=== PATIENT | male | born 1960 | race Caucasian/White ===

== ENCOUNTER 2019-03-14 17:20 | Emergency (ER) | payer OTHER ==
[2019-03-14] MEDS ORDERED: MORPHINE SULFATE 4 MG/ML SYRINGE IVP STA (17:59)
[2019-03-14] MEDS ORDERED: MORPHINE SULFATE 4 MG/ML SYRINGE IM STA (18:22)
--- NOTE | 2019-03-14 18:27 | XR ---
EXAMINATION TYPE: XR wrist complete LT DATE OF EXAM: 03/14/2019 COMPARISON: NONE HISTORY: Wrist pain TECHNIQUE: 4 views FINDINGS: There is narrowing and spurring at the scaphoid trapezium joint. This calcification in the triangular cartilage. There is some mild spurring at the first carpometacarpal joint. I see no fractu re nor dislocation. There is narrowing and sclerosis and spur formation at the third MP joint. IMPRESSION: Osteoarthritis. No fracture seen.
--- NOTE | 2019-03-14 19:06 | ED ---
General Adult HPI - General Chief complaint: Extremity Injury, Upper Stated complaint: lt wrist pain Time Seen by Provider: 03/14/19 17:44 Source: patient Mode of arrival: ambulatory - History of Present Illness Initial comments: Patient is 58-year-old male presenting to emergency Department for left wrist pain. Patient reports going to the chiropractor earlier today for shoulder treatment in the chiropractor also "cracked" his hand. Patient reports 2-3 hours later he suddenly developed excruciating pain in the left wrist. Patient reports the pain is stabbing and rates it a "15". Patient states the pain is alleviated with rest and exacerbated with any movement. Patient denies any numbness or tingling to the fingers. Patient reports that he is able to fully move his fingers. Patient denies taking any medication to alleviate the symptoms. Patient reports he has been to the chiropractor multiple times for the same treatment and has never experienced anything like this. - Related Data Home Medications Medication Instructions Recorded Confirmed Lisinopril [Zestril] 2.5 mg PO HS 05/18/16 03/14/19 Metoprolol Tartrate [Lopressor] 50 mg PO BID 05/18/16 03/14/19 Pravastatin Sodium [Pravachol] 40 mg PO DAILY 05/18/16 03/14/19 Warfarin [Coumadin] 5 mg PO DAILY 05/18/16 03/14/19 Aspirin 81 mg PO DAILY 07/31/16 03/14/19 Previous Rx's Medication Instructions Recorded Clopidogrel [Plavix] 75 mg PO DAILY #90 tab 08/01/16 Allergies Allergy/AdvReac Type Severity Reaction Status Date / Time hydrocodone bitartrate Allergy Itching Verified 03/14/19 17:25 [From [facility]] Review of Systems ROS Statement: Those systems with pertinent positive or pertinent negative responses have been documented in the HPI. ROS Other: All systems not noted in ROS Statement are negative. 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 Past Anesthesia/Blood Transfusion Reactions: No Reported Reaction Past Psychological History: No Psychological Hx Reported Smoking Status: Current every day smoker Past Alcohol Use History: Occasional Past Drug Use History: Marijuana - Past Family History Sister(s) Family Medical History: Cancer Father Family Medical History: Asthma, Hypertension, Myocardial Infarction ([place]) Additional Family Medical History / Comment(s): EMPHYSEMA, FROM [place] AT AGE 50 Mother Family Medical History: Congestive Heart Failure (CHF) Additional Family Medical History / Comment(s): AT AGE 83 FROM CHF General Exam Limitations: no limitations General appearance: alert, in no apparent distress Head exam: Present: atraumatic, normocephalic, normal inspection Eye exam: Present: normal appearance Neck exam: Present: normal inspection Respiratory exam: Present: normal lung sounds bilaterally Cardiovascular Exam: Present: regular rate, normal rhythm, normal heart sounds Left Shoulder Exam: Present: normal inspection, full ROM Upper Arm exam: Present: normal inspection, full ROM Elbow exam: Present: normal inspection, full ROM Forearm Wrist exam: Absent: tenderness over anatomical snuff box Hand Wrist exam: Present: tenderness (Severe on posterior aspect of the pain.), swelling (Mild on posterior aspect of hand.). Absent: full ROM (Limited due to pain), abrasion, laceration, erythema, subungual hematoma Vascular: Present: normal capillary refill, radial pulse, ulnar pulse Neurological exam: Present: alert, oriented X3 Psychiatric exam: Present: normal affect, normal mood Skin exam: Present: warm, intact, normal color Course Vital Signs 03/14/19 17:23 Temperature 97.6 F Pulse Rate 22 L Respiratory 89 H Rate Blood Pressure 152/93 O2 Sat by Pulse 99 Oximetry Medical Decision Making - Medical Decision Making Patient is 58-year-old male presents emergency department with left wrist pain. Patient was given 4 mg of morphine to alleviate the pain. X-ray is negative for any acute fractures or dislocations. Patient advised to follow-up with orthopedics. Patient advised to alternate between Tylenol and ibuprofen for pain control. Patient advised to return to emergency department if symptoms worsen. Case discussed with physician. Disposition Clinical Impression: Wrist pain, acute Disposition: HOME SELF-CARE Condition: Stable Instructions (If sedation given, give patient instructions): Wrist Sprain (ED) Additional Instructions: Please alternate between Tylenol and ibuprofen for pain control. Please follow- up with orthopedics. Please return to emergency department if symptoms worsen. Is patient prescribed a controlled substance at d/c from ED?: No Referrals: Viktoriya Curiel MD [Primary Care Provider] - 1-2 days Lai Shetty MD [STAFF PHYSICIAN] - 1-2 days Time of Disposition: 19:07
[2019-03-14 19:10] VITALS: BP 123/78; PULSE 94; RESP 18; TEMP 97.7
== END 2019-03-14 19:15 | disposition home or self-care (01) ==
LOC: EC 17:20
DX: M25.532 Pain in left wrist (principal); E78.5 Hyperlipidemia, unspecified; I10 Essential (primary) hypertension; F17.200 Nicotine dependence, unspecified, uncomplicated; Z86.73 Personal history of transient ischemic attack (TIA), and cerebral infarction without residual deficits; Z79.82 Long term (current) use of aspirin; Z79.01 Long term (current) use of anticoagulants; Z79.899 Other long term (current) drug therapy; Z88.5 Allergy status to narcotic agent; Z53.8 Procedure and treatment not carried out for other reasons
CPT/HCPCS: 73110; 99283; 96372; J2270

== ENCOUNTER → 2021-06-04 | Outpatient (CLI) | payer OTHER ==
--- NOTE | 2021-06-04 10:57 | MR ---
EXAMINATION TYPE: MR lumbar spine wo con DATE OF EXAM: 06/04/2021 COMPARISON: 08/04/2020 HISTORY: Low back pain into left side TECHNIQUE: T1 and T2 axial and sagittal images of the lumbar spine are submitted. FINDINGS: There is no abnormal signal seen within the visualized spinal cord or paraspinal soft tissu es. Simple appearing right renal cysts are incidentally noted. At L1-2 there is hypertrophic change of the facets. No canal stenosis or foraminal encroachment. No d isc herniation. At L2-3 there is mild degenerative disc disease with hypertrophic change of the facets. No canal sten osis or foraminal encroachment. At L3-4 there is mild degenerative disc disease with right paracentral broad-based disc bulging. Ther e is mild right neural foraminal encroachment. At L4-5 there is severe degenerative disc disease with broad-based disc protrusion resulting in moder ate anterior compression of the thecal sac. There is a greater left paracentral component suggestive of a extruded disc herniation extending into the left lateral recess. There is facet arthropathy. Mod erate left and mild right neural foraminal encroachment. At L5-S1 there is degenerative disc disease with broad-based central and right paracentral disc bulgi ng. Mild bilateral foraminal encroachment. Hypertrophic change of the facets. IMPRESSION: 1. At L4-L5 there is broad-based disc protrusion or herniation resulting in canal stenosis with a gre ater left paracentral component suggestive of a extruded disc herniation extending near the region of the left lateral recess. 2. Multilevel degenerative disc disease with right paracentral disc bulging L3-L4 with mild right for aminal encroachment. 3. Central and right paracentral disc bulging L5-S1 with mild bilateral foraminal encroachment.
--- NOTE | 2021-06-04 11:24 | CTL ---
EXAMINATION TYPE: CT Low Dose Lung DATE OF EXAM ORDERED: 06/04/2021 HISTORY: Z87.891 Personal history of nicotine dependence . Lung cancer screening CT DLP: 152.[address] CTDI: 4.1 mGy Automated exposure control for dose reduction was used. SCREENING VISIT: 1 COMPARISON: CT 07/31/2016 TECHNIQUE: Low dose computed tomography scan was performed through the chest at 1 mm thick sections a nd reconstructed images in the coronal plane at [address] DIAGNOSTIC QUALITY: Satisfactory FINDINGS: LUNG NODULES: Present, detailed below: Calcified subpleural pulmonary nodule axial image 76 is stable and benign as is calcified subpleural nodule on axial image 85 the right upper lobe and calcified nodule axial image 94 right upper lobe. M ultiple additional calcified right and left lung nodules are present and stable. No suspicious nodule s. LUNGS: COPD: Severity: Mild Fibrosis: Severity: Severe, there is honeycombing present in the subpleural locations, extensive inte rstitial changes with interlobular septal pleural lines somewhat greater in the upper lobes than lowe r lobes. Lymph nodes: None Other findings: Calcified hilar nodes are present, subcarinal node also calcified RIGHT PLEURAL SPACE: Effusion: None Calcification: None Thickening: None Pneumothorax: None LEFT PLEURAL SPACE: Effusion: None Calcification: None Thickening: None Pneumothorax: None HEART: Heart Size: Normal Coronary calcification: Mild to moderate Pericardial effusion: None OTHER FINDINGS: Upper abdomen: Calcified splenic nodule, liver nodules present Bony thorax: Supraclavicular region: Other: There is a hiatal hernia present. IMPRESSION: Benign, lung rad 2 CT LUNG RAD AND CT CHEST RECOMMENDATION: CHEST CT in one year S Modifier (other clinically significant findings): S, significant interstitial lung disease has prog ressed in the interval, consider pulmonary consult
== END | disposition home or self-care (01) ==
LOC: RADCTMAIN 09:49
PROVIDERS: ATTEND Internal Medicine
DX: Z12.2 Encounter for screening for malignant neoplasm of respiratory organs (principal); J84.89 Other specified interstitial pulmonary diseases; R91.8 Other nonspecific abnormal finding of lung field; M48.061 Spinal stenosis, lumbar region without neurogenic claudication; M51.17 Intervertebral disc disorders with radiculopathy, lumbosacral region; Z87.891 Personal history of nicotine dependence
CPT/HCPCS: 71271; 72148

== ENCOUNTER → 2021-06-04 | Outpatient (CLI) | payer OTHER | END | disposition home or self-care (01) | LOC: RADMRIMAIN 09:43 | PROVIDERS: ATTEND Physician Assistant | DX: Z53.9 Procedure and treatment not carried out, unspecified reason (principal) ==

== ENCOUNTER → 2021-07-14 | Outpatient (CLI) | payer OTHER ==
[2021-07-15 14:31] LABS: Alt. alternata IgE Class CLASS 0; Alternaria alternata IgE <0.10 kU/L (<0.10); Asperg. fumagatus IgE <0.10 kU/L (<0.10); Asperg. fumagatus IgE Class CLASS 0; Candida albicans IgE Class CLASS 0; Clad herbarum IgE <0.10 kU/L (<0.10); Clad herbarum IgE Class CLASS 0; Latex IgE Class CLASS 0; Mucor racemosus IgE <0.10 kU/L (<0.10); Mucor racemosus IgE Class CLASS 0; Penicillium chrysogenum IgE <0.10 kU/L (<0.10); Penicillium chrysogenum IgE Cl CLASS 0
[2021-07-16 13:19] LABS: Alpha 1 Anti-Trypsin 139 mg/dL (90 - 200)
== END | disposition home or self-care (01) ==
LOC: LABWHC1 12:10
PROVIDERS: ATTEND Internal Medicine Sleep Medicine
DX: E88.01 Alpha-1-antitrypsin deficiency (principal); B44.81 Allergic bronchopulmonary aspergillosis
CPT/HCPCS: 36415; 82103; 82104; 86001; 86003; 86606; 86609

== ENCOUNTER → 2021-09-24 | Outpatient (CLI) | payer OTHER | END | disposition home or self-care (01) | LOC: LABWHC1 12:42 | PROVIDERS: ATTEND Internal Medicine | DX: Z20.822 Contact with and (suspected) exposure to COVID-19 (principal) | CPT/HCPCS: U0003; C9803 ==

== ENCOUNTER 2021-09-30 13:04 | Inpatient (IN) | payer OTHER ==
--- NOTE | 2021-09-30 14:28 | XR ---
EXAMINATION TYPE: XR chest 2V DATE OF EXAM: 09/30/2021 COMPARISON: Chest x-ray September 18, 2014 HISTORY: Cough and fever TECHNIQUE: Frontal and lateral views of the chest are obtained. FINDINGS: There are new multifocal reticular increased opacities greatest in the periphery and great est in the left lung. The cardiac silhouette size remains within normal limits. The osseous struct ures are intact. IMPRESSION: New Bilateral left greater than right reticular increased opacities greatest in the perip john consistent with covid-19 infection.
[2021-09-30] MEDS ORDERED: IPRATROPIUM-ALBUTEROL 3 ML NEB INHALATION STA (15:37)
[2021-09-30] MEDS ORDERED: methylPREDNISolone SOD SUCCI 125 MG/2 ML VIAL IV STA (15:37)
[2021-09-30] MEDS ORDERED: SODIUM CHLORIDE 0.9% 1,000 ML IV STA ×2 (15:37→16:41)
[2021-09-30 16:04] LABS: Basophils # (A) 0.1 k/uL (0-0.2); Basophils % (A) 1 %; Eosinophils # (A) 0.1 k/uL (0-0.7); Eosinophils % (A) 2 %; HCT 46.6 % (39.0-53.0); HGB 15.8 gm/dL (13.0-17.5); Lymphocytes # (A) 1.3 k/uL (1.0-4.8); Lymphocytes % (A) 18 %; MCH 30.7 pg (25.0-35.0); MCHC 33.9 g/dL (31.0-37.0); MCV 90.6 fL (80.0-100.0); Mean Platelet Volume 6.9; Monocytes # (A) 0.7 k/uL (0-1.0); Monocytes % (A) 9 %; Neutrophils # (A) 4.7 k/uL (1.3-7.7); Neutrophils % (A) 67 %; Platelet Count 355 k/uL (150-450); RBC 5.15 m/uL (4.30-5.90); RDW 14.6 % (11.5-15.5); WBC 7.1 k/uL (3.8-10.6)
[2021-09-30 16:16] LABS: Calcium 8.7 mg/dL (8.4-10.2); Magnesium 1.8 mg/dL (1.6-2.3)
[2021-09-30] MEDS ORDERED: AZITHROMYCIN 500 MG in SODIUM CHLORIDE 0.9% 250 ML IVPB STA (16:39)
[2021-09-30] MEDS ORDERED: cefTRIAXone IN SWFI 1,000 MG/10 ML SYRINGE IVP STA (16:39)
[2021-09-30] MEDS ORDERED: NALOXONE 0.4 MG/ML 1 ML VIAL IV PRN (16:41)
[2021-09-30] MEDS ORDERED: IBUPROFEN 400 MG TAB PO PRN (16:41)
--- NOTE | 2021-09-30 16:54 | ED ---
General Adult HPI - General Chief complaint: Upper Respiratory Infection Stated complaint: no taste/not eating/dizziness Time Seen by Provider: 09/30/21 15:08 Source: family, RN notes reviewed, old records reviewed Mode of arrival: ambulatory Limitations: no limitations - History of Present Illness Initial comments: Patient is a 61-year-old male with past medical history remarkable for emphysema, CVA, afib on coumadin, hypertension who was a prior smoker presents emergency Department with worsening fatigue, mild nonproductive cough, loss of appetite, decreased by mouth intake over the course of the past 3 weeks. He denies any chest pain, shortness of breath. Denies any lower extremity edema, orthopnea, paroxysmal nocturnal dyspnea. Denies any abdominal pain, nausea, diarrhea. States he feels "dry". He is concerned regarding infectious etiology as he also has rhinorrhea. Patient presents for further evaluation. Patient was vaccinated for COVID-19.Patient states a few times over the last few weeks, when he stands up he does feel lightheaded but this passes. Denies any dizziness, vertiginous symptoms. Cell states that he has not been eating or drinking much attributes it to this. Has any syncopal episodes, blurry vision, sensory deficits or weakness otherwise. - Related Data Home Medications Medication Instructions Recorded Confirmed Warfarin [Coumadin] 5 mg PO HS 05/18/16 09/30/21 Albuterol Nebulized [Ventolin 2.5 mg INHALATION RT-Q8H PRN 09/30/21 09/30/21 Nebulized] Aspirin 81 mg PO HS 09/30/21 09/30/21 Atorvastatin [Lipitor] 40 mg PO HS 09/30/21 09/30/21 Budesonide [Pulmicort] 0.5 mg INHALATION RT-BID 09/30/21 09/30/21 DULoxetine HCL [Cymbalta] 60 mg PO HS 09/30/21 09/30/21 Ipratropium-Albuterol Nebulize 3 ml INHALATION RT-QID 09/30/21 09/30/21 [Duoneb 0.5 mg-3 mg/3 ml Soln] Lisinopril-Hctz 10-12.5 mg 1 tab PO HS 09/30/21 09/30/21 [Zestoretic 10-12.5] Metoprolol Succinate (ER) [Toprol 50 mg PO HS 09/30/21 09/30/21 Xl] Montelukast Sodium [Singulair] 10 mg PO HS 09/30/21 09/30/21 Omeprazole 20 mg PO HS 09/30/21 09/30/21 Allergies Allergy/AdvReac Type Severity Reaction Status Date / Time hydrocodone bitartrate Allergy Itching Verified 09/30/21 17:03 [From [facility]] Review of Systems ROS Statement: Those systems with pertinent positive or pertinent negative responses have been documented in the HPI. Review of Systems: CONST: Endorses fatigue EYES: Denies blurry vision ENT: Endorses rhinorrhea C/V: Denies Chest pain RESP: Denies shortness of breath GI: Denies abdominal pain : Denies dysuria SKIN: Denies rash. MSK: Denies joint pain. NEURO: Denies headache ROS Other: All systems not noted in ROS Statement are negative. 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 Past Anesthesia/Blood Transfusion Reactions: No Reported Reaction Past Psychological History: No Psychological Hx Reported Past Alcohol Use History: Occasional Past Drug Use History: Marijuana - Past Family History Sister(s) Family Medical History: Cancer Father Family Medical History: Asthma, Hypertension, Myocardial Infarction ([place]) Additional Family Medical History / Comment(s): EMPHYSEMA, FROM [place] AT AGE 50 Mother Family Medical History: Congestive Heart Failure (CHF) Additional Family Medical History / Comment(s): AT AGE 83 FROM CHF General Exam - General Exam Comments Initial Comments: General: Appears in no acute distress. HEAD: Normal with no signs of head trauma. EYES: PERRLA, EOMI, conjunctiva normal, no discharge. ENT: Hearing grossly intact, normal oropharynx. Dry mucous membranes. RESPIRATORY: Bilateral end expiratory wheezing. No obvious rhonchi. Not hypoxic. No increased work of breathing. C/V: Regular rate and rhythm. S1 and S2 auscultated, no edema, peripheral pulses 2+ and intact throughout ABD: Abd is soft, nontender, nondistended EXT: Normal range of motion, no obvious deformity SKIN: No rashes or lesions observed on exposed skin. NEURO: Alert and oriented x 4. Cranial nerves II-XII intact. No focal sensory or strength deficits. Cerebellar function is intact as evident but normal f joe-nose testing. NIH is 0. GCS is 15. Limitations: no limitations Course Vital Signs 09/30/21 09/30/21 09/30/21 13:46 16:01 16:08 Temperature 97.6 F Pulse Rate 101 H 60 70 Respiratory 19 16 18 Rate Blood Pressure 96/65 O2 Sat by Pulse 96 Oximetry 09/30/21 19:35 Temperature 97.0 F L Pulse Rate 86 Respiratory 22 Rate Blood Pressure 121/87 O2 Sat by Pulse 95 Oximetry Medical Decision Making - Medical Decision Making Based on the patient's presentation and physical exam, I'm concerned for acute dehydration this patient and Possibly pneumonia. Patient already received COVID-19 swab as well as chest x-ray in triage. COVID-19 swab was negative. Chest x-ray did show bilateral pulmonary infiltrates suspicious for COVID-19. [address], patient is not hypoxic, and is on week 3 of symptoms or does not meet criteria for monoclonal antibody therapy if it were Covid 19. However due to his persistent symptoms, as well as reduced by mouth intake and concern for dehydration, we will obtain basic laboratory studies to assess kidney function and hydration status. Patient was in agreement this plan. Screening EKG will be obtained. He'll be given a 1 L fluid bolus,, IV steroids, as well as breathing treatments. Laboratory studies were remarkable for a hyponatremia of 124 with hypochloremia of 88. Patient is an [place] I with be 124 and creatinine of 1.5. Remainder the labs are unremarkable. EKG revealed known atrial fibrillation. Reevaluation come patient is feeling mildly improved. Wheezing is improved. I did recommend that we admit him to the hospital for further monitoring, breathing treatments, as well as IV hydration. Patient was in agreement with this plan. I spoke with the admitting team, BREN Rodríguez [facility] accepted the patient. Patient was therefore admitted to observation in stable condition. I consulted pulmonology for evaluation. He was started on a one-time dose of Rocephin and azithromycin to cover for the possibility of bacterial pneumonia, however chest x-ray does follow more viral picture. He'll be further reevaluated tomorrow. - Lab Data Result diagrams: 09/30/21 15:43 09/30/21 15:43 Lab Results 09/30/21 09/30/21 09/30/21 Range/Units 13:51 15:43 15:43 WBC 7.1 (3.8-10.6) k/uL RBC 5.15 (4.30-5.90) m/uL Hgb 15.8 (13.0-17.5) gm/dL Hct 46.6 (39.0-53.0) % MCV 90.6 (80.0-100.0) fL MCH 30.7 (25.0-35.0) pg MCHC 33.9 (31.0-37.0) g/dL RDW 14.6 (11.5-15.5) % Plt Count 355 (150-450) k/uL MPV 6.9 Neutrophils % 67 % Lymphocytes % 18 % Monocytes % 9 % Eosinophils % 2 % Basophils % 1 % Neutrophils # 4.7 (1.3-7.7) k/uL Lymphocytes # 1.3 (1.0-4.8) k/uL Monocytes # 0.7 (0-1.0) k/uL Eosinophils # 0.1 (0-0.7) k/uL Basophils # 0.1 (0-0.2) k/uL Sodium 124 L (137-145) mmol/L Potassium 4.0 (3.5-5.1) mmol/L Chloride 88 L (98-107) mmol/L Carbon Dioxide 28 (22-30) mmol/L Anion Gap 8 mmol/L BUN 24 H (9-20) mg/dL Creatinine 1.50 H (0.66-1.25) mg/dL Est GFR (CKD-EPI)AfAm 57 (>60 ml/min/1.73 sqM) Est GFR (CKD-EPI)NonAf 49 (>60 ml/min/1.73 sqM) Glucose 99 (74-99) mg/dL Calcium 8.7 (8.4-10.2) mg/dL Magnesium 1.8 (1.6-2.3) mg/dL Coronavirus (PCR) Not Detected (Not Detectd) - EKG Data -: EKG Interpreted by Me EKG Comments: 12-lead Electrocardiogram Interpretation Note EKG was reviewed and interpreted by myself. 12-lead ECG performed at 1718 is interpreted by me as revealing atrial fibrillation rate controlled at a rate of 88 beats per minute. [place] is normal. [place] interval is unobtainable, QRS duration is 84 ms, QTc is 474 ms.. There were no ST or T wave abnormalities to suggest myocardial ischemia or injury. R wave progression across the precordium was satisfactory. By my interpretation this EKG is non-diagnostic for acute ischemia. Disposition Clinical Impression: Dehydration, Pneumonia, MALCOLM (acute kidney injury) Disposition: ADMITTED IP TO THIS HOSP Condition: Stable
[2021-09-30 17:44] LABS: Prothrombin Time 53.6 sec (9.0-12.0)
[2021-09-30 17:50] LABS: INR 5.5 (<1.2)
[2021-09-30] MEDS ORDERED: IPRATROPIUM-ALBUTEROL 3 ML NEB INHALATION SCH (20:00)
[2021-09-30] MEDS ORDERED: IPRATROPIUM-ALBUTEROL 3 ML NEB INHALATION PRN (20:38)
[2021-09-30] MEDS: methylPREDNISolone SOD SUCCI 40 MG/ML 1 ML VIAL IV SCH (21:19)
[2021-09-30] MEDS: METOPROLOL TARTRATE 50 MG TAB PO SCH (21:19)
[2021-10-01] MEDS: methylPREDNISolone SOD SUCCI 40 MG/ML 1 ML VIAL IV SCH ×4 (03:57→21:18)
[2021-10-01] MEDS: IPRATROPIUM-ALBUTEROL 3 ML NEB INHALATION SCH ×4 (07:23→19:47)
[2021-10-01 07:37] LABS: Prothrombin Time 57.3 sec (9.0-12.0)
[2021-10-01 08:06] LABS: INR 5.9 (<1.2)
[2021-10-01] MEDS: SODIUM CHLORIDE 0.9% 1,000 ML IV SCH ×2 (08:56→17:48)
[2021-10-01] MEDS: METOPROLOL TARTRATE 50 MG TAB PO SCH ×2 (08:56→20:40)
[2021-10-01] MEDS: CLOPIDOGREL 75 MG TAB PO SCH (08:57)
[2021-10-01] MEDS: ASPIRIN 81 MG PO SCH (08:57)
[2021-10-01] MEDS ORDERED: WARFARIN 5 MG TAB PO SCH (09:00)
[2021-10-01 09:46] LABS: Basophils # (A) 0 X 10*3/uL (0.00-0.10); Basophils % (A) 0 %; Eosinophils # (A) 0 X 10*3/uL (0.04-0.35); Eosinophils % (A) 0 %; HCT 43.3 % (39.6-50.0); HGB 15.1 g/dL (13.0-17.0); Lymphocytes # (A) 0.57 X 10*3/uL (0.90-5.00); Lymphocytes % (A) 10.8 %; MCH 30.3 pg (27.0-32.0); MCHC 34.9 g/dL (32.0-37.0); MCV 86.8 fL (80.0-97.0); Mean Platelet Volume 9.3 fL (9.5-12.2); Monocytes # (A) 0.19 X 10*3/uL (0.20-1.00); Monocytes % (A) 3.6 %; Neutrophils % (A) 85.2 %; Platelet Count 322 X 10*3/uL (140-440); RBC 4.99 X 10*6/uL (4.40-5.60); RDW 14.1 % (11.5-14.5); WBC 5.28 X 10*3/uL (4.50-10.00)
[2021-10-01 10:30] LABS: African American GFR (CKD) 82.4 (60.0-200.0); Anion Gap 12.7 mmol/L (10.00-18.00); BUN/Creat Ratio 16.55 Ratio (12.00-20.00); Blood Urea Nitrogen 18.2 mg/dL (9.0-27.0); Calcium 8.5 mg/dL (8.7-10.3); Carbon Dioxide 22.3 mmol/L (20.0-27.5); Magnesium 1.9 mg/dL (1.5-2.4); Non-African American GFR(CKD) 71.1 (60.0-200.0); Potassium 4.1 mmol/L (3.5-5.5)
[2021-10-01] MEDS ORDERED: RX INFO: IV CONTRAST WAS GIVEN 1 EACH MISC MISCELLANE PRN (12:02)
--- NOTE | 2021-10-01 12:02 | P.CNPUL ---
History of Present Illness Consult date: 10/01/21 Requesting physician: Hussain Casey Reason for consult: abnormal CXR/CT Chief complaint: Fatigue, weakness, loss of appetite History of present illness: This is a very pleasant 61-year-old gentleman who follows with Dr. Curiel as his primary care provider. He has a history of occasional alcohol use, tremors the right upper extremity, former smoker of 2 packs per day for 25 years, hypertension, hyperlipidemia all peripheral vascular disease with previous bilateral iliac stents vision, marijuana use, atrial fibrillation anticoagulated with warfarin. He presented here to the emergency room yesterday with complaints of a 3 week history of poor appetite, poor oral intake and feeling dehydrated. He denies any shortness of breath, cough or congestion. He is maintaining O2 saturations in the 90s on room air. Chest x-ray revealed some scarring. Initially suspected of CoVID. He is vaccinated. No booster. He is seen today in consultation on the regular medical floor. He sitting up in bed. Awake and alert in no acute distress. Continued on room air. I count 5.28. Hemoglobin 15.1. INR 5.9. Sodium initially 124, currently 129. Potassium 4.1. Creatinine initially 1.5, currently 1.1. Pro-calcitonin 0.07. Chronic virus by PCR not detected. The patient did have a low-dose computed tomography scan in May 2021 did reveal evidence of interstitial lung disease and honeycombing in the subpleural locations, extensive interstitial changes with interlobular septal pleural lines somewhat greater in the upper lobes. Mild COPD. No evidence of lung nodules. Review of Systems REVIEW OF SYSTEMS: CONSTITUTIONAL: Positive for poor appetite, poor oral intake, weight loss. EYES: Denies change in vision. EARS, NOSE, MOUTH, THROAT: Denies headaches, denies sore throat. CARDIOVASCULAR: Denies chest pain, palpitations or syncopal episodes. RESPIRATORY: Denies shortness of breath, cough, congestion or hemoptysis. GASTROINTESTINAL: Positive for decreased appetite, denies abdominal pain GENITOURINARY: Denies hematuria, denies infections. MUSKULOSKELETAL: Denies pain, denies swelling. INTEGUMENTARY: Denies rash, denies eczema. NEUROLOGICAL: Denies recent memory loss, no recent seizure activity. PSYCHIATRIC: Denies anxiety, denies depression. HEMATOLOGIC/LYMPHATIC: Denies anemia, denies enlarged lymph nodes. 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 ANGIOGRAM WITH LEELEE RUNOFF 05/25/16, ATTEMPTED PASTRY COOK APPRENTICE-, 07-31-16 LEELEE ILIAC STENTS. Past Anesthesia/Blood Transfusion Reactions: No Reported Reaction Past Psychological History: No Psychological Hx Reported Smoking Status: Current every day smoker Past Alcohol Use History: Occasional Additional Past Alcohol Use History / Comment(s): STATES DOWN FROM 2PPD TO 1/2 PPD. STARTED AGE 13 (1972) Past Drug Use History: Marijuana Additional Drug Use History / Comment(s): INSTRUCTED TO WITHOLD 24HRS PRIOR TO PROCEDURE - Past Family History Sister(s) Family Medical History: Cancer Father Family Medical History: Asthma, Hypertension, Myocardial Infarction ([place]) Additional Family Medical History / Comment(s): EMPHYSEMA, FROM [place] AT AGE 50 Mother Family Medical History: Congestive Heart Failure (CHF) Additional Family Medical History / Comment(s): AT AGE 83 FROM CHF Medications and Allergies Home Medications Medication Instructions Recorded Confirmed Type Warfarin [Coumadin] 5 mg PO HS 05/18/16 09/30/21 History Albuterol Nebulized [Ventolin 2.5 mg INHALATION RT-Q8H PRN 09/30/21 09/30/21 History Nebulized] Aspirin 81 mg PO HS 09/30/21 09/30/21 History Atorvastatin [Lipitor] 40 mg PO HS 09/30/21 09/30/21 History Budesonide [Pulmicort] 0.5 mg INHALATION RT-BID 09/30/21 09/30/21 History DULoxetine HCL [Cymbalta] 60 mg PO HS 09/30/21 09/30/21 History Ipratropium-Albuterol Nebulize 3 ml INHALATION RT-QID 09/30/21 09/30/21 History [Duoneb 0.5 mg-3 mg/3 ml Soln] Lisinopril-Hctz 10-12.5 mg 1 tab PO HS 09/30/21 09/30/21 History [Zestoretic 10-12.5] Metoprolol Succinate (ER) [Toprol 50 mg PO HS 09/30/21 09/30/21 History Xl] Montelukast Sodium [Singulair] 10 mg PO HS 09/30/21 09/30/21 History Omeprazole 20 mg PO HS 09/30/21 09/30/21 History Allergies Allergy/AdvReac Type Severity Reaction Status Date / Time hydrocodone bitartrate Allergy Itching Verified 09/30/21 17:03 [From [place]] Physical Exam Vitals: Vital Signs Temp Pulse Pulse Resp BP BP Pulse Ox 10/01/21 11:34 92 10/01/21 11:24 88 10/01/21 08:00 18 10/01/21 07:39 92 10/01/21 07:23 92 10/01/21 07:00 98.7 F 69 17 133/73 94 L 10/01/21 02:00 20 10/01/21 01:49 97.6 F 87 20 112/78 94 L 09/30/21 21:54 18 09/30/21 20:37 97.8 F 84 20 117/80 94 L 09/30/21 19:35 97.0 F L 86 22 121/87 95 09/30/21 16:08 70 18 09/30/21 16:01 60 16 09/30/21 13:46 97.6 F 101 H 19 96/65 96 Intake and Output 09/30/21 10/01/21 10/01/21 22:59 06:59 14:59 Intake Total 275 Balance 275 Intake: Oral 275 Other: Voiding Method Toilet Toilet # Voids 1 2 Weight 99.79 kg GENERAL EXAM: Alert, active, very pleasant 61-year-old gentleman, on room air, comfortable in no apparent distress. HEAD: Normocephalic. EYES: Normal reaction of pupils, equal size. NOSE: Clear with pink turbinates. THROAT: No erythema or exudates. NECK: No masses, no JVD. CHEST: No chest wall deformity. LUNGS: Equal air entry with coarse crackles in the posterior bases. CVS: S1 and S2 normal with no audible murmur, regular rhythm. ABDOMEN: No hepatosplenomegaly, normal bowel sounds, no guarding or rigidity. SPINE: No scoliosis or deformity SKIN: No rashes CENTRAL NERVOUS SYSTEM: No focal deficits, tone is normal in all 4 extremities. EXTREMITIES: There is no peripheral edema. Positive clubbing, no cyanosis. Peripheral pulses are intact. Results - Laboratory Findings CBC and BMP: 10/01/21 06:16 10/01/21 06:16 PT/INR, D-dimer PT 57.3 sec (9.0-12.0) H 10/01/21 06:16 INR 5.9 (<1.2) H* 10/01/21 06:16 Abnormal lab findings: Abnormal Labs 09/30/21 09/30/21 10/01/21 15:43 17:10 06:16 MPV 9.3 L Lymphocytes # 0.57 L Monocytes # 0.19 L Eosinophils # 0 L PT 53.6 H INR 5.5 H* Sodium 124 L Chloride 88 L BUN 24 H Creatinine 1.50 H Glucose Calcium 10/01/21 10/01/21 06:16 06:16 MPV Lymphocytes # Monocytes # Eosinophils # PT 57.3 H INR 5.9 H* Sodium 129 L Chloride 94 L BUN Creatinine Glucose 131 H Calcium 8.5 L - Diagnostic Findings Chest x-ray: image reviewed Assessment and Plan Assessment: 1 Acute renal failure secondary to poor oral intake and dehydration improved on normal saline at 75 ML's per hour 2 Hyponatremia secondary to above 3 Coagulopathy, INR supra therapeutic at 5.9 4 History of atrial fibrillation adequately regulated with warfarin 5 History of chronic obstructive pulmonary disease 6 Previous history of 25 years of smoking 2 packs per day 7 Interstitial lung disease noted on low-dose computed tomography scan of the chest May 2021 8 Hypertension 9 Hyperlipidemia 10 History of depression 11 History of peripheral vascular disease with previous bilateral iliac stent placement Plan: The patient was seen and evaluated today Chest x-ray and labs reviewed Creatinine improved with fluid resuscitation Suspect underlying ILD Computed tomography scan of the chest with contrast Remain stable and on room air He would benefit from outpatient pulmonary function testing to evaluate the severity of his COPD We will continue to follow and make further recommendations based on his clinical status I, the cosigning physician, performed a history & physical examination of the patient. Lungs sounds are coarse crackles in the posterior bases. Maintaining good O2 saturations in the 90s on room air. I discussed the assessment and plan of care with my nurse practitioner, Shyann Cole. I attest to the above consultation as dictated by her. Time with Patient: Greater than 30
--- NOTE | 2021-10-01 13:29 | CT ---
EXAMINATION TYPE: CT chest w con DATE OF EXAM: 10/01/2021 COMPARISON: CT chest 09/13/2021, chest x-ray 09/30/2021 HISTORY: IDL, mediastinal adenopathy CT DLP: 704.20 mGycm Automated exposure control for dose reduction was used. CONTRAST: CT scan of the chest is performed with IV Contrast, patient injected with 100ml mL of Isovue 300. FINDINGS: LUNGS: The lungs are stable, there is no concerning parenchymal mass or nodule identified, scattered calcified granuloma are present. Changes of pulmonary fibrosis are present bilaterally as noted on prior CT with subpleural honeycombing, reticular opacities consistent with idiopathic pulmonary fibr osis, irregular interlobular septal thickening and subpleural lines. There are some areas of groundgl ass opacity peripherally at the lung bases suggesting active disease. There is no pleural effusion or pneumothorax seen. The tracheobronchial tree is patent. MEDIASTINUM: Mediastinal adenopathy is again seen, the level of the left pulmonary artery the enlarge d node shows a short axis measurement of approximately 16 mm. Calcified right hilar nodes are present .. No pericardial effusion is seen. There are coronary artery calcifications. AORTA: No additional significant abnormality is seen. OTHER: Coarse calcifications are present within the liver left lobe which are indeterminate, probabl e granuloma within the spleen.. IMPRESSION: Findings consistent with idiopathic pulmonary fibrosis
[2021-10-01] MEDS: PRAVASTATIN SODIUM 40 MG TAB PO SCH (17:47)
[2021-10-01] MEDS ORDERED: WARFARIN 0.5 MG TAB PO ONE (18:30)
--- NOTE | 2021-10-01 22:22 | P.HPIM ---
History of Present Illness H&P Date: 10/01/21 Chief Complaint: Generalized weakness Patient is a 61-year-old male with a known history of hypertension, atrial fibrillation on Coumadin, hyperlipidemia, history of CVA/TIA with no residual weakness, peripheral vascular disease with previous bilateral iliac stents currently everyday smoker and marijuana use, history of alcohol abuse endophyte upper extremity tremors presents to ER with complaints of generalized weakness fatigue and loss of appetite and taste sensation. Patient has been having symptoms for the past 3 weeks. Patient lavon poor historian. Denied any com plaints of chest pain or shortness breath. No leg swelling. No orthopnea no PND. Denied any nausea vomiting or abdominal pain or diarrhea. Currently denies any dizziness or lightheadedness. Patient states that nothing tastes good and has not been eating very well over the last 3 weeks. Denied any blurred vision. No focal weakness. Chest x-ray showed new bilateral left greater than right reticular increased opacities greatest in the periphery consistent with COVID-19 infection. Laboratory showed sodium 124 potassium 4.0 chloride 88 BUN 24 and creatinine 1.5 and coronavirus PCR not detected.Patient is vaccinated. Procalcitonin level is 0.07 WBC 7.1 hemoglobin 10.8 and platelets 355 EKG showed atrial fibrillation. Heart rate 88. INR 5.5 Review of Systems Constitutional: Patient denies any fever or chills . Generalized weakness fatigu e and loss of appetite. Abdomen: Patient denied nausea vomiting and diarrhea and abdominal pain. Cardiovascular: Patient denies any chest pain or short of breath no palpitations. Respiratory: patient denied any cough or sputum production. No shortness of breath Neurologic: Patient denied any numbness or tingling headache. Musculoskeletal: Patient denies any complaints of joint swelling or deformity. Skin: Negative Psychiatric: Negative Endocrine: No heat or cold intolerance. No recent weight gain. Genitourinary: No dysuria or hematuria. All other 14 point ROS negative except the above Past Medical History Past Medical History: CVA/TIA, Hyperlipidemia, Hypertension, Vascular Disorder Additional Past Medical History / Comment(s): HAS DEVELPOED SOME NUMBNESS TO BACK OF LT HAND AND LT SHOULDER IS SORE SINCE MEDICAL STAFF COORDINATOR ATTEMPT 07/08/16, OCCASIONAL INVOLUNTARY RT ARM MOVEMENT, STATES HAS PROBLEMS WITH FOCUSING EYES History of Any Multi-Drug Resistant Organisms: None Reported Past Surgical History: Appendectomy, Orthopedic Surgery Additional Past Surgical History / Comment(s): RT FOOT SX X2, LEFT SHOULDER SX X2, RT SHOULDER SX X1, ABD. ANGIOGRAM WITH LEELEE RUNOFF 05/25/16, ATTEMPTED MEDICAL STAFF COORDINATOR- 07/08/16, 07-31-16 LEELEE ILIAC STENTS. Past Anesthesia/Blood Transfusion Reactions: No Reported Reaction Past Psychological History: No Psychological Hx Reported Smoking Status: Current every day smoker Past Alcohol Use History: Occasional Additional Past Alcohol Use History / Comment(s): STATES DOWN FROM 2PPD TO 1/2 PPD. STARTED AGE 13 (1972) Past Drug Use History: Marijuana Additional Drug Use History / Comment(s): INSTRUCTED TO WITHOLD 24HRS PRIOR TO PROCEDURE - Past Family History Sister(s) Family Medical History: Cancer Father Family Medical History: Asthma, Hypertension, Myocardial Infarction ([place]) Additional Family Medical History / Comment(s): EMPHYSEMA, FROM [place] AT AGE 50 Mother Family Medical History: Congestive Heart Failure (CHF) Additional Family Medical History / Comment(s): AT AGE 83 FROM CHF Medications and Allergies Home Medications Medication Instructions Recorded Confirmed Type Warfarin [Coumadin] 5 mg PO HS 05/18/16 09/30/21 History Albuterol Nebulized [Ventolin 2.5 mg INHALATION RT-Q8H PRN 09/30/21 09/30/21 History Nebulized] Aspirin 81 mg PO HS 09/30/21 09/30/21 History Atorvastatin [Lipitor] 40 mg PO HS 09/30/21 09/30/21 History Budesonide [Pulmicort] 0.5 mg INHALATION RT-BID 09/30/21 09/30/21 History DULoxetine HCL [Cymbalta] 60 mg PO HS 09/30/21 09/30/21 History Ipratropium-Albuterol Nebulize 3 ml INHALATION RT-QID 09/30/21 09/30/21 History [Duoneb 0.5 mg-3 mg/3 ml Soln] Lisinopril-Hctz 10-12.5 mg 1 tab PO HS 09/30/21 09/30/21 History [Zestoretic 10-12.5] Metoprolol Succinate (ER) [Toprol 50 mg PO HS 09/30/21 09/30/21 History Xl] Montelukast Sodium [Singulair] 10 mg PO HS 09/30/21 09/30/21 History Omeprazole 20 mg PO HS 09/30/21 09/30/21 History Allergies Allergy/AdvReac Type Severity Reaction Status Date / Time hydrocodone bitartrate Allergy Itching Verified 09/30/21 17:03 [From [place]] Physical Exam Vitals: Vital Signs Temp Pulse Pulse Resp BP BP Pulse Ox 10/01/21 08:00 18 10/01/21 07:39 92 10/01/21 07:23 92 10/01/21 07:00 98.7 F 69 17 133/73 94 L 10/01/21 02:00 20 10/01/21 01:49 97.6 F 87 20 112/78 94 L 09/30/21 21:54 18 09/30/21 20:37 97.8 F 84 20 117/80 94 L 09/30/21 19:35 97.0 F L 86 22 121/87 95 09/30/21 16:08 70 18 09/30/21 16:01 60 16 09/30/21 13:46 97.6 F 101 H 19 96/65 96 Intake and Output 09/30/21 10/01/21 10/01/21 22:59 06:59 14:59 Intake Total 275 Balance 275 Intake: Oral 275 Other: Voiding Method Toilet Toilet # Voids 1 2 Weight 99.79 kg PHYSICAL EXAMINATION: Patient is lying in the bed comfortably, no acute distress, awake alert and oriented.. HEENT: Normocephalic. Neck is supple. Pupils reactive. Nostrils clear. Oral cavity is moist. Neck reveals no JVD, carotid bruits, or thyromegaly. CHEST EXAMINATION: Trachea is central. Symmetrical expansion.Right basilar fine crackles. No wheezing. Lung kyle clear to auscultation and percussion. CARDIAC: Normal S1, S2 with no gallops. No murmurs ABDOMEN: Soft. Bowel sounds normal. No organomegaly. No abdominal bruits. Extremities: reveal no edema. No clubbing or cyanosis Neurologically awake, alert, oriented x3 with well-coordinated movements. No focal deficits noted Skin: No rash or skin lesions. Psychiatric: Cooperative. Nonsuicidal Musculoskeletal: No joint swelling or deformity. Normal range of motion. Results CBC & Chem 7: 10/01/21 06:16 10/01/21 06:16 Labs: Abnormal Lab Results - Last 24 Hours (Table) 09/30/21 09/30/21 10/01/21 Range/Units 15:43 17:10 06:16 MPV 9.3 L (9.5-12.2) fL Lymphocytes # 0.57 L (0.90-5.00) X 10*3/uL Monocytes # 0.19 L (0.20-1.00) X 10*3/uL Eosinophils # 0 L (0.04-0.35) X 10*3/uL PT 53.6 H (9.0-12.0) sec INR 5.5 H* (<1.2) Sodium 124 L (137-145) mmol/L Chloride 88 L (98-107) mmol/L BUN 24 H (9-20) mg/dL Creatinine 1.50 H (0.66-1.25) mg/dL Glucose (70-110) mg/dL Calcium (8.7-10.3) mg/dL 10/01/21 10/01/21 Range/Units 06:16 06:16 MPV (9.5-12.2) fL Lymphocytes # (0.90-5.00) X 10*3/uL Monocytes # (0.20-1.00) X 10*3/uL Eosinophils # (0.04-0.35) X 10*3/uL PT 57.3 H (9.0-12.0) sec INR 5.9 H* (<1.2) Sodium 129 L (137-145) mmol/L Chloride 94 L (98-107) mmol/L BUN (9-20) mg/dL Creatinine (0.66-1.25) mg/dL Glucose 131 H (70-110) mg/dL Calcium 8.5 L (8.7-10.3) mg/dL Thrombosis Risk Factor Assmnt - DVT/VTE Prophylaxis DVT/VTE Prophylaxis: Pharmacologic Prophylaxis ordered Assessment and Plan Assessment: Generalized weakness and fatigue and loss of appetite and taste sensation. Acute kidney injury likely prerenal with poor oral intake. Hypovolemic hyponatremia Coumadin coagulopathy Chronic atrial fibrillation on anticoagulation with Coumadin. Coumadin coagulopathy with INR 5.5 on admission Peripheral vascular disease history of bilateral iliac stents. Previous history of smoking COPD Interstitial lung disease noted low-dose CT chest in May 2021 Hypertension Hyperlipidemia Depression DVT prophylaxis patient is already on Coumadin Plan: Patient will be continued on telemetry monitoring. Continue with IV hydration and monitor renal function. Improving currently. Coumadin is on hold and follow-up INR level. CT chest with contrast was ordered with suspected ILD Continue with duo nebs and home blood pressure medications and follow-up closely. Pulmonary is on board. Time with Patient: Greater than 30
[2021-10-02] MEDS: SODIUM CHLORIDE 0.9% 1,000 ML IV SCH ×2 (00:24→08:46)
[2021-10-02 02:09] VITALS: BP 122/78; TEMP 97.4
[2021-10-02] MEDS: methylPREDNISolone SOD SUCCI 40 MG/ML 1 ML VIAL IV SCH ×2 (03:48→08:46)
[2021-10-02 07:33] LABS: INR 4.7 (<1.2); Prothrombin Time 45.3 sec (9.0-12.0)
[2021-10-02] MEDS: IPRATROPIUM-ALBUTEROL 3 ML NEB INHALATION SCH ×2 (07:56→12:06)
[2021-10-02 07:57] VITALS: PULSE 92
[2021-10-02] MEDS: PRAVASTATIN SODIUM 40 MG TAB PO SCH (08:05)
[2021-10-02] MEDS: ASPIRIN 81 MG PO SCH (08:05)
[2021-10-02] MEDS: METOPROLOL TARTRATE 50 MG TAB PO SCH (08:05)
[2021-10-02] MEDS: CLOPIDOGREL 75 MG TAB PO SCH (08:05)
[2021-10-02 11:13] LABS: Basophils # (A) 0.02 X 10*3/uL (0.00-0.10); Basophils % (A) 0.1 %; Eosinophils # (A) 0 X 10*3/uL (0.04-0.35); Eosinophils % (A) 0 %; HGB 14.5 g/dL (13.0-17.0); Lymphocytes # (A) 0.46 X 10*3/uL (0.90-5.00); Lymphocytes % (A) 2.9 %; MCH 29.7 pg (27.0-32.0); MCV 90.2 fL (80.0-97.0); Monocytes # (A) 0.82 X 10*3/uL (0.20-1.00); Monocytes % (A) 5.2 %; Platelet Count 377 X 10*3/uL (140-440); RBC 4.88 X 10*6/uL (4.40-5.60); RDW 14.5 % (11.5-14.5); WBC 15.63 X 10*3/uL (4.50-10.00)
[2021-10-02 11:43] VITALS: RESP 20
[2021-10-02 12:35] LABS: African American GFR (CKD) 93.8 (60.0-200.0); BUN/Creat Ratio 15.49 Ratio (12.00-20.00); Blood Urea Nitrogen 15.3 mg/dL (9.0-27.0); Calcium 8.4 mg/dL (8.7-10.3); Carbon Dioxide 21.8 mmol/L (20.0-27.5); Chloride 97 mmol/L (96-109); Glucose 126 mg/dL (70-110); Non-African American GFR(CKD) 80.9 (60.0-200.0); Potassium 4.2 mmol/L (3.5-5.5); Sodium 133 mmol/L (135-145)
--- NOTE | 2021-10-02 12:42 | P.PN ---
Subjective Progress Note Date: 10/02/21 Principal diagnosis: COPD, interstitial lung disease This is a very pleasant 61-year-old gentleman who follows with Dr. Curiel as his primary care provider. He has a history of occasional alcohol use, tremors the right upper extremity, former smoker of 2 packs per day for 25 years, hypertension, hyperlipidemia all peripheral vascular disease with previous bilateral iliac stents vision, marijuana use, atrial fibrillation anticoagulated with warfarin. He presented here to the emergency room yesterday with complaints of a 3 week history of poor appetite, poor oral intake and feeling dehydrated. He denies any shortness of breath, cough or congestion. He is maintaining O2 saturations in the 90s on room air. Chest x-ray revealed some scarring. Initially suspected of CoVID. He is vaccinated. No booster. He is seen today in consultation on the regular medical floor. He sitting up in bed. Awake and alert in no acute distress. Continued on room air. I count 5.28. Hemoglobin 15.1. INR 5.9. Sodium initially 124, currently 129. Potassium 4.1. Creatinine initially 1.5, currently 1.1. Pro-calcitonin 0.07. Chronic virus by PCR not detected. The patient did have a low-dose computed tomography scan in May 2021 did reveal evidence of interstitial lung disease and honeycombing in the subpleural locations, extensive interstitial changes with interlobular septal pleural lines somewhat greater in the upper lobes. Mild COPD. No evidence of lung nodules. The patient is seen today 10/02/2021 in follow-up on the regular medical floor. He is currently sitting up in bed. Awake and alert in no acute distress. He is maintaining O2 saturations in the low 90s on 4 L/m per nasal cannula. He does desaturate to 88% on room air with ambulation. Computed tomography scan of the chest revealed findings consistent with idiopathic pulmonary fibrosis. White count 15.6. Hemoglobin 14.5. INR 4.7. Sodium 133. Potassium 5.2. Calcitonin 0.07. TSH 0.5. He is continued on DuoNeb inhalations, IV Solu-Medrol, warfarin. Objective - Vital Signs Vital signs: Vital Signs Temp 97.4 F L 10/02/21 07:52 Pulse 92 10/02/21 08:08 Resp 20 10/02/21 11:43 BP 122/78 10/02/21 07:52 Pulse Ox 88 L 10/02/21 11:43 Intake & Output 10/01/21 10/02/21 10/02/21 18:59 06:59 18:59 Intake Total 595 222 Balance 595 222 Intake: Oral 595 222 Other: Voiding Method Toilet # Voids 2 2 # Bowel Movements 1 - Exam GENERAL EXAM: Alert, very pleasant 61-year-old gentleman, on 4 L nasal cannula, comfortable in no apparent distress. HEAD: Normocephalic. EYES: Normal reaction of pupils, equal size. NOSE: Clear with pink turbinates. THROAT: No erythema or exudates. NECK: No masses, no JVD. CHEST: No chest wall deformity. LUNGS: Equal air entry with coarse crackles in the posterior bases. CVS: S1 and S2 normal with no audible murmur, regular rhythm. ABDOMEN: No hepatosplenomegaly, normal bowel sounds, no guarding or rigidity. SPINE: No scoliosis or deformity SKIN: No rashes CENTRAL NERVOUS SYSTEM: No focal deficits, tone is normal in all 4 extremities. EXTREMITIES: There is no peripheral edema. Positive clubbing, no cyanosis. Peripheral pulses are intact. - Labs CBC & Chem 7: 10/02/21 06:33 10/02/21 06:33 Labs: Abnormal Lab Results - Last 24 Hours (Table) 10/02/21 10/02/21 10/02/21 Range/Units 06:33 06:33 06:33 WBC 15.63 H (4.50-10.00) X 10*3/uL MPV 9.0 L (9.5-12.2) fL Immature Gran # 0.13 H (0.00-0.04) X 10*3/uL Neutrophils # 14.20 H (1.80-7.70) X 10*3/uL Lymphocytes # 0.46 L (0.90-5.00) X 10*3/uL Eosinophils # 0 L (0.04-0.35) X 10*3/uL PT 45.3 H (9.0-12.0) sec INR 4.7 H (<1.2) Sodium 133 L (135-145) mmol/L Glucose 126 H (70-110) mg/dL Calcium 8.4 L (8.7-10.3) mg/dL Assessment and Plan Assessment: 1 Acute renal failure secondary to poor oral intake and dehydration improved on normal saline at 75 ML's per hour. Creatinine 1.0. 2 Hyponatremia secondary to above improved with sodium of 133 3 Coagulopathy, INR supra therapeutic at 4.7 4 History of atrial fibrillation adequately regulated with warfarin 5 History of chronic obstructive pulmonary disease 6 Previous history of 25 years of smoking 2 packs per day 7 Interstitial lung disease noted on low-dose computed tomography scan of the chest May 2021 8 Hypertension 9 Hyperlipidemia 10 History of depression 11 History of peripheral vascular disease with previous bilateral iliac stent placement Plan: The patient was seen and evaluated today Computed tomography scan of the chest and labs reviewed Positive for idiopathic pulmonary fibrosis Will be considered for outpatient workup including lung biopsy and possible Esbr iet or Ofev medication May require home oxygen Outpatient pulmonary function testing to evaluate the severity of his COPD Follow up with Dr. Bush in the office in 1-2 weeks' I, the cosigning physician, performed a history & physical examination of the patient. Lungs sounds are coarse crackles in the posterior bases. Maintaining good O2 saturations in the 90s on 4 L/m. I discussed the assessment and plan of care with my nurse practitioner, Shyann Cole. I attest to the above note as dictated by her.
[2021-10-02] MEDS ORDERED: WARFARIN 0.5 MG TAB PO ONE (18:00)
--- NOTE | 2021-10-03 09:05 | P.DS ---
Providers Date of admission: 10/01/21 10:22 Expected date of discharge: 10/02/21 Attending physician: Hussain Casey Consults: 09/30/21 16:42 Consult Physician Routine Consulting Provider: Yesi Bush Consult Reason/Comments: copd exacerbation, viral pneumonia, covid negative Do you want consulting provider notified?: Yes Primary care physician: Viktoriya Curiel Hospital Course: Final diagnosis Generalized weakness and fatigue and loss of appetite and taste sensation. Acute kidney injury likely prerenal with poor oral intake. Hypovolemic hyponatremia Coumadin coagulopathy Chronic atrial fibrillation on anticoagulation with Coumadin. Coumadin coagulopathy with INR 5.5 on admission Peripheral vascular disease history of bilateral iliac stents. Previous history of smoking COPD Interstitial lung disease noted low-dose CT chest in May 2021 Hypertension Hyperlipidemia Depression DVT prophylaxis Full code Discharge disposition Patient is being discharged in a stable condition with guarded prognosis to home. Patient will follow-up with Dr. Curiel in the outpatient setting upon discharge. Patient is to follow-up with pulmonary Dr. Bush are in 2-3 weeks for further testing. Patient will require oxygen via nasal cannula at 4 L secondary to COPD and pulmonary fibrosis. Total time taken is greater than 35 minutes. Hospital course Patient is a 61-year-old male with a known history of hypertension, atrial fibrillation on Coumadin, hyperlipidemia, history of CVA/TIA with no residual weakness, peripheral vascular disease with previous bilateral iliac stents curre ntly everyday smoker and marijuana use, history of alcohol abuse endophyte upper extremity tremors presents to ER with complaints of generalized weakness fatigue and loss of appetite and taste sensation. Patient has been having symptoms for the past 3 weeks. Patient lavon poor historian. Denied any complaints of chest pain or shortness breath. No leg swelling. No orthopnea no PND. Denied any n ausea vomiting or abdominal pain or diarrhea. Currently denies any dizziness or lightheadedness. Patient states that nothing tastes good and has not been eating very well over the last 3 weeks. Denied any blurred vision. No focal weakness. Chest x-ray showed new bilateral left greater than right reticular increased opacities greatest in the periphery consistent with COVID-19 infection. Laboratory showed sodium 124 potassium 4.0 chloride 88 BUN 24 and creatinine 1.5 and coronavirus PCR not detected.Patient is vaccinated. Procalcitonin level is 0.07 WBC 7.1 hemoglobin 10.8 and platelets 355 EKG showed atrial fibrillation. Heart rate 88. INR 5.5 10/02/2021 Patient is seen and evaluated and follow-up feeling much better and maintaining oxygen saturations above 93% on 4 L via nasal cannula. Patient will require oxygen on discharge secondary to pulmonary fibrosis and COPD. Patient does continue with breathing inhalational treatments along with inhalers and will be following up with Dr. Bush the clinic in 2-3 weeks for further testing. Patient will continue prednisone taper on discharge. Patient does follow with another joint setter in the [place] area and cannot recall his name but would like to switch and resources and an appointment was made with Dr. Bush for early October. INR found to be elevated as patient takes Coumadin and instructed the patient to hold Coumadin and prescriptions provided for repeat labs in 2 days to monitor INR. Patient instructed to follow-up with primary care provider on discharge. Currently no reports of chest pain, worsening shortness of breath, or palpitations. Patient is afebrile. No reports of nausea or vomiting and patient is tolerating diet. Patient will be discharged home today. Guarded prognosis. PHYSICAL EXAMINATION: GENERAL: The patient is alert and oriented x3. Well developed, well nourished. Continues on 4L NC HEENT: Pupils are round and equally reacting to light. EOMI. No scleral icterus. No conjunctival pallor. Normocephalic, atraumatic. No pharyngeal erythema. No thyromegaly. CARDIOVASCULAR: S1 and S2 present. No murmurs, rubs, or gallops. PULMONARY: diminished breath sounds bilaterally with some mild rhonchi and expiratory wheezing noted ABDOMEN: Soft, obese, nontender, nondistended, normoactive bowel sounds. No palpable organomegaly. MUSCULOSKELETAL: No joint swelling or deformity. EXTREMITIES: No cyanosis, clubbing, or pedal edema. NEUROLOGICAL: Gross neurological examination did not reveal any focal deficits. SKIN: No rashes. Please refer to medication reconciliation sheet for a list of medications. Patient Condition at Discharge: Stable Plan - Discharge Summary Discharge Rx Participant: Yes New Discharge Prescriptions: New Ipratropium-Albuterol Nebulize [Duoneb 0.5 mg-3 mg/3 ml Soln] 3 ml INHALATION RT-Q2H PRN ml PRN Reason: Shortness Of Breath Or Wheezing predniSONE 10 mg PO DIRECTED #30 tab lisinopriL [Zestril] 2.5 mg PO HS 30 Days #30 tab Metoprolol Tartrate [Lopressor] 50 mg PO BID 30 Days #60 tab Clopidogrel [Plavix] 75 mg PO DAILY 30 Days #30 tab Continue Warfarin [Coumadin] 5 mg PO HS Ipratropium-Albuterol Nebulize [Duoneb 0.5 mg-3 mg/3 ml Soln] 3 ml INHALATION RT-QID DULoxetine HCL [Cymbalta] 60 mg PO HS Montelukast Sodium [Singulair] 10 mg PO HS Albuterol Nebulized [Ventolin Nebulized] 2.5 mg INHALATION RT-Q8H PRN PRN Reason: Shortness Of Breath Atorvastatin [Lipitor] 40 mg PO HS Omeprazole 20 mg PO HS Budesonide [Pulmicort] 0.5 mg INHALATION RT-BID Aspirin 81 mg PO HS Discontinued Metoprolol Succinate (ER) [Toprol Xl] 50 mg PO HS Lisinopril-Hctz 10-12.5 mg [Zestoretic 10-12.5] 1 tab PO HS Discharge Medication List Warfarin [Coumadin] 5 mg PO HS 05/18/16 [History] Albuterol Nebulized [Ventolin Nebulized] 2.5 mg INHALATION RT-Q8H PRN 09/30/21 [History] Aspirin 81 mg PO HS 09/30/21 [History] Atorvastatin [Lipitor] 40 mg PO HS 09/30/21 [History] Budesonide [Pulmicort] 0.5 mg INHALATION RT-BID 09/30/21 [History] DULoxetine HCL [Cymbalta] 60 mg PO HS 09/30/21 [History] Ipratropium-Albuterol Nebulize [Duoneb 0.5 mg-3 mg/3 ml Soln] 3 ml INHALATION RT-QID 09/30/21 [History] Montelukast Sodium [Singulair] 10 mg PO HS 09/30/21 [History] Omeprazole 20 mg PO HS 09/30/21 [History] Clopidogrel [Plavix] 75 mg PO DAILY 30 Days #30 tab 10/02/21 [Rx] Ipratropium-Albuterol Nebulize [Duoneb 0.5 mg-3 mg/3 ml Soln] 3 ml INHALATION RT-Q2H PRN ml 10/02/21 [Rx] Metoprolol Tartrate [Lopressor] 50 mg PO BID 30 Days #60 tab 10/02/21 [Rx] lisinopriL [Zestril] 2.5 mg PO HS 30 Days #30 tab 10/02/21 [Rx] predniSONE 10 mg PO DIRECTED #30 tab 10/02/21 [Rx] Follow up Appointment(s)/Referral(s): Yesi Bush MD [STAFF PHYSICIAN] - 10/27/21 1:15 pm Viktoriya Curiel MD [Primary Care Provider] - 1-2 days Vikki Simon [NON-STAFF] - 1 Week Ambulatory/Diagnostic Orders: Basic Metabolic Panel [LAB.AMB] Time Frame: 2 Days, Location: None Selected Prothrombin Time INR [LAB.AMB] Location: None Selected Patient Instructions/Handouts: Viral Pneumonia (DC), Dehydration (GEN), Acute Kidney Injury (GEN), Peripheral Vascular Disease (GEN) Activity/Diet/Wound Care/Special Instructions: Activity Limited until follow-up Follow-up with primary care provider on discharge Follow-up with pulmonary in 1-2 weeks for further testing Continue taking medications as prescribed Continue to hold Coumadin with repeat labs in 1-2 days to monitor INR as current INR is 4.7 Continue heart healthy diet Patient will require oxygen 4 L via nasal cannula secondary to pulmonary fibrosis and COPD Discharge Disposition: HOME SELF-CARE
== END 2021-10-02 15:45 | disposition home or self-care (01) | DRG 640 ==
LOC: EC 13:04 → 6NMEDSUR 16:41 → OBSVTOIN 10-01 10:22
PROVIDERS: ADMIT Hospitalist; ATTEND Hospitalist
DX: E86.0 Dehydration (principal); J12.9 Viral pneumonia, unspecified; N17.9 Acute kidney failure, unspecified; D68.9 Coagulation defect, unspecified; I48.20 Chronic atrial fibrillation, unspecified; E87.1 Hypo-osmolality and hyponatremia; Z20.822 Contact with and (suspected) exposure to COVID-19; E78.5 Hyperlipidemia, unspecified; E66.9 Obesity, unspecified; T45.515A Adverse effect of anticoagulants, initial encounter; R53.1 Weakness; F10.10 Alcohol abuse, uncomplicated; I73.9 Peripheral vascular disease, unspecified; R25.1 Tremor, unspecified; Z68.30 Body mass index [BMI] 30.0-30.9, adult; J43.9 Emphysema, unspecified; E86.1 Hypovolemia; E87.8 Other disorders of electrolyte and fluid balance, not elsewhere classified; F17.210 Nicotine dependence, cigarettes, uncomplicated; F32.A Depression, unspecified; X58.XXXA Exposure to other specified factors, initial encounter; I10 Essential (primary) hypertension; J84.112 Idiopathic pulmonary fibrosis; Z79.01 Long term (current) use of anticoagulants; Z79.82 Long term (current) use of aspirin; Z79.899 Other long term (current) drug therapy; Z86.73 Personal history of transient ischemic attack (TIA), and cerebral infarction without residual deficits; Z88.8 Allergy status to other drugs, medicaments and biological substances
CPT/HCPCS: 36415; 71046; 71260; 80048; 83735; 84145; 84443; 85025; 85610; 87635; 93005; 94640; 96361; 96374; 99285

== ENCOUNTER 2021-10-24 13:30 | Inpatient (IN) | payer OTHER ==
[2021-10-24 14:12] LABS: VBG PH 7.42 (7.31-7.41)
[2021-10-24 14:13] LABS: Albumin 3.1 g/dL (3.5-5.0); Calcium 8.4 mg/dL (8.4-10.2); Magnesium 1.8 mg/dL (1.6-2.3); Potassium 3.9 mmol/L (3.5-5.1); Total Bilirubin 1.2 mg/dL (0.2-1.3); Total Protein 6.2 g/dL (6.3-8.2)
[2021-10-24 14:24] LABS: Basophils # (A) 0.1 k/uL (0-0.2); Basophils % (A) 1 %; Eosinophils # (A) 0.1 k/uL (0-0.7); Eosinophils % (A) 2 %; HCT 44.8 % (39.0-53.0); HGB 15.1 gm/dL (13.0-17.5); INR 1.2 (<1.2); Lymphocytes # (A) 1.1 k/uL (1.0-4.8); Lymphocytes % (A) 13 %; MCH 31.4 pg (25.0-35.0); MCHC 33.6 g/dL (31.0-37.0); MCV 93.3 fL (80.0-100.0); Mean Platelet Volume 7.2; Monocytes # (A) 0.6 k/uL (0-1.0); Monocytes % (A) 8 %; Neutrophils % (A) 74 %; Partial Thromboplastin Time 25.2 sec (22.0-30.0); Platelet Count 408 k/uL (150-450); Prothrombin Time 12.7 sec (9.0-12.0); RBC 4.81 m/uL (4.30-5.90); WBC 8.1 k/uL (3.8-10.6)
[2021-10-24] MEDS ORDERED: HEPARIN SOD,PORK IN 0.45% NACL 25,000 UNIT in 0.45% NACL 1 250ML.BAG IV SCH (14:30)
[2021-10-24] MEDS ORDERED: HEPARIN SODIUM 1,000 UN/ML (10ML VL) IV ONE (14:30)
[2021-10-24] MEDS ORDERED: HEPARIN SODIUM 1,000 UN/ML (10ML VL) IV PRN (14:30)
--- NOTE | 2021-10-24 14:50 | XR ---
EXAMINATION TYPE: XR chest 2V DATE OF EXAM: 10/24/2021 COMPARISON: 09/30/2021 HISTORY: Shortness of breath TECHNIQUE: Frontal and lateral views of the chest are obtained. FINDINGS: Scattered senescent parenchymal changes noted. Hyperinflation compatible with COPD. Reticulonodular infiltrates both lung kyle persist. Heart size is stable. Mediastinal structures are stable and grossly unremarkable. No evidence for hilar prominence. Degenerative changes dorsal spine. IMPRESSION: 1. Reticulonodular infiltrates both lung kyle persist.
[2021-10-24] MEDS ORDERED: ALBUTEROL NEBULIZED 2.5 MG/3 ML INHALATION STA ×2 (15:33→17:13)
[2021-10-24] MEDS ORDERED: methylPREDNISolone SOD SUCCI 125 MG/2 ML VIAL IV STA (15:33)
[2021-10-24] MEDS ORDERED: IPRATROPIUM-ALBUTEROL 3 ML NEB INHALATION STA (15:33)
--- NOTE | 2021-10-24 16:27 | CT ---
EXAMINATION TYPE: CT angio chest DATE OF EXAM: 10/24/2021 COMPARISON: 07/31/2016 HISTORY: Dyspnea and shortness of breath. CT DLP: 511.4 mGycm Automated exposure control for dose reduction was used. CONTRAST: Performed with IV Contrast, patient injected with 100ml mL of Isovue 370. Images obtained from the thoracic inlet to the diaphragm without IV contrast. There is extensive interstitial infiltrate throughout both lungs with honeycomb pattern and also grou ndglass density. Heart is top normal in size. There is no pericardial effusion. There is no pleural e ffusion. There are multiple enlarged mediastinal and bronchial lymph nodes up to 2 cm. There is normal contrast opacification of the pulmonary arteries. There are no filling defects. The b suhas thorax is intact. Sternum is intact. There are calcified granulomata at the right pulmonary hilum . IMPRESSION: No evidence of pulmonary embolism. Extensive bilateral pneumonia which is predominantly interstitial. Lung disease is mostly new compared to old exam. There are mediastinal bronchial lymph node slightly increased compared to old exam.
[2021-10-24] MEDS ORDERED: LEVOFLOXACIN 500MG-D5W PMX 500 MG in DEXTROSE/WATER 1 100ML.BAG IVPB STA (16:44)
[2021-10-24] MEDS ORDERED: CEFEPIME 2 GM in SODIUM CHLORIDE 0.9% 100 ML IVPB STA (16:44)
[2021-10-24] MEDS ORDERED: NALOXONE 0.4 MG/ML 1 ML VIAL IV PRN (16:45)
[2021-10-24] MEDS ORDERED: ACETAMINOPHEN TAB 325 MG TAB PO PRN (16:45)
--- NOTE | 2021-10-24 16:49 | ED ---
General Adult HPI - General Chief complaint: Shortness of Breath Stated complaint: DEBBIE Time Seen by Provider: 10/24/21 13:43 Source: patient, RN notes reviewed, old records reviewed Mode of arrival: EMS Limitations: no limitations - History of Present Illness Initial comments: 61-year-old male presenting with chief complaint of dyspnea. Patient had recent hospital admission, treated for pneumonia. He states over the past several days his symptoms have worsened. He was found to be hypoxic by paramedics. He was given DuoNeb during transport. Denies central chest pain. He's had chills but no measured fever. He denies a known exposure to coronavirus. He is currently on warfarin with history of atrial fibrillation. - Related Data Home Medications Medication Instructions Recorded Confirmed Warfarin [Coumadin] 5 mg PO HS 05/18/16 09/30/21 Albuterol Nebulized [Ventolin 2.5 mg INHALATION RT-Q8H PRN 09/30/21 09/30/21 Nebulized] Aspirin 81 mg PO HS 09/30/21 09/30/21 Atorvastatin [Lipitor] 40 mg PO HS 09/30/21 09/30/21 Budesonide [Pulmicort] 0.5 mg INHALATION RT-BID 09/30/21 09/30/21 DULoxetine HCL [Cymbalta] 60 mg PO HS 09/30/21 09/30/21 Ipratropium-Albuterol Nebulize 3 ml INHALATION RT-QID 09/30/21 09/30/21 [Duoneb 0.5 mg-3 mg/3 ml Soln] Montelukast Sodium [Singulair] 10 mg PO HS 09/30/21 09/30/21 Omeprazole 20 mg PO HS 09/30/21 09/30/21 Previous Rx's Medication Instructions Recorded Clopidogrel [Plavix] 75 mg PO DAILY 30 Days #30 tab 10/02/21 Ipratropium-Albuterol Nebulize 3 ml INHALATION RT-Q2H PRN ml 10/02/21 [Duoneb 0.5 mg-3 mg/3 ml Soln] Metoprolol Tartrate [Lopressor] 50 mg PO BID 30 Days #60 tab 10/02/21 lisinopriL [Zestril] 2.5 mg PO HS 30 Days #30 tab 10/02/21 predniSONE 10 mg PO DIRECTED #30 tab 10/02/21 Allergies Allergy/AdvReac Type Severity Reaction Status Date / Time hydrocodone bitartrate Allergy Itching Verified 10/24/21 13:42 [From [place]] Review of Systems ROS Statement: Those systems with pertinent positive or pertinent negative responses have been documented in the HPI. ROS Other: All systems not noted in ROS Statement are negative. 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 ANGIOGRAM WITH LEELEE RUNOFF 05/25/16, ATTEMPTED SOLAR SALES REPRESENTATIVE AND ASSESSOR- 07/08/16, 07-31-16 LEELEE ILIAC STENTS. Past Anesthesia/Blood Transfusion Reactions: No Reported Reaction Past Psychological History: No Psychological Hx Reported Smoking Status: Current every day smoker Past Alcohol Use History: Occasional Past Drug Use History: Marijuana - Past Family History Sister(s) Family Medical History: Cancer Father Family Medical History: Asthma, Hypertension, Myocardial Infarction (NM) Additional Family Medical History / Comment(s): EMPHYSEMA, FROM NM AT AGE 50 Mother Family Medical History: Congestive Heart Failure (CHF) Additional Family Medical History / Comment(s): AT AGE 83 FROM CHF General Exam Limitations: no limitations General appearance: alert, in no apparent distress Head exam: Present: atraumatic, normocephalic Eye exam: Present: normal appearance, EOMI ENT exam: Present: normal exam Neck exam: Present: normal inspection. Absent: tenderness, meningismus Respiratory exam: Present: respiratory distress, rales, rhonchi Cardiovascular Exam: Present: regular rate, irregular rhythm GI/Abdominal exam: Present: soft. Absent: distended, tenderness, guarding Extremities exam: Present: normal inspection, normal capillary refill. Absent: pedal edema Neurological exam: Present: alert, oriented X3, CN II-XII intact. Absent: motor sensory deficit Psychiatric exam: Present: normal affect, normal mood Skin exam: Present: warm, dry, intact. Absent: cyanosis, diaphoretic Course Vital Signs 10/24/21 10/24/21 10/24/21 13:42 13:59 14:16 Temperature 98.5 F Pulse Rate 91 95 96 Respiratory 24 21 24 Rate Blood Pressure 103/59 90/46 O2 Sat by Pulse 92 L 87 L Oximetry 10/24/21 10/24/21 10/24/21 14:30 15:00 15:29 Temperature Pulse Rate 104 H 90 702 H Respiratory 28 H 29 H 4 L Rate Blood Pressure 90/46 90/46 109/89 O2 Sat by Pulse 91 L 95 91 L Oximetry 10/24/21 10/24/21 10/24/21 15:30 16:00 16:30 Temperature Pulse Rate 95 92 Respiratory 20 30 H Rate Blood Pressure 109/89 109/89 121/56 O2 Sat by Pulse 92 L 93 L Oximetry Medical Decision Making - Medical Decision Making 61-year-old man with worsening dyspnea. CT shows evidence of interstitial pneumonia. No pulmonary embolism. Additionally the patient does have a mini laura elevated troponin. He is placed on heparin waiting serial cardiac enzymes. He will be admitted to Dr. Casey who is aware. - Lab Data Result diagrams: 10/24/21 13:59 10/24/21 13:59 Lab Results 10/24/21 10/24/21 10/24/21 Range/Units 13:59 13:59 13:59 WBC 8.1 (3.8-10.6) k/uL RBC 4.81 (4.30-5.90) m/uL Hgb 15.1 (13.0-17.5) gm/dL Hct 44.8 (39.0-53.0) % MCV 93.3 (80.0-100.0) fL MCH 31.4 (25.0-35.0) pg MCHC 33.6 (31.0-37.0) g/dL RDW 16.0 H (11.5-15.5) % Plt Count 408 (150-450) k/uL MPV 7.2 Neutrophils % 74 % Lymphocytes % 13 % Monocytes % 8 % Eosinophils % 2 % Basophils % 1 % Neutrophils # 6.0 (1.3-7.7) k/uL Lymphocytes # 1.1 (1.0-4.8) k/uL Monocytes # 0.6 (0-1.0) k/uL Eosinophils # 0.1 (0-0.7) k/uL Basophils # 0.1 (0-0.2) k/uL PT 12.7 H (9.0-12.0) sec INR 1.2 H (<1.2) APTT 25.2 (22.0-30.0) sec VBG pH (7.31-7.41) VBG pCO2 (37-51) mmHg VBG HCO3 (24-28) mmol/L Sodium 127 L (137-145) mmol/L Potassium 3.9 (3.5-5.1) mmol/L Chloride 92 L (98-107) mmol/L Carbon Dioxide 25 (22-30) mmol/L Anion Gap 10 mmol/L BUN 20 (9-20) mg/dL Creatinine 1.11 (0.66-1.25) mg/dL Est GFR (CKD-EPI)AfAm 82 (>60 ml/min/1.73 sqM) Est GFR (CKD-EPI)NonAf 71 (>60 ml/min/1.73 sqM) Glucose 107 H (74-99) mg/dL Lactic Ac Sepsis Rflx Plasma Lactic Acid Waylon (0.7-2.0) mmol/L Calcium 8.4 (8.4-10.2) mg/dL Magnesium 1.8 (1.6-2.3) mg/dL Total Bilirubin 1.2 (0.2-1.3) mg/dL AST 29 (17-59) U/L ALT 21 (4-49) U/L Alkaline Phosphatase 87 (38-126) U/L Troponin I (0.000-0.034) ng/mL NT-Pro-B Natriuret Pep pg/mL Total Protein 6.2 L (6.3-8.2) g/dL Albumin 3.1 L (3.5-5.0) g/dL Coronavirus (PCR) (Not Detectd) 10/24/21 10/24/21 10/24/21 Range/Units 13:59 13:59 13:59 WBC (3.8-10.6) k/uL RBC (4.30-5.90) m/uL Hgb (13.0-17.5) gm/dL Hct (39.0-53.0) % MCV (80.0-100.0) fL MCH (25.0-35.0) pg MCHC (31.0-37.0) g/dL RDW (11.5-15.5) % Plt Count (150-450) k/uL MPV Neutrophils % % Lymphocytes % % Monocytes % % Eosinophils % % Basophils % % Neutrophils # (1.3-7.7) k/uL Lymphocytes # (1.0-4.8) k/uL Monocytes # (0-1.0) k/uL Eosinophils # (0-0.7) k/uL Basophils # (0-0.2) k/uL PT (9.0-12.0) sec INR (<1.2) APTT (22.0-30.0) sec VBG pH (7.31-7.41) VBG pCO2 (37-51) mmHg VBG HCO3 (24-28) mmol/L Sodium (137-145) mmol/L Potassium (3.5-5.1) mmol/L Chloride (98-107) mmol/L Carbon Dioxide (22-30) mmol/L Anion Gap mmol/L BUN (9-20) mg/dL Creatinine (0.66-1.25) mg/dL Est GFR (CKD-EPI)AfAm (>60 ml/min/1.73 sqM) Est GFR (CKD-EPI)NonAf (>60 ml/min/1.73 sqM) Glucose (74-99) mg/dL Lactic Ac Sepsis Rflx Plasma Lactic Acid Waylon 2.2 H* (0.7-2.0) mmol/L Calcium (8.4-10.2) mg/dL Magnesium (1.6-2.3) mg/dL Total Bilirubin (0.2-1.3) mg/dL AST (17-59) U/L ALT (4-49) U/L Alkaline Phosphatase (38-126) U/L Troponin I 0.054 H* (0.000-0.034) ng/mL NT-Pro-B Natriuret Pep 5380 pg/mL Total Protein (6.3-8.2) g/dL Albumin (3.5-5.0) g/dL Coronavirus (PCR) (Not Detectd) 10/24/21 10/24/21 10/24/21 Range/Units 13:59 14:15 14:16 WBC (3.8-10.6) k/uL RBC (4.30-5.90) m/uL Hgb (13.0-17.5) gm/dL Hct (39.0-53.0) % MCV (80.0-100.0) fL MCH (25.0-35.0) pg MCHC (31.0-37.0) g/dL RDW (11.5-15.5) % Plt Count (150-450) k/uL MPV Neutrophils % % Lymphocytes % % Monocytes % % Eosinophils % % Basophils % % Neutrophils # (1.3-7.7) k/uL Lymphocytes # (1.0-4.8) k/uL Monocytes # (0-1.0) k/uL Eosinophils # (0-0.7) k/uL Basophils # (0-0.2) k/uL PT (9.0-12.0) sec INR (<1.2) APTT (22.0-30.0) sec VBG pH 7.42 H (7.31-7.41) VBG pCO2 39 (37-51) mmHg VBG HCO3 25 (24-28) mmol/L Sodium (137-145) mmol/L Potassium (3.5-5.1) mmol/L Chloride (98-107) mmol/L Carbon Dioxide (22-30) mmol/L Anion Gap mmol/L BUN (9-20) mg/dL Creatinine (0.66-1.25) mg/dL Est GFR (CKD-EPI)AfAm (>60 ml/min/1.73 sqM) Est GFR (CKD-EPI)NonAf (>60 ml/min/1.73 sqM) Glucose (74-99) mg/dL Lactic Ac Sepsis Rflx Y Plasma Lactic Acid Waylon (0.7-2.0) mmol/L Calcium (8.4-10.2) mg/dL Magnesium (1.6-2.3) mg/dL Total Bilirubin (0.2-1.3) mg/dL AST (17-59) U/L ALT (4-49) U/L Alkaline Phosphatase (38-126) U/L Troponin I (0.000-0.034) ng/mL NT-Pro-B Natriuret Pep pg/mL Total Protein (6.3-8.2) g/dL Albumin (3.5-5.0) g/dL Coronavirus (PCR) Not Detected (Not Detectd) Disposition Clinical Impression: Pneumonia, Elevated troponin Disposition: ADMITTED IP TO THIS HOSP Condition: Stable Is patient prescribed a controlled substance at d/c from ED?: No Referrals: Viktoriya Curiel MD [Primary Care Provider] - 1-2 days Decision to Admit Reason: Admit from EC Decision Date: 10/24/21 Decision Time: 16:49
[2021-10-24] MEDS: methylPREDNISolone SOD SUCCI 125 MG/2 ML VIAL IV SCH (17:08)
[2021-10-24] MEDS ORDERED: SODIUM CHLORIDE 0.9% 500 ML 500 ML IV ONE (17:23)
[2021-10-24] MEDS: FUROSEMIDE 10 MG/ML 4 ML VIAL IV SCH ×2 (17:47→18:06)
--- NOTE | 2021-10-24 18:42 | P.CNPUL ---
History of Present Illness Consult date: 10/24/21 Reason for consult: dyspnea, hypoxemia History of present illness: A 61-year-old male patient presented to the emergency department approximately 3 weeks after being discharged from the hospital. The patient came in to the hospital because of worsening shortness of breath and the patient emitted he was placed on a BiPAP at a pressure of 12/6 cm of water with an FiO2 of 100% initially and FiO2 is being titrated. He was quite short of breath and her breathing was extremely labored at the time of admission. Note that the patient is known to have COPD and pulmonary fibrosis. His initial evaluation with us was approximately 3 weeks ago when he came into the hospital because of shortness of breath and the patient was diagnosed having COPD and pulmonary fibrosis and based on the CAT scan of the chest was done back then his presentation was typical of IPF. 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 He has also smoked for many years up to 2 packs of cigarettes a day and he quit and slowed on his smoking approximately 6 months ago. There was a low-dose CAT scan of the chest that was done for lung cancer screening approximately 6 months ago and back then the patient pulmonary fibrosis with subpleural distribution typical of IPF more so on the left and the patient had extensive honeycombing even back then. During this current admission, there is no new onset fever or chills. A repeat CAT scan of the chest was done in addition to the background COPD and pulmonary fibrosis, there are some new areas of ground glass pulmonary infiltrates bilaterally. Noted the patient has been vaccinated for COVID 19. He has not received his booster. COVID 19 PCR was negative. He has no fever. Has no chills. No 70 cardiomyopathy. No swelling lower extremity skin no angina. He has chronic atrial fibrillation and the patient has been maintained and anticoagulation with warfarin on outpatient basis. He was discharged home during his last visit on oxygen at 4 L per minute nasal cannula. We do not have a baseline PFT on this patient. He has been using Ventolin neb last treatment on an as-needed basis in addition to Pulmicort breast feels. No hemoptysis. No pleurisy. No sick contacts. He is breathing is quite labored while being evaluated in the emergency department. Furthermore, the patient had a white cell count of 8.4 with hemoglobin of 15, normal correlation profile, sodium level was 127, BUN was 20 with a creatinine of 1.1, lactic acid level was at 2. is up to 1.0, troponin was 0.05 and the proBNP level was 5380. Review of Systems CONSTITUTIONAL: Positive for poor appetite, poor oral intake, weight loss. EYES: Denies change in vision. EARS, NOSE, MOUTH, THROAT: Denies headaches, denies sore throat. CARDIOVASCULAR: Denies chest pain, palpitations or syncopal episodes. RESPIRATORY: Significant shortness of breath, cough, no congestion or hemoptysis. GASTROINTESTINAL: Positive for decreased appetite, denies abdominal pain GENITOURINARY: Denies hematuria, denies infections. MUSKULOSKELETAL: Denies pain, denies swelling. INTEGUMENTARY: Denies rash, denies eczema. NEUROLOGICAL: Denies recent memory loss, no recent seizure activity. PSYCHIATRIC: Denies anxiety, denies depression. HEMATOLOGIC/LYMPHATIC: Denies anemia, denies enlarged lymph nodes. Past Medical History Past Medical History: Atrial Fibrillation, COPD, CVA/TIA, Hyperlipidemia, Hypertension, Vascular Disorder Additional Past Medical History / Comment(s): HAS DEVELPOED SOME NUMBNESS TO BACK OF LT HAND AND LT SHOULDER IS SORE SINCE SUPERVISOR MOLD SHOP ATTEMPT 07/08/16, OCCASIONAL INVOLUNTARY RT ARM MOVEMENT, STATES HAS PROBLEMS WITH FOCUSING EYES History of Any Multi-Drug Resistant Organisms: None Reported Past Surgical History: Appendectomy, Orthopedic Surgery Additional Past Surgical History / Comment(s): RT FOOT SX X2, LEFT SHOULDER SX X2, RT SHOULDER SX X1, ABD. ANGIOGRAM WITH LEELEE RUNOFF 05/25/16, ATTEMPTED SUPERVISOR MOLD SHOP- 07/08/16, 07-31-16 LEELEE ILIAC STENTS. Past Anesthesia/Blood Transfusion Reactions: No Reported Reaction Past Psychological History: No Psychological Hx Reported Smoking Status: Current every day smoker Past Alcohol Use History: Occasional Past Drug Use History: Marijuana - Past Family History Sister(s) Family Medical History: Cancer Father Family Medical History: Asthma, Hypertension, Myocardial Infarction (HI) Additional Family Medical History / Comment(s): EMPHYSEMA, FROM HI AT AGE 50 Mother Family Medical History: Congestive Heart Failure (CHF) Additional Family Medical History / Comment(s): AT AGE 83 FROM CHF Medications and Allergies Home Medications Medication Instructions Recorded Confirmed Type Warfarin [Coumadin] 5 mg PO HS 05/18/16 09/30/21 History Albuterol Nebulized [Ventolin 2.5 mg INHALATION RT-Q8H PRN 09/30/21 09/30/21 History Nebulized] Aspirin 81 mg PO HS 09/30/21 09/30/21 History Atorvastatin [Lipitor] 40 mg PO HS 09/30/21 09/30/21 History Budesonide [Pulmicort] 0.5 mg INHALATION RT-BID 09/30/21 09/30/21 History DULoxetine HCL [Cymbalta] 60 mg PO HS 09/30/21 09/30/21 History Ipratropium-Albuterol Nebulize 3 ml INHALATION RT-QID 09/30/21 09/30/21 History [Duoneb 0.5 mg-3 mg/3 ml Soln] Montelukast Sodium [Singulair] 10 mg PO HS 09/30/21 09/30/21 History Omeprazole 20 mg PO HS 09/30/21 09/30/21 History Clopidogrel [Plavix] 75 mg PO DAILY 30 Days #30 tab 10/02/21 Rx Ipratropium-Albuterol Nebulize 3 ml INHALATION RT-Q2H PRN ml 10/02/21 Rx [Duoneb 0.5 mg-3 mg/3 ml Soln] Metoprolol Tartrate [Lopressor] 50 mg PO BID 30 Days #60 tab 10/02/21 Rx lisinopriL [Zestril] 2.5 mg PO HS 30 Days #30 tab 10/02/21 Rx predniSONE 10 mg PO DIRECTED #30 tab 10/02/21 Rx Allergies Allergy/AdvReac Type Severity Reaction Status Date / Time hydrocodone bitartrate Allergy Itching Verified 10/24/21 13:42 [From [place]] Physical Exam Vitals: Vital Signs Temp Pulse Resp BP Pulse Ox 10/24/21 18:19 98 10/24/21 18:09 79 24 91/74 95 10/24/21 17:59 90 10/24/21 17:29 82 24 94/60 96 10/24/21 17:15 103 H 24 95/65 90 L 10/24/21 17:14 98.6 F 10/24/21 16:30 92 30 H 121/56 93 L 10/24/21 16:00 109/89 10/24/21 15:30 95 20 109/89 92 L 10/24/21 15:29 702 H 4 L 109/89 91 L 10/24/21 15:00 90 29 H 90/46 95 10/24/21 14:30 104 H 28 H 90/46 91 L 10/24/21 14:16 96 24 90/46 87 L 10/24/21 13:59 95 21 10/24/21 13:42 98.5 F 91 24 103/59 92 L Intake and Output 10/24/21 10/24/21 10/24/21 06:59 14:59 22:59 Other: Weight 106.549 kg GENERAL EXAM: Alert, active, very pleasant 61-year-old gentleman, patient is in significant respiratory distress and shortness of breath and the patient is currently on a BiPAP and is able to tolerate a full face BiPAP mask and is quite synchronous at a pressure of 12/6 cm of water. Head exam was generally normal. There was no scleral icterus or corneal arcus. Mucous membranes were moist.HEAD: Normocephalic. EYES: Normal reaction of pupils, equal size. NOSE: Clear with pink turbinates. THROAT: No erythema or exudates. NECK: No masses, no JVD. CHEST: No chest wall deformity. LUNGS: Equal air entry with coarse crackles in the posterior bases. the patient has Velcro crackles in lung bases more so on the left lung base. CVS: S1 and S2 normal with no audible murmur, regular rhythm. ABDOMEN: No hepatosplenomegaly, normal bowel sounds, no guarding or rigidity. SPINE: No scoliosis or deformity SKIN: No rashes CENTRAL NERVOUS SYSTEM: No focal deficits, tone is normal in all 4 extremities. EXTREMITIES: There is no peripheral edema. Positive clubbing, no cyanosis. Peripheral pulses are intact. Results - Laboratory Findings CBC and BMP: 10/24/21 13:59 10/24/21 13:59 PT/INR, D-dimer PT 12.7 sec (9.0-12.0) H 10/24/21 13:59 INR 1.2 (<1.2) H 10/24/21 13:59 Abnormal lab findings: Abnormal Labs 10/24/21 10/24/21 10/24/21 13:59 13:59 13:59 RDW 16.0 H PT 12.7 H INR 1.2 H VBG pH Sodium 127 L Chloride 92 L Glucose 107 H Plasma Lactic Acid Waylon Troponin I Total Protein 6.2 L Albumin 3.1 L 10/24/21 10/24/21 10/24/21 13:59 13:59 13:59 RDW PT INR VBG pH 7.42 H Sodium Chloride Glucose Plasma Lactic Acid Waylon 2.2 H* Troponin I 0.054 H* Total Protein Albumin - Diagnostic Findings Chest x-ray: image reviewed CT scan - chest: image reviewed Assessment and Plan Plan: 1 acute on chronic hypoxic respiratory failure. There is significant progression of the patient's history status and the patient has significant respiratory decompensation over the past 3 weeks. Note that the patient likely has chronic pulmonary fibrosis as evident on the low-dose CAT scan of the chest that was done May 2021. Nevertheless, the patient was hospitalized approximately 3 weeks ago with worsening shortness of breath and he was discharged home and 40s about 2 by nasal cannula. At that time the repeat CAT scan of the chest showed full worsening in the pulmonary fibrosis with b ackground COPD. The most recent CAT scan of the chest shows further interval worsening with development of bilateral pulmonary infiltrates with ground glass changes consistent with either infection or an acute exacerbation of chronic IPF or an acute lung injury on top of chronic IPF. Currently on BiPAP for respiratory support. The patient has been negative according 19 infection. 2 chronic pulmonary fibrosis based on the CAT scan description the patient likely has an IPF 3 COPD 4 chronic A. fib fibrillation with warfarin outpatient basis 5 previous history of smoking more than [id number] 6 hypertension 7 hyperlipidemia 8 history of peripheral vascular disease with previous bilateral iliac stent placement 9 history of depression 10 hyponatremia 11 troponin leak probably related to oxygen mismatch, no evidence of acute EKG changes. Nevertheless, the EKG shows Q waves over the inferior leads indicative of an old HI. We'll obtain a 2-D echocardiogram. Plan Condition is obviously critical at this point in time. The patient has had significant decompensation respiratory status. Recommendations are the following Continue BiPAP for respiratory support throughout the night tonight and gradually wean down the FiO2 currently at a pressure of 12/6 cm of water Obtain 2-D echocardiogram Started patient on Lasix 40 mg IV push every 12 hours should there be any signs or a component of CHF knowing that the proBNP level is elevated Put the patient IV Solu Medrol 60 mg every 6 hours Cover the patient with accommodation cefepime and Levaquin Check a baseline pro-calcitonin level Resume home medications including the warfarin and monitor the PT/INR We'll reconsult his home medications We'll continue to follow.
--- NOTE | 2021-10-24 19:18 | HP ---
HISTORY AND PHYSICAL DATE OF SERVICE: 10/24/2021 CHIEF COMPLAINTS: Shortness of breath. HISTORY OF PRESENT ILLNESS: This 61-year-old gentleman with a past medical history of hypertension, hyperlipidemia, history of vascular disorder, history of CVA, TIA, being followed by Dr. Curiel in the outpatient setting, not feeling well over the past several weeks. The patient apparently had progressive shortness of breath. The patient was evaluated by pulmonology. The patient thought to have interstitial lung disease, but currently the patient is having shortness of breath with cough and sputum. The patient came to [facility] for further evaluation and treatment. The patient has taken two doses of Covid vaccine. Apparently his son who is unvaccinated had a Covid infection about a few weeks ago and the patient was hypoxic and the patient was given DuoNeb and admitted for further evaluation and treatment. The chest x-ray showed some interstitial infiltrate and chest CT scan also showed bilateral extensive interstitial infiltrate highly suggestive of possible Covid pneumonia, super added infectious lung disease type of picture. There is no history of fever, rigors or chills. No history of headache, loss of consciousness or seizures at this time. The patient had digit clubbing. PAST MEDICAL HISTORY: History of shortness of breath and possible interstitial lung disease, history of hypertension, history of hyperlipidemia, history of vascular disorder, history of appendectomy, history of DJD, history of smoking. MEDICATIONS: Prior to admission include:lisinopril, omeprazole, metoprolol, Cymbalta, Plavix. Lipitor, aspirin, prednisone, Coumadin, Singulair, and DuoNeb. ALLERGIES: HYDROCODONE. FAMILY HISTORY: History of emphysema in the family. SOCIAL HISTORY: History of continued smoking. REVIEW OF SYSTEMS: ENT: No diminished vision. No diminished hearing. CARDIOVASCULAR: As mentioned earlier. RESPIRATORY: As mentioned earlier. GI: No nausea or vomiting. : No dysuria. NERVOUS SYSTEM: No numbness or weakness. ALLERGY/IMMUNOLOGY: No asthma or hayfever. MUSCULOSKELETAL as mentioned earlier. HEMATOLOGY/ONCOLOGY: No history of anemia. ENDOCRINE: No history of diabetes or hypothyroidism. CONSTITUTIONAL: As mentioned earlier. DERMATOLOGY: Negative. RHEUMATOLOGY: Negative. PSYCHIATRIC: As mentioned earlier. PHYSICAL EXAMINATION: Alert and oriented times three. Pulse 79, blood pressure 91/79, respiration 24, temperature normal, pulse ox 94% on BiPAP. BIPAP settings noted. HEENT: Conjunctivae normal. NECK: No JVD. CARDIOVASCULAR: S1, S2 muffled. RESPIRATORY: Breath sounds diminished in the bases. A few scattered rhonchi and crackles. ABDOMEN: Soft, nontender. LEGS are no edema. No swelling. NERVOUS SYSTEM: Higher functions as mentioned. Moves all four limbs. No focal deficits. LYMPHATICS: No lymph nodes palpable in the neck, axillae or groin. SKIN: No ulcers. No rashes. No bleeding. JOINTS: No active deforming arthropathy. Examination of the digits, clubbing present. LABS: CBC within normal limits and INR 1.2. ABG, pH of 7.42, sodium is 127. ASSESSMENT: 1. Acute hypoxic respiratory failure possibly secondary to interstitial lung disease combined with possible Covid 19 interstitial pneumonia with acute hypoxic respiratory failure. 2. Hyponatremia. 3. Elevated plasma lactic acid, rule out supra added pneumonia. 4. Troponin 0.054, indeterminate. Rule out acute [id number]-elevation myocardial infarction. 5. History of continued ongoing nicotine dependence. 6. History hyperlipidemia. 7. Hypertension. 8. History of cerebrovascular accident, transient ischemic attack. 9. History of appendectomy. 10.History of degenerative joint disease. 11.History of nicotine dependence. 12.Peripheral vascular disease with bilateral iliac stents. 13.FULL CODE. RECOMMENDATIONS AND DISCUSSION: This 61-year-old gentleman who presented with multiple complex medical issues, we will monitor the patient closely, continue the current medications, and symptomatic treatment. We will initiate broad-spectrum IV antibiotics, bronchodilator. Covid 19 test is negative. Recommend PCR testing. Other than that, apixaban has been initiated. Consult Dr. Goss and closely monitor. Bronchodilators. Guarded prognosis because of multiple complex medical issues. Further recommendations to follow. A copy of this dictation is being forwarded to Dr. Curiel who is the primary physician. We will obtain cultures including blood cultures, sputum culture also. IV steroids also have been initiated. We will monitor the blood sugars closely. Home medication will be reconciled once they are confirmed by the ER team. MMODL / IJN: [id number] / MTDD
[2021-10-24] MEDS: IPRATROPIUM-ALBUTEROL 3 ML NEB INHALATION SCH (20:28)
[2021-10-24] MEDS: PANTOPRAZOLE 40 MG TABLET PO SCH (21:14)
[2021-10-24] MEDS: APIXABAN 5 MG TAB PO SCH (21:14)
[2021-10-24] MEDS: ASPIRIN 81 MG PO SCH (21:14)
[2021-10-24] MEDS: ATORVASTATIN 40 MG TAB PO SCH (21:14)
[2021-10-24] MEDS: DULoxetine HCL 60 MG CAPSULE.DR PO SCH (21:14)
[2021-10-25] MEDS: IPRATROPIUM-ALBUTEROL 3 ML NEB INHALATION SCH ×6 (00:36→20:46)
[2021-10-25] MEDS: methylPREDNISolone SOD SUCCI 125 MG/2 ML VIAL IV SCH ×4 (02:32→17:12)
[2021-10-25] MEDS: METOPROLOL TARTRATE 50 MG TAB PO SCH ×2 (03:17→08:15)
[2021-10-25] MEDS: CEFEPIME 2 GM in SODIUM CHLORIDE 0.9% 100 ML IVPB SCH ×4 (03:17→15:11)
[2021-10-25 08:09] LABS: Basophils % (A) 0 %; Eosinophils % (A) 0 %; HGB 14.6 gm/dL (13.0-17.5); Lymphocytes # (A) 0.5 k/uL (1.0-4.8); Lymphocytes % (A) 13 %; MCH 31.5 pg (25.0-35.0); MCHC 33.8 g/dL (31.0-37.0); MCV 93.1 fL (80.0-100.0); Mean Platelet Volume 7.2; Monocytes # (A) 0.1 k/uL (0-1.0); Monocytes % (A) 2 %; Neutrophils # (A) 3.6 k/uL (1.3-7.7); Neutrophils % (A) 84 %; Platelet Count 397 k/uL (150-450); RBC 4.62 m/uL (4.30-5.90); RDW 15.9 % (11.5-15.5); WBC 4.3 k/uL (3.8-10.6)
[2021-10-25] MEDS: CLOPIDOGREL 75 MG TAB PO SCH (08:16)
[2021-10-25] MEDS: FUROSEMIDE 10 MG/ML 4 ML VIAL IV SCH ×2 (08:16→23:00)
[2021-10-25] MEDS: APIXABAN 5 MG TAB PO SCH ×2 (08:16→22:15)
[2021-10-25 08:22] LABS: Albumin 3.1 g/dL (3.5-5.0); Calcium 8.5 mg/dL (8.4-10.2); Potassium 3.8 mmol/L (3.5-5.1); Total Protein 6.4 g/dL (6.3-8.2)
[2021-10-25 11:44] LABS: Glucose,Whole Blood 198 mg/dL (75-99)
--- NOTE | 2021-10-25 12:06 | P.PN ---
Subjective Progress Note Date: 10/25/21 A 61-year-old male patient presented to the emergency department approximately 3 weeks after being discharged from the hospital. The patient came in to the hospital because of worsening shortness of breath and the patient emitted he was placed on a BiPAP at a pressure of 12/6 cm of water with an FiO2 of 100% initially and FiO2 is being titrated. He was quite short of breath and her breathing was extremely labored at the time of admission. Note that the patient is known to have COPD and pulmonary fibrosis. His initial evaluation with us was approximately 3 weeks ago when he came into the hospital because of shortness of breath and the patient was diagnosed having COPD and pulmonary fibrosis and based on the CAT scan of the chest was done back then his presentation was typical of IPF. 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 He has also smoked for many years up to 2 packs of cigarettes a day and he quit and slowed on his smoking approximately 6 months ago. There was a low-dose CAT scan of the chest that was done for lung cancer screening approximately 6 months ago and back then the patient pulmonary fibrosis with subpleural distribution typical of IPF more so on the left and the patient had extensive honeycombing even back then. During this current adm ission, there is no new onset fever or chills. A repeat CAT scan of the chest was done in addition to the background COPD and pulmonary fibrosis, there are some new areas of ground glass pulmonary infiltrates bilaterally. Noted the patient has been vaccinated for COVID 19. He has not received his booster. COVID 19 PCR was negative. He has no fever. Has no chills. No 70 cardiomyopathy. No swelling lower extremity skin no angina. He has chronic atrial fibrillation and the patient has been maintained and anticoagulation with warfarin on outpatient basis. He was discharged home during his last visit on oxygen at 4 L per minute nasal cannula. We do not have a baseline PFT on this patient. He has been using Ventolin neb last treatment on an as-needed basis in addition to Pulmicort breast feels. No hemoptysis. No pleurisy. No sick contacts. He is breathing is quite labored while being evaluated in the emergency department. Furthermore, the patient had a white cell count of 8.4 with hemoglobin of 15, normal correlation profile, sodium level was 127, BUN was 20 with a creatinine of 1.1, lactic acid level was at 2. is up to 1.0, troponin was 0.05 and the proBNP level was 5380. 10/25/2021, I'm seeing the patient for a follow-up. The patient was seen yesterday in consultation for worsening shortness of breath. As mentioned earlier, the patient has COPD and pulmonary fibrosis which is likely the form of IPF. The patient came into the emergency with significant acidosis and the patient was placed on a BiPAP. This morning, the patient is been taken off the BiPAP. He continues to be diuresed with IV Lasix. He remains on broad-spectrum antibiotics and he is also on steroids. He is feeling less short of breath and he continues to be in atrial fibrillation. He was taken off the warfarin and he was placed on Eliquis 5 mg by mouth twice a day. He remains on IV Solu Medrol. Antibiotic coverage with IV cefepime . Echocardiogram was also ordered and is also suspected pending for now. Patient is doing overall better than yesterday. Objective - Vital Signs Vital signs: Vital Signs Temp 96.5 F L 10/25/21 08:15 Pulse 100 10/25/21 11:44 Resp 18 10/25/21 08:15 BP 92/57 10/25/21 08:15 Pulse Ox 90 L 10/25/21 08:15 Intake & Output 10/24/21 10/25/21 10/25/21 18:59 06:59 18:59 Intake Total 180 Balance 180 Weight 106.549 kg 106.549 kg Intake: Oral 180 Other: # Bowel Movements 0 - Exam GENERAL EXAM: Alert, active, very pleasant 61-year-old gentleman, patient is in significant respiratory distress and shortness of breath and the patient is currently off the BiPAP and currently on 8 L of oxygen by nasal cannula Head exam was generally normal. There was no scleral icterus or corneal arcus. Mucous membranes were moist.HEAD: Normocephalic. EYES: Normal reaction of pupils, equal size. NOSE: Clear with pink turbinates. THROAT: No erythema or exudates. NECK: No masses, no JVD. CHEST: No chest wall deformity. LUNGS: Equal air entry with coarse crackles in the posterior bases. the patient has Velcro crackles in lung bases more so on the left lung base. CVS: S1 and S2 normal with no audible murmur, regular rhythm. ABDOMEN: No hepatosplenomegaly, normal bowel sounds, no guarding or rigidity. SPINE: No scoliosis or deformity SKIN: No rashes CENTRAL NERVOUS SYSTEM: No focal deficits, tone is normal in all 4 extremities. EXTREMITIES: There is no peripheral edema. Positive clubbing, no cyanosis. Peripheral pulses are intact. The patient is digital clubbing - Labs CBC & Chem 7: 10/25/21 07:33 10/25/21 07:33 Labs: Abnormal Lab Results - Last 24 Hours (Table) 10/24/21 10/24/21 10/24/21 Range/Units 10:49 13:59 13:59 RDW 16.0 H (11.5-15.5) % Lymphocytes # (1.0-4.8) k/uL PT 12.7 H (9.0-12.0) sec INR 1.2 H (<1.2) APTT (22.0-30.0) sec VBG pH (7.31-7.41) Sodium (137-145) mmol/L Chloride (98-107) mmol/L BUN (9-20) mg/dL Glucose (74-99) mg/dL POC Glucose (mg/dL) (75-99) mg/dL Plasma Lactic Acid Waylon (0.7-2.0) mmol/L Troponin I (0.000-0.034) ng/mL Total Protein (6.3-8.2) g/dL Albumin (3.5-5.0) g/dL Procalcitonin 0.12 H (0.02-0.09) ng/mL 10/24/21 10/24/21 10/24/21 Range/Units 13:59 13:59 13:59 RDW (11.5-15.5) % Lymphocytes # (1.0-4.8) k/uL PT (9.0-12.0) sec INR (<1.2) APTT (22.0-30.0) sec VBG pH (7.31-7.41) Sodium 127 L (137-145) mmol/L Chloride 92 L (98-107) mmol/L BUN (9-20) mg/dL Glucose 107 H (74-99) mg/dL POC Glucose (mg/dL) (75-99) mg/dL Plasma Lactic Acid Waylon 2.2 H* (0.7-2.0) mmol/L Troponin I 0.054 H* (0.000-0.034) ng/mL Total Protein 6.2 L (6.3-8.2) g/dL Albumin 3.1 L (3.5-5.0) g/dL Procalcitonin (0.02-0.09) ng/mL 10/24/21 10/24/21 10/24/21 Range/Units 13:59 18:23 20:49 RDW (11.5-15.5) % Lymphocytes # (1.0-4.8) k/uL PT (9.0-12.0) sec INR (<1.2) APTT 43.1 H (22.0-30.0) sec VBG pH 7.42 H (7.31-7.41) Sodium (137-145) mmol/L Chloride (98-107) mmol/L BUN (9-20) mg/dL Glucose (74-99) mg/dL POC Glucose (mg/dL) (75-99) mg/dL Plasma Lactic Acid Waylon (0.7-2.0) mmol/L Troponin I 0.051 H* (0.000-0.034) ng/mL Total Protein (6.3-8.2) g/dL Albumin (3.5-5.0) g/dL Procalcitonin (0.02-0.09) ng/mL 10/24/21 10/25/21 10/25/21 Range/Units 20:49 07:33 07:33 RDW 15.9 H (11.5-15.5) % Lymphocytes # 0.5 L (1.0-4.8) k/uL PT (9.0-12.0) sec INR (<1.2) APTT (22.0-30.0) sec VBG pH (7.31-7.41) Sodium 127 L (137-145) mmol/L Chloride 93 L (98-107) mmol/L BUN 21 H (9-20) mg/dL Glucose 144 H (74-99) mg/dL POC Glucose (mg/dL) (75-99) mg/dL Plasma Lactic Acid Waylon (0.7-2.0) mmol/L Troponin I 0.045 H* (0.000-0.034) ng/mL Total Protein (6.3-8.2) g/dL Albumin 3.1 L (3.5-5.0) g/dL Procalcitonin (0.02-0.09) ng/mL 10/25/21 Range/Units 11:42 RDW (11.5-15.5) % Lymphocytes # (1.0-4.8) k/uL PT (9.0-12.0) sec INR (<1.2) APTT (22.0-30.0) sec VBG pH (7.31-7.41) Sodium (137-145) mmol/L Chloride (98-107) mmol/L BUN (9-20) mg/dL Glucose (74-99) mg/dL POC Glucose (mg/dL) 198 H (75-99) mg/dL Plasma Lactic Acid Waylon (0.7-2.0) mmol/L Troponin I (0.000-0.034) ng/mL Total Protein (6.3-8.2) g/dL Albumin (3.5-5.0) g/dL Procalcitonin (0.02-0.09) ng/mL Assessment and Plan Plan: 1 acute on chronic hypoxic respiratory failure. There is significant progression of the patient's history status and the patient has significant respiratory decompensation over the past 3 weeks. Note that the patient likely has chronic pulmonary fibrosis as evident on the low-dose CAT scan of the chest that was done May 2021. Nevertheless, the patient was hospitalized approximately 3 weeks ago with worsening shortness of breath and he was discharged home on 4 liters of oxygen by nasal cannula. At that time the repeat CAT scan of the chest showed full worsening in the pulmonary fibrosis with background COPD. The most recent CAT scan of the chest shows further interval worsening with development of bilateral pulmonary infiltrates with ground glass changes consistent with either infection or an acute exacerbation of chronic IPF or an acute lung injury on top of chronic IPF. Currently on BiPAP for respiratory support. The patient has been negative for COVID 19 infection. On today's evaluation, the patient responded to the treatment offered which included a combination of diuretics, steroids and antibiotics and the patient is currently off the BiPAP of 8 L of oxygen by nasal cannula. Awaiting follow-up e chocardiogram. We'll continue diuresis. We'll continue same treatment for now. Can utilize BiPAP is back up 2 chronic pulmonary fibrosis based on the CAT scan description the patient likely has an IPF. The patient is digital clubbing consistent with IPF. 3 COPD 4 chronic A. fib fibrillation with warfarin outpatient basis, currently off warfarin the patient istoEliquis 5 previous history of smoking more than [id number] 6 hypertension 7 hyperlipidemia 8 history of peripheral vascular disease with previous bilateral iliac stent placement 9 history of depression 10 hyponatremia 11 troponin leak probably related to oxygen mismatch, no evidence of acute EKG changes. Nevertheless, the EKG shows Q waves over the inferior leads indicative of an old NV. We'll obtain a 2-D echocardiogram. Plan Keep oxygen at 8 L and discontinue BiPAP for now can be used intermittently during the day if needed Obtain 2-D echocardiogram, results are still pending for now Continue Lasix 40 mg IV push every 12 hours should there be any signs or a component of CHF knowing that the proBNP level is elevated Put the patient IV Solu Medrol 60 mg every 6 hours Cover the patient with accommodation cefepime and Levaquin Check a baseline pro-calcitonin level was at 0.12 We'll continue to follow.
[2021-10-25] MEDS: LEVOFLOXACIN 500 MG TAB PO SCH (12:44)
--- NOTE | 2021-10-25 13:01 | P.CRDCN ---
History of Present Illness History of present illness: HISTORY OF PRESENTING ILLNESS Patient is a pleasant 61-year-old male with history of hypertension hyperlipidemia PAD status post number of interventions, CVA, persistent atrial fibrillation on anticoagulation, previous tobacco abuse since quit, COPD. Patient follows with Dr. Cook. He admits his last stress test was a few years ago. He states he has been having worsening dyspnea on exertion over the past 2-3 weeks. He states occasionally will feel short of breath while sitting there however also if she gets up to walk more than 10 steps he will become short of breath. He denies any specific chest pain or pressure. CT PE protocol showed no PE however extensive bilateral pneumonia which is predominantly interstitial and "lung disease which is mostly new compared to old exam ". Personally reviewed and there is also extensive coronary artery calcification. EKG shows atrial fibrillation with poor R-wave progression, Q waves V1 and V2, controlled rate in 94. On telemetry heart rates of bolus it then 90s up to 120s occasionally. Blood work shows white blood cell count 8.1, hemoglobin 15.1, INR 1.2, sodium 127, creatinine 1.1, lactic acid 2.2, troponin 0.05, 0.05, proBNP 5300, pro-calcitonin 0.012, frederick virus not detected. He was started on IV Lasix and also stated on IV antibiotics. Pulmonology note noted with CAT scans showing progressive interstitial lung disease, interstitial fibrosis. REVIEW OF SYSTEMS At the time of my exam: CONSTITUTIONAL: Denies fever or chills. CARDIOVASCULAR: Denies chest pain, +shortness of breath, no orthopnea, PND or palpitations. RESPIRATORY: Denies cough. GASTROINTESTINAL: Denies abdominal pain, diarrhea, constipation, nausea or vomiting. MUSCULOSKELETAL: Denies myalgias. NEUROLOGIC: Denies numbness, tingling or weakness. ENDOCRINE: Denies fatigue, weight change, polydipsia or polyurina. GENITOURINARY: Denies burning, hematuria or urgency with micturation. HEMATOLOGIC: Denies history of anemia or bleeding. PHYSICAL EXAMINATION Vital signs reviewed. CONSTITUTIONAL: No apparent distress. HEENT: Head is normocephalic. Pupils are equal, round. Sclerae anicteric. Mucous membranes of the mouth are moist. No JVD. No carotid bruit. CHEST EXAMINATION: Decreased breath sounds bilaterally with mild wheeze HEART EXAMINATION: Regular rate and rhythm. S1, S2 heard. No murmurs, gallops or rub. ABDOMEN: Soft, nontender. Positive bowel sounds. EXTREMITIES: 2+ peripheral pulses, no lower extremity edema and no calf tende rness. NEUROLOGIC EXAMINATION: Patient is awake, alert and oriented x3. ASSESSMENT 1. Elevated troponins, no obvious angina-type symptoms other than dyspnea. May be related to hypoxic respiratory failure. 2. PAD status post peripheral intervention 3. Acute on chronic diastolic heart failure, elevated proBNP 5300 4. Acute on chronic hypoxic respiratory failure. CT findings showing mostly co mponent of interstitial lung disease however may be some component of heart failure additionally 5. Hypertension 6. Coronary artery calcification noted on CT 7. Previous tobacco abuse 8. Persistent atrial fibrillation with mild RVR PLAN Patient without any obvious angina-type symptoms and CAT scan showing worsening of interstitial lung disease. May be some component of pneumonia in addition to interstitial lung disease however also proBNP is elevated and therefore will continue to monitor response of diuretics. Continue with antibiotics and supportive care from pulmonology standpoint. He does have significant coronary artery calcifications with multiple risk factors for underlying CAD however troponins only minimally elevated and appears to be more related to pulmonary source. We will attempt to optimize his atrial fibrillation and increase metoprolol to 75 mg twice a day. We will continue with the medical approach at this point and may consider outpatient stress testing. 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 ANGIOGRAM WITH LEELEE RUNOFF 05/25/16, ATTEMPTED JAVASCRIPT ENGINEER- 07/08/16, 07-31-16 LEELEE ILIAC STENTS. Past Anesthesia/Blood Transfusion Reactions: No Reported Reaction Past Psychological History: No Psychological Hx Reported Smoking Status: Current every day smoker Past Alcohol Use History: Occasional Additional Past Alcohol Use History / Comment(s): STATES DOWN FROM 2PPD TO 2 PPD. STARTED AGE 13 (1974) Past Drug Use History: Marijuana Additional Drug Use History / Comment(s): INSTRUCTED TO WITHOLD 24HRS PRIOR TO PROCEDURE - Past Family History Sister(s) Family Medical History: Cancer Father Family Medical History: Asthma, Hypertension, Myocardial Infarction ([place]) Additional Family Medical History / Comment(s): EMPHYSEMA, FROM [place] AT AGE 50 Mother Family Medical History: Congestive Heart Failure (CHF) Additional Family Medical History / Comment(s): AT AGE 83 FROM CHF Medications and Allergies Home Medications Medication Instructions Recorded Confirmed Type Warfarin [Coumadin] 5 mg PO HS 05/18/16 10/25/21 History Albuterol Nebulized [Ventolin 2.5 mg INHALATION RT-Q8H PRN 09/30/21 10/25/21 History Nebulized] Aspirin 81 mg PO HS 09/30/21 10/25/21 History Atorvastatin [Lipitor] 40 mg PO HS 09/30/21 10/25/21 History Budesonide [Pulmicort] 0.5 mg INHALATION RT-BID 09/30/21 10/25/21 History DULoxetine HCL [Cymbalta] 60 mg PO HS 09/30/21 10/25/21 History Ipratropium-Albuterol Nebulize 3 ml INHALATION RT-QID 09/30/21 10/25/21 History [Duoneb 0.5 mg-3 mg/3 ml Soln] Montelukast Sodium [Singulair] 10 mg PO HS 09/30/21 10/25/21 History Omeprazole 20 mg PO HS 09/30/21 10/25/21 History Clopidogrel [Plavix] 75 mg PO DAILY 30 Days #30 tab 10/02/21 10/25/21 Rx Ipratropium-Albuterol Nebulize 3 ml INHALATION RT-Q2H PRN ml 10/02/21 10/25/21 Rx [Duoneb 0.5 mg-3 mg/3 ml Soln] Metoprolol Tartrate [Lopressor] 50 mg PO BID 30 Days #60 tab 10/02/21 10/25/21 R x lisinopriL [Zestril] 2.5 mg PO HS 30 Days #30 tab 10/02/21 10/25/21 Rx Allergies Allergy/AdvReac Type Severity Reaction Status Date / Time hydrocodone bitartrate Allergy Itching Verified 10/25/21 09:07 [From [place]] Physical Exam Vitals: Vital Signs Temp Pulse Pulse Resp BP BP Pulse Ox 10/25/21 12:00 98.1 F 116 H 18 104/63 92 L 10/25/21 11:44 100 10/25/21 11:34 100 10/25/21 08:15 96.5 F L 124 H 18 92/57 90 L 10/25/21 08:03 96 10/25/21 07:50 100 10/25/21 03:43 98 10/25/21 03:08 98 F 71 18 108/58 91 L 10/25/21 02:45 93 18 111/78 97 10/25/21 00:45 106 H 10/25/21 00:38 98 10/24/21 20:49 104 H 10/24/21 20:37 106 H 10/24/21 19:03 100 25 H 106/77 96 10/24/21 18:19 98 10/24/21 18:09 79 24 91/74 95 10/24/21 17:59 90 10/24/21 17:29 82 24 94/60 96 10/24/21 17:15 103 H 24 95/65 90 L 10/24/21 17:14 98.6 F 10/24/21 16:30 92 30 H 121/56 93 L 10/24/21 16:00 109/89 10/24/21 15:30 95 20 109/89 92 L 10/24/21 15:29 702 H 4 L 109/89 91 L 10/24/21 15:00 90 29 H 90/46 95 10/24/21 14:30 104 H 28 H 90/46 91 L 10/24/21 14:16 96 24 90/46 87 L 10/24/21 13:59 95 21 10/24/21 13:42 98.5 F 91 24 103/59 92 L Intake and Output 10/24/21 10/25/21 10/25/21 22:59 06:59 14:59 Intake Total 180 Balance 180 Intake: Oral 180 Other: # Bowel Movements 0 Weight 106.549 kg Results 10/25/21 07:33 10/25/21 07:33 Cardiac Enzymes 10/24/21 10/24/21 10/24/21 Range/Units 13:59 13:59 18:23 AST 29 (17-59) U/L Troponin I 0.054 H* 0.051 H* (0.000-0.034) ng/mL 10/24/21 10/25/21 Range/Units 20:49 07:33 AST 27 (17-59) U/L Troponin I 0.045 H* (0.000-0.034) ng/mL Coagulation 10/24/21 10/24/21 Range/Units 13:59 20:49 PT 12.7 H (9.0-12.0) sec APTT 25.2 43.1 H (22.0-30.0) sec CBC 10/24/21 10/25/21 Range/Units 13:59 07:33 WBC 8.1 4.3 (3.8-10.6) k/uL RBC 4.81 4.62 (4.30-5.90) m/uL Hgb 15.1 14.6 (13.0-17.5) gm/dL Hct 44.8 43.0 (39.0-53.0) % Plt Count 408 397 (150-450) k/uL Comprehensive Metabolic Panel 10/24/21 10/25/21 Range/Units 13:59 07:33 Sodium 127 L 127 L (137-145) mmol/L Potassium 3.9 3.8 (3.5-5.1) mmol/L Chloride 92 L 93 L (98-107) mmol/L Carbon Dioxide 25 25 (22-30) mmol/L BUN 20 21 H (9-20) mg/dL Creatinine 1.11 1.09 (0.66-1.25) mg/dL Glucose 107 H 144 H (74-99) mg/dL Calcium 8.4 8.5 (8.4-10.2) mg/dL AST 29 27 (17-59) U/L ALT 21 22 (4-49) U/L Alkaline Phosphatase 87 88 (38-126) U/L Total Protein 6.2 L 6.4 (6.3-8.2) g/dL Albumin 3.1 L 3.1 L (3.5-5.0) g/dL Current Medications Generic Name Dose Route Start Last Admin Trade Name Freq PRN Reason Stop Dose Admin Acetaminophen 650 mg 10/24/21 16:45 Acetaminophen Tab 325 Mg Tab PO Q6HR PRN Mild Pain or Fever > 100.5 Albuterol/Ipratropium 3 ml 10/24/21 20:00 10/25/21 11:34 Ipratropium-Albuterol 3 Ml Neb INHALATION 3 ml RT-Q4H MELANIE Administration Apixaban 5 mg 10/24/21 21:00 10/25/21 08:16 Apixaban 5 Mg Tab PO 5 mg BID MELANIE Administration Protocol Aspirin 81 mg 10/24/21 21:00 10/24/21 21:14 Aspirin 81 Mg PO 81 mg HS MELANIE Administration Atorvastatin Calcium 40 mg 10/24/21 21:00 10/24/21 21:14 Atorvastatin 40 Mg Tab PO 40 mg HS MELANIE Administration Clopidogrel Bisulfate 75 mg 10/25/21 09:00 10/25/21 08:16 Clopidogrel 75 Mg Tab PO 75 mg DAILY MELANIE Administration Duloxetine HCl 60 mg 10/24/21 21:00 10/24/21 21:14 Duloxetine Hcl 60 Mg Capsule.Dr PO 60 mg HS MELANIE Administration Furosemide 40 mg 10/24/21 18:00 10/25/21 08:16 Furosemide 10 Mg/Ml 4 Ml Vial IV 40 mg BID MELANIE Administration Cefepime HCl 2 gm/ Sodium 100 mls @ 25 mls/hr 10/25/21 00:00 10/25/21 08:32 Chloride IVPB 25 mls/hr Q8HR MELANIE Administration Levofloxacin 500 mg 10/25/21 13:00 10/25/21 12:44 Levofloxacin 500 Mg Tab PO 500 mg Q24H MELANIE Administration Lisinopril 2.5 mg 10/24/21 21:00 10/25/21 03:17 Lisinopril 2.5 Mg Tab PO Not Given HS MELANIE Methylprednisolone Sodium Succinate 60 mg 10/24/21 18:00 10/25/21 12:00 Methylprednisolone Sod Succi 125 Mg/2 Ml Vial IV 60 mg Q6HR MELANIE Administration Metoprolol Tartrate 50 mg 10/24/21 21:00 10/25/21 08:15 Metoprolol Tartrate 50 Mg Tab PO 50 mg BID MELANIE Administration Naloxone HCl 0.2 mg 10/24/21 16:45 Naloxone 0.4 Mg/Ml 1 Ml Vial IV Q2M PRN Opioid Reversal Pantoprazole Sodium 40 mg 10/24/21 21:00 10/24/21 21:14 Pantoprazole 40 Mg Tablet PO 40 mg HS MELANIE Administration Intake and Output 10/24/21 10/25/21 10/25/21 22:59 06:59 14:59 Intake Total 180 Balance 180 Intake: Oral 180 Other: # Bowel Movements 0 Weight 106.549 kg 10/25/21 07:33 10/25/21 07:33
[2021-10-25 17:03] LABS: Glucose,Whole Blood 123 mg/dL (75-99)
--- NOTE | 2021-10-25 18:52 | PN ---
PROGRESS NOTE DATE OF SERVICE: 10/25/2021 This 61-year-old gentleman who was admitted with acute hypoxic respiratory failure with possible COVID-19 interstitial pneumonia or superadded interstitial lung disease is being closely monitored at this time. The COVID-19 rapid testing was negative at this time. Patient has hyponatremia. The patient had a chest CT also. Past medical history reviewed. REVIEW OF SYSTEMS: CARDIOVASCULAR SYSTEM: No angina, palpitations. RESPIRATION: As mentioned earlier. GI: As mentioned earlier. : No dysuria. NERVOUS SYSTEM: No numbness, weakness. CURRENT MEDICATIONS: Reviewed. They include Tylenol, DuoNeb, Eliquis, aspirin, Lipitor, cefepime. Doses and other medications are reviewed. PHYSICAL EXAMINATION: Patient alert and oriented x3. Pulse 86, blood pressure 106/60, respiration 18, temperature 97.9, pulse ox 98% on 8 L. HEENT: Conjunctivae normal. NECK: No jugular venous distention. CARDIOVASCULAR: S1, S2 muffled. RESPIRATION: Breath sounds diminished at the bases. A few scattered rhonchi and crackles. ABDOMEN: Soft, non-tender. NERVOUS SYSTEM: No focal deficit. LABS: CBC within normal limits. Sodium 127. ASSESSMENT: 1. Acute hypoxic respiratory failure, possibly secondary to interstitial lung disease combined with possible COVID-19 interstitial pneumonia with acute hypoxic respiratory failure with superadded pneumonia also. 2. Hyponatremia. 3. Elevated plasma lactic acid, possibly suppurative bacterial pneumonia. 4. Troponin 0.05, indeterminate. Rule out type 2 myocardial infarction or coronary artery disease. 5. History of continued ongoing nicotine dependence. 6. History of hyperlipidemia. 7. Hypertension. 8. History of cerebrovascular accident, transient ischemic attack. 9. History of appendectomy. 10.History of degenerative joint disease. 11.History of nicotine dependence. 12.History of peripheral vascular disease with bilateral iliac stents. 13.FULL CODE. RECOMMENDATIONS AND DISCUSSION: I recommend to continue current medications, continue with the monitoring, symptomatic treatment. Continue with antibiotics. Continue with bronchodilators. Continue with the rest of the medications. As mentioned earlier, COVID-19 is negative. Cultures are negative so far. Guarded prognosis because of multiple complex medical issues. Further recommendations to follow. I would recommended a COVID-19 sent out as well. MMODL / IJN: [id number] /
[2021-10-25 20:33] LABS: Glucose,Whole Blood 178 mg/dL (75-99)
[2021-10-25] MEDS: METOPROLOL TARTRATE 25 MG TAB PO SCH (22:15)
[2021-10-25] MEDS: PANTOPRAZOLE 40 MG TABLET PO SCH (22:15)
[2021-10-25] MEDS: ASPIRIN 81 MG PO SCH (22:15)
[2021-10-25] MEDS: MONTELUKAST 10 MG TAB PO SCH (22:15)
[2021-10-25] MEDS: DULoxetine HCL 60 MG CAPSULE.DR PO SCH (22:15)
[2021-10-25] MEDS: ATORVASTATIN 40 MG TAB PO SCH (22:15)
[2021-10-25] MEDS: INSULIN ASPART (NovoLOG) 100 UNIT/ML VIAL SQ SCH (22:19)
[2021-10-26] MEDS ORDERED: IPRATROPIUM-ALBUTEROL 3 ML NEB INHALATION PRN (00:11)
[2021-10-26] MEDS: IPRATROPIUM-ALBUTEROL 3 ML NEB INHALATION SCH ×5 (00:11→20:03)
[2021-10-26] MEDS: methylPREDNISolone SOD SUCCI 125 MG/2 ML VIAL IV SCH ×4 (00:25→18:14)
[2021-10-26] MEDS: CEFEPIME 2 GM in SODIUM CHLORIDE 0.9% 100 ML IVPB SCH ×3 (00:25→15:29)
[2021-10-26 02:48] LABS: Appearance,Urine Clear (Clear); Bilirubin,Urine Negative (Negative); Blood,Urine Negative (Negative); Color,Urine Yellow; Glucose,Urine (UA) 2+ (Negative); Ketones,Urine Negative (Negative); Leukocyte Esterase,Urine Negative (Negative); Nitrite,Urine Negative (Negative); PH, Urine 5.5 (5.0-8.0); Protein,Urine Negative (Negative); Specific Gravity,Urine 1.014 (1.001-1.035); Urobilinogen,Urine <2.0 mg/dL (<2.0)
[2021-10-26] MEDS: INSULIN ASPART (NovoLOG) 100 UNIT/ML VIAL SQ SCH ×4 (06:02→20:38)
[2021-10-26 06:03] LABS: Glucose,Whole Blood 139 mg/dL (75-99)
[2021-10-26] MEDS: METOPROLOL TARTRATE 25 MG TAB PO SCH ×2 (08:50→20:34)
[2021-10-26] MEDS: APIXABAN 5 MG TAB PO SCH ×2 (08:50→20:33)
[2021-10-26] MEDS: CLOPIDOGREL 75 MG TAB PO SCH (08:50)
[2021-10-26] MEDS: FUROSEMIDE 10 MG/ML 4 ML VIAL IV SCH (08:54)
--- NOTE | 2021-10-26 09:03 | XR ---
EXAMINATION TYPE: XR chest 1V portable DATE OF EXAM: 10/26/2021 COMPARISON: 10/24/2021 INDICATION: Idiopathic lung disease TECHNIQUE: Single frontal view of the chest is obtained. FINDINGS: The heart size is enlarged. The pulmonary vasculature is indistinct. Diffuse increased lung markings are present bilaterally. Lateral right lung infiltrate may be present . Some diffuse increased lung markings through the left lung. IMPRESSION: 1. Bilateral lung infiltrates have worsened from recent comparison. Correlate for an infectious etiol ogy. Continued follow-up is recommended. 2. Cardiomegaly.
[2021-10-26 09:15] LABS: Anisocytosis Slight; Basophils % (A) 0 %; Eosinophils % (A) 0 %; HCT 44.6 % (39.0-53.0); HGB 14.8 gm/dL (13.0-17.5); Lymphocytes # (A) 0.4 k/uL (1.0-4.8); Lymphocytes % (A) 4 %; MCH 30.9 pg (25.0-35.0); MCHC 33.1 g/dL (31.0-37.0); MCV 93.2 fL (80.0-100.0); Monocytes # (A) 0.3 k/uL (0-1.0); Monocytes % (A) 3 %; Neutrophils # (A) 9.6 k/uL (1.3-7.7); Neutrophils % (A) 92 %; Platelet Count 443 k/uL (150-450); RBC 4.78 m/uL (4.30-5.90); WBC 10.4 k/uL (3.8-10.6)
[2021-10-26 09:28] LABS: African American GFR (CKD) >90 (>60 ml/min/1.73 sqM); Anion Gap 12 mmol/L; Blood Urea Nitrogen 22 mg/dL (9-20); Calcium 8.6 mg/dL (8.4-10.2); Carbon Dioxide 27 mmol/L (22-30); Chloride 90 mmol/L (98-107); Glucose 153 mg/dL (74-99); Non-African American GFR(CKD) 79 (>60 ml/min/1.73 sqM); Potassium 3.7 mmol/L (3.5-5.1); Sodium 129 mmol/L (137-145)
--- NOTE | 2021-10-26 11:00 | ECHOF ---
Referral Reason:torsten MEASUREMENTS -------- HEIGHT: 180.3 cm WEIGHT: 106.1 kg BP: 92/57 RVIDd: 3.7 cm (< 3.3) IVSd: 1.2 cm (0.6 - 1.1) LVIDd: 3.7 cm (3.9 - 5.3) LVPWd: 1.2 cm (0.6 - 1.1) IVSs: 1.7 cm LVIDs: 2.0 cm LVPWs: 1.1 cm LAESV Index (A-L): 27.01 ml/m Ao Diam: 3.2 cm (2.0 - 3.7) AV Cusp: 1.7 cm (1.5 - 2.6) LA Diam: 3.5 cm (2.7 - 3.8) RAP: 5.00 mmHg RVSP: 41.56 mmHg FINDINGS -------- This was a technically difficult study with suboptimal apical views. The left ventricular size is normal. There is mild concentric left ventricular hypertrophy. Overa ll left ventricular systolic function is normal with, an EF between 55 - 60 %. The right ventricle is mildly enlarged. Normal LA size by volume 22+/-6 ml/m2. The right atrium was not well visualized. Lumason used Interatrial and interventricular septum intact. There is no evidence of aortic regurgitation. There is no evidence of aortic stenosis. No mitral regurgitation. Moderate tricuspid regurgitation present. There is moderate pulmonary hypertension. The right carla tricular systolic pressure, as measured by Doppler, is 41.56mmHg. There is no pulmonic regurgitation present. The aortic root size is normal. IVC Not well visulized. There is no pericardial effusion. CONCLUSIONS -------- 1. The left ventricular size is normal. 2. There is mild concentric left ventricular hypertrophy. 3. Overall left ventricular systolic function is normal with, an EF between 55 - 60 %. 4. The right ventricle is mildly enlarged. 5. Moderate tricuspid regurgitation present. 6. There is moderate pulmonary hypertension. 7. The right ventricular systolic pressure, as measured by Doppler, is 41.56mmHg. COMBINE INSPECTOR: Chelsea Resendez AAMIR
--- NOTE | 2021-10-26 11:31 | P.PN ---
Subjective HISTORY OF PRESENTING ILLNESS Patient is a pleasant 61-year-old male with history of hypertension hyperlipidemia PAD status post number of interventions, CVA, persistent atrial fibrillation on anticoagulation, previous tobacco abuse since quit, COPD. Patient follows with Dr. Cook. He admits his last stress test was a few years ago. He states he has been having worsening dyspnea on exertion over the past 2-3 weeks. He states occasionally will feel short of breath while sitting there however also if she gets up to walk more than 10 steps he will become short of breath. He denies any specific chest pain or pressure. CT PE protocol showed no PE however extensive bilateral pneumonia which is predominantly interstitial and "lung disease which is mostly new compared to old exam ". Personally reviewed and there is also extensive coronary artery calcification. EKG shows atrial fibrillation with poor R-wave progression, Q waves V1 and V2, controlled rate in 94. On telemetry heart rates of bolus it then 90s up to 120s occasionally. Blood work shows white blood cell count 8.1, hemoglobin 15.1, INR 1.2, sodium 127, creatinine 1.1, lactic acid 2.2, troponin 0.05, 0.05, proBNP 5300, pro-calcitonin 0.012, frederick virus not detected. He was started on IV Lasix and also stated on IV antibiotics. Pulmonology note noted with CAT scans showing progressive interstitial lung disease, interstitial fibrosis. 1/2 Patient seen and examined. Patient admits to feeling somewhat better however so severely short of breath with minimal activity such as getting up t and go to the bathroom. He denies any chest pain or pressure. Blood work was not performed this morning. He has been receiving IV diuresis with Lasix 40 mg twice a day as well as steroids and inhalers. PHYSICAL EXAMINATION Vital signs reviewed. CONSTITUTIONAL: No apparent distress. HEENT: Head is normocephalic. Pupils are equal, round. Sclerae anicteric. Mucous membranes of the mouth are moist. No JVD. No carotid bruit. CHEST EXAMINATION: Decreased breath sounds bilaterally with mild wheeze HEART EXAMINATION: Regular rate and rhythm. S1, S2 heard. No murmurs, gallops or rub. ABDOMEN: Soft, nontender. Positive bowel sounds. EXTREMITIES: 2+ peripheral pulses, no lower extremity edema and no calf tenderness. NEUROLOGIC EXAMINATION: Patient is awake, alert and oriented x3. ASSESSMENT 1. Elevated troponins, no obvious angina-type symptoms other than dyspnea. May be related to hypoxic respiratory failure. 2. PAD status post peripheral intervention 3. Acute on chronic diastolic heart failure, elevated proBNP 5300 4. Acute on chronic hypoxic respiratory failure. CT findings showing mostly component of interstitial lung disease however may be some component of heart failure additionally 5. Hypertension 6. Coronary artery calcification noted on CT 7. Previous tobacco abuse 8. Persistent atrial fibrillation with mild RVR PLAN Patient without any obvious angina-type symptoms and CAT scan showing worsening of interstitial lung disease. May be some component of pneumonia in addition to interstitial lung disease however also proBNP is elevated and therefore will continue to monitor response of diuretics. Continue with antibiotics and supportive care from pulmonology standpoint. He does have significant coronary artery calcifications with multiple risk factors for underlying CAD however troponins only minimally elevated and appears to be more related to pulmonary source. Heart rates appears somewhat better controlled with metoprolol 75 mg twice a day. We will continue with the medical approach at this point and may consider out patient stress testing. Echo 10/25 shows EF 55-60%, normal left atrial size, moderate tricuspid regurg itation with RVSP of 41. Likely transition to oral diuretics tomorrow. Objective - Vital Signs Vital signs: Vital Signs Temp 97.3 F L 10/26/21 07:40 Pulse 92 10/26/21 09:34 Resp 18 10/26/21 07:40 BP 108/64 10/26/21 07:40 Pulse Ox 93 L 10/26/21 07:40 Intake & Output 10/25/21 10/26/21 10/26/21 18:59 06:59 18:59 Intake Total 420 580 Output Total 600 500 Balance -180 -500 580 Intake: Intake, IV Titration 100 Amount Cefepime 2 gm In Sodium 100 Chloride 0.9% 100 ml @ 25 mls/hr IVPB Q8HR [facility] Rx# :[id number] Oral 420 480 Output: Urine 600 500 Other: Voiding Method Urinal # Bowel Movements 0 - Labs CBC & Chem 7: 10/26/21 08:25 10/26/21 08:25 Labs: Abnormal Lab Results - Last 24 Hours (Table) 10/25/21 10/25/21 10/25/21 Range/Units 11:42 17:02 20:32 RDW (11.5-15.5) % Neutrophils # (1.3-7.7) k/uL Lymphocytes # (1.0-4.8) k/uL Sodium (137-145) mmol/L Chloride (98-107) mmol/L BUN (9-20) mg/dL Glucose (74-99) mg/dL POC Glucose (mg/dL) 198 H 123 H 178 H (75-99) mg/dL Urine Glucose (UA) (Negative) 10/26/21 10/26/21 10/26/21 Range/Units 01:45 06:02 08:25 RDW 16.0 H (11.5-15.5) % Neutrophils # 9.6 H (1.3-7.7) k/uL Lymphocytes # 0.4 L (1.0-4.8) k/uL Sodium (137-145) mmol/L Chloride (98-107) mmol/L BUN (9-20) mg/dL Glucose (74-99) mg/dL POC Glucose (mg/dL) 139 H (75-99) mg/dL Urine Glucose (UA) 2+ H (Negative) 10/26/21 Range/Units 08:25 RDW (11.5-15.5) % Neutrophils # (1.3-7.7) k/uL Lymphocytes # (1.0-4.8) k/uL Sodium 129 L (137-145) mmol/L Chloride 90 L (98-107) mmol/L BUN 22 H (9-20) mg/dL Glucose 153 H (74-99) mg/dL POC Glucose (mg/dL) (75-99) mg/dL Urine Glucose (UA) (Negative) Microbiology - Last 24 Hours (Table) 10/24/21 17:19 Blood Culture - Preliminary Blood No Growth after 24 hours 10/24/21 17:19 Blood Culture - Preliminary Blood No Growth after 24 hours
[2021-10-26 11:54] LABS: Glucose,Whole Blood 126 mg/dL (75-99)
[2021-10-26] MEDS: LEVOFLOXACIN 500 MG TAB PO SCH (12:22)
--- NOTE | 2021-10-26 12:24 | P.PN ---
Subjective Progress Note Date: 10/26/21 A 61-year-old male patient presented to the emergency department approximately 3 weeks after being discharged from the hospital. The patient came in to the hospital because of worsening shortness of breath and the patient emitted he was placed on a BiPAP at a pressure of 12/6 cm of water with an FiO2 of 100% initially and FiO2 is being titrated. He was quite short of breath and her breathing was extremely labored at the time of admission. Note that the patient is known to have COPD and pulmonary fibrosis. His initial evaluation with us was approximately 3 weeks ago when he came into the hospital because of shortness of breath and the patient was diagnosed having COPD and pulmonary fibrosis and based on the CAT scan of the chest was done back then his presentation was typical of IPF. 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 He has also smoked for many years up to 2 packs of cigarettes a day and he quit and slowed on his smoking approximately 6 months ago. There was a low-dose CAT scan of the chest that was done for lung cancer screening approximately 6 months ago and back then the patient pulmonary fibrosis with subpleural distribution typical of IPF more so on the left and the patient had extensive honeycombing even back then. During this current adm ission, there is no new onset fever or chills. A repeat CAT scan of the chest was done in addition to the background COPD and pulmonary fibrosis, there are some new areas of ground glass pulmonary infiltrates bilaterally. Noted the patient has been vaccinated for COVID 19. He has not received his booster. COVID 19 PCR was negative. He has no fever. Has no chills. No 70 cardiomyopathy. No swelling lower extremity skin no angina. He has chronic atrial fibrillation and the patient has been maintained and anticoagulation with warfarin on outpatient basis. He was discharged home during his last visit on oxygen at 4 L per minute nasal cannula. We do not have a baseline PFT on this patient. He has been using Ventolin neb last treatment on an as-needed basis in addition to Pulmicort breast feels. No hemoptysis. No pleurisy. No sick contacts. He is breathing is quite labored while being evaluated in the emergency department. Furthermore, the patient had a white cell count of 8.4 with hemoglobin of 15, normal correlation profile, sodium level was 127, BUN was 20 with a creatinine of 1.1, lactic acid level was at 2. is up to 1.0, troponin was 0.05 and the proBNP level was 5380. 10/25/2021, I'm seeing the patient for a follow-up. The patient was seen yesterday in consultation for worsening shortness of breath. As mentioned earlier, the patient has COPD and pulmonary fibrosis which is likely the form of IPF. The patient came into the emergency with significant acidosis and the patient was placed on a BiPAP. This morning, the patient is been taken off the BiPAP. He continues to be diuresed with IV Lasix. He remains on broad-spectrum antibiotics and he is also on steroids. He is feeling less short of breath and he continues to be in atrial fibrillation. He was taken off the warfarin and he was placed on Eliquis 5 mg by mouth twice a day. He remains on IV Solu Medrol. Antibiotic coverage with IV cefepime . Echocardiogram was also ordered and is also suspected pending for now. Patient is doing overall better than yesterday. 10/26/2021, I'm seeing the patient for a follow-up. The patient remains off the BiPAP. Nevertheless, the patient is still short of breath and he is still needed is about 2 by nasal cannula. Repeat chest x-ray was done and showed diffuse bilateral pulmonary infiltrates with background bilateral pulmonary fibrosis. There is also cardiomegaly. Note that the patient was subjected to a combination of bronchodilators, steroids and antibiotics and antibiotic coverage was essentially and panic. Echocardiogram was completed and the patient was found to have a normal systolic function with an ejection fraction of 55-60%. There was moderate degree of tricuspid regurgitation, moderate pulmonary hypertension with a PA pressure of 41. The patient had 11 to ejection fraction of 55-60%. The pro calcitonin level was 0.12. Sodium level is 129. COVID 19 testing is been negative. The blood work from today shows a white cell count of 10.4 with a hemoglobin of 14.4 and a platelet count of 443 Objective - Vital Signs Vital signs: Vital Signs Temp 97.3 F L 10/26/21 07:40 Pulse 92 10/26/21 09:34 Resp 18 10/26/21 07:40 BP 108/64 10/26/21 07:40 Pulse Ox 93 L 10/26/21 07:40 Intake & Output 10/25/21 10/26/21 10/26/21 18:59 06:59 18:59 Intake Total 420 580 Output Total 600 500 775 Balance -180 -500 -195 Weight 96.7 kg Intake: Intake, IV Titration 100 Amount Cefepime 2 gm In Sodium 100 Chloride 0.9% 100 ml @ 25 mls/hr IVPB Q8HR [facility] Rx# :[id number] Oral 420 480 Output: Urine 600 500 775 Other: Voiding Method Urinal # Bowel Movements 0 - Exam GENERAL EXAM: Alert, active, very pleasant 61-year-old gentleman, patient is in significant respiratory distress and shortness of breath and the patient is currently off the BiPAP and currently on 8 L of oxygen by nasal cannula Head exam was generally normal. There was no scleral icterus or corneal arcus. Mucous membranes were moist. HEAD: Normocephalic. EYES: Normal reaction of pupils, equal size. NOSE: Clear with pink turbinates. THROAT: No erythema or exudates. NECK: No masses, no JVD. CHEST: No chest wall deformity. LUNGS: Equal air entry with coarse crackles in the posterior bases. the patient has Velcro crackles in lung bases more so on the left lung base. CVS: S1 and S2 normal with no audible murmur, regular rhythm. ABDOMEN: No hepatosplenomegaly, normal bowel sounds, no guarding or rigidity. SPINE: No scoliosis or deformity SKIN: No rashes CENTRAL NERVOUS SYSTEM: No focal deficits, tone is normal in all 4 extremities. EXTREMITIES: There is no peripheral edema. Positive clubbing, no cyanosis. Peripheral pulses are intact. The patient is digital clubbing - Labs CBC & Chem 7: 10/26/21 08:25 10/26/21 08:25 Labs: Abnormal Lab Results - Last 24 Hours (Table) 10/25/21 10/25/21 10/26/21 Range/Units 17:02 20:32 01:45 RDW (11.5-15.5) % Neutrophils # (1.3-7.7) k/uL Lymphocytes # (1.0-4.8) k/uL Sodium (137-145) mmol/L Chloride (98-107) mmol/L BUN (9-20) mg/dL Glucose (74-99) mg/dL POC Glucose (mg/dL) 123 H 178 H (75-99) mg/dL Urine Glucose (UA) 2+ H (Negative) 10/26/21 10/26/21 10/26/21 Range/Units 06:02 08:25 08:25 RDW 16.0 H (11.5-15.5) % Neutrophils # 9.6 H (1.3-7.7) k/uL Lymphocytes # 0.4 L (1.0-4.8) k/uL Sodium 129 L (137-145) mmol/L Chloride 90 L (98-107) mmol/L BUN 22 H (9-20) mg/dL Glucose 153 H (74-99) mg/dL POC Glucose (mg/dL) 139 H (75-99) mg/dL Urine Glucose (UA) (Negative) 10/26/21 Range/Units 11:53 RDW (11.5-15.5) % Neutrophils # (1.3-7.7) k/uL Lymphocytes # (1.0-4.8) k/uL Sodium (137-145) mmol/L Chloride (98-107) mmol/L BUN (9-20) mg/dL Glucose (74-99) mg/dL POC Glucose (mg/dL) 126 H (75-99) mg/dL Urine Glucose (UA) (Negative) Microbiology - Last 24 Hours (Table) 10/24/21 17:19 Blood Culture - Preliminary Blood No Growth after 24 hours 10/24/21 17:19 Blood Culture - Preliminary Blood No Growth after 24 hours Assessment and Plan Plan: 1 acute on chronic hypoxic respiratory failure. There is significant progression of the patient's history status and the patient has significant respiratory decompensation over the past 3 weeks. Note that the patient likely has chronic pulmonary fibrosis as evident on the low-dose CAT scan of the chest that was done May 2021. Nevertheless, the patient was hospitalized approximately 3 weeks ago with worsening shortness of breath and he was discharged home on 4 liters of oxygen by nasal cannula. At that time the repeat CAT scan of the chest showed full worsening in the pulmonary fibrosis with background COPD. The most recent CAT scan of the chest shows further interval worsening with development of bilateral pulmonary infiltrates with ground glass changes consistent with either infection or an acute exacerbation of chronic IPF or an acute lung injury on top of chronic IPF. Based on the workup that was done a month infections are felt to be less likely based on the fact that patient's pro-calcitonin level is low. The patient was given antibiotics on an empiric basis without much improvement. Also, the echo cardiac exam was within normal limits. There was no know major improvement in the chest x-ray findings or the symptoms with the use of diuretics. I favor acute exacerbation of IPF as the primary diagnosis here. 2 chronic pulmonary fibrosis based on the CAT scan description the patient likely has an IPF. The patient is digital clubbing consistent with IPF. 3 COPD 4 chronic A. fib fibrillation with warfarin outpatient basis, currently off warfarin the patient is to [facility] 5 previous history of smoking more than [id number] 6 hypertension 7 hyperlipidemia 8 history of peripheral vascular disease with previous bilateral iliac stent placement 9 history of depression 10 hyponatremia , improving 11 troponin leak probably related to oxygen mismatch, no evidence of acute EKG changes. Nevertheless, the EKG shows Q waves over the inferior leads indicative of an old AL. We'll obtain a 2-D echocardiogram. Plan Keep oxygen at 8 L Results of the echo was noted Stopped IV Lasix and put the patient oral Lasix 40 mg by mouth daily Continue IV Solu Medrol 60 mg every 6 hours Cover the patient with accommodation cefepime and Levaquin Check a baseline pro-calcitonin level was at 0.12 We'll continue to follow. Based on the fact that there is a possibility of an acute exacerbation of pulmonary fibrosis, the patient carries a bad outcome in a high mortality. It is very highly likely that the patient may not recover from this and remained up on a high flow of oxygen. There is also a likely that the patient's condition may potentially decompensated requiring high-level oxygen and he was made aware of all these possibilities.
[2021-10-26 16:29] LABS: Glucose,Whole Blood 152 mg/dL (75-99)
--- NOTE | 2021-10-26 19:20 | PN ---
PROGRESS NOTE DATE OF SERVICE: 10/26/2021 This 61-year-old gentleman who was admitted with acute hypoxic respiratory failure, possibly multifactorial secondary to interstitial lung disease, possibly community- acquired COVID-19 interstitial pneumonia and possible superadded bacterial pneumonia, is being closely monitored at this time. Multiple consultants are following the patient closely. The most recent chest x-ray, which was reviewed personally by me, showed extensive bilateral lung infiltrates, mostly due to COVID-19 pneumonia. Past medical history reviewed. REVIEW OF SYSTEMS: CARDIOVASCULAR SYSTEM: No angina. RESPIRATION: As mentioned earlier. GI: As mentioned earlier. : No dysuria. NERVOUS SYSTEM: No numbness, weakness. CURRENT MEDICATIONS: Reviewed. They include Tylenol, DuoNeb, Eliquis, aspirin, Lipitor. Doses and other medications are reviewed. PHYSICAL EXAMINATION: Patient alert and oriented x3. Pulse 110, blood pressure 93/64, respiration 18, temperature 96.8, pulse ox 92% on 8 L nasal cannula. HEENT: Conjunctivae normal. NECK: No jugular venous distention. CARDIOVASCULAR: S1, S2 muffled. RESPIRATION: Breath sounds diminished at the bases. Bilateral scattered rhonchi and crackles. ABDOMEN: Soft, nontender. LEGS: No edema. No swelling. NERVOUS SYSTEM: No focal deficit. LABS: CBC within normal limits. Sodium 129, glucose 152. ASSESSMENT: 1. Acute hypoxic respiratory failure, possibly secondary to interstitial lung disease combined with possible COVID-19 interstitial pneumonia with acute hypoxic respiratory failure with superadded bacterial pneumonia also. 2. Hyponatremia. 3. Elevated plasma lactic acid, possibly secondary to sepsis and bacterial pneumonia. 4. Troponin 0.05, indeterminate. Rule out type 2 myocardial infarction or coronary artery disease. 5. History of continued ongoing nicotine dependence. 6. History of hyperlipidemia. 7. Hypertension. 8. History of cerebrovascular accident, transient ischemic attack. 9. History of appendectomy. 10.Degenerative joint disease. 11.History of nicotine dependence. 12.History of peripheral vascular disease with bilateral iliac stents. 13.FULL CODE. RECOMMENDATIONS AND DISCUSSION: I recommend to continue current medications, continue with the monitoring, symptomatic treatment. Continue with the usual medications for COVID-19. The patient is on apixaban and cefepime. Patient is feeling slightly better. The patient is on IV steroids, also. We will monitor the patient closely. Repeat labs will be ordered. Closely follow with multiple consultants. Further recommendations to follow. MMODL / IJN: [id number] /
[2021-10-26] MEDS: ASPIRIN 81 MG PO SCH (20:33)
[2021-10-26] MEDS: ATORVASTATIN 40 MG TAB PO SCH (20:33)
[2021-10-26] MEDS: DULoxetine HCL 60 MG CAPSULE.DR PO SCH (20:34)
[2021-10-26] MEDS: MONTELUKAST 10 MG TAB PO SCH (20:34)
[2021-10-26] MEDS: PANTOPRAZOLE 40 MG TABLET PO SCH (20:34)
[2021-10-26 20:36] LABS: Glucose,Whole Blood 143 mg/dL (75-99)
[2021-10-27] MEDS: methylPREDNISolone SOD SUCCI 125 MG/2 ML VIAL IV SCH ×5 (01:04→23:43)
[2021-10-27] MEDS: CEFEPIME 2 GM in SODIUM CHLORIDE 0.9% 100 ML IVPB SCH ×4 (01:05→23:44)
[2021-10-27 06:08] LABS: Glucose,Whole Blood 114 mg/dL (75-99)
[2021-10-27] MEDS: INSULIN ASPART (NovoLOG) 100 UNIT/ML VIAL SQ SCH ×4 (07:59→23:40)
[2021-10-27] MEDS: APIXABAN 5 MG TAB PO SCH ×2 (09:25→20:21)
[2021-10-27] MEDS: FUROSEMIDE 40 MG TAB PO SCH (09:25)
[2021-10-27] MEDS: CLOPIDOGREL 75 MG TAB PO SCH (09:25)
[2021-10-27] MEDS: IPRATROPIUM-ALBUTEROL 3 ML NEB INHALATION SCH ×4 (09:40→20:25)
[2021-10-27] MEDS: METOPROLOL TARTRATE 25 MG TAB PO SCH ×2 (09:52→20:21)
[2021-10-27 10:24] LABS: Basophils % (A) 0 %; Eosinophils % (A) 0 %; HCT 44.4 % (39.0-53.0); HGB 14.7 gm/dL (13.0-17.5); Lymphocytes # (A) 0.6 k/uL (1.0-4.8); Lymphocytes % (A) 6 %; MCH 31.2 pg (25.0-35.0); MCHC 33.2 g/dL (31.0-37.0); Mean Platelet Volume 6.9; Monocytes # (A) 0.4 k/uL (0-1.0); Monocytes % (A) 5 %; Neutrophils # (A) 8.1 k/uL (1.3-7.7); Neutrophils % (A) 88 %; Platelet Count 401 k/uL (150-450); RBC 4.72 m/uL (4.30-5.90); RDW 15.9 % (11.5-15.5); WBC 9.2 k/uL (3.8-10.6)
[2021-10-27 10:30] LABS: African American GFR (CKD) >90 (>60 ml/min/1.73 sqM); Anion Gap 7 mmol/L; Blood Urea Nitrogen 25 mg/dL (9-20); Calcium 8.6 mg/dL (8.4-10.2); Carbon Dioxide 32 mmol/L (22-30); Chloride 90 mmol/L (98-107); Glucose 124 mg/dL (74-99); Non-African American GFR(CKD) 86 (>60 ml/min/1.73 sqM); Sodium 129 mmol/L (137-145)
[2021-10-27 11:47] LABS: Glucose,Whole Blood 133 mg/dL (75-99)
[2021-10-27] MEDS: LEVOFLOXACIN 500 MG TAB PO SCH (12:10)
--- NOTE | 2021-10-27 13:04 | P.PN ---
Subjective Progress Note Date: 10/27/21 HISTORY OF PRESENT ILLNESS: Patient is a pleasant 61-year-old male with history of hypertension hyperlipidemia PAD status post number of interventions, CVA, persistent atrial fibrillation on anticoagulation, previous tobacco abuse since quit, COPD. Patient follows with Dr. Cook. He admits his last stress test was a few years ago. He states he has been having worsening dyspnea on exertion over the past 2-3 weeks. He states occasionally will feel short of breath while sitting there however also if she gets up to walk more than 10 steps he will become short of breath. He denies any specific chest pain or pressure. CT PE protocol showed no PE however extensive bilateral pneumonia which is predominantly interstitial and "lung disease which is mostly new compared to old exam ". Personally reviewed and there is also extensive coronary artery calcification. EKG shows atrial fibrillation with poor R-wave progression, Q waves V1 and V2, controlled rate in 94. On telemetry heart rates of bolus it then 90s up to 120s occasionally. Blood work shows white blood cell count 8.1, hemoglobin 15.1, INR 1.2, sodium 127, creatinine 1.1, lactic acid 2.2, troponin 0.05, 0.05, proBNP 5300, pro-calcitonin 0.012, frederick virus not detected. He was started on IV Lasix and also stated on IV antibiotics. Pulmonology note noted with CAT scans showing progressive interstitial lung disease, interstitial fibrosis. 10/26 Patient seen and examined. Patient admits to feeling somewhat better however so severely short of breath with minimal activity such as getting up t and go to t he bathroom. He denies any chest pain or pressure. Blood work was not performed this morning. He has been receiving IV diuresis with Lasix 40 mg twice a day as well as steroids and inhalers. 10/27/2021 Patient examined this morning at the bedside. He denies chest pain or pressure. Reports improvement in his shortness of breath. Telemetry reveals atrial fibrillation with controlled ventricular rates. PHYSICAL EXAM: VITAL SIGNS: Reviewed. GENERAL: Well-developed in no acute distress. NECK: Supple. No JVD or thyromegaly LUNGS: Respirations even and unlabored. Lungs diminished to auscultation bilaterally. HEART: Irregular rate and rhythm. S1 and S2 heard. EXTREMITIES: Normal range of motion. No clubbing or cyanosis. Peripheral pulses intact. No lower extremity edema ASSESSMENT: 1. Elevated troponins, no obvious angina-type symptoms other than dyspnea. May be related to hypoxic respiratory failure. 2. PAD status post peripheral intervention 3. Acute on chronic diastolic heart failure, elevated proBNP 5300 4. Acute on chronic hypoxic respiratory failure. CT findings showing mostly component of interstitial lung disease however may be some component of heart failure additionally 5. Hypertension 6. Coronary artery calcification noted on CT 7. Previous tobacco abuse 8. Persistent atrial fibrillation with mild RVR PLAN: Continue current cardiac medications Patient is stable from a cardiac standpoint for discharge He will follow up with Dr. Cook and likely have outpatient stress test performed We will follow as needed. Please call with questions or concerns. Nurse practitioner note has been reviewed by physician. Signing provider agrees with the documented findings, assessment, and plan of care. Objective - Vital Signs Vital signs: Vital Signs Temp 98.3 F 10/27/21 08:00 Pulse 66 10/27/21 12:00 Resp 20 10/27/21 12:00 BP 94/62 10/27/21 12:00 Pulse Ox 94 L 10/27/21 12:00 Intake & Output 10/26/21 10/27/21 10/27/21 18:59 06:59 18:59 Intake Total 938 220 Output Total 1375 800 Balance -437 -580 Intake: Intake, IV Titration 100 100 Amount Cefepime 2 gm In Sodium 100 100 Chloride 0.9% 100 ml @ 25 mls/hr IVPB Q8HR [facility] Rx# :[id number] Oral 838 120 Output: Urine 1375 800 Other: Voiding Method Urinal - Labs CBC & Chem 7: 10/27/21 09:09 10/27/21 09:09 Labs: Abnormal Lab Results - Last 24 Hours (Table) 10/26/21 10/26/21 10/27/21 Range/Units 16:27 20:34 05:59 RDW (11.5-15.5) % Neutrophils # (1.3-7.7) k/uL Lymphocytes # (1.0-4.8) k/uL Sodium (137-145) mmol/L Chloride (98-107) mmol/L Carbon Dioxide (22-30) mmol/L BUN (9-20) mg/dL Glucose (74-99) mg/dL POC Glucose (mg/dL) 152 H 143 H 114 H (75-99) mg/dL 10/27/21 10/27/21 10/27/21 Range/Units 09:09 09:09 11:46 RDW 15.9 H (11.5-15.5) % Neutrophils # 8.1 H (1.3-7.7) k/uL Lymphocytes # 0.6 L (1.0-4.8) k/uL Sodium 129 L (137-145) mmol/L Chloride 90 L (98-107) mmol/L Carbon Dioxide 32 H (22-30) mmol/L BUN 25 H (9-20) mg/dL Glucose 124 H (74-99) mg/dL POC Glucose (mg/dL) 133 H (75-99) mg/dL Microbiology - Last 24 Hours (Table) 10/26/21 20:08 Gram Stain - Preliminary Sputum Sputum Culture - Preliminary 10/24/21 17:19 Blood Culture - Preliminary Blood No Growth after 48 hours 10/24/21 17:19 Blood Culture - Preliminary Blood No Growth after 48 hours
[2021-10-27 17:07] LABS: Glucose,Whole Blood 108 mg/dL (75-99)
--- NOTE | 2021-10-27 17:27 | PN ---
PROGRESS NOTE DATE OF SERVICE: 10/27/2021 This 58-year-old gentleman who was admitted with acute hypoxic respiratory failure, which is probably multifactorial is being closely monitored. Patient is feeling slightly better. No chest pain. No palpitations. No fever. Most recent chest x-ray which was done yesterday showed evidence of bilateral infiltrate, possible interstitial lung disease or Covid. No chest pain. No palpitations. No fever. PHYSICAL EXAMINATION: Alert and oriented times three. Pulse 91, blood pressure 100/60, respiration 18, temperature 97.8. Pulse ox 97% on 8 L. HEENT: Conjunctivae normal. Neck: No JVD. Cardiovascular: S1, S2 muffled. Respiration: Breath sounds diminished in the bases. A few scattered rhonchi. Abdomen is soft, nontender. Legs are no edema, no swelling. Nervous system: No focal deficits. LABS: Sodium 129. Other labs are noted. Covid 19 is negative. ASSESSMENT: 1. Acute hypoxic respiratory failure possibly secondary to interstitial lung disease, compared with possible Covid 19 interstitial pneumonia with acute hypoxic respiratory failure with supra added bacterial pneumonia as well. 2. Covid 19 negative. 3. Hyponatremia. 4. Elevated plasma lactic acid, possibly secondary to sepsis and bacterial pneumonia. 5. Troponin 0.005, indeterminate. Rule out type 2 myocardial infarction or coronary artery disease. 6. History of continued ongoing nicotine dependence. 7. History of hyperlipidemia. 8. Hypertension. 9. History of cerebrovascular accident, transient ischemic attack. 10.History of appendectomy. 11.History of degenerative joint disease. 12.History of nicotine dependence. 13.History of peripheral vascular disease with bilateral iliac stents. 14.FULL CODE. RECOMMENDATIONS AND DISCUSSION: Recommend to continue current medications, continue to monitor. Symptomatic treatment. Otherwise at this time continue to the antibiotics. Closely monitor with multiple consultants. Prognosis guarded. Further recommendations to follow. MMODL / IJN: [id number] /
--- NOTE | 2021-10-27 18:24 | P.PN ---
Subjective Progress Note Date: 10/27/21 Principal diagnosis: Respiratory failure. 10/26/2021, I'm seeing the patient for a follow-up. The patient remains off the BiPAP. Nevertheless, the patient is still short of breath and he is still needed is about 2 by nasal cannula. Repeat chest x-ray was done and showed diffuse bilateral pulmonary infiltrates with background bilateral pulmonary fibrosis. There is also cardiomegaly. Note that the patient was subjected to a combination of bronchodilators, steroids and antibiotics and antibiotic coverage was essentially and panic. Echocardiogram was completed and the patient was found to have a normal systolic function with an ejection fraction of 55-60%. There was moderate degree of tricuspid regurgitation, moderate pulmonary hypertension with a PA pressure of 41. The patient had 11 to ejection fraction of 55-60%. The pro calcitonin level was 0.12. Sodium level is 129. COVID 19 testing is been negative. The blood work from today shows a white cell count of 10.4 with a hemoglobin of 14.4 and a platelet count of 443 Progress note dated 10/27/2021. This is a 61-year-old male, again seen in room 381. The patient is currently on 8 L high flow O2. Saturations are 97%. The patient feels like his shortness of breath is about the same. The patient is not receiving any IV fluids. He is laying flat in bed, and is not manifesting any overt signs of respiratory distress. White count 9.2, hemoglobin 14.7, hematocrit 44.4, and platelet count normal. Sodium 129, potassium 4, chlorides 90, CO2 32, anion gap 7, BUN 25, and creatinine 0.94. Chest x-ray from October 26 shows bilateral lung infiltrates, which are a bit worse. There is also evidence of cardiomegaly. Objective - Vital Signs Vital signs: Vital Signs Temp 97.9 F 10/27/21 15:16 Pulse 100 10/27/21 16:03 Resp 18 10/27/21 15:16 BP 100/64 10/27/21 15:16 Pulse Ox 97 10/27/21 15:16 Intake & Output 10/26/21 10/27/21 10/27/21 18:59 06:59 18:59 Intake Total 938 220 180 Output Total 1375 800 425 Balance -437 -580 -411 Intake: Intake, IV Titration 100 100 Amount Cefepime 2 gm In Sodium 100 100 Chloride 0.9% 100 ml @ 25 mls/hr IVPB Q8HR [facility] Rx# :[id number] Oral 838 120 180 Output: Urine 1375 800 425 Other: Voiding Method Urinal - Exam No acute distress, oriented 3. Currently on 8 L high flow nasal O2. No obvious respiratory difficulty or distress. HEENT examination is grossly unremarkable. Neck supple. Full range of motion. No adenopathy thyromegaly or neck vein distention. Cardiovascular examination reveals regular rhythm rate. S1-S2 normal. No S3 or S4. No discernible murmur noted. Heart rate 91 bpm. Lungs reveal diminished bilateral breath sounds. There is basilar crackles noted. They are Velcro in nature. Abdomen soft bowel sounds are heard. No masses or tenderness. Extremities are intact. No edema or cyanosis, but clubbing is noted. Skin is without rash or lesion. Neurologic examination is brief but nonfocal. - Labs CBC & Chem 7: 10/27/21 09:09 10/27/21 09:09 Labs: Abnormal Lab Results - Last 24 Hours (Table) 10/26/21 10/27/21 10/27/21 Range/Units 20:34 05:59 09:09 RDW 15.9 H (11.5-15.5) % Neutrophils # 8.1 H (1.3-7.7) k/uL Lymphocytes # 0.6 L (1.0-4.8) k/uL Sodium (137-145) mmol/L Chloride (98-107) mmol/L Carbon Dioxide (22-30) mmol/L BUN (9-20) mg/dL Glucose (74-99) mg/dL POC Glucose (mg/dL) 143 H 114 H (75-99) mg/dL 10/27/21 10/27/21 10/27/21 Range/Units 09:09 11:46 17:06 RDW (11.5-15.5) % Neutrophils # (1.3-7.7) k/uL Lymphocytes # (1.0-4.8) k/uL Sodium 129 L (137-145) mmol/L Chloride 90 L (98-107) mmol/L Carbon Dioxide 32 H (22-30) mmol/L BUN 25 H (9-20) mg/dL Glucose 124 H (74-99) mg/dL POC Glucose (mg/dL) 133 H 108 H (75-99) mg/dL Microbiology - Last 24 Hours (Table) 10/26/21 20:08 Gram Stain - Preliminary Sputum Sputum Culture - Preliminary 10/24/21 17:19 Blood Culture - Preliminary Blood No Growth after 48 hours 10/24/21 17:19 Blood Culture - Preliminary Blood No Growth after 48 hours Assessment and Plan Assessment: Acute on chronic hypoxemic respiratory failure, secondary to the patient's known history of pulmonary fibrosis. Chronic hypoxemic respiratory failure secondary to IPF. History of COPD. History of chronic atrial fibrillation. History of ongoing tobacco use with nicotine addiction. Essential hypertension. Hyperlipidemia. History of peripheral vascular occlusive disease with bilateral iliac stents. History of depression. Hyponatremia, improved. Elevated troponin, likely related to supply/demand mismatch. Plan: Plan dated 10/27/2021. The patient is maintained on oxygen and 8 L high flow. The patient was placed on Solu-Medrol 60 mg every 6 hours. Patient is being covered with both cefepime and Levaquin. We'll continue to follow. Prognosis is guarded. We will continue to follow make recommendations where appropriate. Labs, x-rays, and medications are all reviewed. The patient also remains on budesonide, and formoterol, as well as DuoNeb. Microbiologic studies are thus far negative. Time with Patient: Less than 30
[2021-10-27] MEDS: PANTOPRAZOLE 40 MG TABLET PO SCH (20:21)
[2021-10-27] MEDS: DULoxetine HCL 60 MG CAPSULE.DR PO SCH (20:22)
[2021-10-27] MEDS: MONTELUKAST 10 MG TAB PO SCH (20:22)
[2021-10-27] MEDS: ATORVASTATIN 40 MG TAB PO SCH (20:22)
[2021-10-27] MEDS: BUDESONIDE 1 MG/2 ML NEBU INHALATION SCH (20:25)
[2021-10-27] MEDS: FORMOTEROL FUMARATE 20 MCG/2 ML NEBU INHALATION SCH (20:25)
[2021-10-27 20:57] LABS: Glucose,Whole Blood 118 mg/dL (75-99)
[2021-10-27] MEDS: ASPIRIN 81 MG PO SCH (23:43)
[2021-10-28] MEDS: methylPREDNISolone SOD SUCCI 125 MG/2 ML VIAL IV SCH ×4 (06:47→23:12)
[2021-10-28] MEDS: INSULIN ASPART (NovoLOG) 100 UNIT/ML VIAL SQ SCH ×4 (07:49→20:16)
[2021-10-28 08:21] LABS: Basophils % (A) 0 %; Eosinophils % (A) 0 %; HCT 43.2 % (39.0-53.0); HGB 14.4 gm/dL (13.0-17.5); Lymphocytes # (A) 0.6 k/uL (1.0-4.8); Lymphocytes % (A) 5 %; MCH 30.9 pg (25.0-35.0); MCHC 33.3 g/dL (31.0-37.0); MCV 92.8 fL (80.0-100.0); Mean Platelet Volume 7.1; Monocytes # (A) 0.9 k/uL (0-1.0); Monocytes % (A) 8 %; Neutrophils # (A) 9.6 k/uL (1.3-7.7); Neutrophils % (A) 85 %; Platelet Count 362 k/uL (150-450); RBC 4.66 m/uL (4.30-5.90); RDW 15.2 % (11.5-15.5); WBC 11.2 k/uL (3.8-10.6)
[2021-10-28 08:33] LABS: African American GFR (CKD) >90 (>60 ml/min/1.73 sqM); Anion Gap 8 mmol/L; Blood Urea Nitrogen 29 mg/dL (9-20); Calcium 8.7 mg/dL (8.4-10.2); Carbon Dioxide 29 mmol/L (22-30); Chloride 92 mmol/L (98-107); Glucose 119 mg/dL (74-99); Non-African American GFR(CKD) >90 (>60 ml/min/1.73 sqM); Potassium 4.2 mmol/L (3.5-5.1); Sodium 129 mmol/L (137-145)
[2021-10-28] MEDS: FORMOTEROL FUMARATE 20 MCG/2 ML NEBU INHALATION SCH ×2 (08:52→21:11)
[2021-10-28] MEDS: IPRATROPIUM-ALBUTEROL 3 ML NEB INHALATION SCH ×4 (08:52→20:05)
[2021-10-28] MEDS: BUDESONIDE 1 MG/2 ML NEBU INHALATION SCH ×2 (08:52→21:11)
[2021-10-28] MEDS: APIXABAN 5 MG TAB PO SCH ×2 (09:21→20:20)
[2021-10-28] MEDS: CLOPIDOGREL 75 MG TAB PO SCH (09:21)
[2021-10-28] MEDS: METOPROLOL TARTRATE 25 MG TAB PO SCH ×2 (09:22→20:20)
[2021-10-28] MEDS: FUROSEMIDE 40 MG TAB PO SCH (09:22)
[2021-10-28] MEDS: CEFEPIME 2 GM in SODIUM CHLORIDE 0.9% 100 ML IVPB SCH ×3 (09:23→23:12)
[2021-10-28 12:02] LABS: Glucose,Whole Blood 118 mg/dL (75-99)
[2021-10-28] MEDS: LEVOFLOXACIN 500 MG TAB PO SCH (12:40)
[2021-10-28] MEDS ORDERED: ANIDULAFUNGIN 200 MG in SODIUM CHLORIDE 0.9% 200 ML IVPB ONE (16:30)
--- NOTE | 2021-10-28 16:41 | PN ---
PROGRESS NOTE DATE OF SERVICE: 10/28/2021 This 61-year-old gentleman who was admitted with acute hypoxic respiratory failure possibly secondary to history of lung disease also had Covid-19 pneumonia. The patient is hypoxic. Patient is being closely monitored. Sputum culture showed Lisa albicans. PAST MEDICAL HISTORY: Reviewed. REVIEW OF SYSTEMS: Cardiovascular system: No angina. Respiratory system: As mentioned earlier. GI: As mentioned earlier. : No dysuria. Nervous system: No numbness or weakness. CURRENT MEDICATIONS: Reviewed include DuoNeb, Eliquis, Lipitor, Pulmicort, cefepime. PHYSICAL EXAMINATION: Patient is alert, oriented x3. Pulse is 92, blood pressure 97/51, respiration 20, temperature 97.8, pulse ox 90% on 6 L. HEENT: Conjunctivae normal. Oral mucosa moist. NECK: No jugular venous distention. No lymph node enlargement. CARDIOVASCULAR: S1, S2, muffled. No S3, no S4, RESPIRATORY: Diminished breath sounds at the bases. A few scattered rhonchi. ABDOMEN: Soft, nontender. LEGS: No edema, no swelling. NERVOUS SYSTEM: No focal deficits. LAB STUDIES: WBC 11.2, glucose 118. ASSESSMENT: 1. Acute hypoxic respiratory failure possibly secondary to interstitial lung disease compared to possible Covid-19 interstitial pneumonia with acute hypoxic respiratory failure with superadded bacterial pneumonia as well. 2. Possible fungal pneumonia with Lisa albicans. 3. Covid negative. 4. Hyponatremia. 5. Elevated plasma lactic acid possibly secondary to sepsis and bacterial pneumonia. 6. Troponin 0.05 indeterminate, rule out type 2 myocardial infarction or coronary artery disease. 7. History of continued ongoing nicotine dependence. 8. History of hyperlipidemia. 9. Hypertension. 10.History of CVA/TIA. 11.History of appendectomy. 12.History of DJD. 13.History of nicotine dependence. 14.History of peripheral vascular disease with bilateral iliac stents. 15.FULL CODE. RECOMMENDATION: Continue current medical management, continue symptomatic treatment. Otherwise, at this time, repeat labs and ( ). Otherwise, closely monitor. Closely follow with Infectious Disease. Guarded prognosis. Further recommendations to follow. MMODL / IJN: [id number] /
[2021-10-28 17:00] LABS: Glucose,Whole Blood 142 mg/dL (75-99)
--- NOTE | 2021-10-28 17:09 | P.PN ---
Subjective Progress Note Date: 10/28/21 Principal diagnosis: Respiratory failure. 10/26/2021, I'm seeing the patient for a follow-up. The patient remains off the BiPAP. Nevertheless, the patient is still short of breath and he is still needed is about 2 by nasal cannula. Repeat chest x-ray was done and showed diffuse bilateral pulmonary infiltrates with background bilateral pulmonary fibrosis. There is also cardiomegaly. Note that the patient was subjected to a combination of bronchodilators, steroids and antibiotics and antibiotic coverage was essentially and panic. Echocardiogram was completed and the patient was found to have a normal systolic function with an ejection fraction of 55-60%. There was moderate degree of tricuspid regurgitation, moderate pulmonary hypertension with a PA pressure of 41. The patient had 11 to ejection fraction of 55-60%. The pro calcitonin level was 0.12. Sodium level is 129. COVID 19 testing is been negative. The blood work from today shows a white cell count of 10.4 with a hemoglobin of 14.4 and a platelet count of 443 Progress note dated 10/27/2021. This is a 61-year-old male, again seen in room 381. The patient is currently on 8 L high flow O2. Saturations are 97%. The patient feels like his shortness of breath is about the same. The patient is not receiving any IV fluids. He is laying flat in bed, and is not manifesting any overt signs of respiratory distress. White count 9.2, hemoglobin 14.7, hematocrit 44.4, and platelet count normal. Sodium 129, potassium 4, chlorides 90, CO2 32, anion gap 7, BUN 25, and creatinine 0.94. Chest x-ray from October 26 shows bilateral lung infiltrates, which are a bit worse. There is also evidence of cardiomegaly. Progress note dated 10/28/2021. This is a 61-year-old male, again seen in room 381. The patient is currently on 6 L high flow nasal cannula. He is currently receiving Levaquin and cefepime. The patient is quite short of breath, because he was recently up to the bathroom. The patient also complains of cough, with occasional phlegm production. He denies any chest pain or chest discomfort. White count 11.2, with a normal hemoglobin, hematocrit, and platelet count. Sodium 129, potassium 4.2, chlorides 92, CO2 29, anion gap 8,BUN 29, with a creatinine of 0.88. Objective - Vital Signs Vital signs: Vital Signs Temp 97.4 F L 10/28/21 13:29 Pulse 92 10/28/21 16:18 Resp 20 10/28/21 13:29 BP 97/54 10/28/21 13:29 Pulse Ox 90 L 10/28/21 13:29 Intake & Output 10/27/21 10/28/21 10/28/21 18:59 06:59 18:59 Intake Total 180 360 100 Output Total 988 785 9754 Balance -245 -40 -900 Intake: Intake, IV Titration 100 Amount Cefepime 2 gm In Sodium 100 Chloride 0.9% 100 ml @ 25 mls/hr IVPB Q8HR [facility] Rx# :[id number] Oral 180 360 Output: Urine 900 560 6121 Other: Voiding Method Urinal # Voids 2 - Exam Mild conversational dyspnea, oriented 3. Currently on 6 L high flow nasal O2. HEENT examination is grossly unremarkable. Neck supple. Full range of motion. No adenopathy thyromegaly or neck vein distention. Cardiovascular examination reveals regular rhythm rate. S1-S2 normal. No S3 or S4. No discernible murmur noted. Heart rate 92 bpm. Heart sounds are distant. Lungs reveal diminished bilateral breath sounds. There is basilar crackles noted. They are Velcro in nature. Saturations are 90% on 6 L. Abdomen soft bowel sounds are heard. No masses or tenderness. Extremities are intact. No edema or cyanosis, but clubbing is noted. Skin is without rash or lesion. Neurologic examination is brief but nonfocal. - Labs CBC & Chem 7: 10/28/21 07:47 10/28/21 07:47 Labs: Abnormal Lab Results - Last 24 Hours (Table) 10/27/21 10/27/21 10/28/21 Range/Units 17:06 20:54 07:47 WBC 11.2 H (3.8-10.6) k/uL Neutrophils # 9.6 H (1.3-7.7) k/uL Lymphocytes # 0.6 L (1.0-4.8) k/uL Sodium (137-145) mmol/L Chloride (98-107) mmol/L BUN (9-20) mg/dL Glucose (74-99) mg/dL POC Glucose (mg/dL) 108 H 118 H (75-99) mg/dL 10/28/21 10/28/21 10/28/21 Range/Units 07:47 12:00 16:57 WBC (3.8-10.6) k/uL Neutrophils # (1.3-7.7) k/uL Lymphocytes # (1.0-4.8) k/uL Sodium 129 L (137-145) mmol/L Chloride 92 L (98-107) mmol/L BUN 29 H (9-20) mg/dL Glucose 119 H (74-99) mg/dL POC Glucose (mg/dL) 118 H 142 H (75-99) mg/dL Microbiology - Last 24 Hours (Table) 10/26/21 20:08 Gram Stain - Final Sputum Sputum Culture - Final Lisa albicans 10/24/21 17:19 Blood Culture - Preliminary Blood No Growth after 72 hours 10/24/21 17:19 Blood Culture - Preliminary Blood No Growth after 72 hours Assessment and Plan Assessment: Acute on chronic hypoxemic respiratory failure, secondary to the patient's known history of pulmonary fibrosis. Chronic hypoxemic respiratory failure secondary to IPF. History of COPD. History of chronic atrial fibrillation. History of ongoing tobacco use with nicotine addiction. Essential hypertension. Hyperlipidemia. History of peripheral vascular occlusive disease with bilateral iliac stents. History of depression. Hyponatremia, improved. Elevated troponin, likely related to supply/demand mismatch. Plan: Plan dated 10/27/2021. The patient is maintained on oxygen and 8 L high flow. The patient was placed on Solu-Medrol 60 mg every 6 hours. Patient is being covered with both cefepime and Levaquin. We'll continue to follow. Prognosis is guarded. We will continue to follow make recommendations where appropriate. Labs, x-rays, and medications are all reviewed. The patient also remains on budesonide, and formoterol, as well as DuoNeb. Microbiologic studies are thus far negative. Plan dated 10/28/2021. The patient is currently on 6 L high flow O2. The patient is quite short of breath, because he recently got up to go to the bathroom. The patient remains Eraxis, cefepime, and Levaquin. The patient is also on updrafts, and Solu- Medrol. We will continue to follow make recommendations were appropriate. Labs, x-rays, medications are reviewed. Microbiologic studies are thus far negative.The patient has been weaned down to 6 L. Additional recommendations and suggestions are forthcoming. Time with Patient: Less than 30
[2021-10-28 20:13] LABS: Glucose,Whole Blood 119 mg/dL (75-99)
[2021-10-28] MEDS: ASPIRIN 81 MG PO SCH (20:20)
[2021-10-28] MEDS: ATORVASTATIN 40 MG TAB PO SCH (20:20)
[2021-10-28] MEDS: DULoxetine HCL 60 MG CAPSULE.DR PO SCH (20:20)
[2021-10-28] MEDS: MONTELUKAST 10 MG TAB PO SCH (20:20)
[2021-10-28] MEDS: PANTOPRAZOLE 40 MG TABLET PO SCH (20:20)
[2021-10-29 05:52] LABS: Glucose,Whole Blood 120 mg/dL (75-99)
[2021-10-29] MEDS: INSULIN ASPART (NovoLOG) 100 UNIT/ML VIAL SQ SCH ×4 (05:52→20:20)
[2021-10-29] MEDS: methylPREDNISolone SOD SUCCI 125 MG/2 ML VIAL IV SCH ×3 (05:53→16:58)
[2021-10-29 07:45] LABS: Basophils % (A) 0 %; Eosinophils % (A) 0 %; HCT 43.4 % (39.0-53.0); HGB 14.5 gm/dL (13.0-17.5); Lymphocytes # (A) 0.6 k/uL (1.0-4.8); Lymphocytes % (A) 5 %; MCH 31.4 pg (25.0-35.0); MCHC 33.4 g/dL (31.0-37.0); MCV 94.1 fL (80.0-100.0); Mean Platelet Volume 6.9; Monocytes # (A) 0.7 k/uL (0-1.0); Monocytes % (A) 6 %; Neutrophils # (A) 9.9 k/uL (1.3-7.7); Neutrophils % (A) 88 %; Platelet Count 348 k/uL (150-450); RBC 4.61 m/uL (4.30-5.90); RDW 15.7 % (11.5-15.5); WBC 11.3 k/uL (3.8-10.6)
[2021-10-29 07:48] LABS: African American GFR (CKD) >90 (>60 ml/min/1.73 sqM); Anion Gap 7 mmol/L; Blood Urea Nitrogen 26 mg/dL (9-20); Calcium 8.5 mg/dL (8.4-10.2); Carbon Dioxide 29 mmol/L (22-30); Chloride 90 mmol/L (98-107); Glucose 126 mg/dL (74-99); Non-African American GFR(CKD) 88 (>60 ml/min/1.73 sqM); Potassium 4.1 mmol/L (3.5-5.1); Sodium 126 mmol/L (137-145)
[2021-10-29] MEDS: CLOPIDOGREL 75 MG TAB PO SCH (08:11)
[2021-10-29] MEDS: FUROSEMIDE 40 MG TAB PO SCH (08:11)
[2021-10-29] MEDS: METOPROLOL TARTRATE 25 MG TAB PO SCH ×2 (08:11→20:20)
[2021-10-29] MEDS: APIXABAN 5 MG TAB PO SCH ×2 (08:11→20:20)
[2021-10-29] MEDS: CEFEPIME 2 GM in SODIUM CHLORIDE 0.9% 100 ML IVPB SCH ×2 (08:12→15:48)
[2021-10-29] MEDS: IPRATROPIUM-ALBUTEROL 3 ML NEB INHALATION SCH ×4 (10:55→21:52)
[2021-10-29] MEDS: FORMOTEROL FUMARATE 20 MCG/2 ML NEBU INHALATION SCH (10:55)
[2021-10-29] MEDS: BUDESONIDE 1 MG/2 ML NEBU INHALATION SCH (10:55)
[2021-10-29 11:47] LABS: Glucose,Whole Blood 109 mg/dL (75-99)
[2021-10-29] MEDS: LEVOFLOXACIN 500 MG TAB PO SCH (11:57)
--- NOTE | 2021-10-29 15:31 | XR ---
EXAMINATION TYPE: XR chest 1V portable DATE OF EXAM: 10/29/2021 COMPARISON: Chest x-ray 10/26/2021, CT chest 10/06/2021 HISTORY: Correlate for pneumonia, there is underlying interstitial lung disease TECHNIQUE: Single frontal view of the chest is obtained. FINDINGS: Patchy bilateral airspace disease persists, there is prominence of interstitium. Cardiac m ediastinal silhouette is stable. No evident pneumothorax or pleural effusion. Old granulomatous disea se changes noted on CT. IMPRESSION: Correlate for pneumonia.
[2021-10-29] MEDS ORDERED: ANIDULAFUNGIN 100 MG in SODIUM CHLORIDE 0.9% 100 ML IVPB SCH (16:00)
[2021-10-29 16:42] LABS: Glucose,Whole Blood 176 mg/dL (75-99)
--- NOTE | 2021-10-29 16:46 | P.PN ---
Subjective Progress Note Date: 10/29/21 Principal diagnosis: Respiratory failure. 10/26/2021, I'm seeing the patient for a follow-up. The patient remains off the BiPAP. Nevertheless, the patient is still short of breath and he is still needed is about 2 by nasal cannula. Repeat chest x-ray was done and showed diffuse bilateral pulmonary infiltrates with background bilateral pulmonary fibrosis. There is also cardiomegaly. Note that the patient was subjected to a combination of bronchodilators, steroids and antibiotics and antibiotic coverage was essentially and panic. Echocardiogram was completed and the patient was found to have a normal systolic function with an ejection fraction of 55-60%. There was moderate degree of tricuspid regurgitation, moderate pulmonary hypertension with a PA pressure of 41. The patient had 11 to ejection fraction of 55-60%. The pro calcitonin level was 0.12. Sodium level is 129. COVID 19 testing is been negative. The blood work from today shows a white cell count of 10.4 with a hemoglobin of 14.4 and a platelet count of 443 Progress note dated 10/27/2021. This is a 61-year-old male, again seen in room 381. The patient is currently on 8 L high flow O2. Saturations are 97%. The patient feels like his shortness of breath is about the same. The patient is not receiving any IV fluids. He is laying flat in bed, and is not manifesting any overt signs of respiratory distress. White count 9.2, hemoglobin 14.7, hematocrit 44.4, and platelet count normal. Sodium 129, potassium 4, chlorides 90, CO2 32, anion gap 7, BUN 25, and creatinine 0.94. Chest x-ray from October 26 shows bilateral lung infiltrates, which are a bit worse. There is also evidence of cardiomegaly. Progress note dated 10/28/2021. This is a 61-year-old male, again seen in room 381. The patient is currently on 6 L high flow nasal cannula. He is currently receiving Levaquin and cefepime. The patient is quite short of breath, because he was recently up to the bathroom. The patient also complains of cough, with occasional phlegm production. He denies any chest pain or chest discomfort. White count 11.2, with a normal hemoglobin, hematocrit, and platelet count. Sodium 129, potassium 4.2, chlorides 92, CO2 29, anion gap 8,BUN 29, with a creatinine of 0.88. Progress note dated 10/29/2021. 61-year-old male, again seen in room 381. Unfortunately, the patient's oxygenation is worsened overnight, and now, he's on 15 L high flow nasal O2. Saturations are 97%. Yesterday, when I saw him, he was on 6 L high flow nasal O2. The patient today feels better. He was quite tachypneic yesterday. Labs today show white count 11.3, hemoglobin 14.5, hematocrit 43.4, and a platelet count 348,000. Sodium 126, potassium 4.1, chlorides 90, CO2 29, anion gap 7, BUN 26, and creatinine 0.92. Chest x-ray shows patchy bilateral airspace disease. Objective - Vital Signs Vital signs: Vital Signs Temp 97.9 F 10/29/21 13:08 Pulse 90 10/29/21 13:08 Resp 22 10/29/21 13:08 BP 87/60 10/29/21 13:08 Pulse Ox 94 L 10/29/21 13:08 Intake & Output 10/28/21 10/29/21 10/29/21 18:59 06:59 18:59 Intake Total 580 500 240 Output Total 4362 840 4433 Balance -1020 84 -6449 Intake: Intake, IV Titration 100 Amount Cefepime 2 gm In Sodium 100 Chloride 0.9% 100 ml @ 25 mls/hr IVPB Q8HR [facility] Rx# :[id number] Oral 480 500 240 Output: Urine 7148 687 0529 Other: Voiding Method Urinal - Exam Mild conversational dyspnea, oriented 3. Currently on 15 L high flow nasal O2. Saturations are 94%. HEENT examination is grossly unremarkable. Neck supple. Full range of motion. No adenopathy thyromegaly or neck vein distention. Cardiovascular examination reveals regular rhythm rate. S1-S2 normal. No S3 or S4. No discernible murmur noted. Heart rate 95 bpm. Heart sounds are distant. Lungs reveal diminished bilateral breath sounds. There is basilar crackles noted. They are Velcro in nature. He is restricted in his breathing. Abdomen soft bowel sounds are heard. No masses or tenderness. Extremities are intact. No edema or cyanosis, but clubbing is noted. Skin is without rash or lesion. Neurologic examination is brief but nonfocal. - Labs CBC & Chem 7: 10/29/21 06:47 10/29/21 06:47 Labs: Abnormal Lab Results - Last 24 Hours (Table) 10/28/21 10/28/21 10/29/21 Range/Units 16:57 20:11 05:51 WBC (3.8-10.6) k/uL RDW (11.5-15.5) % Neutrophils # (1.3-7.7) k/uL Lymphocytes # (1.0-4.8) k/uL Sodium (137-145) mmol/L Chloride (98-107) mmol/L BUN (9-20) mg/dL Glucose (74-99) mg/dL POC Glucose (mg/dL) 142 H 119 H 120 H (75-99) mg/dL 10/29/21 10/29/21 10/29/21 Range/Units 06:47 06:47 11:46 WBC 11.3 H (3.8-10.6) k/uL RDW 15.7 H (11.5-15.5) % Neutrophils # 9.9 H (1.3-7.7) k/uL Lymphocytes # 0.6 L (1.0-4.8) k/uL Sodium 126 L (137-145) mmol/L Chloride 90 L (98-107) mmol/L BUN 26 H (9-20) mg/dL Glucose 126 H (74-99) mg/dL POC Glucose (mg/dL) 109 H (75-99) mg/dL Microbiology - Last 24 Hours (Table) 10/24/21 17:19 Blood Culture - Preliminary Blood No Growth after 96 hours 10/24/21 17:19 Blood Culture - Preliminary Blood No Growth after 96 hours Assessment and Plan Assessment: Acute on chronic hypoxemic respiratory failure, secondary to the patient's known history of pulmonary fibrosis. Chronic hypoxemic respiratory failure secondary to IPF. History of COPD. History of chronic atrial fibrillation. History of ongoing tobacco use with nicotine addiction. Essential hypertension. Hyperlipidemia. History of peripheral vascular occlusive disease with bilateral iliac stents. History of depression. Hyponatremia, improved. Elevated troponin, likely related to supply/demand mismatch. Plan: Plan dated 10/27/2021. The patient is maintained on oxygen and 8 L high flow. The patient was placed on Solu-Medrol 60 mg every 6 hours. Patient is being covered with both cefepime and Levaquin. We'll continue to follow. Prognosis is guarded. We will continue to follow make recommendations where appropriate. Labs, x-rays, and medications are all reviewed. The patient also remains on budesonide, and formoterol, as well as DuoNeb. Microbiologic studies are thus far negative. Plan dated 10/28/2021. The patient is currently on 6 L high flow O2. The patient is quite short of breath, because he recently got up to go to the bathroom. The patient remains Eraxis, cefepime, and Levaquin. The patient is also on updrafts, and Solu- Medrol. We will continue to follow make recommendations were appropriate. Labs, x-rays, medications are reviewed. Microbiologic studies are thus far negative.The patient has been weaned down to 6 L. Additional recommendations and suggestions are forthcoming. Plan dated 10/29/2021. Patient remains on cefepime, Levaquin, and Eraxis. The patient's previous pro- calcitonin level was very low. I'll repeat that today. If his again in the low to normal range, I will DC antibiotics and antifungals. The patient remains on site Medrol, which is appropriate. Additional recommendations and suggestions are forthcoming. Oxygen requirements, unfortunately have increased. We will continue to follow make recommendations where appropriate. Prognosis, is very guarded. Time with Patient: Less than 30
--- NOTE | 2021-10-29 17:05 | PN ---
PROGRESS NOTE DATE OF SERVICE: 10/29/2021 This 61-year-old gentleman admitted with acute COVID-19 infection, acute bilateral interstitial pneumonia had significant hypoxia. The patient had worsened slightly today. The patient's oxygen has to be up to 15 L and patient is saturating 94%. Multiple consultants are following the patient closely. The patient has hyponatremia also. PAST MEDICAL HISTORY: Reviewed. REVIEW OF SYSTEMS: Cardiovascular system: No angina. Respiratory system: As mentioned earlier. GI: As mentioned earlier. : No dysuria. Nervous system: No numbness or weakness. CURRENT MEDICATIONS: Reviewed include Tylenol, DuoNeb, ( ), Eliquis, aspirin, Lipitor, Symbicort. Doses are reviewed. PHYSICAL EXAMINATION: Alert and oriented x3. Pulse 90, blood pressure 87/60, respiration 22, temperature 97.2, pulse ox 94% on 15 L. HEENT: Conjunctivae normal. Oral mucosa moist. NECK: No jugular venous distention. No lymph node enlargement. CARDIOVASCULAR: S1, S2, muffled. No S3, no S4, RESPIRATORY: Diminished breath sounds at the bases. A few scattered rhonchi. ABDOMEN: Soft, nontender. LEGS: No edema, no swelling. NERVOUS SYSTEM: No focal deficits. LABS: WBC 7.8, sodium 126. ASSESSMENT: 1. Acute hypoxic respiratory failure possibly secondary to interstitial lung disease and possible COVID-19 interstitial pneumonia with acute hypoxic respiratory failure with superadded bacterial pneumonia. 2. Possible fungal pneumonia and Lisa albicans. 3. COVID-19 testing negative. 4. Hyponatremia. 5. Elevated plasma lactic acid, possibly secondary to sepsis and bacteremia. 6. Troponin 0.05, indeterminate, rule out type 2 myocardial infarction or coronary artery disease. 7. History of continued ongoing nicotine dependence. 8. History of hyperlipidemia. 9. Hypertension. 10.History of CVA/TIA. 11.History of appendectomy. 12.History of DJD. 13.History of nicotine dependence. 14.History of peripheral vascular disease and bilateral iliac stents. 15.FULL CODE. RECOMMENDATIONS: Recommend to continue current management and continue symptomatic treatment. Continue the antibiotics. Continue the bronchodilators. Continue the rest of medications. The sputum showed Lisa albicans. Closely follow with Pulmonary. Guarded prognosis because of multiple complex medical issues. Further recommendations to follow. I would also recommend repeat chest x-ray. Repeat labs also will be ordered. MMODL / IJN: [id number] /
[2021-10-29] MEDS: SYMBICORT 160-4.5 MCG INHALER INHALATION SCH (17:10)
[2021-10-29 19:44] LABS: Glucose,Whole Blood 150 mg/dL (75-99)
[2021-10-29] MEDS: ASPIRIN 81 MG PO SCH (20:20)
[2021-10-29] MEDS: MONTELUKAST 10 MG TAB PO SCH (20:20)
[2021-10-29] MEDS: DULoxetine HCL 60 MG CAPSULE.DR PO SCH (20:20)
[2021-10-29] MEDS: ATORVASTATIN 40 MG TAB PO SCH (20:20)
[2021-10-29] MEDS: PANTOPRAZOLE 40 MG TABLET PO SCH (20:20)
[2021-10-30] MEDS: methylPREDNISolone SOD SUCCI 125 MG/2 ML VIAL IV SCH ×3 (00:20→11:33)
[2021-10-30] MEDS: CEFEPIME 2 GM in SODIUM CHLORIDE 0.9% 100 ML IVPB SCH ×2 (00:20→08:16)
[2021-10-30 05:52] LABS: Glucose,Whole Blood 134 mg/dL (75-99)
[2021-10-30] MEDS: INSULIN ASPART (NovoLOG) 100 UNIT/ML VIAL SQ SCH ×4 (06:21→19:48)
[2021-10-30] MEDS: SYMBICORT 160-4.5 MCG INHALER INHALATION SCH ×2 (07:20→19:52)
[2021-10-30] MEDS: IPRATROPIUM-ALBUTEROL 3 ML NEB INHALATION SCH ×4 (07:20→19:52)
[2021-10-30] MEDS: APIXABAN 5 MG TAB PO SCH ×2 (08:17→20:25)
[2021-10-30] MEDS: FUROSEMIDE 40 MG TAB PO SCH (08:17)
[2021-10-30] MEDS: METOPROLOL TARTRATE 25 MG TAB PO SCH ×2 (08:17→20:25)
[2021-10-30] MEDS: CLOPIDOGREL 75 MG TAB PO SCH (08:17)
[2021-10-30 09:28] LABS: Basophils % (A) 0 %; Eosinophils % (A) 0 %; HCT 45.3 % (39.0-53.0); HGB 14.8 gm/dL (13.0-17.5); Lymphocytes # (A) 0.4 k/uL (1.0-4.8); Lymphocytes % (A) 3 %; MCH 30.9 pg (25.0-35.0); MCHC 32.6 g/dL (31.0-37.0); MCV 94.8 fL (80.0-100.0); Mean Platelet Volume 6.9; Monocytes # (A) 0.3 k/uL (0-1.0); Monocytes % (A) 3 %; Neutrophils # (A) 9.8 k/uL (1.3-7.7); Neutrophils % (A) 93 %; Platelet Count 319 k/uL (150-450); RBC 4.78 m/uL (4.30-5.90); RDW 15.6 % (11.5-15.5); WBC 10.6 k/uL (3.8-10.6)
[2021-10-30 09:35] LABS: ALT 30 U/L (4-49); AST 32 U/L (17-59); African American GFR (CKD) >90 (>60 ml/min/1.73 sqM); Albumin 3.1 g/dL (3.5-5.0); Alkaline Phosphatase 82 U/L (38-126); Anion Gap 6 mmol/L; Blood Urea Nitrogen 30 mg/dL (9-20); Calcium 8.5 mg/dL (8.4-10.2); Carbon Dioxide 31 mmol/L (22-30); Chloride 91 mmol/L (98-107); Glucose 154 mg/dL (74-99); Non-African American GFR(CKD) >90 (>60 ml/min/1.73 sqM); Potassium 4.2 mmol/L (3.5-5.1); Sodium 128 mmol/L (137-145); Total Bilirubin 1.4 mg/dL (0.2-1.3); Total Protein 6.1 g/dL (6.3-8.2)
[2021-10-30] MEDS: LEVOFLOXACIN 500 MG TAB PO SCH (11:33)
[2021-10-30] MEDS: guaiFENesin 600 MG TABLET.ER PO SCH ×2 (11:33→20:25)
[2021-10-30 11:38] LABS: Glucose,Whole Blood 133 mg/dL (75-99)
[2021-10-30 13:26] VITALS: BMI 29.7
--- NOTE | 2021-10-30 15:11 | P.PN ---
Subjective Progress Note Date: 10/30/21 Principal diagnosis: Respiratory failure. 10/26/2021, I'm seeing the patient for a follow-up. The patient remains off the BiPAP. Nevertheless, the patient is still short of breath and he is still needed is about 2 by nasal cannula. Repeat chest x-ray was done and showed diffuse bilateral pulmonary infiltrates with background bilateral pulmonary fibrosis. There is also cardiomegaly. Note that the patient was subjected to a combination of bronchodilators, steroids and antibiotics and antibiotic coverage was essentially and panic. Echocardiogram was completed and the patient was found to have a normal systolic function with an ejection fraction of 55-60%. There was moderate degree of tricuspid regurgitation, moderate pulmonary hypertension with a PA pressure of 41. The patient had 11 to ejection fraction of 55-60%. The pro calcitonin level was 0.12. Sodium level is 129. COVID 19 testing is been negative. The blood work from today shows a white cell count of 10.4 with a hemoglobin of 14.4 and a platelet count of 443 Progress note dated 10/27/2021. This is a 61-year-old male, again seen in room 381. The patient is currently on 8 L high flow O2. Saturations are 97%. The patient feels like his shortness of breath is about the same. The patient is not receiving any IV fluids. He is laying flat in bed, and is not manifesting any overt signs of respiratory distress. White count 9.2, hemoglobin 14.7, hematocrit 44.4, and platelet count normal. Sodium 129, potassium 4, chlorides 90, CO2 32, anion gap 7, BUN 25, and creatinine 0.94. Chest x-ray from October 26 shows bilateral lung infiltrates, which are a bit worse. There is also evidence of cardiomegaly. Progress note dated 10/28/2021. This is a 61-year-old male, again seen in room 381. The patient is currently on 6 L high flow nasal cannula. He is currently receiving Levaquin and cefepime. The patient is quite short of breath, because he was recently up to the bathroom. The patient also complains of cough, with occasional phlegm production. He denies any chest pain or chest discomfort. White count 11.2, with a normal hemoglobin, hematocrit, and platelet count. Sodium 129, potassium 4.2, chlorides 92, CO2 29, anion gap 8,BUN 29, with a creatinine of 0.88. Progress note dated 10/29/2021. 61-year-old male, again seen in room 381. Unfortunately, the patient's oxygenation is worsened overnight, and now, he's on 15 L high flow nasal O2. Saturations are 97%. Yesterday, when I saw him, he was on 6 L high flow nasal O2. The patient today feels better. He was quite tachypneic yesterday. Labs today show white count 11.3, hemoglobin 14.5, hematocrit 43.4, and a platelet count 348,000. Sodium 126, potassium 4.1, chlorides 90, CO2 29, anion gap 7, BUN 26, and creatinine 0.92. Chest x-ray shows patchy bilateral airspace disease. Progress note dated 10/30/2021. 61-year-old male, again seen in room 381 currently, the patient's on 15 L high flow nasal O2. The patient is not receiving any IV fluids. The patient's primary care physician is Dr. Curiel. The patient wanted something for his chest congestion. I asked the nurse to put an order in for Mucinex. In addition, had a conversation with the patient about end-of-life issues. The patient would not want to be on life support or be resuscitated. We also put those orders and as well. From the pulmonary standpoint, the patient's feeling about the same. When he is laying or doing absolutely nothing, he doesn't feel horrible, with any activity, the patient does become very short of breath. White count 10.6, hemoglobin 14.8, hematocrit 45.3, and platelet count 319,000. Sodium 128, potassium 4.2, chlorides 91, CO2 31, anion gap 6, BUN 30, creatinine 0.86. Cortisol level was only 6. Objective - Vital Signs Vital signs: Vital Signs Temp 97.6 F 10/30/21 07:45 Pulse 70 10/30/21 11:05 Resp 20 10/30/21 07:47 BP 142/74 10/30/21 07:45 Pulse Ox 96 10/30/21 07:45 Intake & Output 10/29/21 10/30/21 10/30/21 18:59 06:59 18:59 Intake Total 240 237 Output Total 1975 650 Balance -8435 -194 Weight 96.7 kg Intake: Oral 240 237 Output: Urine 1974 Other: Voiding Method Urinal Urinal Urinal # Voids 1 # Bowel Movements 1 - Exam Mild conversational dyspnea, oriented 3. Currently on 15 L high flow nasal O2. Saturations are 96%. HEENT examination is grossly unremarkable. Neck supple. Full range of motion. No adenopathy thyromegaly or neck vein distention. Cardiovascular examination reveals regular rhythm rate. S1-S2 normal. No S3 or S4. No discernible murmur noted. Heart rate 70 bpm. Heart sounds are distant. Lungs reveal diminished bilateral breath sounds. There is basilar crackles noted. They are Velcro in nature. He is restricted in his breathing. Abdomen soft bowel sounds are heard. No masses or tenderness. Extremities are intact. No edema or cyanosis, but clubbing is noted. Skin is without rash or lesion. Neurologic examination is brief but nonfocal. - Labs CBC & Chem 7: 10/30/21 08:45 10/30/21 08:45 Labs: Abnormal Lab Results - Last 24 Hours (Table) 10/29/21 10/29/21 10/30/21 Range/Units 16:40 19:42 05:51 RDW (11.5-15.5) % Neutrophils # (1.3-7.7) k/uL Lymphocytes # (1.0-4.8) k/uL Sodium (137-145) mmol/L Chloride (98-107) mmol/L Carbon Dioxide (22-30) mmol/L BUN (9-20) mg/dL Glucose (74-99) mg/dL POC Glucose (mg/dL) 176 H 150 H 134 H (75-99) mg/dL Total Bilirubin (0.2-1.3) mg/dL Total Protein (6.3-8.2) g/dL Albumin (3.5-5.0) g/dL 10/30/21 10/30/21 10/30/21 Range/Units 08:45 08:45 11:38 RDW 15.6 H (11.5-15.5) % Neutrophils # 9.8 H (1.3-7.7) k/uL Lymphocytes # 0.4 L (1.0-4.8) k/uL Sodium 128 L (137-145) mmol/L Chloride 91 L (98-107) mmol/L Carbon Dioxide 31 H (22-30) mmol/L BUN 30 H (9-20) mg/dL Glucose 154 H (74-99) mg/dL POC Glucose (mg/dL) 133 H (75-99) mg/dL Total Bilirubin 1.4 H (0.2-1.3) mg/dL Total Protein 6.1 L (6.3-8.2) g/dL Albumin 3.1 L (3.5-5.0) g/dL Microbiology - Last 24 Hours (Table) 10/24/21 17:19 Blood Culture - Preliminary Blood No Growth after 120 hours 10/24/21 17:19 Blood Culture - Preliminary Blood No Growth after 120 hours Assessment and Plan Assessment: Acute on chronic hypoxemic respiratory failure, secondary to the patient's known history of pulmonary fibrosis. Chronic hypoxemic respiratory failure secondary to IPF. Rule out adrenal insufficiency. History of COPD. History of chronic atrial fibrillation. History of ongoing tobacco use with nicotine addiction. Essential hypertension. Hyperlipidemia. History of peripheral vascular occlusive disease with bilateral iliac stents. History of depression. Hyponatremia, improved. Elevated troponin, likely related to supply/demand mismatch. Plan: Plan dated 10/27/2021. The patient is maintained on oxygen and 8 L high flow. The patient was placed on Solu-Medrol 60 mg every 6 hours. Patient is being covered with both cefepime and Levaquin. We'll continue to follow. Prognosis is guarded. We will continue to follow make recommendations where appropriate. Labs, x-rays, and medications are all reviewed. The patient also remains on budesonide, and f ormoterol, as well as DuoNeb. Microbiologic studies are thus far negative. Plan dated 10/28/2021. The patient is currently on 6 L high flow O2. The patient is quite short of breath, because he recently got up to go to the bathroom. The patient remains Eraxis, cefepime, and Levaquin. The patient is also on updrafts, and Solu- Medrol. We will continue to follow make recommendations were appropriate. Labs, x-rays, medications are reviewed. Microbiologic studies are thus far negative.The patient has been weaned down to 6 L. Additional recommendations and suggestions are forthcoming. Plan dated 10/29/2021. Patient remains on cefepime, Levaquin, and Eraxis. The patient's previous pro-c alcitonin level was very low. I'll repeat that today. If his again in the low to normal range, I will DC antibiotics and antifungals. The patient remains on site Medrol, which is appropriate. Additional recommendations and suggestions are forthcoming. Oxygen requirements, unfortunately have increased. We will continue to follow make recommendations where appropriate. Prognosis, is very guarded. Plan dated 10/30/2021. The patient's cortisol level was only 6. We will start the patient on hydrocortisone, 100 mg every 8 hours. The patient remains on Levaquin, cefepime, and Eraxis. Repeat pro-calcitonin level was 0.05. Antibiotics will be discontinued. We will continue to follow the patient very closely. I did have a chance to talk to the patient today about CODE STATUS. He would not want intubation or mechanical ventilation, or CPR. We did add some Mucinex for his chest congestion. Prognosis is guarded. Time with Patient: Less than 30
[2021-10-30 16:45] LABS: Glucose,Whole Blood 159 mg/dL (75-99)
[2021-10-30] MEDS: HYDROCORTISONE SUCCINATE 100 MG/2 ML VIAL IV SCH ×2 (16:50→23:27)
--- NOTE | 2021-10-30 19:09 | PN ---
PROGRESS NOTE DATE OF SERVICE: 10/30/2021 This 61-year-old gentleman who was admitted with acute Covid-19 infection also had acute bilateral Covid-19 interstitial pneumonia. Sputum culture showed Lisa albicans. The most recent chest x-ray which was reviewed personally by me showed acute bilateral interstitial infiltrates. Multiple consultants following the patient closely. PAST MEDICAL HISTORY: Reviewed. REVIEW OF SYSTEMS: Cardiovascular system: No angina. Respiratory system: As mentioned earlier. GI: As mentioned earlier. : No dysuria. Nervous system: No numbness or weakness. CURRENT MEDICATIONS: Reviewed include Tylenol, DuoNeb, Eliquis, aspirin. Lipitor. Doses reviewed. PHYSICAL EXAMINATION: Patient is alert and oriented x3. Pulse 87, blood pressure 103/60, respiration 20, temperature 97.8, pulse ox 98% on 15 L high flow oxygen. HEENT: Conjunctivae normal. Oral mucosa moist. NECK: No jugular venous distention. No lymph node enlargement. CARDIOVASCULAR: S1, S2, muffled. No S3, no S4, RESPIRATORY: Diminished breath sounds at the bases. A few scattered rhonchi. ABDOMEN: Soft, nontender. LEGS: No edema, no swelling. NERVOUS SYSTEM: No focal deficits. LABS: WBC 10.5, sodium 128, other labs are noted. ASSESSMENT: 1. Acute Covid-19 infection with acute Covid-19 interstitial pneumonia with acute hypoxic respiratory failure as well as superadded bacterial pneumonia possibly. 2. Possible bilateral interstitial pneumonia. 3. Possible fungal pneumonia secondary to Lisa albicans. 4. Covid -19 test negative currently. 5. Hyponatremia. 6. Elevated plasma lactic acid, possibly secondary to sepsis and bacteremia. 7. Troponin 0.05, indeterminate. Rule out type 2 myocardial infarction or coronary artery disease. 8. History of continued ongoing nicotine dependence. 9. History of hyperlipidemia. 10.Hypertension. 11.History of CVA, TIA. 12.History of appendectomy. 13.History of DJD. 14.History of peripheral vascular disease and bilateral iliac stents. 15.FULL CODE. RECOMMENDATIONS: Recommend to continue current management and symptomatic treatment. Otherwise, at this time I recommend repeat labs. Continue with antifungals and antibacterials and guarded prognosis because of multiple complex medical issues. Further recommendations to follow. I would also recommend Infectious Disease evaluation. MMODL / IJN: [id number] /
[2021-10-30 19:40] LABS: Glucose,Whole Blood 130 mg/dL (75-99)
[2021-10-30] MEDS: PANTOPRAZOLE 40 MG TABLET PO SCH (20:25)
[2021-10-30] MEDS: ASPIRIN 81 MG PO SCH (20:25)
[2021-10-30] MEDS: DULoxetine HCL 60 MG CAPSULE.DR PO SCH (20:25)
[2021-10-30] MEDS: ATORVASTATIN 40 MG TAB PO SCH (20:25)
[2021-10-30] MEDS: MONTELUKAST 10 MG TAB PO SCH (20:25)
[2021-10-31 06:43] LABS: Glucose,Whole Blood 105 mg/dL (75-99)
[2021-10-31] MEDS: SYMBICORT 160-4.5 MCG INHALER INHALATION SCH ×2 (07:44→19:37)
[2021-10-31] MEDS: IPRATROPIUM-ALBUTEROL 3 ML NEB INHALATION SCH ×4 (07:44→19:37)
[2021-10-31] MEDS: INSULIN ASPART (NovoLOG) 100 UNIT/ML VIAL SQ SCH ×4 (07:48→21:15)
[2021-10-31] MEDS: guaiFENesin 600 MG TABLET.ER PO SCH ×2 (07:59→21:16)
[2021-10-31] MEDS: CLOPIDOGREL 75 MG TAB PO SCH (07:59)
[2021-10-31] MEDS: APIXABAN 5 MG TAB PO SCH ×2 (07:59→21:16)
[2021-10-31] MEDS: METOPROLOL TARTRATE 25 MG TAB PO SCH ×2 (07:59→21:15)
[2021-10-31] MEDS: FUROSEMIDE 40 MG TAB PO SCH (08:00)
[2021-10-31] MEDS: HYDROCORTISONE SUCCINATE 100 MG/2 ML VIAL IV SCH ×2 (08:00→17:15)
[2021-10-31 08:26] LABS: Basophils % (A) 0 %; Eosinophils % (A) 0 %; HCT 43.1 % (39.0-53.0); HGB 14.4 gm/dL (13.0-17.5); Lymphocytes # (A) 0.9 k/uL (1.0-4.8); Lymphocytes % (A) 6 %; MCH 31.5 pg (25.0-35.0); MCHC 33.4 g/dL (31.0-37.0); MCV 94.2 fL (80.0-100.0); Mean Platelet Volume 7.4; Monocytes # (A) 1.1 k/uL (0-1.0); Monocytes % (A) 7 %; Neutrophils # (A) 13.1 k/uL (1.3-7.7); Neutrophils % (A) 85 %; Platelet Count 295 k/uL (150-450); RBC 4.58 m/uL (4.30-5.90); RDW 15.1 % (11.5-15.5); WBC 15.4 k/uL (3.8-10.6)
[2021-10-31 08:35] LABS: African American GFR (CKD) >90 (>60 ml/min/1.73 sqM); Anion Gap 1 mmol/L; Blood Urea Nitrogen 27 mg/dL (9-20); Calcium 8.4 mg/dL (8.4-10.2); Carbon Dioxide 36 mmol/L (22-30); Chloride 91 mmol/L (98-107); Glucose 100 mg/dL (74-99); Non-African American GFR(CKD) >90 (>60 ml/min/1.73 sqM); Sodium 128 mmol/L (137-145)
[2021-10-31 11:07] LABS: Glucose,Whole Blood 109 mg/dL (75-99)
--- NOTE | 2021-10-31 13:37 | P.PN ---
Subjective Progress Note Date: 10/31/21 10/26/2021, I'm seeing the patient for a follow-up. The patient remains off the BiPAP. Nevertheless, the patient is still short of breath and he is still needed is about 2 by nasal cannula. Repeat chest x-ray was done and showed diffuse bilateral pulmonary infiltrates with background bilateral pulmonary fibrosis. There is also cardiomegaly. Note that the patient was subjected to a combination of bronchodilators, steroids and antibiotics and antibiotic coverage was essentially and panic. Echocardiogram was completed and the patient was found to have a normal systolic function with an ejection fraction of 55-60%. There was moderate degree of tricuspid regurgitation, moderate pulmonary hyperte nsion with a PA pressure of 41. The patient had 11 to ejection fraction of 55- 60%. The pro calcitonin level was 0.12. Sodium level is 129. COVID 19 testing is been negative. The blood work from today shows a white cell count of 10.4 with a hemoglobin of 14.4 and a platelet count of 443 Progress note dated 10/27/2021. This is a 61-year-old male, again seen in room 381. The patient is currently on 8 L high flow O2. Saturations are 97%. The patient feels like his shortness of breath is about the same. The patient is not receiving any IV fluids. He is laying flat in bed, and is not manifesting any overt signs of respiratory distress. White count 9.2, hemoglobin 14.7, hematocrit 44.4, and platelet count normal. Sodium 129, potassium 4, chlorides 90, CO2 32, anion gap 7, BUN 25, and creatinine 0.94. Chest x-ray from October 26 shows bilateral lung infiltrates, which are a bit worse. There is also evidence of cardiomegaly. Progress note dated 10/28/2021. This is a 61-year-old male, again seen in room 381. The patient is currently on 6 L high flow nasal cannula. He is currently receiving Levaquin and cefepime. The patient is quite short of breath, because he was recently up to the bathroom. The patient also complains of cough, with occasional phlegm production. He denies any chest pain or chest discomfort. White count 11.2, with a normal hemoglobin, hematocrit, and platelet count. Sodium 129, potassium 4.2, chlorides 92, CO2 29, anion gap 8,BUN 29, with a creatinine of 0.88. Progress note dated 10/29/2021. 61-year-old male, again seen in room 381. Unfortunately, the patient's oxygenation is worsened overnight, and now, he's on 15 L high flow nasal O2. Saturations are 97%. Yesterday, when I saw him, he was on 6 L high flow nasal O2. The patient today feels better. He was quite tachypneic yesterday. Labs today show white count 11.3, hemoglobin 14.5, hematocrit 43.4, and a platelet count 348,000. Sodium 126, potassium 4.1, chlorides 90, CO2 29, anion gap 7, BUN 26, and creatinine 0.92. Chest x-ray shows patchy bilateral airspace disease. Progress note dated 10/30/2021. 61-year-old male, again seen in room 381 currently, the patient's on 15 L high flow nasal O2. The patient is not receiving any IV fluids. The patient's primary care physician is Dr. Curiel. The patient wanted something for his chest congestion. I asked the nurse to put an order in for Mucinex. In addition, had a conversation with the patient about end-of-life issues. The patient would not want to be on life support or be resuscitated. We also put those orders and as well. From the pulmonary standpoint, the patient's feeling about the same. When he is laying or doing absolutely nothing, he doesn't feel horrible, with any activity, the patient does become very short of breath. White count 10.6, hemoglobin 14.8, hematocrit 45.3, and platelet count 319,000. Sodium 128, potassium 4.2, chlorides 91, CO2 31, anion gap 6, BUN 30, creatinine 0.86. Cortisol level was only 6. The patient is seen today 10/31/2021 follow-up on the regular medical floor. He is currently sitting up in bed. Awake and alert in no acute distress. He has been slow to progress. He is on 15 L high flow nasal cannula with O2 saturations in the upper 80s. He is dyspneic with minimal exertion. Dyspneic with conversation. His cough has improved. White count 15.4. Hemoglobin 14.4. Leukocytes 0.9. Sodium 128. Potassium 4.0. Creatinine 0.86. He remains on DuoNeb inhalations, Symbicort, Singulair, Solu-Cortef. Continue oral diuretics. Anticoagulated with Eliquis. Objective - Vital Signs Vital signs: Vital Signs Temp 97.8 F 10/31/21 07:10 Pulse 88 10/31/21 12:18 Resp 17 10/31/21 07:10 BP 116/70 10/31/21 07:10 Pulse Ox 86 L 10/31/21 07:45 Intake & Output 10/30/21 10/31/21 10/31/21 18:59 06:59 18:59 Intake Total 222 Output Total 600 550 Balance -378 -550 Weight 96.7 kg Intake: Oral 222 Output: Urine 600 550 Other: Voiding Method Urinal Urinal - Exam Alert, pleasant 61-year-old gentleman. Mild conversational dyspnea, oriented 3. Currently on 15 L high flow nasal O2. Saturations are 86%. HEENT examination is grossly unremarkable. Neck supple. Full range of motion. No adenopathy thyromegaly or neck vein distention. Cardiovascular examination reveals regular rhythm rate. S1-S2 normal. No S3 or S4. No discernible murmur noted. Heart rate 70 bpm. Heart sounds are distant. Lungs reveal diminished bilateral breath sounds. There is basilar crackles noted. They are Velcro in nature. He is restricted in his breathing. Abdomen soft bowel sounds are heard. No masses or tenderness. Extremities are intact. No edema or cyanosis, but clubbing is noted. Skin is without rash or lesion. Neurologic examination is brief but nonfocal. - Labs CBC & Chem 7: 10/31/21 07:55 10/31/21 07:55 Labs: Abnormal Lab Results - Last 24 Hours (Table) 10/30/21 10/30/21 10/31/21 Range/Units 16:43 19:37 06:42 WBC (3.8-10.6) k/uL Neutrophils # (1.3-7.7) k/uL Lymphocytes # (1.0-4.8) k/uL Monocytes # (0-1.0) k/uL Sodium (137-145) mmol/L Chloride (98-107) mmol/L Carbon Dioxide (22-30) mmol/L BUN (9-20) mg/dL Glucose (74-99) mg/dL POC Glucose (mg/dL) 159 H 130 H 105 H (75-99) mg/dL 10/31/21 10/31/21 10/31/21 Range/Units 07:55 07:55 11:05 WBC 15.4 H (3.8-10.6) k/uL Neutrophils # 13.1 H (1.3-7.7) k/uL Lymphocytes # 0.9 L (1.0-4.8) k/uL Monocytes # 1.1 H (0-1.0) k/uL Sodium 128 L (137-145) mmol/L Chloride 91 L (98-107) mmol/L Carbon Dioxide 36 H (22-30) mmol/L BUN 27 H (9-20) mg/dL Glucose 100 H (74-99) mg/dL POC Glucose (mg/dL) 109 H (75-99) mg/dL Microbiology - Last 24 Hours (Table) 10/24/21 17:19 Blood Culture - Final Blood No Growth after 144 hours 10/24/21 17:19 Blood Culture - Final Blood No Growth after 144 hours Assessment and Plan Assessment: 1 Acute on chronic hypoxemic respiratory failure, secondary to the patient's known history of pulmonary fibrosis. 2 Chronic hypoxemic respiratory failure secondary to IPF. 3 Rule out adrenal insufficiency. 4 History of COPD. 5 History of chronic atrial fibrillation. 6 History of ongoing tobacco use with nicotine addiction. 7 Essential hypertension. 8 Hyperlipidemia. 9 History of peripheral vascular occlusive disease with bilateral iliac stents. 10 History of depression. 11 Hyponatremia, improved. 12 Elevated troponin, likely related to supply/demand mismatch. Plan: The patient was seen and evaluated Continues to require 15 L high flow nasal cannula O2 saturations in the high 80s Procalcitonin 0.05 currently, on no antibiotics Prognosis remains guarded DO NOT RESUSCITATE/DO NOT INTUBATE CODE STATUS We will continue to follow I, the cosigning physician, performed a history & physical examination of the patient. Lungs sounds with bilateral Velcro crackles, diminished. Maintaining O2 saturations in the upper 80s on 2 L high flow nasal cannula. I discussed the assessment and plan of care with my nurse practitioner, Shyann Cole. I attest to the above note as dictated by her.
[2021-10-31 16:11] LABS: Glucose,Whole Blood 89 mg/dL (75-99)
[2021-10-31] MEDS ORDERED: FLUCONAZOLE 100 MG TAB PO ONE (17:00)
--- NOTE | 2021-10-31 17:09 | XR ---
EXAMINATION TYPE: XR chest 1V portable DATE OF EXAM: 10/31/2021 COMPARISON: 10/29/2021 HISTORY: Pneumonia TECHNIQUE: Single view FINDINGS: There is coarse interstitial pulmonary edema. Heart is slightly enlarged. There is no defin ite pleural effusion. Bony thorax is intact. IMPRESSION: There is moderate pulmonary interstitial edema which is the same or slightly worse than r ecent exam.
[2021-10-31] MEDS: NYSTATIN 100,000 UNIT/ML SUSP 500,000 UNIT/5 ML CUP PO SCH ×2 (17:16→21:17)
--- NOTE | 2021-10-31 17:43 | PN ---
PROGRESS NOTE DATE OF SERVICE: 10/31/2021 This 61-year-old gentleman with significant shortness of breath and pulmonary fibrosis ( ) acute exacerbation, also possibly had superadded Covid-19 infection. The most recent chest x-ray was reviewed personally by me. Pulmonary is following the patient closely. Currently the patient is still on 15 L high-flow, saturating only 89%. PAST MEDICAL HISTORY: Reviewed. REVIEW OF SYSTEMS: Cardiovascular system: No angina. Respiratory system: As mentioned earlier. GI: As mentioned earlier. : No dysuria. Nervous system: No numbness or weakness. CURRENT MEDICATIONS: Reviewed include Tylenol p.r.n., DuoNeb, Eliquis, aspirin. Lipitor. Doses reviewed. PHYSICAL EXAMINATION: Patient is alert and oriented x2. The pulse is 63, blood pressure 115/67, respiration 20, temperature 97.3, pulse ox 89% on 15 L. HEENT: Conjunctivae normal. Oral mucosa moist. NECK: No jugular venous distention. No lymph node enlargement. CARDIOVASCULAR: S1, S2, muffled. No S3, no S4, RESPIRATORY: Diminished breath sounds at the bases. A few scattered rhonchi. ABDOMEN: Soft, nontender. LEGS: No edema, no swelling. Clubbing present. NERVOUS SYSTEM: No focal deficits. LAB STUDIES: WBC 15, hemoglobin 14.2, sodium 128. Other labs are noted. ASSESSMENT: 1. Acute Covid-19 infection with acute Covid-19 interstitial pneumonia with acute hypoxic respiratory failure as well as superadded bacterial pneumonia possibly. 2. Possible bilateral interstitial pneumonia. 3. Possible fungal pneumonia secondary to Lisa albicans. 4. Covid-19 test negative recently. 5. Hyponatremia. 6. Elevated plasma lactic acid possibly secondary to sepsis and bacteremia. 7. Troponin 0.05, indeterminate, rule out type 2 myocardial infarction or coronary disease. 8. History of continued ongoing nicotine dependence. 9. History of hyperlipidemia. 10.Hypertension. 11.History of CVA/TIA. 12.History of appendectomy. 13.History of DJD. 14.History of peripheral vascular disease and bilateral iliac stents. 15.FULL CODE. RECOMMENDATIONS: Recommend to continue current management and continue symptomatic treatment. Otherwise, at this time I recommend continue with current medications. Guarded prognosis because of multiple complex medical issues. Further recommendations to follow. Continue the antibiotics. Repeat chest x-ray. MMODL / IJN: [id number] /
[2021-10-31 20:05] LABS: Glucose,Whole Blood 133 mg/dL (75-99)
[2021-10-31] MEDS: ATORVASTATIN 40 MG TAB PO SCH (21:15)
[2021-10-31] MEDS: PANTOPRAZOLE 40 MG TABLET PO SCH (21:16)
[2021-10-31] MEDS: DULoxetine HCL 60 MG CAPSULE.DR PO SCH (21:16)
[2021-10-31] MEDS: MONTELUKAST 10 MG TAB PO SCH (21:16)
[2021-10-31] MEDS: ASPIRIN 81 MG PO SCH (21:16)
[2021-11-01] MEDS: HYDROCORTISONE SUCCINATE 100 MG/2 ML VIAL IV SCH ×4 (01:10→23:13)
[2021-11-01 06:45] LABS: Glucose,Whole Blood 97 mg/dL (75-99)
--- NOTE | 2021-11-01 08:10 | P.CONS ---
History of Present Illness - Reason for Consult Consult date: 10/31/21 fungal pneumonia Requesting physician: Hussain Casey - Chief Complaint shortness of breath x days - History of Present Illness History of present illness : Patient is a 61-year-old male with a past medical history significant for COPD and pulmonary fibrosis with recurrent admission to the hospital for shortness of breath and hypoxemia, patient presented to hospital on 10/24/2021 for evaluation of increasing shortness of breath on minimal exertion and even at rest the patient also have a cough which is moderate intensity and did have occasional bloodstained sputum denies any pleuritic chest pain the patient denies any nausea no vomiting no choking with food no abdominal pain or diarrhea patient on presentation to the hospital was afebrile and no fever has been recorded in the last 7 days patient has been hypoxic with need for high flow oxygen and BiPAP patient did have a normal white count on admission however slightly elevated the last 3 days with subsequent normalized patient did have normal creatinine level exams are normal blood gas was evaluated and patient subsequent normalized patient did have a negative Covid test urine has been negative blood cultures are negative infectious disease was consulted with concern for possible fungal pneumonia patient did have a sore throat and some blisters in the mouth and difficulty swallowing Review of system: CONSTITUTIONAL: Positive for weakness denies fever. EYES: No complaint. ENT: As per history of present illness. RESPIRATORY: As per history of present illness. CARDIOVASCULAR: No complaint. GENITOURINARY: No complaint. GASTROINTESTINAL: No complaint. MUSCULOSKELETAL: No complaint. INTEGUMENTARY: No complaint. PSYCHOLOGIC: No complaint. ENDOCRINE: No complaint. NEUROLOGIC: No complaint. Past medical history : Reviewed, documented below Past surgical history : Reviewed, documented below Social history: Reviewed, documented below Medications: Reviewed, as documented below EXAMINATION: Vital sigans= Reviewed and documented below GENERAL DESCRIPTION: Middle-aged male lying in bed, no distress. No tachypnea or accessory muscle of respiration use. HEENT: Shows Pallor , no scleral icterus. Oral mucous membrane is dry. With evidence of extensive thrush NECK: Trachea central, no thyromegaly. LUNGS: Unlabored breathing. Coarse breath sounds bilaterally. No wheeze or crac kle. HEART: S1, S2, regular rate and rhythm. ABDOMEN: Soft, no tenderness , guarding or rigidity EXTREMITIES: No edema of feet. SKIN: No rash, no masses palpable. NEUROLOGICAL: The patient is awake, alert, oriented x3, mood and affect normal. LABS AND RADIOLOGY: Reviewed results see below Assessment : 1-Patient presented to hospital with increasing shortness of breath and cough in this patient did have some bloodstained sputum patient does have underlying pulmonary fibrosis and COPD more likely representing exacerbation of underlying COPD/pulmonary fibrosis in this patient. Not behaving as a bacterial or fungal pneumonia patient with no fever normal procalcitonin. 2patient did have extensive oropharyngeal candidiasis Plan: 1-we will obtain RSV and influenza nasopharyngeal swab 2-repeat inflammatory markers and procalcitonin 3-obtain a sputum for Gram stain culture 4-we will add nystatin swish and swallow and oral Diflucan We will follow on clinical condition and cultures to further adjust medication if needed Thank you for this consultation we will follow the patient along with you Past Medical History Past Medical History: Atrial Fibrillation, COPD, CVA/TIA, Hyperlipidemia, Hypertension, Vascular Disorder Additional Past Medical History / Comment(s): HAS DEVELPOED SOME NUMBNESS TO BACK OF LT HAND AND LT SHOULDER IS SORE SINCE MEAT HOSTESS ATTEMPT 07/08/16, OCCASIONAL INVOLUNTARY RT ARM MOVEMENT, STATES HAS PROBLEMS WITH FOCUSING EYES History of Any Multi-Drug Resistant Organisms: None Reported Past Surgical History: Appendectomy, Orthopedic Surgery Additional Past Surgical History / Comment(s): RT FOOT SX X2, LEFT SHOULDER SX X2, RT SHOULDER SX X1, ABD. ANGIOGRAM WITH LEELEE RUNOFF 05/25/16, ATTEMPTED MEAT HOSTESS- 07/08/16, 07-31-16 LELEEE ILIAC STENTS. Past Anesthesia/Blood Transfusion Reactions: No Reported Reaction Past Psychological History: No Psychological Hx Reported Smoking Status: Current every day smoker Past Alcohol Use History: Occasional Additional Past Alcohol Use History / Comment(s): STATES DOWN FROM 2PPD TO 1/2 PPD. STARTED AGE 13 (1972) Past Drug Use History: Marijuana Additional Drug Use History / Comment(s): INSTRUCTED TO WITHOLD 24HRS PRIOR TO PROCEDURE - Past Family History Sister(s) Family Medical History: Cancer Father Family Medical History: Asthma, Hypertension, Myocardial Infarction (PR) Additional Family Medical History / Comment(s): EMPHYSEMA, FROM PR AT AGE 50 Mother Family Medical History: Congestive Heart Failure (CHF) Additional Family Medical History / Comment(s): AT AGE 83 FROM CHF Medications and Allergies Home Medications Medication Instructions Recorded Confirmed Type Warfarin [Coumadin] 5 mg PO HS 05/18/16 10/25/21 History Albuterol Nebulized [Ventolin 2.5 mg INHALATION RT-Q8H PRN 09/30/21 10/25/21 History Nebulized] Aspirin 81 mg PO HS 09/30/21 10/25/21 History Atorvastatin [Lipitor] 40 mg PO HS 09/30/21 10/25/21 History Budesonide [Pulmicort] 0.5 mg INHALATION RT-BID 09/30/21 10/25/21 History DULoxetine HCL [Cymbalta] 60 mg PO HS 09/30/21 10/25/21 History Ipratropium-Albuterol Nebulize 3 ml INHALATION RT-QID 09/30/21 10/25/21 History [Duoneb 0.5 mg-3 mg/3 ml Soln] Montelukast Sodium [Singulair] 10 mg PO HS 09/30/21 10/25/21 History Omeprazole 20 mg PO HS 09/30/21 10/25/21 History Clopidogrel [Plavix] 75 mg PO DAILY 30 Days #30 tab 10/02/21 10/25/21 Rx Ipratropium-Albuterol Nebulize 3 ml INHALATION RT-Q2H PRN ml 10/02/21 10/25/21 Rx [Duoneb 0.5 mg-3 mg/3 ml Soln] Metoprolol Tartrate [Lopressor] 50 mg PO BID 30 Days #60 tab 10/02/21 10/25/21 Rx lisinopriL [Zestril] 2.5 mg PO HS 30 Days #30 tab 10/02/21 10/25/21 Rx Allergies Allergy/AdvReac Type Severity Reaction Status Date / Time hydrocodone bitartrate Allergy Itching Verified 10/25/21 09:07 [From [place]] Physical Exam Vitals: Vital Signs Temp Pulse Pulse Resp BP BP Pulse Ox 10/31/21 12:18 88 10/31/21 12:02 89 10/31/21 07:58 87 10/31/21 07:45 84 86 L 10/31/21 07:10 97.8 F 70 17 116/70 90 L 10/31/21 01:22 97.4 F L 76 16 106/70 92 L 10/31/21 00:22 97.6 F 84 20 107/63 94 L 10/30/21 20:11 96 10/30/21 20:00 20 10/30/21 19:53 92 94 L 10/30/21 19:51 97.6 F 89 20 104/68 92 L 10/30/21 15:37 100 10/30/21 15:28 96 Intake and Output 10/30/21 10/31/21 10/31/21 22:59 06:59 14:59 Intake Total 222 Output Total 1150 Balance -928 Intake: Oral 222 Output: Urine 1150 Other: Voiding Method Urinal Results CBC & Chem 7: 10/31/21 07:55 10/31/21 07:55 Labs: Abnormal Lab Results - Last 24 Hours (Table) 10/30/21 10/30/21 10/31/21 Range/Units 16:43 19:37 06:42 WBC (3.8-10.6) k/uL Neutrophils # (1.3-7.7) k/uL Lymphocytes # (1.0-4.8) k/uL Monocytes # (0-1.0) k/uL Sodium (137-145) mmol/L Chloride (98-107) mmol/L Carbon Dioxide (22-30) mmol/L BUN (9-20) mg/dL Glucose (74-99) mg/dL POC Glucose (mg/dL) 159 H 130 H 105 H (75-99) mg/dL 10/31/21 10/31/21 10/31/21 Range/Units 07:55 07:55 11:05 WBC 15.4 H (3.8-10.6) k/uL Neutrophils # 13.1 H (1.3-7.7) k/uL Lymphocytes # 0.9 L (1.0-4.8) k/uL Monocytes # 1.1 H (0-1.0) k/uL Sodium 128 L (137-145) mmol/L Chloride 91 L (98-107) mmol/L Carbon Dioxide 36 H (22-30) mmol/L BUN 27 H (9-20) mg/dL Glucose 100 H (74-99) mg/dL POC Glucose (mg/dL) 109 H (75-99) mg/dL Microbiology - Last 24 Hours (Table) 10/24/21 17:19 Blood Culture - Final Blood No Growth after 144 hours 12/31/21 17:19 Blood Culture - Final Blood No Growth after 144 hours
[2021-11-01] MEDS: NYSTATIN 100,000 UNIT/ML SUSP 500,000 UNIT/5 ML CUP PO SCH ×4 (08:24→20:15)
[2021-11-01] MEDS: FUROSEMIDE 40 MG TAB PO SCH (08:24)
[2021-11-01] MEDS: guaiFENesin 600 MG TABLET.ER PO SCH ×2 (08:25→20:14)
[2021-11-01] MEDS: FLUCONAZOLE 100 MG TAB PO SCH (08:25)
[2021-11-01] MEDS: METOPROLOL TARTRATE 25 MG TAB PO SCH ×2 (08:25→20:15)
[2021-11-01] MEDS: APIXABAN 5 MG TAB PO SCH ×2 (08:25→20:14)
[2021-11-01] MEDS: CLOPIDOGREL 75 MG TAB PO SCH (08:25)
[2021-11-01] MEDS: INSULIN ASPART (NovoLOG) 100 UNIT/ML VIAL SQ SCH ×4 (08:31→20:26)
[2021-11-01] MEDS: IPRATROPIUM-ALBUTEROL 3 ML NEB INHALATION SCH ×4 (09:12→19:18)
[2021-11-01] MEDS: SYMBICORT 160-4.5 MCG INHALER INHALATION SCH ×2 (09:12→19:18)
[2021-11-01 11:36] LABS: Glucose,Whole Blood 168 mg/dL (75-99)
--- NOTE | 2021-11-01 14:42 | P.PN ---
Subjective Progress Note Date: 11/01/21 10/26/2021, I'm seeing the patient for a follow-up. The patient remains off the BiPAP. Nevertheless, the patient is still short of breath and he is still needed is about 2 by nasal cannula. Repeat chest x-ray was done and showed diffuse bilateral pulmonary infiltrates with background bilateral pulmonary fibrosis. There is also cardiomegaly. Note that the patient was subjected to a combination of bronchodilators, steroids and antibiotics and antibiotic coverage was essentially and panic. Echocardiogram was completed and the patient was found to have a normal systolic function with an ejection fraction of 55-60%. There was moderate degree of tricuspid regurgitation, moderate pulmonary hyperte nsion with a PA pressure of 41. The patient had 11 to ejection fraction of 55- 60%. The pro calcitonin level was 0.12. Sodium level is 129. COVID 19 testing is been negative. The blood work from today shows a white cell count of 10.4 with a hemoglobin of 14.4 and a platelet count of 443 Progress note dated 10/27/2021. This is a 61-year-old male, again seen in room 381. The patient is currently on 8 L high flow O2. Saturations are 97%. The patient feels like his shortness of breath is about the same. The patient is not receiving any IV fluids. He is laying flat in bed, and is not manifesting any overt signs of respiratory distress. White count 9.2, hemoglobin 14.7, hematocrit 44.4, and platelet count normal. Sodium 129, potassium 4, chlorides 90, CO2 32, anion gap 7, BUN 25, and creatinine 0.94. Chest x-ray from October 26 shows bilateral lung infiltrates, which are a bit worse. There is also evidence of cardiomegaly. Progress note dated 10/28/2021. This is a 61-year-old male, again seen in room 381. The patient is currently on 6 L high flow nasal cannula. He is currently receiving Levaquin and cefepime. The patient is quite short of breath, because he was recently up to the bathroom. The patient also complains of cough, with occasional phlegm production. He denies any chest pain or chest discomfort. White count 11.2, with a normal hemoglobin, hematocrit, and platelet count. Sodium 129, potassium 4.2, chlorides 92, CO2 29, anion gap 8,BUN 29, with a creatinine of 0.88. Progress note dated 10/29/2021. 61-year-old male, again seen in room 381. Unfortunately, the patient's oxygenation is worsened overnight, and now, he's on 15 L high flow nasal O2. Saturations are 97%. Yesterday, when I saw him, he was on 6 L high flow nasal O2. The patient today feels better. He was quite tachypneic yesterday. Labs today show white count 11.3, hemoglobin 14.5, hematocrit 43.4, and a platelet count 348,000. Sodium 126, potassium 4.1, chlorides 90, CO2 29, anion gap 7, BUN 26, and creatinine 0.92. Chest x-ray shows patchy bilateral airspace disease. Progress note dated 10/30/2021. 61-year-old male, again seen in room 381 currently, the patient's on 15 L high flow nasal O2. The patient is not receiving any IV fluids. The patient's primary care physician is Dr. Curiel. The patient wanted something for his chest congestion. I asked the nurse to put an order in for Mucinex. In addition, had a conversation with the patient about end-of-life issues. The patient would not want to be on life support or be resuscitated. We also put those orders and as well. From the pulmonary standpoint, the patient's feeling about the same. When he is laying or doing absolutely nothing, he doesn't feel horrible, with any activity, the patient does become very short of breath. White count 10.6, hemoglobin 14.8, hematocrit 45.3, and platelet count 319,000. Sodium 128, potassium 4.2, chlorides 91, CO2 31, anion gap 6, BUN 30, creatinine 0.86. Cortisol level was only 6. The patient is seen today 10/31/2021 follow-up on the regular medical floor. He is currently sitting up in bed. Awake and alert in no acute distress. He has been slow to progress. He is on 15 L high flow nasal cannula with O2 saturations in the upper 80s. He is dyspneic with minimal exertion. Dyspneic with conversation. His cough has improved. White count 15.4. Hemoglobin 14.4. Leukocytes 0.9. Sodium 128. Potassium 4.0. Creatinine 0.86. He remains on DuoNeb inhalations, Symbicort, Singulair, Solu-Cortef. Continue oral diuretics. Anticoagulated with Eliquis. The patient is seen today 11/01/2021 in follow-up on the regular medical floor. He is currently sitting up in bed. Awake and alert. Mild respiratory distress with conversation. [place] distress with minimal exertion. He is still requiring 15 L high flow nasal cannula to maintain O2 saturations in the high 80s and low 90s. He is coughing more. He is able to expectorate some phlegm now. He remains on Mucinex, Symbicort, Singulair, DuoNeb inhalations, IV site Cortef. He is anticoagulated with Eliquis. Remains on oral diuretics. LDH 640. C-reactive protein 2.0. ProBNP 2490. Pro calcitonin 0.05. Glucose 168. Objective - Vital Signs Vital signs: Vital Signs Temp 97.5 F L 11/01/21 07:20 Pulse 80 11/01/21 12:56 Resp 19 11/01/21 07:20 BP 104/68 11/01/21 07:20 Pulse Ox 85 L 11/01/21 07:20 Intake & Output 10/31/21 11/01/21 11/01/21 18:59 06:59 18:59 Intake Total 480 Output Total 400 Balance 480 -400 Intake: Oral 480 Output: Urine 400 Other: Voiding Method Urinal # Voids 1 # Bowel Movements 1 - Exam Alert, pleasant 61-year-old gentleman. Mild conversational dyspnea, oriented 3. Currently on 15 L high flow nasal O2. Saturations are 85%. HEENT examination is grossly unremarkable. Neck supple. Full range of motion. No adenopathy thyromegaly or neck vein distention. Cardiovascular examination reveals regular rhythm rate. S1-S2 normal. No S3 or S4. No discernible murmur noted. Heart rate 70 bpm. Heart sounds are distant. Lungs reveal diminished bilateral breath sounds. There is basilar crackles noted. They are Velcro in nature. He is restricted in his breathing. Abdomen soft bowel sounds are heard. No masses or tenderness. Extremities are intact. No edema or cyanosis, but clubbing is noted. Skin is without rash or lesion. Neurologic examination is brief but nonfocal. - Labs CBC & Chem 7: 10/31/21 07:55 10/31/21 07:55 Labs: Abnormal Lab Results - Last 24 Hours (Table) 10/31/21 11/01/21 11/01/21 Range/Units 20:04 07:26 11:32 POC Glucose (mg/dL) 133 H 168 H (75-99) mg/dL Lactate Dehydrogenase 640 H (120-246) U/L C-Reactive Protein 2.00 H (0.00-0.80) mg/dL Assessment and Plan Assessment: 1 Acute on chronic hypoxemic respiratory failure, secondary to the patient's known history of pulmonary fibrosis. 2 Chronic hypoxemic respiratory failure secondary to IPF. 3 Rule out adrenal insufficiency. 4 History of COPD. 5 History of chronic atrial fibrillation. 6 History of ongoing tobacco use with nicotine addiction. 7 Essential hypertension. 8 Hyperlipidemia. 9 History of peripheral vascular occlusive disease with bilateral iliac stents. 10 History of depression. 11 Hyponatremia, improved. 12 Elevated troponin, likely related to supply/demand mismatch. Plan: The patient was seen and evaluated On 15 L high flow nasal cannula O2 saturations in the high 80s Procalcitonin 0.05 currently, on no antibiotics DO NOT RESUSCITATE/DO NOT INTUBATE CODE STATUS We will continue to follow I, the cosigning physician, performed a history & physical examination of the patient. Lungs sounds with bilateral Velcro crackles, diminished. Maintaining O2 saturations in the upper 80s on 15 L high flow nasal cannula. I discussed the assessment and plan of care with my nurse practitioner, Shyann Cole. I attest to the above note as dictated by her.
[2021-11-01 16:17] LABS: Glucose,Whole Blood 99 mg/dL (75-99)
--- NOTE | 2021-11-01 16:48 | P.PN ---
Subjective This is a pleasant 61 years old male with past medical history of CVA and atrial fibrillation on Eliquis, COPD, hypertension, hyperlipidemia. Presents with respiratory symptoms secondary to bilateral interstitial pneumonia with mediastinal lymphadenopathy seen on the chest. Patient is on acute hypoxic respiratory failure requiring 15 L of oxygen per minute. He is still back of neck and dyspneic while he is lying in bed, however he is able to talk freely. No significant coughing. No chest pain. No fever. No diarrhea or vomiting. No urinary symptoms. No headache or weakness or dizziness. I discussed with him his illness and management plan and he agrees. He is currently covered with fluconazole for sputum culture is growing Lisa with infectious disease team recommendation on the case. Also pulmonary team following him closely and currently is on IV Cortef and 100 mg today a times a day and continued on home dose of Eliquis and Protonix. Also he is on aspirin and Plavix. The scope but this was negative and RSV is negative. No pulmonary embolism on CTA. Cortisol level was 6. procalcitonin is normal at 0.05 Chest x-ray showing bilateral infiltrates. Objective - Vital Signs Vital signs: Vital Signs Temp 97.5 F L 11/01/21 07:20 Pulse 76 11/01/21 12:45 Resp 19 11/01/21 07:20 BP 104/68 11/01/21 07:20 Pulse Ox 85 L 11/01/21 07:20 Intake & Output 10/31/21 11/01/21 11/01/21 18:59 06:59 18:59 Intake Total 480 Output Total 400 Balance 480 -400 Intake: Oral 480 Output: Urine 400 Other: Voiding Method Urinal # Voids 1 # Bowel Movements 1 - Exam GENERAL: The patient is alert and oriented x3, not in any acute distress. Well developed, well nourished. HEENT: Pupils are round and equally reacting to light. EOMI. No scleral icterus. No conjunctival pallor. Normocephalic, atraumatic. No pharyngeal erythema. No thyromegaly. CARDIOVASCULAR: S1 and S2 present. No murmurs, rubs, or gallops. -PULMONARY: Chest is clear to auscultation, no wheezing. Bilateral crackles. Tachypnea ABDOMEN: Soft, nontender, nondistended, normoactive bowel sounds. No palpable organomegaly. MUSCULOSKELETAL: No joint swelling or deformity. EXTREMITIES: No cyanosis, clubbing, or pedal edema. NEUROLOGICAL: Gross neurological examination did not reveal any focal deficits. SKIN: No rashes. no petechiae. - Labs CBC & Chem 7: 10/31/21 07:55 10/31/21 07:55 Labs: Abnormal Lab Results - Last 24 Hours (Table) 10/31/21 11/01/21 11/01/21 Range/Units 20:04 07:26 11:32 POC Glucose (mg/dL) 133 H 168 H (75-99) mg/dL Lactate Dehydrogenase 640 H (120-246) U/L C-Reactive Protein 2.00 H (0.00-0.80) mg/dL Assessment and Plan Assessment: Bilateral interstitial fibrosis Acute hypoxic respiratory failure Possible pneumonia with mediastinal lymphadenopathy, secondary to Lisa, less likely causing the main hypoxia episode for the patient but might be some contribution Adrenal insufficiency is suspected by pulmonary service Chronic atrial fibrillation on Eliquis Hypertension Hyperlipidemia Plan: This is a pleasant 61 years old male who presents with pulmonary fibrosis and hypoxia. A stable Lisa infection. Continue with steroids per pulmonary team was suspected adrenal insufficiency as well. Continue with fluconazole for Lisa in his sputum per infectious disease. Continue with home dose of Eliquis. Labs and medication were reviewed.. Continue same treatment. Continue with symptomatic treatment. Resume home medication. Monitor lytes and vitals. DVT and GI prophylaxis. Further recommendationsas per clinical course of the patient DVT prophylaxis: Eliquis GI Prophylaxis: Ppi PT/OT: Pending Prognosis is guarded
--- NOTE | 2021-11-01 18:59 | PN ---
PROGRESS NOTE DATE OF SERVICE: 11/01/2021 REASON FOR FOLLOWUP: 1. Pneumonia. 2. Oral thrush and oropharyngeal candidiasis. INTERVAL HISTORY: Patient is afebrile. The patient is breathing slightly comfortably. The patient denies having any chest pain, shortness of breath. Did have a cough and is bringing up some sputum. No abdominal pain. No diarrhea. PHYSICAL EXAMINATION: Blood pressure is 99/69, pulse of 80. Temperature is 97.8. She is 93% on 15 L high-flow oxygen. General description is a middle-aged male lying in bed in no distress. Respiratory system: Unlabored breathing, decreased intensity of breath sounds. Heart S1, S2. Regular rate and rhythm. Abdomen soft, no tenderness. LABS: Procalcitonin 0.05. DIAGNOSTIC IMPRESSION AND PLAN: 1. Patient with shortness of breath and more likely acute exacerbation with not behaving as pneumonia with normal procalcitonin. No need for systemic antibiotics. 2. Patient with extensive oral thrush and to continue with nystatin swish and swallow and Diflucan. 3. Monitor clinical course closely. MMODL / IJN: [id number] /
[2021-11-01] MEDS: MONTELUKAST 10 MG TAB PO SCH (20:14)
[2021-11-01] MEDS: DULoxetine HCL 60 MG CAPSULE.DR PO SCH (20:14)
[2021-11-01] MEDS: ATORVASTATIN 40 MG TAB PO SCH (20:14)
[2021-11-01] MEDS: PANTOPRAZOLE 40 MG TABLET PO SCH (20:14)
[2021-11-01] MEDS: ASPIRIN 81 MG PO SCH (20:15)
[2021-11-01 20:32] LABS: Glucose,Whole Blood 138 mg/dL (75-99)
[2021-11-02 06:42] LABS: Glucose,Whole Blood 99 mg/dL (75-99)
[2021-11-02] MEDS: INSULIN ASPART (NovoLOG) 100 UNIT/ML VIAL SQ SCH ×4 (07:19→22:05)
[2021-11-02] MEDS: CLOPIDOGREL 75 MG TAB PO SCH (07:56)
[2021-11-02] MEDS: METOPROLOL TARTRATE 25 MG TAB PO SCH ×2 (07:56→22:02)
[2021-11-02] MEDS: FUROSEMIDE 40 MG TAB PO SCH (07:56)
[2021-11-02] MEDS: APIXABAN 5 MG TAB PO SCH ×2 (07:56→22:03)
[2021-11-02] MEDS: guaiFENesin 600 MG TABLET.ER PO SCH ×2 (07:56→22:03)
[2021-11-02] MEDS: HYDROCORTISONE SUCCINATE 100 MG/2 ML VIAL IV SCH (07:56)
[2021-11-02] MEDS: FLUCONAZOLE 100 MG TAB PO SCH (07:56)
[2021-11-02] MEDS: NYSTATIN 100,000 UNIT/ML SUSP 500,000 UNIT/5 ML CUP PO SCH ×4 (07:57→22:04)
[2021-11-02] MEDS: SYMBICORT 160-4.5 MCG INHALER INHALATION SCH ×3 (09:36→20:50)
[2021-11-02] MEDS: IPRATROPIUM-ALBUTEROL 3 ML NEB INHALATION SCH ×4 (09:36→20:50)
[2021-11-02 11:14] LABS: Glucose,Whole Blood 104 mg/dL (75-99)
[2021-11-02 12:11] LABS: Basophils # (A) 0.1 k/uL (0-0.2); Basophils % (A) 0 %; Eosinophils # (A) 0.1 k/uL (0-0.7); Eosinophils % (A) 1 %; HCT 43.7 % (39.0-53.0); HGB 14.7 gm/dL (13.0-17.5); Lymphocytes # (A) 0.7 k/uL (1.0-4.8); Lymphocytes % (A) 4 %; MCHC 33.6 g/dL (31.0-37.0); MCV 92.3 fL (80.0-100.0); Mean Platelet Volume 7.5; Monocytes # (A) 0.9 k/uL (0-1.0); Monocytes % (A) 5 %; Neutrophils # (A) 18.9 k/uL (1.3-7.7); Neutrophils % (A) 90 %; Platelet Count 285 k/uL (150-450); RBC 4.74 m/uL (4.30-5.90); WBC 20.9 k/uL (3.8-10.6)
[2021-11-02 12:21] LABS: ALT 29 U/L (4-49); AST 50 U/L (17-59); African American GFR (CKD) >90 (>60 ml/min/1.73 sqM); Albumin 2.9 g/dL (3.5-5.0); Alkaline Phosphatase 108 U/L (38-126); Anion Gap 3 mmol/L; Blood Urea Nitrogen 29 mg/dL (9-20); Calcium 8.1 mg/dL (8.4-10.2); Carbon Dioxide 35 mmol/L (22-30); Chloride 89 mmol/L (98-107); Globulin 2.8 g/dL; Glucose 104 mg/dL (74-99); Non-African American GFR(CKD) >90 (>60 ml/min/1.73 sqM); Potassium 3.3 mmol/L (3.5-5.1); Sodium 127 mmol/L (137-145); Total Bilirubin 1.8 mg/dL (0.2-1.3); Total Protein 5.7 g/dL (6.3-8.2)
[2021-11-02] MEDS: FUROSEMIDE 10 MG/ML 4 ML VIAL IV SCH ×2 (12:27→22:04)
[2021-11-02] MEDS: methylPREDNISolone SOD SUCCI 125 MG/2 ML VIAL IV SCH ×2 (12:28→17:58)
[2021-11-02] MEDS: POTASSIUM CHLORIDE ER 20 MEQ TAB.ER PO SCH ×2 (12:32→12:33)
[2021-11-02 12:38] LABS: INR 1.1 (<1.2); Prothrombin Time 11.4 sec (9.0-12.0)
--- NOTE | 2021-11-02 13:46 | P.PN ---
Subjective Progress Note Date: 11/02/21 Principal diagnosis: Shortness of breath On 11/02/2021 patient seen in follow-up on medical surgical floor, he continues on 15 L of oxygen, his pulse ox is marginal at 90-91%, still having severe coughing spells, he is having hemoptysis, he is in nature fibrillation with a controlled rate, he is on Eliquis. He is on oral dose Lasix, and he has produced 1.6 L in urine in the last 24 hours, and he is in -100 mL net fluid balance. Patient is currently not on any antibiotics, he did take Levaquin and cefepime, his blood and sputum cultures have shown no growth, his p.m. culture showed only Lisa, which could be possibly related to oral contamination, patient was also on Eraxis briefly, he is currently on Diflucan, he is on nebulized bronchodilators, he is on Symbicort. No new chest x-ray today, his last chest x-ray from 10/31/2021 productive moderate pulmonary interstitial edema which was stable slightly worse compared to his most recent exam, his labs have been reviewed, proBNP was 2490, his pro-calcitonin was negative at 0.05, white count has increased and is up to 20.9, hemoglobin is 14.7, sodium is 127, potassium is 3.3, chloride is 89, CO2 is 35, B1 is 29 creatinine 0.69. His LDH is 640, and CRP is 2.0. Patient is currently on hydrocortisone 100 mg every 8 hours, in addition to fluconazole, Mucinex, oral Lasix, oral Eliquis, 5 mg twice daily and nebulized bronchodilators, patient has had a very limited response to medical therapy so far Objective - Vital Signs Vital signs: Vital Signs Temp 97.9 F 11/02/21 07:47 Pulse 92 11/02/21 09:51 Resp 19 11/02/21 07:47 BP 108/70 11/02/21 07:47 Pulse Ox 90 L 11/02/21 07:47 Intake & Output 11/01/21 11/02/21 11/02/21 18:59 06:59 18:59 Intake Total 1500 Output Total 400 1200 Balance -400 300 Intake: Oral 1500 Output: Urine 400 1200 Other: Voiding Method Urinal # Voids 3 2 3 # Bowel Movements 1 0 - Exam GENERAL EXAM: Alert, is a 61-year-old white male, on 15 L of oxygen a pulse ox of 90-91% comfortable in no apparent distress. HEAD: Normocephalic/atraumatic. EYES: Normal reaction of pupils, equal size. Conjunctiva pink, sclera white. NOSE: Clear with pink turbinates. THROAT: No erythema or exudates. NECK: No masses, no JVD, no thyroid enlargement, no adenopathy. CHEST: No chest wall deformity. Symmetrical expansion. LUNGS: Equal air entry with diffuse rhonchi CVS: Irregular rate and rhythm, normal S1 and S2, no gallops, no murmurs, no rubs ABDOMEN: Soft, nontender. No hepatosplenomegaly, normal bowel sounds, no guarding or rigidity. EXTREMITIES: No clubbing, no edema, no cyanosis, 2+ pulses and upper and lower extremities. MUSCULOSKELETAL: Muscle strength and tone normal. SPINE: No scoliosis or deformity SKIN: No rashes CENTRAL NERVOUS SYSTEM: Alert and oriented -3. No focal deficits, tone is normal in all 4 extremities. PSYCHIATRIC: Alert and oriented -3. Appropriate affect. Intact judgment and insight. - Labs CBC & Chem 7: 11/02/21 11:51 11/02/21 11:51 Labs: Abnormal Lab Results - Last 24 Hours (Table) 11/01/21 11/02/21 11/02/21 Range/Units 20:22 11:10 11:51 WBC 20.9 H (3.8-10.6) k/uL Neutrophils # 18.9 H (1.3-7.7) k/uL Lymphocytes # 0.7 L (1.0-4.8) k/uL Sodium (137-145) mmol/L Potassium (3.5-5.1) mmol/L Chloride (98-107) mmol/L Carbon Dioxide (22-30) mmol/L BUN (9-20) mg/dL Glucose (74-99) mg/dL POC Glucose (mg/dL) 138 H 104 H (75-99) mg/dL Calcium (8.4-10.2) mg/dL Total Bilirubin (0.2-1.3) mg/dL Total Protein (6.3-8.2) g/dL Albumin (3.5-5.0) g/dL 11/02/21 Range/Units 11:51 WBC (3.8-10.6) k/uL Neutrophils # (1.3-7.7) k/uL Lymphocytes # (1.0-4.8) k/uL Sodium 127 L (137-145) mmol/L Potassium 3.3 L (3.5-5.1) mmol/L Chloride 89 L (98-107) mmol/L Carbon Dioxide 35 H (22-30) mmol/L BUN 29 H (9-20) mg/dL Glucose 104 H (74-99) mg/dL POC Glucose (mg/dL) (75-99) mg/dL Calcium 8.1 L (8.4-10.2) mg/dL Total Bilirubin 1.8 H (0.2-1.3) mg/dL Total Protein 5.7 L (6.3-8.2) g/dL Albumin 2.9 L (3.5-5.0) g/dL Assessment and Plan Plan: Assessment: #1. Acute on chronic hypoxic respiratory failure secondary to history of pulmonary fibrosis/IPF, acute exacerbation of CHF, and possibility of infection/tracheobronchitis was considered however pro-calcitonin level was negative, patient was initially treated with Levaquin, cefepime, and subsequently with Eraxis, currently he is just on Diflucan. #2. Chronic hypoxic respiratory failure secondary to IPF #3. Hypertension #4. Hyperlipidemia, #5. PAD with previous interventions #6. Previous history of CVA #7. Persistent A. fib on Eliquis #8. Previous tobacco abuse, currently in remission #9. History of COPD on home oxygen #10. Acute on chronic diastolic heart failure Plan: We'll switch oral Lasix to Lasix 40 mg twice daily We'll send another sputum for culture Patient is having hemoptysis, remains on Eliquis, however hemoglobin is stable Switch hydrocortisone to IV Solumedrol 60 mg q6h Follow up labs, including CBC, CMP Folllow up CXR Will continue to follow I performed a history & physical examination of the patient and discussed their management with my nurse practitioner, Mercedes Coats. I reviewed the nurse practitioner's note and agree with the documented findings and plan of care. Lung sounds are positive for dim breath sounds throughout the lung kyle. The findings and the impression was discussed with the patient. I attest to the documentation by the nurse practitioner. Time with Patient: Less than 30
[2021-11-02 16:45] LABS: Glucose,Whole Blood 117 mg/dL (75-99)
[2021-11-02 20:03] LABS: Glucose,Whole Blood 153 mg/dL (75-99)
--- NOTE | 2021-11-02 20:46 | P.PN ---
Subjective This is a pleasant 61 years old male with past medical history of CVA and atrial fibrillation on Eliquis, COPD, hypertension, hyperlipidemia. Presents with respiratory symptoms secondary to bilateral interstitial pneumonia with mediastinal lymphadenopathy seen on the chest. Patient is on acute hypoxic respiratory failure requiring 15 L of oxygen per minute. He is still back of neck and dyspneic while he is lying in bed, however he is able to talk freely. No significant coughing. No chest pain. No fever. No diarrhea or vomiting. No urinary symptoms. No headache or weakness or dizziness. I discussed with him his illness and management plan and he agrees. He is currently covered with fluconazole for sputum culture is growing Lisa with infectious disease team recommendation on the case. Also pulmonary team following him closely and currently is on IV Cortef and 100 mg today a times a day and continued on home dose of Eliquis and Protonix. Also he is on aspirin and Plavix. The scope but this was negative and RSV is negative. No pulmonary embolism on CTA. Cortisol level was 6. procalcitonin is normal at 0.05 Chest x-ray showing bilateral infiltrates. 11/02/2021 Patient remains significantly tachypneic and dyspneic, today he had significant coughing with some hemoptysis overnight, however his vital signs blood pressure are stable. His oxygen requirements still at 50 L/m, blood pressure is low normal which is stable for him. No labs from today. Plans sputum culture was positive for lisa and he is currently on fluconazole. We'll going to repeat sputum culture. Repeat chest x-ray in the morning, repeat labs include hemoglobin the morning. Medications were adjusted to IV Lasix 40 mg twice a day and has Cortef was switched to Solu-Medrol 60 mg intravenously. Objective - Vital Signs Vital signs: Vital Signs Temp 97.9 F 11/02/21 07:47 Pulse 92 11/02/21 09:51 Resp 19 11/02/21 07:47 BP 108/70 11/02/21 07:47 Pulse Ox 90 L 11/02/21 07:47 Intake & Output 11/01/21 11/02/21 11/02/21 18:59 06:59 18:59 Intake Total 1500 Output Total 400 1200 Balance -400 300 Intake: Oral 1500 Output: Urine 400 1200 Other: Voiding Method Urinal # Voids 3 2 3 # Bowel Movements 1 0 - Exam GENERAL: The patient is alert and oriented x3, not in any acute distress. Well developed, well nourished. HEENT: Pupils are round and equally reacting to light. EOMI. No scleral icterus. No conjunctival pallor. Normocephalic, atraumatic. No pharyngeal erythema. No thyromegaly. CARDIOVASCULAR: S1 and S2 present. No murmurs, rubs, or gallops. -PULMONARY: Chest is clear to auscultation, no wheezing. Bilateral crackles. Tachypnea ABDOMEN: Soft, nontender, nondistended, normoactive bowel sounds. No palpable organomegaly. MUSCULOSKELETAL: No joint swelling or deformity. EXTREMITIES: No cyanosis, clubbing, or pedal edema. NEUROLOGICAL: Gross neurological examination did not reveal any focal deficits. SKIN: No rashes. no petechiae. - Labs CBC & Chem 7: 11/02/21 11:51 11/02/21 11:51 Labs: Abnormal Lab Results - Last 24 Hours (Table) 11/01/21 11/01/21 11/01/21 Range/Units 07:26 11:32 20:22 POC Glucose (mg/dL) 168 H 138 H (75-99) mg/dL Lactate Dehydrogenase 640 H (120-246) U/L C-Reactive Protein 2.00 H (0.00-0.80) mg/dL Assessment and Plan Assessment: Bilateral interstitial fibrosis Acute hypoxic respiratory failure Possible pneumonia with mediastinal lymphadenopathy, secondary to Lisa, less likely causing the main hypoxia episode for the patient but might be some contribution Adrenal insufficiency is suspected by pulmonary service Chronic atrial fibrillation on Eliquis Hypertension Hyperlipidemia Plan: This is a pleasant 61 years old male who presents with pulmonary fibrosis and hypoxia. A stable Lisa infection. Continue with steroids per pulmonary team was suspected adrenal insufficiency as well. Has used steroids switched from IV cortex and IV Solu-Medrol Continue with fluconazole for Lisa in his sputum per infectious disease. Continue with home dose of Eliquis. Labs and medication were reviewed.. Continue same treatment. Continue with symptomatic treatment. Resume home medication. Monitor lytes and vitals. DVT and GI prophylaxis. Further recommendations as per clinical course of the patient DVT prophylaxis: Eliquis GI Prophylaxis: Ppi PT/OT: Pending Prognosis is guarded
[2021-11-02] MEDS: MONTELUKAST 10 MG TAB PO SCH (22:03)
[2021-11-02] MEDS: ASPIRIN 81 MG PO SCH (22:03)
[2021-11-02] MEDS: ATORVASTATIN 40 MG TAB PO SCH (22:03)
[2021-11-02] MEDS: DULoxetine HCL 60 MG CAPSULE.DR PO SCH (22:04)
[2021-11-02] MEDS: PANTOPRAZOLE 40 MG TABLET PO SCH (22:04)
[2021-11-03] MEDS: methylPREDNISolone SOD SUCCI 125 MG/2 ML VIAL IV SCH ×5 (00:43→23:14)
--- NOTE | 2021-11-03 05:33 | PN ---
PROGRESS NOTE DATE OF SERVICE: 11/02/2021 REASON FOR FOLLOWUP: 1. Pneumonia. 2. Oral thrush and oropharyngeal candidiasis. INTERVAL HISTORY: Patient is afebrile. The patient is requiring high-flow nasal cannula oxygen to maintain his . The patient denies any chest pain. Still complaining of shortness of breath and did have a cough, moderate intensity with blood-stained sputum. No abdominal pain. No diarrhea. PHYSICAL EXAMINATION: Blood pressure is 95/56, pulse of 96, temperature 97.9. He is 92% on 15 L high-flow oxygen. General description is a middle-aged male lying in bed in no distress. Respiratory system: Unlabored breathing, coarse breath sounds bilaterally with no wheeze. Heart S1, S2. Regular rate and rhythm. Abdomen soft, no tenderness. LAB: Hemoglobin is 14, white count 20.9, and creatinine 0.6. DIAGNOSTIC IMPRESSION AND PLAN: 1. The patient with shortness of breath more likely acute exacerbation of underlying pulmonary fibrosis. Clinically not behaving as bacterial pneumonia. 2. Oral thrush and oropharyngeal candidiasis, continue with Diflucan and nystatin swish and swallow. 3. Elevated white count more likely steroid effect and we will monitor closely. Continue supportive care. MMODL / IJN: [id number] /
[2021-11-03 07:14] LABS: Glucose,Whole Blood 114 mg/dL (75-99)
[2021-11-03] MEDS: INSULIN ASPART (NovoLOG) 100 UNIT/ML VIAL SQ SCH ×4 (08:17→20:13)
[2021-11-03] MEDS: FUROSEMIDE 10 MG/ML 4 ML VIAL IV SCH ×2 (08:20→20:13)
[2021-11-03] MEDS: FLUCONAZOLE 100 MG TAB PO SCH (08:21)
[2021-11-03] MEDS: NYSTATIN 100,000 UNIT/ML SUSP 500,000 UNIT/5 ML CUP PO SCH ×4 (08:21→20:13)
[2021-11-03] MEDS: guaiFENesin 600 MG TABLET.ER PO SCH ×2 (08:21→20:14)
[2021-11-03] MEDS: METOPROLOL TARTRATE 25 MG TAB PO SCH ×2 (08:21→20:13)
[2021-11-03] MEDS: CLOPIDOGREL 75 MG TAB PO SCH (08:21)
[2021-11-03] MEDS: APIXABAN 5 MG TAB PO SCH ×2 (08:21→20:13)
[2021-11-03] MEDS: SYMBICORT 160-4.5 MCG INHALER INHALATION SCH ×2 (08:54→21:06)
[2021-11-03] MEDS: IPRATROPIUM-ALBUTEROL 3 ML NEB INHALATION SCH ×4 (08:54→21:06)
--- NOTE | 2021-11-03 09:27 | XR ---
EXAMINATION TYPE: XR chest 1V portable DATE OF EXAM: 11/03/2021 COMPARISON: Chest x-ray 10/31/2021 HISTORY: Shortness of breath TECHNIQUE: Single frontal view of the chest is obtained. FINDINGS: Bilateral airspace disease has become somewhat more confluent on the right. This mixed int erstitial and groundglass pattern. Cardiac mediastinal silhouette is stable. No evident pneumothorax or pleural effusion. IMPRESSION: Correlate for pneumonia, edema
[2021-11-03 10:33] LABS: Basophils # (A) 0.03 X 10*3/uL (0.00-0.10); Basophils % (A) 0.2 %; Eosinophils # (A) 0.01 X 10*3/uL (0.04-0.35); Eosinophils % (A) 0.1 %; HCT 44.5 % (39.6-50.0); Lymphocytes # (A) 1.01 X 10*3/uL (0.90-5.00); Lymphocytes % (A) 6.3 %; MCH 30.5 pg (27.0-32.0); MCHC 33.7 g/dL (32.0-37.0); MCV 90.6 fL (80.0-97.0); Mean Platelet Volume 10.1 fL (9.5-12.2); Monocytes # (A) 1.08 X 10*3/uL (0.20-1.00); Monocytes % (A) 6.7 %; Neutrophils # (A) 13.63 X 10*3/uL (1.80-7.70); Neutrophils % (A) 84.5 %; Platelet Count 320 X 10*3/uL (140-440); RBC 4.91 X 10*6/uL (4.40-5.60); RDW 15.9 % (11.5-14.5); WBC 16.12 X 10*3/uL (4.50-10.00)
[2021-11-03 11:43] LABS: Glucose,Whole Blood 135 mg/dL (75-99)
[2021-11-03 11:44] LABS: African American GFR (CKD) 106.7 (60.0-200.0); Albumin 3.4 g/dL (3.8-4.9); Albumin/Globulin Ratio 1.25 (1.60-3.17); Anion Gap 13.1 mmol/L (10.00-18.00); BUN/Creat Ratio 29.71 Ratio (12.00-20.00); Blood Urea Nitrogen 25.7 mg/dL (9.0-27.0); Calcium 8.5 mg/dL (8.7-10.3); Carbon Dioxide 32.9 mmol/L (20.0-27.5); Globulin 2.7 g/dL (1.6-3.3); Non-African American GFR(CKD) 92.1 (60.0-200.0); Potassium 3.7 mmol/L (3.5-5.5); Total Protein 6.1 g/dL (6.2-8.2)
[2021-11-03] MEDS: LEVOFLOXACIN 500MG-D5W PMX 500 MG in DEXTROSE/WATER 1 100ML.BAG IVPB SCH (14:12)
[2021-11-03] MEDS: POTASSIUM CHLORIDE ER 20 MEQ TAB.ER PO SCH ×2 (14:12→20:15)
[2021-11-03] MEDS: CEFEPIME 1 GM in SODIUM CHLORIDE 0.9% 50 ML IVPB SCH (15:47)
--- NOTE | 2021-11-03 16:16 | P.PN ---
Subjective Progress Note Date: 11/03/21 Principal diagnosis: Shortness of breath On 11/02/2021 patient seen in follow-up on medical surgical floor, he continues on 15 L of oxygen, his pulse ox is marginal at 90-91%, still having severe coughing spells, he is having hemoptysis, he is in nature fibrillation with a controlled rate, he is on Eliquis. He is on oral dose Lasix, and he has produced 1.6 L in urine in the last 24 hours, and he is in -100 mL net fluid balance. Patient is currently not on any antibiotics, he did take Levaquin and cefepime, his blood and sputum cultures have shown no growth, his p.m. culture showed only Lisa, which could be possibly related to oral contamination, patient was also on Eraxis briefly, he is currently on Diflucan, he is on nebulized bronchodilators, he is on Symbicort. No new chest x-ray today, his last chest x-ray from 10/31/2021 productive moderate pulmonary interstitial edema which was stable slightly worse compared to his most recent exam, his labs have been reviewed, proBNP was 2490, his pro-calcitonin was negative at 0.05, white count has increased and is up to 20.9, hemoglobin is 14.7, sodium is 127, potassium is 3.3, chloride is 89, CO2 is 35, B1 is 29 creatinine 0.69. His LDH is 640, and CRP is 2.0. Patient is currently on hydrocortisone 100 mg every 8 hours, in addition to fluconazole, Mucinex, oral Lasix, oral Eliquis, 5 mg twice daily and nebulized bronchodilators, patient has had a very limited response to medical therapy so far On 11/03/2021 patient is seen in follow-up on medical surgical floor, he remains on high flow oxygen at 15 L, and his pulse ox is between 86-92%, his been afebrile, hemodynamically his been stable however his been congested, he is still coughing up some blood-tinged phlegm, no complaints of chest discomfort, he continues on Solu-Medrol 60 g every 6 hours, lung sounds reveal diffuse rhonchi and crackles. No acute events overnight, urine culture has been sent, his sputum Gram stain showing few PMNs, few gram-positive cocci, patient previously had negative pro-calcitonin levels, actually total of 4, of 0.12, 0.05, 0.05, and 0.08 today. Patient was placed on diuretics yesterday, he remains on Lasix 40 mg twice daily, is in -600 mL net fluid balance over the last 24 hours, follow-up chest x-ray today reviewed showing bilateral airspace disease more confluent on the right with mixed interstitial and groundglass pattern. No evident pneumothorax or pleural effusion. Today's labs have been reviewed, his white blood count count is slightly improved and is down to 16.12, hemoglobin is 15, sodium is 134, potassium 3.7, chloride is 88, CO2 32, BUN is 25, and creatinine 0.9. Objective - Vital Signs Vital signs: Vital Signs Temp 97.8 F 11/03/21 14:00 Pulse 78 11/03/21 14:00 Resp 19 11/03/21 14:00 BP 148/60 11/03/21 14:00 Pulse Ox 92 L 11/03/21 14:00 Intake & Output 11/02/21 11/03/21 11/03/21 18:59 06:59 18:59 Output Total 600 Balance -600 Output: Urine 600 Other: Voiding Method Urinal # Voids 3 3 - Exam GENERAL EXAM: Alert, is a 61-year-old white male, on 15 L of oxygen a pulse ox of 90-91% while dyspneic with conversation, and patient has increased exertional dyspnea, HEAD: Normocephalic/atraumatic. EYES: Normal reaction of pupils, equal size. Conjunctiva pink, sclera white. NOSE: Clear with pink turbinates. THROAT: No erythema or exudates. NECK: No masses, no JVD, no thyroid enlargement, no adenopathy. CHEST: No chest wall deformity. Symmetrical expansion. LUNGS: Equal air entry with diffuse rhonchi CVS: Irregular rate and rhythm, normal S1 and S2, no gallops, no murmurs, no rubs ABDOMEN: Soft, nontender. No hepatosplenomegaly, normal bowel sounds, no guarding or rigidity. EXTREMITIES: Mild clubbing noted and his fingernails. no edema, no cyanosis, 2+ pulses and upper and lower extremities. MUSCULOSKELETAL: Muscle strength and tone normal. SPINE: No scoliosis or deformity SKIN: No rashes CENTRAL NERVOUS SYSTEM: Alert and oriented -3. No focal deficits, tone is normal in all 4 extremities. PSYCHIATRIC: Alert and oriented -3. Appropriate affect. Intact judgment and insight. - Labs CBC & Chem 7: 11/03/21 07:16 11/03/21 07:16 Labs: Abnormal Lab Results - Last 24 Hours (Table) 11/02/21 11/02/21 11/03/21 Range/Units 16:43 20:01 07:12 WBC (4.50-10.00) X 10*3/uL RDW (11.5-14.5) % Immature Gran # (0.00-0.04) X 10*3/uL Neutrophils # (1.80-7.70) X 10*3/uL Monocytes # (0.20-1.00) X 10*3/uL Eosinophils # (0.04-0.35) X 10*3/uL Sodium (135-145) mmol/L Chloride (96-109) mmol/L Carbon Dioxide (20.0-27.5) mmol/L BUN/Creatinine Ratio (12.00-20.00) Ratio Glucose (70-110) mg/dL POC Glucose (mg/dL) 117 H 153 H 114 H (75-99) mg/dL Calcium (8.7-10.3) mg/dL Total Bilirubin (0.30-1.20) mg/dL AST (14-35) U/L Total Protein (6.2-8.2) g/dL Albumin (3.8-4.9) g/dL Albumin/Globulin Ratio (1.60-3.17) g/dL 11/03/21 11/03/21 11/03/21 Range/Units 07:16 07:16 11:41 WBC 16.12 H (4.50-10.00) X 10*3/uL RDW 15.9 H (11.5-14.5) % Immature Gran # 0.36 H (0.00-0.04) X 10*3/uL Neutrophils # 13.63 H (1.80-7.70) X 10*3/uL Monocytes # 1.08 H (0.20-1.00) X 10*3/uL Eosinophils # 0.01 L (0.04-0.35) X 10*3/uL Sodium 134 L (135-145) mmol/L Chloride 88 L (96-109) mmol/L Carbon Dioxide 32.9 H (20.0-27.5) mmol/L BUN/Creatinine Ratio 29.71 H (12.00-20.00) Ratio Glucose 124 H (70-110) mg/dL POC Glucose (mg/dL) 135 H (75-99) mg/dL Calcium 8.5 L (8.7-10.3) mg/dL Total Bilirubin 2.00 H (0.30-1.20) mg/dL AST 47 H (14-35) U/L Total Protein 6.1 L (6.2-8.2) g/dL Albumin 3.4 L (3.8-4.9) g/dL Albumin/Globulin Ratio 1.25 L (1.60-3.17) g/dL Microbiology - Last 24 Hours (Table) 11/02/21 21:00 Gram Stain - Preliminary Sputum Sputum Culture - Preliminary Assessment and Plan Plan: Assessment: #1. Acute on chronic hypoxic respiratory failure secondary to acute exacerbation of pulmonary fibrosis/IPF, acute exacerbation of CHF, and possibility of infection/tracheobronchitis was considered however pro-calcitonin level was negative, patient was initially treated with Levaquin, cefepime, and subsequently with Eraxis, currently he is just on Diflucan. We added antibiotics back today on 11/03/2021. Patient continues to have pulmonary congestion, productive cough with hemoptysis. Repeat sputum culture has been sent and is pending #2. Chronic hypoxic respiratory failure secondary to IPF #3. Hypertension #4. Hyperlipidemia, #5. PAD with previous interventions #6. Previous history of CVA #7. Persistent A. fib on Eliquis #8. Previous tobacco abuse, currently in remission #9. History of COPD on home oxygen #10. Acute on chronic diastolic heart failure Plan: Continue with IV Lasix for another 24 hours We will add K Dur 2082 by mouth twice daily May replace persistently low potassium per protocol We will add Levaquin and cefepime Sputum has been sent for culture Continue IV Solu-Medrol Follow-up Procalcitonin LEVEL CONTINUES TO BE NEGATIVE HOWEVER PATIENT STILL HAS SIGNIFICANT PULMONARY CONGESTION AND PRODUCTIVE COUGH We'll continue to follow his clinical course Patient has had limited response to medical therapies thus far Overall prognosis is extremely guarded CODE STATUS is DO NOT RESUSCITATE, We'll continue supportive treatment I performed a history & physical examination of the patient and discussed their management with my nurse practitioner, Mercedes Coats. I reviewed the nurse practitioner's note and agree with the documented findings and plan of care. Lung sounds are positive for dim breath sounds throughout the lung kyle. The findings and the impression was discussed with the patient. I attest to the documentation by the nurse practitioner. Time with Patient: Less than 30
[2021-11-03 17:05] LABS: Glucose,Whole Blood 127 mg/dL (75-99)
[2021-11-03 20:08] LABS: Glucose,Whole Blood 156 mg/dL (75-99)
[2021-11-03] MEDS: PANTOPRAZOLE 40 MG TABLET PO SCH (20:13)
[2021-11-03] MEDS: DULoxetine HCL 60 MG CAPSULE.DR PO SCH (20:13)
[2021-11-03] MEDS: MONTELUKAST 10 MG TAB PO SCH (20:13)
[2021-11-03] MEDS: ASPIRIN 81 MG PO SCH (20:14)
[2021-11-03] MEDS: ATORVASTATIN 40 MG TAB PO SCH (20:14)
--- NOTE | 2021-11-03 20:49 | P.PN ---
Subjective This is a pleasant 61 years old male with past medical history of CVA and atrial fibrillation on Eliquis, COPD, hypertension, hyperlipidemia. Presents with respiratory symptoms secondary to bilateral interstitial pneumonia with mediastinal lymphadenopathy seen on the chest. Patient is on acute hypoxic respiratory failure requiring 15 L of oxygen per minute. He is still back of neck and dyspneic while he is lying in bed, however he is able to talk freely. No significant coughing. No chest pain. No fever. No diarrhea or vomiting. No urinary symptoms. No headache or weakness or dizziness. I discussed with him his illness and management plan and he agrees. He is currently covered with fluconazole for sputum culture is growing Lisa with infectious disease team recommendation on the case. Also pulmonary team following him closely and currently is on IV Cortef and 100 mg today a times a day and continued on home dose of Eliquis and Protonix. Also he is on aspirin and Plavix. The scope but this was negative and RSV is negative. No pulmonary embolism on CTA. Cortisol level was 6. procalcitonin is normal at 0.05 Chest x-ray showing bilateral infiltrates. 11/02/2021 Patient remains significantly tachypneic and dyspneic, today he had significant coughing with some hemoptysis overnight, however his vital signs blood pressure are stable. His oxygen requirements still at 50 L/m, blood pressure is low normal which is stable for him. No labs from today. Plans sputum culture was positive for lisa and he is currently on fluconazole. We'll going to repeat sputum culture. Repeat chest x-ray in the morning, repeat labs include hemoglobin the morning. Medications were adjusted to IV Lasix 40 mg twice a day and has Cortef was switched to Solu-Medrol 60 mg intravenously. 11/03/2021 Patient remains significantly tachypneic, however he is able to talk through his face mask which delivers about 50 L of oxygen. Patient could not participate in physical therapy today because of his severe dyspnea. His very lethargic and weak . mentation is very awake and alert. He still has hemoptysis but better than yesterday His blood pressure is low normal. His respiratory rate around 20-22. His WBC is 16 K, sodium improved to 134. His repeat chest x-ray showing worsening infiltrates compared to few days ago. It is suspicious for pneumonia and or edema Pro-calcitonin is negative at 0.08. However bacterial infection is not entirely exclude it and patient today was placed back on cefepime and Levaquin. While continued on fluconazole for lisa and his previous sample of sputum. Also Lasix 40 mg twice a day was added yesterday and steroids change from coronary Cortef into IV Solu-Medrol 60 mg Objective - Vital Signs Vital signs: Vital Signs Temp 97.8 F 11/03/21 08:00 Pulse 89 11/03/21 12:18 Resp 22 11/03/21 08:00 BP 91/52 11/03/21 08:00 Pulse Ox 86 L 11/03/21 08:54 Intake & Output 11/02/21 11/03/21 11/03/21 18:59 06:59 18:59 Output Total 600 Balance -600 Output: Urine 600 Other: Voiding Method Urinal # Voids 3 - Exam GENERAL: The patient is alert and oriented x3, not in any acute distress. Well developed, well nourished. HEENT: Pupils are round and equally reacting to light. EOMI. No scleral icterus. No conjunctival pallor. Normocephalic, atraumatic. No pharyngeal erythema. No thyromegaly. CARDIOVASCULAR: S1 and S2 present. No murmurs, rubs, or gallops. -PULMONARY: Chest is clear to auscultation, no wheezing. Bilateral crackles. Tachypnea ABDOMEN: Soft, nontender, nondistended, normoactive bowel sounds. No palpable organomegaly. MUSCULOSKELETAL: No joint swelling or deformity. EXTREMITIES: No cyanosis, clubbing, or pedal edema. NEUROLOGICAL: Gross neurological examination did not reveal any focal deficits. SKIN: No rashes. no petechiae. - Labs CBC & Chem 7: 11/03/21 07:16 11/03/21 07:16 Labs: Abnormal Lab Results - Last 24 Hours (Table) 11/02/21 11/02/21 11/03/21 Range/Units 16:43 20:01 07:12 WBC (4.50-10.00) X 10*3/uL RDW (11.5-14.5) % Immature Gran # (0.00-0.04) X 10*3/uL Neutrophils # (1.80-7.70) X 10*3/uL Monocytes # (0.20-1.00) X 10*3/uL Eosinophils # (0.04-0.35) X 10*3/uL Sodium (135-145) mmol/L Chloride (96-109) mmol/L Carbon Dioxide (20.0-27.5) mmol/L BUN/Creatinine Ratio (12.00-20.00) Ratio Glucose (70-110) mg/dL POC Glucose (mg/dL) 117 H 153 H 114 H (75-99) mg/dL Calcium (8.7-10.3) mg/dL Total Bilirubin (0.30-1.20) mg/dL AST (14-35) U/L Total Protein (6.2-8.2) g/dL Albumin (3.8-4.9) g/dL Albumin/Globulin Ratio (1.60-3.17) g/dL 11/03/21 11/03/21 11/03/21 Range/Units 07:16 07:16 11:41 WBC 16.12 H (4.50-10.00) X 10*3/uL RDW 15.9 H (11.5-14.5) % Immature Gran # 0.36 H (0.00-0.04) X 10*3/uL Neutrophils # 13.63 H (1.80-7.70) X 10*3/uL Monocytes # 1.08 H (0.20-1.00) X 10*3/uL Eosinophils # 0.01 L (0.04-0.35) X 10*3/uL Sodium 134 L (135-145) mmol/L Chloride 88 L (96-109) mmol/L Carbon Dioxide 32.9 H (20.0-27.5) mmol/L BUN/Creatinine Ratio 29.71 H (12.00-20.00) Ratio Glucose 124 H (70-110) mg/dL POC Glucose (mg/dL) 135 H (75-99) mg/dL Calcium 8.5 L (8.7-10.3) mg/dL Total Bilirubin 2.00 H (0.30-1.20) mg/dL AST 47 H (14-35) U/L Total Protein 6.1 L (6.2-8.2) g/dL Albumin 3.4 L (3.8-4.9) g/dL Albumin/Globulin Ratio 1.25 L (1.60-3.17) g/dL Microbiology - Last 24 Hours (Table) 11/02/21 21:00 Sputum Culture - Preliminary Sputum Assessment and Plan Assessment: Worsening bilateral pulmonary infiltrate, could be secondary to edema versus worsening infection on the top of his fibrosis Bilateral interstitial fibrosis Acute hypoxic respiratory failure Possible pneumonia with mediastinal lymphadenopathy, secondary to Lisa, less likely causing the main hypoxia episode for the patient but might be some contribution Adrenal insufficiency is suspected by pulmonary service Chronic atrial fibrillation on Eliquis Hypertension Hyperlipidemia Plan: This is a pleasant 61 years old male who presents with pulmonary fibrosis and hypoxia. A stable Lisa infection. Continue with steroids per pulmonary team was suspected adrenal insufficiency as well. Has used steroids switched from IV cortex and IV Solu-Medrol Continue with fluconazole for Lisa in his sputum per infectious disease. Continue with home dose of Eliquis. Continue with antibiotics with cefepime and Levaquin Labs and medication were reviewed.. Continue same treatment. Continue with symptomatic treatment. Resume home medication. Monitor lytes and vitals. DVT and GI prophylaxis. Further recommendations as per clinical course of the patient DVT prophylaxis: Eliquis GI Prophylaxis: Ppi PT/OT: Ongoing Prognosis is guarded
--- NOTE | 2021-11-03 22:46 | PN ---
PROGRESS NOTE DATE OF SERVICE: 11/03/2021 REASON FOR FOLLOW UP: 1. Question of pneumonia. 2. Oropharyngeal candidiasis. INTERVAL HISTORY: The patient is afebrile. Still complaining of shortness of breath and cough. The patient denies any chest pain, still bringing up some blood-stained sputum. No abdominal pain. No diarrhea. Overall mouth and throat area has improved. PHYSICAL EXAMINATION: Blood pressure 96/72 with a pulse of 88, temperature is 97.7. He is 90% on 15 L high- flow oxygen. General description is a middle-aged male lying in bed in no distress. Respiratory system: Unlabored breathing, coarse breath sounds bilaterally, no wheeze. Heart S1, S2. Regular rate and rhythm. Abdomen soft, no tenderness. LABS: Hemoglobin 16, white count 16.12, creatinine 0.9. Procalcitonin 0.8. DIAGNOSTIC IMPRESSION AND PLAN: 1. Patient with chronic obstructive pulmonary disease/ exacerbation clinically not behaving as bacterial pneumonia with normal procalcitonin. Antibiotic . 2. Patient with extensive oral thrush and oropharyngeal candidiasis clinically responding to the nystatin swish and swallow and Diflucan to continue and monitor clinical course closely. MMODL / IJN: [id number] /
[2021-11-04] MEDS: CEFEPIME 1 GM in SODIUM CHLORIDE 0.9% 50 ML IVPB SCH ×2 (03:43→16:35)
[2021-11-04] MEDS: methylPREDNISolone SOD SUCCI 125 MG/2 ML VIAL IV SCH ×3 (05:43→17:34)
[2021-11-04 07:02] LABS: Glucose,Whole Blood 149 mg/dL (75-99)
[2021-11-04] MEDS: IPRATROPIUM-ALBUTEROL 3 ML NEB INHALATION SCH ×5 (07:18→20:15)
[2021-11-04] MEDS: SYMBICORT 160-4.5 MCG INHALER INHALATION SCH ×3 (07:22→20:15)
[2021-11-04] MEDS: guaiFENesin 600 MG TABLET.ER PO SCH ×2 (07:44→20:07)
[2021-11-04] MEDS: FLUCONAZOLE 100 MG TAB PO SCH (07:44)
[2021-11-04] MEDS: APIXABAN 5 MG TAB PO SCH ×2 (07:44→20:07)
[2021-11-04] MEDS: NYSTATIN 100,000 UNIT/ML SUSP 500,000 UNIT/5 ML CUP PO SCH ×4 (07:45→20:07)
[2021-11-04] MEDS: METOPROLOL TARTRATE 25 MG TAB PO SCH ×2 (07:45→20:07)
[2021-11-04] MEDS: FUROSEMIDE 10 MG/ML 4 ML VIAL IV SCH ×2 (07:45→20:07)
[2021-11-04] MEDS: CLOPIDOGREL 75 MG TAB PO SCH (07:45)
[2021-11-04] MEDS: POTASSIUM CHLORIDE ER 20 MEQ TAB.ER PO SCH ×2 (07:47→20:07)
[2021-11-04] MEDS: INSULIN ASPART (NovoLOG) 100 UNIT/ML VIAL SQ SCH ×4 (07:47→19:43)
--- NOTE | 2021-11-04 09:38 | XR ---
EXAMINATION TYPE: XR chest 1V portable DATE OF EXAM: 11/04/2021 COMPARISON: 11/03/2021 HISTORY: Shortness of breath TECHNIQUE: Single frontal view of the chest is obtained. FINDINGS: There are bilateral diffuse interstitial and alveolar areas of infiltrate. Calcified granu nicole upper abdomen suspected. Heart size is mildly enlarged. There is no pneumothorax or sizable pleu ral effusion. Heart is enlarged but stable. IMPRESSION: Stable diffuse bilateral infiltrates.
--- NOTE | 2021-11-04 10:37 | P.PN ---
Subjective This is a pleasant 61 years old male with past medical history of CVA and atrial fibrillation on Eliquis, COPD, hypertension, hyperlipidemia. Presents with respiratory symptoms secondary to bilateral interstitial pneumonia with mediastinal lymphadenopathy seen on the chest. Patient is on acute hypoxic respiratory failure requiring 15 L of oxygen per minute. He is still back of neck and dyspneic while he is lying in bed, however he is able to talk freely. No significant coughing. No chest pain. No fever. No diarrhea or vomiting. No urinary symptoms. No headache or weakness or dizziness. I discussed with him his illness and management plan and he agrees. He is currently covered with fluconazole for sputum culture is growing Lisa with infectious disease team recommendation on the case. Also pulmonary team following him closely and currently is on IV Cortef and 100 mg today a times a day and continued on home dose of Eliquis and Protonix. Also he is on aspirin and Plavix. The scope but this was negative and RSV is negative. No pulmonary embolism on CTA. Cortisol level was 6. procalcitonin is normal at 0.05 Chest x-ray showing bilateral infiltrates. 11/02/2021 Patient remains significantly tachypneic and dyspneic, today he had significant coughing with some hemoptysis overnight, however his vital signs blood pressure are stable. His oxygen requirements still at 50 L/m, blood pressure is low normal which is stable for him. No labs from today. Plans sputum culture was positive for lisa and he is currently on fluconazole. We'll going to repeat sputum culture. Repeat chest x-ray in the morning, repeat labs include hemoglobin the morning. Medications were adjusted to IV Lasix 40 mg twice a day and has Cortef was switched to Solu-Medrol 60 mg intravenously. 11/03/2021 Patient remains significantly tachypneic, however he is able to talk through his face mask which delivers about 50 L of oxygen. Patient could not participate in physical therapy today because of his severe dyspnea. His very lethargic and weak . mentation is very awake and alert. He still has hemoptysis but better than yesterday His blood pressure is low normal. His respiratory rate around 20-22. His WBC is 16 K, sodium improved to 134. His repeat chest x-ray showing worsening infiltrates compared to few days ago. It is suspicious for pneumonia and or edema Pro-calcitonin is negative at 0.08. However bacterial infection is not entirely exclude it and patient today was placed back on cefepime and Levaquin. While continued on fluconazole for lisa and his previous sample of sputum. Also Lasix 40 mg twice a day was added yesterday and steroids change from coronary Cortef into IV Solu-Medrol 60 mg 11/04/2021 pt respiratory status is improving, yesterday he was on 15 L/m of oxygen went down to 13 and then 11 L at evening but this morning is at 13 L/m which is a still improving but slowly. A states that he has good appetite, no significant coughing. Yesterday we added Levemir 10 units to his home regimen of metformin 500 mg and his glucose is better this morning. Patient does not have glucometer at home therefore we consulted protective services case worker to provide one upon discharge. Dexamethasone, vitamin C, D and zinc. Objective - Vital Signs Vital signs: Vital Signs Temp 97.9 F 11/04/21 07:47 Pulse 82 11/04/21 07:47 Resp 22 11/04/21 07:47 BP 94/71 11/04/21 07:47 Pulse Ox 93 L 11/04/21 07:47 Intake & Output 11/03/21 11/04/21 11/04/21 18:59 06:59 18:59 Output Total 1200 Balance -1200 Output: Urine 1200 Other: Voiding Method Urinal # Voids 3 - Exam GENERAL: The patient is alert and oriented x3, not in any acute distress. Well developed, well nourished. HEENT: Pupils are round and equally reacting to light. EOMI. No scleral icterus. No conjunctival pallor. Normocephalic, atraumatic. No pharyngeal erythema. No thyromegaly. CARDIOVASCULAR: S1 and S2 present. No murmurs, rubs, or gallops. -PULMONARY: Chest is clear to auscultation, no wheezing. Bilateral crackles. Tachypnea ABDOMEN: Soft, nontender, nondistended, normoactive bowel sounds. No palpable organomegaly. MUSCULOSKELETAL: No joint swelling or deformity. EXTREMITIES: No cyanosis, clubbing, or pedal edema. NEUROLOGICAL: Gross neurological examination did not reveal any focal deficits. SKIN: No rashes. no petechiae. - Labs CBC & Chem 7: 11/03/21 07:16 11/03/21 07:16 Labs: Abnormal Lab Results - Last 24 Hours (Table) 11/03/21 11/03/21 11/03/21 Range/Units 07:16 07:16 11:41 WBC 16.12 H (4.50-10.00) X 10*3/uL RDW 15.9 H (11.5-14.5) % Immature Gran # 0.36 H (0.00-0.04) X 10*3/uL Neutrophils # 13.63 H (1.80-7.70) X 10*3/uL Monocytes # 1.08 H (0.20-1.00) X 10*3/uL Eosinophils # 0.01 L (0.04-0.35) X 10*3/uL Sodium 134 L (135-145) mmol/L Chloride 88 L (96-109) mmol/L Carbon Dioxide 32.9 H (20.0-27.5) mmol/L BUN/Creatinine Ratio 29.71 H (12.00-20.00) Ratio Glucose 124 H (70-110) mg/dL POC Glucose (mg/dL) 135 H (75-99) mg/dL Calcium 8.5 L (8.7-10.3) mg/dL Total Bilirubin 2.00 H (0.30-1.20) mg/dL AST 47 H (14-35) U/L Total Protein 6.1 L (6.2-8.2) g/dL Albumin 3.4 L (3.8-4.9) g/dL Albumin/Globulin Ratio 1.25 L (1.60-3.17) g/dL 11/03/21 11/03/21 11/04/21 Range/Units 17:03 20:07 07:01 WBC (4.50-10.00) X 10*3/uL RDW (11.5-14.5) % Immature Gran # (0.00-0.04) X 10*3/uL Neutrophils # (1.80-7.70) X 10*3/uL Monocytes # (0.20-1.00) X 10*3/uL Eosinophils # (0.04-0.35) X 10*3/uL Sodium (135-145) mmol/L Chloride (96-109) mmol/L Carbon Dioxide (20.0-27.5) mmol/L BUN/Creatinine Ratio (12.00-20.00) Ratio Glucose (70-110) mg/dL POC Glucose (mg/dL) 127 H 156 H 149 H (75-99) mg/dL Calcium (8.7-10.3) mg/dL Total Bilirubin (0.30-1.20) mg/dL AST (14-35) U/L Total Protein (6.2-8.2) g/dL Albumin (3.8-4.9) g/dL Albumin/Globulin Ratio (1.60-3.17) g/dL Microbiology - Last 24 Hours (Table) 11/02/21 21:00 Gram Stain - Preliminary Sputum Sputum Culture - Preliminary Assessment and Plan Assessment: Worsening bilateral pulmonary infiltrate, could be secondary to edema versus worsening infection on the top of his fibrosis Bilateral interstitial fibrosis Acute hypoxic respiratory failure Possible pneumonia with mediastinal lymphadenopathy, secondary to Lisa, less likely causing the main hypoxia episode for the patient but might be some contribution Adrenal insufficiency is suspected by pulmonary service Chronic atrial fibrillation on Eliquis Hypertension Hyperlipidemia Plan: This is a pleasant 61 years old male who presents with pulmonary fibrosis and hypoxia. A stable Lisa infection. Continue with steroids per pulmonary team was suspected adrenal insufficiency as well. Has used steroids switched from IV cortex and IV Solu-Medrol Continue with fluconazole for Lisa in his sputum per infectious disease. Continue with home dose of Eliquis. Continue with antibiotics with cefepime and Levaquin Labs and medication were reviewed.. Continue same treatment. Continue with symptomatic treatment. Resume home medication. Monitor lytes and vitals. DVT and GI prophylaxis. Further recommendations as per clinical course of the patient DVT prophylaxis: Eliquis GI Prophylaxis: Ppi PT/OT: Ongoing Prognosis is guarded
[2021-11-04 11:03] LABS: Basophils # (A) 0.04 X 10*3/uL (0.00-0.10); Basophils % (A) 0.2 %; Eosinophils # (A) 0 X 10*3/uL (0.04-0.35); Eosinophils % (A) 0 %; HCT 43.8 % (39.6-50.0); HGB 14.7 g/dL (13.0-17.0); Lymphocytes # (A) 0.94 X 10*3/uL (0.90-5.00); Lymphocytes % (A) 4.3 %; MCH 30.6 pg (27.0-32.0); MCHC 33.6 g/dL (32.0-37.0); MCV 91.3 fL (80.0-97.0); Mean Platelet Volume 10.3 fL (9.5-12.2); Monocytes # (A) 1.23 X 10*3/uL (0.20-1.00); Monocytes % (A) 5.6 %; Neutrophils # (A) 19.42 X 10*3/uL (1.80-7.70); Neutrophils % (A) 88.4 %; Platelet Count 295 X 10*3/uL (140-440); RDW 16.1 % (11.5-14.5); WBC 21.97 X 10*3/uL (4.50-10.00)
[2021-11-04 12:03] LABS: Glucose,Whole Blood 176 mg/dL (75-99)
[2021-11-04 12:52] LABS: C Reactive Protein 6.5 mg/dL (0.00-0.80); Magnesium 2.4 mg/dL (1.5-2.4)
[2021-11-04 12:55] LABS: Albumin 3.4 g/dL (3.8-4.9); Albumin/Globulin Ratio 1.21 (1.60-3.17); BUN/Creat Ratio 34.11 Ratio (12.00-20.00); Bilirubin, Conjugated 0.66 mg/dL (0.20-0.40); Bilirubin,Unconjugated 1.64 mg/dL (0.20-1.00); Blood Urea Nitrogen 30.7 mg/dL (9.0-27.0); Calcium 8.7 mg/dL (8.7-10.3); Globulin 2.8 g/dL (1.6-3.3); Non-African American GFR(CKD) 90.6 (60.0-200.0); Potassium 3.8 mmol/L (3.5-5.5); Total Bilirubin 2.3 mg/dL (0.30-1.20); Total Protein 6.2 g/dL (6.2-8.2)
[2021-11-04] MEDS: LEVOFLOXACIN 500MG-D5W PMX 500 MG in DEXTROSE/WATER 1 100ML.BAG IVPB SCH (14:09)
--- NOTE | 2021-11-04 15:56 | P.PN ---
Subjective Progress Note Date: 11/04/21 Principal diagnosis: Shortness of breath On 11/02/2021 patient seen in follow-up on medical surgical floor, he continues on 15 L of oxygen, his pulse ox is marginal at 90-91%, still having severe coughing spells, he is having hemoptysis, he is in nature fibrillation with a controlled rate, he is on Eliquis. He is on oral dose Lasix, and he has produced 1.6 L in urine in the last 24 hours, and he is in -100 mL net fluid balance. Patient is currently not on any antibiotics, he did take Levaquin and cefepime, his blood and sputum cultures have shown no growth, his p.m. culture showed only Lisa, which could be possibly related to oral contamination, patient was also on Eraxis briefly, he is currently on Diflucan, he is on nebulized bronchodilators, he is on Symbicort. No new chest x-ray today, his last chest x-ray from 10/31/2021 productive moderate pulmonary interstitial edema which was stable slightly worse compared to his most recent exam, his labs have been reviewed, proBNP was 2490, his pro-calcitonin was negative at 0.05, white count has increased and is up to 20.9, hemoglobin is 14.7, sodium is 127, potassium is 3.3, chloride is 89, CO2 is 35, B1 is 29 creatinine 0.69. His LDH is 640, and CRP is 2.0. Patient is currently on hydrocortisone 100 mg every 8 hours, in addition to fluconazole, Mucinex, oral Lasix, oral Eliquis, 5 mg twice daily and nebulized bronchodilators, patient has had a very limited response to medical therapy so far On 11/03/2021 patient is seen in follow-up on medical surgical floor, he remains on high flow oxygen at 15 L, and his pulse ox is between 86-92%, his been afebrile, hemodynamically his been stable however his been congested, he is still coughing up some blood-tinged phlegm, no complaints of chest discomfort, he continues on Solu-Medrol 60 g every 6 hours, lung sounds reveal diffuse rhonchi and crackles. No acute events overnight, urine culture has been sent, his sputum Gram stain showing few PMNs, few gram-positive cocci, patient previously had negative pro-calcitonin levels, actually total of 4, of 0.12, 0.05, 0.05, and 0.08 today. Patient was placed on diuretics yesterday, he remains on Lasix 40 mg twice daily, is in -600 mL net fluid balance over the last 24 hours, follow-up chest x-ray today reviewed showing bilateral airspace disease more confluent on the right with mixed interstitial and groundglass pattern. No evident pneumothorax or pleural effusion. Today's labs have been reviewed, his white blood count count is slightly improved and is down to 16.12, hemoglobin is 15, sodium is 134, potassium 3.7, chloride is 88, CO2 32, BUN is 25, and creatinine 0.9. On 11/04/2021 patient seen in follow-up on medical surgical floor. He sitting up in the recliner, appears to be in no acute distress. he remains on high flow oxygen, he is on a nonrebreather and his pulse ox is around 94%, afebrile, hemodynamically his been stable, he remains on Levaquin, and cefepime, he remains on nebulized and inhaled bronchodilators, he is on Diflucan, he remains on IV diuretics with Lasix 40 mg every 12 hours, and he is in -1.2 L over last 24 hours. He remains on IV steroids with Solu-Medrol 60 mg every 6 hours, today's labs have been reviewed, his white blood cell count was 21.9, hemoglobin is 14.7, sodium is 132, potassium is 3.8, chloride is 87, B1 is 30.7, and creatinine 0.9, his proBNP is elevated at 4990, his pro-calcitonin level was again negative on yesterday's labs at 0.08. His influenza A and B and RSV were negative, COVID-19 PCR was also negative, this sputum culture from 10/26/2021 has shown no growth, another sputum culture was sent on the 11/02/2021 and Gram stain is showing few PMNs, and few gram-positive cocci, many normal respiratory argenis. Patient is still dyspneic but seems to be somewhat improved compared to yesterday's exam. No hemoptysis today. Chest x-ray showing stable diffuse bilateral infiltrates. Objective - Vital Signs Vital signs: Vital Signs Temp 97.8 F 11/04/21 14:00 Pulse 80 11/04/21 14:00 Resp 20 11/04/21 14:00 BP 110/74 11/04/21 14:00 Pulse Ox 94 L 11/04/21 14:00 Intake & Output 11/03/21 11/04/21 11/04/21 18:59 06:59 18:59 Output Total 1200 Balance -1200 Output: Urine 1200 Other: Voiding Method Urinal # Voids 3 - Exam GENERAL EXAM: Alert, is a 61-year-old white male, on 15 L of oxygen a pulse ox of 94% patient is sitting up in the recliner, does not appear to be in any acute respiratory distress, mild conversational dyspnea, but overall seems to be improved compared to yesterday's exam. HEAD: Normocephalic/atraumatic. EYES: Normal reaction of pupils, equal size. Conjunctiva pink, sclera white. NOSE: Clear with pink turbinates. THROAT: No erythema or exudates. NECK: No masses, no JVD, no thyroid enlargement, no adenopathy. CHEST: No chest wall deformity. Symmetrical expansion. LUNGS: Equal air entry with diffuse rhonchi CVS: Irregular rate and rhythm, normal S1 and S2, no gallops, no murmurs, no rubs ABDOMEN: Soft, nontender. No hepatosplenomegaly, normal bowel sounds, no guarding or rigidity. EXTREMITIES: Mild clubbing noted and his fingernails. no edema, no cyanosis, 2+ pulses and upper and lower extremities. MUSCULOSKELETAL: Muscle strength and tone normal. SPINE: No scoliosis or deformity SKIN: No rashes CENTRAL NERVOUS SYSTEM: Alert and oriented -3. No focal deficits, tone is normal in all 4 extremities. PSYCHIATRIC: Alert and oriented -3. Appropriate affect. Intact judgment and insight. - Labs CBC & Chem 7: 11/04/21 06:43 11/04/21 06:43 Labs: Abnormal Lab Results - Last 24 Hours (Table) 11/03/21 11/03/21 11/04/21 Range/Units 17:03 20:07 06:43 WBC (4.50-10.00) X 10*3/uL RDW (11.5-14.5) % Immature Gran # (0.00-0.04) X 10*3/uL Neutrophils # (1.80-7.70) X 10*3/uL Monocytes # (0.20-1.00) X 10*3/uL Eosinophils # (0.04-0.35) X 10*3/uL Sodium 132 L (135-145) mmol/L Chloride 87 L (96-109) mmol/L Carbon Dioxide 29.0 H (20.0-27.5) mmol/L BUN 30.7 H (9.0-27.0) mg/dL BUN/Creatinine Ratio 34.11 H (12.00-20.00) Ratio Glucose 139 H (70-110) mg/dL POC Glucose (mg/dL) 127 H 156 H (75-99) mg/dL Total Bilirubin 2.30 H (0.30-1.20) mg/dL Conjugated Bilirubin 0.66 H (0.20-0.40) mg/dL Unconjugated Bilirubin 1.64 H (0.20-1.00) mg/dL AST 58 H (14-35) U/L Alkaline Phosphatase 140 H (41-126) U/L C-Reactive Protein 6.50 H (0.00-0.80) mg/dL Albumin 3.4 L (3.8-4.9) g/dL Albumin/Globulin Ratio 1.21 L (1.60-3.17) g/dL 11/04/21 11/04/21 11/04/21 Range/Units 06:43 07:01 12:01 WBC 21.97 H (4.50-10.00) X 10*3/uL RDW 16.1 H (11.5-14.5) % Immature Gran # 0.34 H (0.00-0.04) X 10*3/uL Neutrophils # 19.42 H (1.80-7.70) X 10*3/uL Monocytes # 1.23 H (0.20-1.00) X 10*3/uL Eosinophils # 0 L (0.04-0.35) X 10*3/uL Sodium (135-145) mmol/L Chloride (96-109) mmol/L Carbon Dioxide (20.0-27.5) mmol/L BUN (9.0-27.0) mg/dL BUN/Creatinine Ratio (12.00-20.00) Ratio Glucose (70-110) mg/dL POC Glucose (mg/dL) 149 H 176 H (75-99) mg/dL Total Bilirubin (0.30-1.20) mg/dL Conjugated Bilirubin (0.20-0.40) mg/dL Unconjugated Bilirubin (0.20-1.00) mg/dL AST (14-35) U/L Alkaline Phosphatase (41-126) U/L C-Reactive Protein (0.00-0.80) mg/dL Albumin (3.8-4.9) g/dL Albumin/Globulin Ratio (1.60-3.17) g/dL Microbiology - Last 24 Hours (Table) 11/02/21 21:00 Gram Stain - Preliminary Sputum Sputum Culture - Preliminary Assessment and Plan Plan: Assessment: #1. Acute on chronic hypoxic respiratory failure secondary to acute exacerbation of pulmonary fibrosis/IPF, acute exacerbation of CHF, and po ssibility of infection/tracheobronchitis was considered however pro-calcitonin level was negative, patient was initially treated with Levaquin, cefepime, and subsequently with Eraxis, currently he is just on Diflucan. We added antibiotics back today on 11/03/2021. Patient continues to have pulmonary congestion, productive cough with hemoptysis. Repeat sputum culture has been sent and is pending #2. Chronic hypoxic respiratory failure secondary to IPF #3. Hypertension #4. Hyperlipidemia, #5. PAD with previous interventions #6. Previous history of CVA #7. Persistent A. fib on Eliquis #8. Previous tobacco abuse, currently in remission #9. History of COPD on home oxygen #10. Acute on chronic diastolic heart failure Plan: Continue current medical treatment Continue IV diuretics, proBNP remains elevated Pro-Remains Negative But we will continue on Levaquin and cefepime Continue IV Solu-Medrol Continue nebulized bronchodilators Still requiring high flow oxygen Chest x-ray showing stable diffuse bilateral infiltrates We'll continue with current therapies Overall prognosis is guarded We'll continue supportive treatment I performed a history & physical examination of the patient and discussed their management with my nurse practitioner, Mercedes Coats. I reviewed the nurse practitioner's note and agree with the documented findings and plan of care. Lung sounds are positive for dim breath sounds throughout the lung kyle. The findings and the impression was discussed with the patient. I attest to the documentation by the nurse practitioner. Time with Patient: Less than 30
[2021-11-04 16:56] LABS: Glucose,Whole Blood 116 mg/dL (75-99)
[2021-11-04 19:37] LABS: Glucose,Whole Blood 122 mg/dL (75-99)
[2021-11-04] MEDS: PANTOPRAZOLE 40 MG TABLET PO SCH (20:07)
[2021-11-04] MEDS: ASPIRIN 81 MG PO SCH (20:07)
[2021-11-04] MEDS: ATORVASTATIN 40 MG TAB PO SCH (20:07)
[2021-11-04] MEDS: DULoxetine HCL 60 MG CAPSULE.DR PO SCH (20:07)
[2021-11-04] MEDS: MONTELUKAST 10 MG TAB PO SCH (20:09)
--- NOTE | 2021-11-04 21:38 | PN ---
PROGRESS NOTE DATE OF SERVICE: 11/04/2021 REASON FOR FOLLOWUP: 1. Thrush and oropharyngeal candidiasis. 2. Question of pneumonia. INTERVAL HISTORY: The patient is afebrile. Mentioned he is breathing slightly comfortably today. The patient oral sores and difficulty swallowing has improved. No chest pain. No worsening cough or sputum production. No abdominal pain or diarrhea. PHYSICAL EXAMINATION: Blood pressure 110/74 with a pulse of 80, temperature 97.8. He 94% on 3 L non- rebreather. General description is a middle-aged male lying in bed in no distress. Respiratory system: Unlabored breathing, coarse breath sounds bilaterally. No wheeze. Heart S1, S2. Regular rate and rhythm. LABS: Hemoglobin is 14.2, white blood cell 1.7, Creatinine 0.9. DIAGNOSTIC IMPRESSION AND PLAN: 1. Patient with acute respiratory failure which is multifactorial in nature, likely underlying chronic obstructive pulmonary disease/ exacerbation. not entirely excluded antibiotic. 2. Oral thrush, and oropharyngeal candidiasis, continue Nystatin swish and swallow and Diflucan. Did have slight worsening of the right could be related to steroids and continue supportive care. MMODL / IJN: [id number] /
[2021-11-05] MEDS: methylPREDNISolone SOD SUCCI 125 MG/2 ML VIAL IV SCH ×5 (00:21→22:48)
[2021-11-05] MEDS: CEFEPIME 1 GM in SODIUM CHLORIDE 0.9% 50 ML IVPB SCH ×2 (04:10→16:42)
[2021-11-05] MEDS: INSULIN ASPART (NovoLOG) 100 UNIT/ML VIAL SQ SCH ×4 (06:44→19:55)
[2021-11-05 06:45] LABS: Glucose,Whole Blood 133 mg/dL (75-99)
[2021-11-05] MEDS: FUROSEMIDE 10 MG/ML 4 ML VIAL IV SCH ×2 (06:48→19:54)
--- NOTE | 2021-11-05 09:07 | XR ---
EXAMINATION TYPE: XR chest 1V portable DATE OF EXAM: 11/05/2021 COMPARISON: Chest x-ray 11/04/2021, CT 10/24/2021 HISTORY: Worsening dyspnea TECHNIQUE: Single frontal view of the chest is obtained. FINDINGS: Mixed interstitial and groundglass density within the lungs is again noted. There is no ev ident pneumothorax or pleural effusion. Cardiac mediastinal silhouette is stable. There are overlying artifacts. Calcified granuloma present at the posterior costophrenic angle on the right and within t he spleen. IMPRESSION: There is not a significant interval change. Correlate for possible Covid pneumonia, kristi a, there is underlying interstitial lung disease, pulmonary fibrosis.
[2021-11-05] MEDS: METOPROLOL TARTRATE 25 MG TAB PO SCH ×2 (09:10→19:54)
[2021-11-05] MEDS: CLOPIDOGREL 75 MG TAB PO SCH (09:10)
[2021-11-05] MEDS: FLUCONAZOLE 100 MG TAB PO SCH (09:10)
[2021-11-05] MEDS: APIXABAN 5 MG TAB PO SCH ×2 (09:10→19:54)
[2021-11-05] MEDS: guaiFENesin 600 MG TABLET.ER PO SCH ×2 (09:10→19:54)
[2021-11-05] MEDS: POTASSIUM CHLORIDE ER 20 MEQ TAB.ER PO SCH ×2 (09:11→19:54)
[2021-11-05] MEDS: NYSTATIN 100,000 UNIT/ML SUSP 500,000 UNIT/5 ML CUP PO SCH ×4 (09:11→19:54)
[2021-11-05] MEDS: SYMBICORT 160-4.5 MCG INHALER INHALATION SCH ×2 (09:31→19:39)
[2021-11-05] MEDS: IPRATROPIUM-ALBUTEROL 3 ML NEB INHALATION SCH ×4 (09:32→19:39)
[2021-11-05 11:26] LABS: Glucose,Whole Blood 132 mg/dL (75-99)
--- NOTE | 2021-11-05 12:47 | P.PN ---
Subjective This is a pleasant 61 years old male with past medical history of CVA and atrial fibrillation on Eliquis, COPD, hypertension, hyperlipidemia. Presents with respiratory symptoms secondary to bilateral interstitial pneumonia with mediastinal lymphadenopathy seen on the chest. Patient is on acute hypoxic respiratory failure requiring 15 L of oxygen per minute. He is still back of neck and dyspneic while he is lying in bed, however he is able to talk freely. No significant coughing. No chest pain. No fever. No diarrhea or vomiting. No urinary symptoms. No headache or weakness or dizziness. I discussed with him his illness and management plan and he agrees. He is currently covered with fluconazole for sputum culture is growing Lisa with infectious disease team recommendation on the case. Also pulmonary team following him closely and currently is on IV Cortef and 100 mg today a times a day and continued on home dose of Eliquis and Protonix. Also he is on aspirin and Plavix. The scope but this was negative and RSV is negative. No pulmonary embolism on CTA. Cortisol level was 6. procalcitonin is normal at 0.05 Chest x-ray showing bilateral infiltrates. 11/02/2021 Patient remains significantly tachypneic and dyspneic, today he had significant coughing with some hemoptysis overnight, however his vital signs blood pressure are stable. His oxygen requirements still at 50 L/m, blood pressure is low normal which is stable for him. No labs from today. Plans sputum culture was positive for lisa and he is currently on fluconazole. We'll going to repeat sputum culture. Repeat chest x-ray in the morning, repeat labs include hemoglobin the morning. Medications were adjusted to IV Lasix 40 mg twice a day and has Cortef was switched to Solu-Medrol 60 mg intravenously. 11/03/2021 Patient remains significantly tachypneic, however he is able to talk through his face mask which delivers about 50 L of oxygen. Patient could not participate in physical therapy today because of his severe dyspnea. His very lethargic and weak . mentation is very awake and alert. He still has hemoptysis but better than yesterday His blood pressure is low normal. His respiratory rate around 20-22. His WBC is 16 K, sodium improved to 134. His repeat chest x-ray showing worsening infiltrates compared to few days ago. It is suspicious for pneumonia and or edema Pro-calcitonin is negative at 0.08. However bacterial infection is not entirely exclude it and patient today was placed back on cefepime and Levaquin. While continued on fluconazole for lisa and his previous sample of sputum. Also Lasix 40 mg twice a day was added yesterday and steroids change from coronary Cortef into IV Solu-Medrol 60 mg 11/04/2021 pt respiratory status is improving, yesterday he was on 15 L/m of oxygen went down to 13 and then 11 L at evening but this morning is at 13 L/m which is a still improving but slowly. A states that he has good appetite, no significant coughing. Yesterday we added Levemir 10 units to his home regimen of metformin 500 mg and his glucose is better this morning. Patient does not have glucometer at home therefore we consulted case fitter to provide one upon discharge. Dexamethasone, vitamin C, D and zinc. 11/05/2021 Patient awake alert, his respiratory status become more dependent on oxygen, he is now on BiPAP therapy. Which was placed overnight with chest x-ray showing no significant change in bilateral infiltrates which could be suspected due to edema, interstitial fibrosis or infiltrates. Differential diagnosis including covid19 pneumonia. He has already a negative civid19 test on 10/24, where going to repeat another test. The meantime he remains on Eliquis, fluconazole, Levaquin, cefepime, IV Lasix and Solu-Medrol 60 mg Objective - Vital Signs Vital signs: Vital Signs Temp 97.6 F 11/05/21 06:57 Pulse 100 11/05/21 10:51 Resp 18 11/05/21 06:57 BP 115/84 11/05/21 06:57 Pulse Ox 91 L 11/05/21 06:57 Intake & Output 11/04/21 11/05/21 11/05/21 18:59 06:59 18:59 Intake Total 340 Output Total 1000 700 700 Balance -1000 -360 -700 Intake: IV 100 Cefepime 1 gm In Sodium 100 Chloride 0.9% 50 ml @ 12. 5 mls/hr IVPB Q12H MELANIE Rx #:[id number] Oral 240 Output: Urine 1000 700 700 Other: Voiding Method Urinal Urinal Urinal # Voids 1 - Exam GENERAL: The patient is alert and oriented x3, not in any acute distress. Well developed, well nourished. HEENT: Pupils are round and equally reacting to light. EOMI. No scleral icterus. No conjunctival pallor. Normocephalic, atraumatic. No pharyngeal erythema. No thyromegaly. CARDIOVASCULAR: S1 and S2 present. No murmurs, rubs, or gallops. -PULMONARY: Chest is clear to auscultation, no wheezing. Bilateral crackles. Tachypnea ABDOMEN: Soft, nontender, nondistended, normoactive bowel sounds. No palpable organomegaly. MUSCULOSKELETAL: No joint swelling or deformity. EXTREMITIES: No cyanosis, clubbing, or pedal edema. NEUROLOGICAL: Gross neurological examination did not reveal any focal deficits. SKIN: No rashes. no petechiae. - Labs CBC & Chem 7: 11/04/21 06:43 11/04/21 06:43 Labs: Abnormal Lab Results - Last 24 Hours (Table) 11/04/21 11/04/21 11/04/21 Range/Units 06:43 06:43 12:01 WBC 21.97 H (4.50-10.00) X 10*3/uL RDW 16.1 H (11.5-14.5) % Immature Gran # 0.34 H (0.00-0.04) X 10*3/uL Neutrophils # 19.42 H (1.80-7.70) X 10*3/uL Monocytes # 1.23 H (0.20-1.00) X 10*3/uL Eosinophils # 0 L (0.04-0.35) X 10*3/uL Sodium 132 L (135-145) mmol/L Chloride 87 L (96-109) mmol/L Carbon Dioxide 29.0 H (20.0-27.5) mmol/L BUN 30.7 H (9.0-27.0) mg/dL BUN/Creatinine Ratio 34.11 H (12.00-20.00) Ratio Glucose 139 H (70-110) mg/dL POC Glucose (mg/dL) 176 H (75-99) mg/dL Total Bilirubin 2.30 H (0.30-1.20) mg/dL Conjugated Bilirubin 0.66 H (0.20-0.40) mg/dL Unconjugated Bilirubin 1.64 H (0.20-1.00) mg/dL AST 58 H (14-35) U/L Alkaline Phosphatase 140 H (41-126) U/L C-Reactive Protein 6.50 H (0.00-0.80) mg/dL Albumin 3.4 L (3.8-4.9) g/dL Albumin/Globulin Ratio 1.21 L (1.60-3.17) g/dL 11/04/21 11/04/21 11/05/21 Range/Units 16:54 19:36 06:43 WBC (4.50-10.00) X 10*3/uL RDW (11.5-14.5) % Immature Gran # (0.00-0.04) X 10*3/uL Neutrophils # (1.80-7.70) X 10*3/uL Monocytes # (0.20-1.00) X 10*3/uL Eosinophils # (0.04-0.35) X 10*3/uL Sodium (135-145) mmol/L Chloride (96-109) mmol/L Carbon Dioxide (20.0-27.5) mmol/L BUN (9.0-27.0) mg/dL BUN/Creatinine Ratio (12.00-20.00) Ratio Glucose (70-110) mg/dL POC Glucose (mg/dL) 116 H 122 H 133 H (75-99) mg/dL Total Bilirubin (0.30-1.20) mg/dL Conjugated Bilirubin (0.20-0.40) mg/dL Unconjugated Bilirubin (0.20-1.00) mg/dL AST (14-35) U/L Alkaline Phosphatase (41-126) U/L C-Reactive Protein (0.00-0.80) mg/dL Albumin (3.8-4.9) g/dL Albumin/Globulin Ratio (1.60-3.17) g/dL Microbiology - Last 24 Hours (Table) 11/02/21 21:00 Gram Stain - Preliminary Sputum Sputum Culture - Preliminary Assessment and Plan Assessment: Worsening bilateral pulmonary infiltrate, could be secondary to edema versus worsening infection on the top of his fibrosis Bilateral interstitial fibrosis Acute hypoxic respiratory failure Possible pneumonia with mediastinal lymphadenopathy, secondary to Lisa, less likely causing the main hypoxia episode for the patient but might be some contribution Adrenal insufficiency is suspected by pulmonary service Chronic atrial fibrillation on Eliquis Hypertension Hyperlipidemia Plan: This is a pleasant 61 years old male who presents with pulmonary fibrosis and hypoxia. A stable Lisa infection. Continue with steroids p, IV Solu-Medrol Continue with fluconazole for Lisa in his sputum per infectious disease. Also with cefepime and Levaquin Continue with home dose of Eliquis. Continue IV Lasix Labs and medication were reviewed.. Continue same treatment. Continue with sy mptomatic treatment. Resume home medication. Monitor lytes and vitals. DVT and GI prophylaxis. Further recommendations as per clinical course of the patient DVT prophylaxis: Eliquis GI Prophylaxis: Ppi PT/OT: Ongoing Prognosis is guarded
[2021-11-05] MEDS: LEVOFLOXACIN 500MG-D5W PMX 500 MG in DEXTROSE/WATER 1 100ML.BAG IVPB SCH (15:13)
[2021-11-05 16:33] LABS: Glucose,Whole Blood 142 mg/dL (75-99)
--- NOTE | 2021-11-05 18:05 | P.PN ---
Subjective Progress Note Date: 11/05/21 Principal diagnosis: Shortness of breath On 11/02/2021 patient seen in follow-up on medical surgical floor, he continues on 15 L of oxygen, his pulse ox is marginal at 90-91%, still having severe coughing spells, he is having hemoptysis, he is in nature fibrillation with a controlled rate, he is on Eliquis. He is on oral dose Lasix, and he has produced 1.6 L in urine in the last 24 hours, and he is in -100 mL net fluid balance. Patient is currently not on any antibiotics, he did take Levaquin and cefepime, his blood and sputum cultures have shown no growth, his p.m. culture showed only Lisa, which could be possibly related to oral contamination, patient was also on Eraxis briefly, he is currently on Diflucan, he is on nebulized bronchodilators, he is on Symbicort. No new chest x-ray today, his last chest x-ray from 10/31/2021 productive moderate pulmonary interstitial edema which was stable slightly worse compared to his most recent exam, his labs have been reviewed, proBNP was 2490, his pro-calcitonin was negative at 0.05, white count has increased and is up to 20.9, hemoglobin is 14.7, sodium is 127, potassium is 3.3, chloride is 89, CO2 is 35, B1 is 29 creatinine 0.69. His LDH is 640, and CRP is 2.0. Patient is currently on hydrocortisone 100 mg every 8 hours, in addition to fluconazole, Mucinex, oral Lasix, oral Eliquis, 5 mg twice daily and nebulized bronchodilators, patient has had a very limited response to medical therapy so far On 11/03/2021 patient is seen in follow-up on medical surgical floor, he remains on high flow oxygen at 15 L, and his pulse ox is between 86-92%, his been afebrile, hemodynamically his been stable however his been congested, he is still coughing up some blood-tinged phlegm, no complaints of chest discomfort, he continues on Solu-Medrol 60 g every 6 hours, lung sounds reveal diffuse rhonchi and crackles. No acute events overnight, urine culture has been sent, his sputum Gram stain showing few PMNs, few gram-positive cocci, patient previously had negative pro-calcitonin levels, actually total of 4, of 0.12, 0.05, 0.05, and 0.08 today. Patient was placed on diuretics yesterday, he remains on Lasix 40 mg twice daily, is in -600 mL net fluid balance over the last 24 hours, follow-up chest x-ray today reviewed showing bilateral airspace disease more confluent on the right with mixed interstitial and groundglass pattern. No evident pneumothorax or pleural effusion. Today's labs have been reviewed, his white blood count count is slightly improved and is down to 16.12, hemoglobin is 15, sodium is 134, potassium 3.7, chloride is 88, CO2 32, BUN is 25, and creatinine 0.9. On 11/04/2021 patient seen in follow-up on medical surgical floor. He sitting up in the recliner, appears to be in no acute distress. he remains on high flow oxygen, he is on a nonrebreather and his pulse ox is around 94%, afebrile, hemodynamically his been stable, he remains on Levaquin, and cefepime, he remains on nebulized and inhaled bronchodilators, he is on Diflucan, he remains on IV diuretics with Lasix 40 mg every 12 hours, and he is in -1.2 L over last 24 hours. He remains on IV steroids with Solu-Medrol 60 mg every 6 hours, today's labs have been reviewed, his white blood cell count was 21.9, hemoglobin is 14.7, sodium is 132, potassium is 3.8, chloride is 87, B1 is 30.7, and creatinine 0.9, his proBNP is elevated at 4990, his pro-calcitonin level was again negative on yesterday's labs at 0.08. His influenza A and B and RSV were negative, COVID-19 PCR was also negative, this sputum culture from 10/26/2021 has shown no growth, another sputum culture was sent on the 11/02/2021 and Gram stain is showing few PMNs, and few gram-positive cocci, many normal respiratory argenis. Patient is still dyspneic but seems to be somewhat improved compared to yesterday's exam. No hemoptysis today. Chest x-ray showing stable diffuse bilateral infiltrates. On 11/05/2021 patient seen in follow-up on medical surgical floor. Last and his breathing had worsened and patient had to be placed on BiPAP support, he remains on antibiotics with cefepime and Levaquin, IV steroids 60 mg every 6 hours of Solu-Medrol, he is on nebulized bronchodilators, he is on Eliquis, he is on nebulized bronchodilators, is also on Diflucan, patient has been diuresed for last few days, he remains on Lasix 40 mg every 12 hours, is in -1.3 L net fluid balance over the last 24 hours. His chest x-ray showing no significant interval change. Patient is awake and alert, oriented 3, states his breathing easier, he states he is very thirsty and we will give him a trial off the BiPAP support on high flow oxygen. No new labs today. His cultures have remained negative, only Lisa albicans in his sputum, likely contaminated Objective - Vital Signs Vital signs: Vital Signs Temp 97.9 F 11/05/21 13:42 Pulse 103 H 11/05/21 17:42 Resp 20 11/05/21 13:42 BP 110/61 11/05/21 13:42 Pulse Ox 92 L 11/05/21 13:42 Intake & Output 11/04/21 11/05/21 11/05/21 18:59 06:59 18:59 Intake Total 340 Output Total 6979 639 9731 Balance -1000 -360 -1600 Intake: IV 100 Cefepime 1 gm In Sodium 100 Chloride 0.9% 50 ml @ 12. 5 mls/hr IVPB Q12H [facility] Rx #:[id number] Oral 240 Output: Urine 9864 081 0350 Other: Voiding Method Urinal Urinal Urinal # Voids 1 - Exam GENERAL EXAM: Alert, is a 61-year-old white male, BiPAP support, with FiO2 100%, mildly dyspneic, does not appear to be in any acute respiratory distress, mild conversational dyspnea, but overall stable HEAD: Normocephalic/atraumatic. EYES: Normal reaction of pupils, equal size. Conjunctiva pink, sclera white. NOSE: Clear with pink turbinates. THROAT: No erythema or exudates. NECK: No masses, no JVD, no thyroid enlargement, no adenopathy. CHEST: No chest wall deformity. Symmetrical expansion. LUNGS: Equal air entry with diffuse rhonchi CVS: Irregular rate and rhythm, normal S1 and S2, no gallops, no murmurs, no rubs ABDOMEN: Soft, nontender. No hepatosplenomegaly, normal bowel sounds, no guarding or rigidity. EXTREMITIES: Mild clubbing noted and his fingernails. no edema, no cyanosis, 2+ pulses and upper and lower extremities. MUSCULOSKELETAL: Muscle strength and tone normal. SPINE: No scoliosis or deformity SKIN: No rashes CENTRAL NERVOUS SYSTEM: Alert and oriented -3. No focal deficits, tone is normal in all 4 extremities. PSYCHIATRIC: Alert and oriented -3. Appropriate affect. Intact judgment and insight. - Labs CBC & Chem 7: 11/04/21 06:43 11/04/21 06:43 Labs: Abnormal Lab Results - Last 24 Hours (Table) 11/04/21 11/05/21 11/05/21 Range/Units 19:36 06:43 11:18 POC Glucose (mg/dL) 122 H 133 H 132 H (75-99) mg/dL 11/05/21 Range/Units 16:27 POC Glucose (mg/dL) 142 H (75-99) mg/dL Assessment and Plan Plan: Assessment: #1. Acute on chronic hypoxic respiratory failure secondary to acute exa cerbation of pulmonary fibrosis/IPF, acute exacerbation of CHF, and possibility of infection/tracheobronchitis was considered however pro-calcitonin level was negative, patient was initially treated with Levaquin, cefepime, and subsequently with Eraxis, currently he is just on Diflucan. We added an tibiotics back today on 11/03/2021. Patient continues to have pulmonary congestion, productive cough with hemoptysis. Repeat sputum culture has been sent and is pending #2. Chronic hypoxic respiratory failure secondary to IPF #3. Hypertension #4. Hyperlipidemia, #5. PAD with previous interventions #6. Previous history of CVA #7. Persistent A. fib on Eliquis #8. Previous tobacco abuse, currently in remission #9. History of COPD on home oxygen #10. Acute on chronic diastolic heart failure Plan: Patient was placed on BiPAP support last night, Breathing more comfortably right now, however still dyspneic with any exertion and with conversation He will be switched to high flow oxygen Patient has been diuresed, treated with antibiotics high-dose IV steroids His chest x-ray showing no improvement Patient continues to require high concentration FiO2 and BiPAP support Has not had any improvement in response to maximized therapy Overall prognosis is quite poor Recommend discussing possible palliative care hospice if there is no further improvement I performed a history & physical examination of the patient and discussed their management with my nurse practitioner, Mercedes Coats. I reviewed the nurse practitioner's note and agree with the documented findings and plan of care. Lung sounds are positive for dim breath sounds throughout the lung kyle. The findings and the impression was discussed with the patient. I attest to the documentation by the nurse practitioner. Time with Patient: Less than 30
[2021-11-05 19:49] LABS: Glucose,Whole Blood 139 mg/dL (75-99)
[2021-11-05] MEDS: MONTELUKAST 10 MG TAB PO SCH (19:54)
[2021-11-05] MEDS: PANTOPRAZOLE 40 MG TABLET PO SCH (19:54)
[2021-11-05] MEDS: DULoxetine HCL 60 MG CAPSULE.DR PO SCH (19:54)
[2021-11-05] MEDS: ATORVASTATIN 40 MG TAB PO SCH (19:54)
[2021-11-05] MEDS: ASPIRIN 81 MG PO SCH (19:55)
--- NOTE | 2021-11-05 23:08 | PN ---
PROGRESS NOTE DATE OF SERVICE: 11/05/2021 REASON FOR FOLLOW UP: Oropharyngeal candidiasis and possible pneumonia. INTERVAL HISTORY: The patient is afebrile. The patient mentioning breathing more comfortably. He is still requiring a non-rebreather to maintain his sats. The patient denies any chest pain. No worsening cough or sputum production. No abdominal pain or diarrhea. EXAMINATION: Blood pressure 108/79, pulse 72, temperature 97.0. He is 95% on 15 L high-flow oxygen. General description is a middle-aged male lying in bed in no distress. Respiratory system: Unlabored breathing, increased intensity in breath sounds, with no wheeze. Heart S1, S2. Regular rate and rhythm. Abdomen soft, no tenderness. LABS: To be swelling is currently pending. DIAGNOSTIC IMPRESSION AND PLAN: Repeat sodium is currently pending. DIAGNOSTIC IMPRESSION AND PLAN: 1. Patient with acute left sided pneumonia less likely but not entirely excluded. Patient is covered with cefepime, Levaquin. Repeat sodium will be followed. 2. Patient with oropharyngeal candidiasis to continue with nystatin swish and swallow and Diflucan and monitor clinical course closely. MMODL / IJN: [id number] /
[2021-11-06] MEDS: CEFEPIME 1 GM in SODIUM CHLORIDE 0.9% 50 ML IVPB SCH ×2 (02:55→14:57)
[2021-11-06] MEDS: methylPREDNISolone SOD SUCCI 125 MG/2 ML VIAL IV SCH ×4 (05:15→23:14)
[2021-11-06 07:02] LABS: Glucose,Whole Blood 121 mg/dL (75-99)
[2021-11-06] MEDS: INSULIN ASPART (NovoLOG) 100 UNIT/ML VIAL SQ SCH ×4 (08:44→20:17)
[2021-11-06] MEDS: IPRATROPIUM-ALBUTEROL 3 ML NEB INHALATION SCH ×5 (09:38→20:56)
[2021-11-06] MEDS: SYMBICORT 160-4.5 MCG INHALER INHALATION SCH ×3 (09:38→21:28)
[2021-11-06] MEDS: METOPROLOL TARTRATE 25 MG TAB PO SCH ×3 (09:57→21:30)
[2021-11-06] MEDS: CLOPIDOGREL 75 MG TAB PO SCH (09:57)
[2021-11-06] MEDS: FLUCONAZOLE 100 MG TAB PO SCH (09:57)
[2021-11-06] MEDS: NYSTATIN 100,000 UNIT/ML SUSP 500,000 UNIT/5 ML CUP PO SCH ×4 (09:57→22:06)
[2021-11-06] MEDS: POTASSIUM CHLORIDE ER 20 MEQ TAB.ER PO SCH ×2 (09:57→21:32)
[2021-11-06] MEDS: APIXABAN 5 MG TAB PO SCH ×2 (09:57→20:16)
[2021-11-06] MEDS: guaiFENesin 600 MG TABLET.ER PO SCH ×3 (09:58→21:30)
[2021-11-06] MEDS: FUROSEMIDE 10 MG/ML 4 ML VIAL IV SCH ×2 (09:58→20:16)
--- NOTE | 2021-11-06 12:06 | XR ---
EXAMINATION TYPE: XR chest 1V portable DATE OF EXAM: 11/06/2021 COMPARISON: 11/05/2021 HISTORY: Shortness of breath TECHNIQUE: Single frontal view of the chest is obtained. FINDINGS: Diffuse bilateral interstitial infiltrate stable. Heart enlarged. Calcified granuloma left upper quadrant and right upper quadrant suspected. No pneumothorax. No pleural effusion. Overall fin dings are stable. IMPRESSION: Stable diffuse bilateral interstitial infiltrates.
[2021-11-06 12:12] LABS: Glucose,Whole Blood 120 mg/dL (75-99)
--- NOTE | 2021-11-06 12:46 | P.PN ---
Subjective This is a pleasant 61 years old male with past medical history of CVA and atrial fibrillation on Eliquis, COPD, hypertension, hyperlipidemia. Presents with respiratory symptoms secondary to bilateral interstitial pneumonia with mediastinal lymphadenopathy seen on the chest. Patient is on acute hypoxic respiratory failure requiring 15 L of oxygen per minute. He is still back of neck and dyspneic while he is lying in bed, however he is able to talk freely. No significant coughing. No chest pain. No fever. No diarrhea or vomiting. No urinary symptoms. No headache or weakness or dizziness. I discussed with him his illness and management plan and he agrees. He is currently covered with fluconazole for sputum culture is growing Lisa with infectious disease team recommendation on the case. Also pulmonary team following him closely and currently is on IV Cortef and 100 mg today a times a day and continued on home dose of Eliquis and Protonix. Also he is on aspirin and Plavix. The scope but this was negative and RSV is negative. No pulmonary embolism on CTA. Cortisol level was 6. procalcitonin is normal at 0.05 Chest x-ray showing bilateral infiltrates. 11/02/2021 Patient remains significantly tachypneic and dyspneic, today he had significant coughing with some hemoptysis overnight, however his vital signs blood pressure are stable. His oxygen requirements still at 50 L/m, blood pressure is low normal which is stable for him. No labs from today. Plans sputum culture was positive for lisa and he is currently on fluconazole. We'll going to repeat sputum culture. Repeat chest x-ray in the morning, repeat labs include hemoglobin the morning. Medications were adjusted to IV Lasix 40 mg twice a day and has Cortef was switched to Solu-Medrol 60 mg intravenously. 11/03/2021 Patient remains significantly tachypneic, however he is able to talk through his face mask which delivers about 50 L of oxygen. Patient could not participate in physical therapy today because of his severe dyspnea. His very lethargic and weak . mentation is very awake and alert. He still has hemoptysis but better than yesterday His blood pressure is low normal. His respiratory rate around 20-22. His WBC is 16 K, sodium improved to 134. His repeat chest x-ray showing worsening infiltrates compared to few days ago. It is suspicious for pneumonia and or edema Pro-calcitonin is negative at 0.08. However bacterial infection is not entirely exclude it and patient today was placed back on cefepime and Levaquin. While continued on fluconazole for lisa and his previous sample of sputum. Also Lasix 40 mg twice a day was added yesterday and steroids change from coronary Cortef into IV Solu-Medrol 60 mg 11/04/2021 pt respiratory status is improving, yesterday he was on 15 L/m of oxygen went down to 13 and then 11 L at evening but this morning is at 13 L/m which is a still improving but slowly. A states that he has good appetite, no significant coughing. Yesterday we added Levemir 10 units to his home regimen of metformin 500 mg and his glucose is better this morning. Patient does not have glucometer at home therefore we consulted director case to provide one upon discharge. Dexamethasone, vitamin C, D and zinc. 11/05/2021 Patient awake alert, his respiratory status become more dependent on oxygen, he is now on BiPAP therapy. Which was placed overnight with chest x-ray showing no significant change in bilateral infiltrates which could be suspected due to edema, interstitial fibrosis or infiltrates. Differential diagnosis including covid19 pneumonia. He has already a negative civid19 test on 10/24, where going to repeat another test. The meantime he remains on Eliquis, fluconazole, Levaquin, cefepime, IV Lasix and Solu-Medrol 60 mg 11/06/2021 Patient breathing it looks the same as yesterday with a significantly respiratory distress and tachypneic however he could come of the BiPAP this morning and was placed on 15 L/m of oxygen via high flow nasal cannula Chest x-ray showing bilateral Covid pneumonia. Repeat Covid test is negative yesterday as well E Jairo treated with same dose of IV Solu-Medrol 60 mg, IV Lasix 40 mg, fluconazole, oral Levaquin and cefepime, Eliquis 5 mg. Objective - Vital Signs Vital signs: Vital Signs Temp 97.2 F L 11/06/21 02:12 Pulse 88 11/06/21 09:47 Resp 24 11/06/21 09:47 BP 101/71 11/06/21 02:12 Pulse Ox 89 L 11/06/21 09:38 Intake & Output 11/05/21 11/06/21 11/06/21 18:59 06:59 18:59 Output Total 1600 Balance -1600 Output: Urine 1600 Other: Voiding Method Urinal # Voids 2 - Exam GENERAL: The patient is alert and oriented x3, not in any acute distress. Well developed, well nourished. HEENT: Pupils are round and equally reacting to light. EOMI. No scleral icterus. No conjunctival pallor. Normocephalic, atraumatic. No pharyngeal erythema. No thyromegaly. CARDIOVASCULAR: S1 and S2 present. No murmurs, rubs, or gallops. -PULMONARY: Chest is clear to auscultation, no wheezing. Bilateral crackles. Tachypnea ABDOMEN: Soft, nontender, nondistended, normoactive bowel sounds. No palpable organomegaly. MUSCULOSKELETAL: No joint swelling or deformity. EXTREMITIES: No cyanosis, clubbing, or pedal edema. NEUROLOGICAL: Gross neurological examination did not reveal any focal deficits. SKIN: No rashes. no petechiae. - Labs CBC & Chem 7: 11/04/21 06:43 11/04/21 06:43 Labs: Abnormal Lab Results - Last 24 Hours (Table) 11/05/21 11/05/21 11/05/21 Range/Units 11:18 16:27 19:48 POC Glucose (mg/dL) 132 H 142 H 139 H (75-99) mg/dL 11/06/21 Range/Units 07:01 POC Glucose (mg/dL) 121 H (75-99) mg/dL Assessment and Plan Assessment: Worsening bilateral pulmonary infiltrate, could be secondary to edema versus worsening infection on the top of his fibrosis Bilateral interstitial fibrosis Acute hypoxic respiratory failure Possible pneumonia with mediastinal lymphadenopathy, secondary to Lisa, less likely causing the main hypoxia episode for the patient but might be some contribution Adrenal insufficiency is suspected by pulmonary service Chronic atrial fibrillation on Eliquis Hypertension Hyperlipidemia Plan: This is a pleasant 61 years old male who presents with pulmonary fibrosis and hypoxia. A stable Lisa infection. Continue with steroids p, IV Solu-Medrol Continue with fluconazole for Lisa in his sputum per infectious disease. Also with cefepime and Levaquin Continue with home dose of Eliquis. Continue IV Lasix Labs and medication were reviewed.. Continue same treatment. Continue with symptomatic treatment. Resume home medication. Monitor lytes and vitals. DVT and GI prophylaxis. Further recommendations as per clinical course of the patient DVT prophylaxis: Eliquis GI Prophylaxis: Ppi PT/OT: Ongoing Prognosis is guarded
[2021-11-06 13:04] LABS: Anisocytosis Slight; Basophils % (A) 0 %; Eosinophils % (A) 0 %; HCT 44.1 % (39.0-53.0); HGB 14.5 gm/dL (13.0-17.5); Lymphocytes # (A) 0.5 k/uL (1.0-4.8); Lymphocytes % (A) 3 %; MCH 31.1 pg (25.0-35.0); MCHC 32.9 g/dL (31.0-37.0); MCV 94.7 fL (80.0-100.0); Mean Platelet Volume 8.2; Monocytes # (A) 0.5 k/uL (0-1.0); Monocytes % (A) 3 %; Neutrophils # (A) 15.5 k/uL (1.3-7.7); Neutrophils % (A) 94 %; Platelet Count 222 k/uL (150-450); RBC 4.66 m/uL (4.30-5.90); RDW 16.2 % (11.5-15.5); WBC 16.5 k/uL (3.8-10.6)
[2021-11-06 13:06] LABS: ALT 50 U/L (4-49); AST 53 U/L (17-59); African American GFR (CKD) >90 (>60 ml/min/1.73 sqM); Albumin/Globulin Ratio 0.9; Alkaline Phosphatase 113 U/L (38-126); Anion Gap 5 mmol/L; Blood Urea Nitrogen 44 mg/dL (9-20); Calcium 8.4 mg/dL (8.4-10.2); Carbon Dioxide 39 mmol/L (22-30); Chloride 89 mmol/L (98-107); Globulin 3.2 g/dL; Glucose 117 mg/dL (74-99); Non-African American GFR(CKD) 86 (>60 ml/min/1.73 sqM); Potassium 3.1 mmol/L (3.5-5.1); Sodium 133 mmol/L (137-145); Total Bilirubin 2.5 mg/dL (0.2-1.3); Total Protein 6.2 g/dL (6.3-8.2)
[2021-11-06] MEDS: LEVOFLOXACIN 500 MG TAB PO SCH (14:57)
[2021-11-06 16:13] LABS: Glucose,Whole Blood 109 mg/dL (75-99)
--- NOTE | 2021-11-06 18:02 | P.PN ---
Subjective Progress Note Date: 11/06/21 A 61-year-old male patient presented to the emergency department approximately 3 weeks after being discharged from the hospital. The patient came in to the hospital because of worsening shortness of breath and the patient emitted he was placed on a BiPAP at a pressure of 12/6 cm of water with an FiO2 of 100% initially and FiO2 is being titrated. He was quite short of breath and her breathing was extremely labored at the time of admission. Note that the patient is known to have COPD and pulmonary fibrosis. His initial evaluation with us was approximately 3 weeks ago when he came into the hospital because of shortness of breath and the patient was diagnosed having COPD and pulmonary fibrosis and based on the CAT scan of the chest was done back then his presentation was typical of IPF. 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 He has also smoked for many years up to 2 packs of cigarettes a day and he quit and slowed on his smoking approximately 6 months ago. There was a low-dose CAT scan of the chest that was done for lung cancer screening approximately 6 months ago and back then the patient pulmonary fibrosis with subpleural distribution typical of IPF more so on the left and the patient had extensive honeycombing even back then. 11/06/2019, the patient is doing poorly. The patient's rests her status as decompensated significantly since his admission. He has significant respiratory insufficiency. Was unable to tolerate high flow oxygen along with 100% nonrebreather facemask and based on that the patient was switched to BiPAP and he is currently on a BiPAP at a pressure of 12/6 and the MUSE a fourth her an FiO2 of 100%. Note that he continues to alternate between the BiPAP and the high flow able campaign assistant. Nevertheless, he seems to be much more comfortable while in the BiPAP. My impression is still that the patient is suffering from acute exacerbation of chronic IPF. There is no underlying identifiable factor that is reversible and his condition. He was given a trial of diuretics without any significant improvement. He was given IV steroids. He was given a combination of antibiotics. COVID 19 testing by PCR was repeated again and came back negative.His he is a repeat chest x-ray still showing diffuse bilateral pulmonary infiltrates consistent with acute lung injury on top of his chronic pulmonary fibrosis. Noted the patient was on oxygen at 4 L per minute nasal cannula on outpatient basis. He is lethargic. His nutritional status is gradually getting worse. He is becoming more weak. He was considering a DNR/DNI CODE STATUS had nevertheless, he continues to change his mind and based on most recent conversation with the nursing staff, he stated that he was to be a full code. For now, I have the patient on IV Solu Medrol 60 mg every 6 hours. He is covered with broad-spectrum antibiotics and the patient remains on a combination of cefepime and Levaquin. The patient is still receiving diuretics with Lasix 40 mg IV every 12 hours. The white cell count today is at 16.5 with a hemoglobin of 14.5. The patient's sodium level is at 133 with a potassium level of 3.1. BUN is at 44 with a creatinine of 0.9. Blood sugar is at 109. Folic acid level was negative at 0.08.Echocardiogram was completed and the patient was found to have a normal systolic function with an ejection fraction of 55-60%. There was moderate degree of tricuspid regurgitation, moderate pulmonary hypertension with a PA pressure of 41 Objective - Vital Signs Vital signs: Vital Signs Temp 97.2 F L 11/06/21 14:00 Pulse 84 11/06/21 17:13 Resp 26 H 11/06/21 14:00 BP 87/62 11/06/21 14:00 Pulse Ox 92 L 11/06/21 14:00 Intake & Output 11/05/21 11/06/21 11/06/21 18:59 06:59 18:59 Output Total 1600 1600 Balance -1600 -1600 Output: Urine 1600 1600 Uretheral (Dwyer) 1600 Other: Voiding Method Urinal # Voids 2 - Exam GENERAL EXAM: Alert, active, very pleasant 61-year-old gentleman, patient is in significant respiratory distress and shortness of breath , breathing is labored and the patient is currently on a BiPAP pressures of 12/6 cm of water. Head exam was generally normal. There was no scleral icterus or corneal arcus. Mucous membranes were moist. HEAD: Normocephalic. EYES: Normal reaction of pupils, equal size. NOSE: Clear with pink turbinates. THROAT: No erythema or exudates. NECK: No masses, no JVD. CHEST: No chest wall deformity. LUNGS: Equal air entry with coarse crackles in the posterior bases. the patient has Velcro crackles in lung bases more so on the left lung base. CVS: S1 and S2 normal with no audible murmur, regular rhythm. ABDOMEN: No hepatosplenomegaly, normal bowel sounds, no guarding or rigidity. SPINE: No scoliosis or deformity SKIN: No rashes CENTRAL NERVOUS SYSTEM: No focal deficits, tone is normal in all 4 extremities. EXTREMITIES: There is no peripheral edema. Positive clubbing, no cyanosis. Peripheral pulses are intact. The patient is digital clubbing - Labs CBC & Chem 7: 11/06/21 12:13 11/06/21 12:13 Labs: Abnormal Lab Results - Last 24 Hours (Table) 11/05/21 11/06/21 11/06/21 Range/Units 19:48 07:01 12:11 WBC (3.8-10.6) k/uL RDW (11.5-15.5) % Neutrophils # (1.3-7.7) k/uL Lymphocytes # (1.0-4.8) k/uL Sodium (137-145) mmol/L Potassium (3.5-5.1) mmol/L Chloride (98-107) mmol/L Carbon Dioxide (22-30) mmol/L BUN (9-20) mg/dL Glucose (74-99) mg/dL POC Glucose (mg/dL) 139 H 121 H 120 H (75-99) mg/dL Total Bilirubin (0.2-1.3) mg/dL ALT (4-49) U/L Total Protein (6.3-8.2) g/dL Albumin (3.5-5.0) g/dL 11/06/21 11/06/21 11/06/21 Range/Units 12:13 12: 16:11 WBC 16.5 H (3.8-10.6) k/uL RDW 16.2 H (11.5-15.5) % Neutrophils # 15.5 H (1.3-7.7) k/uL Lymphocytes # 0.5 L (1.0-4.8) k/uL Sodium 133 L (137-145) mmol/L Potassium 3.1 L (3.5-5.1) mmol/L Chloride 89 L (98-107) mmol/L Carbon Dioxide 39 H (22-30) mmol/L BUN 44 H (9-20) mg/dL Glucose 117 H (74-99) mg/dL POC Glucose (mg/dL) 109 H (75-99) mg/dL Total Bilirubin 2.5 H (0.2-1.3) mg/dL ALT 50 H (4-49) U/L Total Protein 6.2 L (6.3-8.2) g/dL Albumin 3.0 L (3.5-5.0) g/dL Microbiology - Last 24 Hours (Table) 11/02/21 21:00 Gram Stain - Final Sputum Sputum Culture - Final Assessment and Plan Plan: 1 acute on chronic hypoxic respiratory failure. There is significant progression of the patient's history status and the patient has significant respiratory decompensation over the past 3 weeks. Note that the patient likely has chronic pulmonary fibrosis as evident on the low-dose CAT scan of the chest that was done May 2021. Nevertheless, the patient was hospitalized approximately 3 weeks ago with worsening shortness of breath and he was discharged home on 4 liters of oxygen by nasal cannula. At that time the repeat CAT scan of the chest showed full worsening in the pulmonary fibrosis with background COPD. The most recent CAT scan of the chest shows further interval worsening with development of bilateral pulmonary infiltrates with ground glass changes consistent with either infection or an acute exacerbation of chronic IPF or an acute lung injury on top of chronic IPF. Based on the workup that was done a month infections are felt to be less likely based on the fact that patient's pro-calcitonin level is low. The patient was given antibiotics on an empiric basis without much improvement. Also, the echo cardiac exam was within normal limits. There was no know major improvement in the chest x-ray findings or the symptoms with the use of diuretics. I favor acute exacerbation of IPF as the primary diagnosis here. Clearly, the patient has a component of chronic pulmonary fibrosis. He has digital clubbing. His chronic fibrotic changes and earlier CAT scan of the chest. The current workup shows no identifiable reversible factor causing his acute respiratory failure/hypoxic respiratory failure. He was covered with broad-spectrum antibiotics. He was given accommodation cefepime and Levaquin. He was given diuretics. He was given systemic steroids. He failed to improve and his chest x-ray still showing diffuse bilateral pulmonary infiltrates consistent with acute lung injury on top of his chronic pulmonary fibrosis. This condition carries a very high mortality. The patient is currently on BiPAP alternating with interval in combination with 100% nonrebreather facemask. There is obvious progressive decline in his condition over the past week or so. 2 chronic pulmonary fibrosis based on the CAT scan description the patient likely has an IPF. The patient is digital clubbing consistent with IPF. 3 COPD 4 chronic A. fib fibrillation with warfarin outpatient basis, currently off warfarin the patient is to [facility] 5 previous history of smoking more than [id number] 6 hypertension 7 hyperlipidemia 8 history of peripheral vascular disease with previous bilateral iliac stent placement 9 history of depression 10 hyponatremia , recovered 11 troponin leak probably related to oxygen mismatch, no evidence of acute EKG changes. Nevertheless, the EKG shows Q waves over the inferior leads indicative of an old SD. Plan Keep BiPAP therapy for now Continue diuretics Continue steroids Continue antibiotics Strongly urged change in CODE STATUS to DNR/DNI Based on the fact that there is a possibility of an acute exacerbation of pulmonary fibrosis, the patient carries a bad outcome in a high mortality. It is very highly likely that the patient may not recover from this and remained up on a high flow of oxygen. There is also a likely that the patient's condition may potentially decompensate.
--- NOTE | 2021-11-06 19:22 | PN ---
PROGRESS NOTE DATE OF SERVICE: 11/06/2021 REASON FOR FOLLOWUP: 1. Question of pneumonia. 2. Oral thrush and oropharyngeal candidiasis. INTERVAL HISTORY: The patient is afebrile. The patient is breathing slightly comfortably. The patient denies having chest pain. No worsening cough or sputum production. No abdominal pain. No diarrhea. ( ) and ( ) has improved. PHYSICAL EXAMINATION: Blood pressure is 139/81 with pulse of 68, temperature 97.2. He is 92% on BiPAP. General description is a middle-aged male lying in bed in no distress. Respiratory system: Unlabored breathing, decreased intensity of breath sounds, no wheeze Heart S1, S2. Regular rate and rhythm. Abdomen soft, no tenderness. LABS: Hemoglobin is 14.1, white count 16.5, creatinine 0.94. Sputum culture repeat has been negative. IMPRESSION/PLAN: 1. Patient admitted to the hospital with shortness of breath and cough which is multifactorial in this patient did have acute exacerbation of underlying pulmonary fibrosis with question of pneumonia. Has been on systemic antibiotics along with steroids and bronchodilator. 2. Patient will oral thrush and oropharyngeal candidiasis. Continue with nystatin swish and swallow and Diflucan and monitor clinical course closely. MMODL / IJN: [id number] /
[2021-11-06 20:15] LABS: Glucose,Whole Blood 124 mg/dL (75-99)
[2021-11-06] MEDS: PANTOPRAZOLE 40 MG TABLET PO SCH (22:06)
[2021-11-06] MEDS: MONTELUKAST 10 MG TAB PO SCH (22:06)
[2021-11-06] MEDS: DULoxetine HCL 60 MG CAPSULE.DR PO SCH (22:06)
[2021-11-06] MEDS: ATORVASTATIN 40 MG TAB PO SCH (22:06)
[2021-11-06] MEDS: ASPIRIN 81 MG PO SCH (22:06)
[2021-11-07] MEDS: CEFEPIME 1 GM in SODIUM CHLORIDE 0.9% 50 ML IVPB SCH ×2 (03:15→15:59)
[2021-11-07] MEDS: methylPREDNISolone SOD SUCCI 125 MG/2 ML VIAL IV SCH ×4 (05:15→23:47)
[2021-11-07 07:15] LABS: Glucose,Whole Blood 109 mg/dL (75-99)
[2021-11-07] MEDS: INSULIN ASPART (NovoLOG) 100 UNIT/ML VIAL SQ SCH ×4 (07:19→21:52)
[2021-11-07] MEDS: FUROSEMIDE 10 MG/ML 4 ML VIAL IV SCH ×2 (07:36→21:36)
[2021-11-07] MEDS: CLOPIDOGREL 75 MG TAB PO SCH (07:37)
[2021-11-07] MEDS: APIXABAN 5 MG TAB PO SCH ×2 (07:37→21:52)
[2021-11-07] MEDS: guaiFENesin 600 MG TABLET.ER PO SCH ×2 (07:37→21:52)
[2021-11-07] MEDS: METOPROLOL TARTRATE 25 MG TAB PO SCH ×2 (07:37→21:36)
[2021-11-07] MEDS: FLUCONAZOLE 100 MG TAB PO SCH (07:37)
[2021-11-07] MEDS: POTASSIUM CHLORIDE ER 20 MEQ TAB.ER PO SCH ×2 (07:37→21:53)
[2021-11-07] MEDS: NYSTATIN 100,000 UNIT/ML SUSP 500,000 UNIT/5 ML CUP PO SCH ×4 (07:59→21:52)
[2021-11-07] MEDS: IPRATROPIUM-ALBUTEROL 3 ML NEB INHALATION SCH ×4 (08:30→20:56)
[2021-11-07] MEDS: SYMBICORT 160-4.5 MCG INHALER INHALATION SCH ×3 (08:31→21:13)
[2021-11-07 11:49] LABS: Glucose,Whole Blood 106 mg/dL (75-99)
--- NOTE | 2021-11-07 12:58 | P.PN ---
Subjective This is a pleasant 61 years old male with past medical history of CVA and atrial fibrillation on Eliquis, COPD, hypertension, hyperlipidemia. Presents with respiratory symptoms secondary to bilateral interstitial pneumonia with mediastinal lymphadenopathy seen on the chest. Patient is on acute hypoxic respiratory failure requiring 15 L of oxygen per minute. He is still back of neck and dyspneic while he is lying in bed, however he is able to talk freely. No significant coughing. No chest pain. No fever. No diarrhea or vomiting. No urinary symptoms. No headache or weakness or dizziness. I discussed with him his illness and management plan and he agrees. He is currently covered with fluconazole for sputum culture is growing Lisa with infectious disease team recommendation on the case. Also pulmonary team following him closely and currently is on IV Cortef and 100 mg today a times a day and continued on home dose of Eliquis and Protonix. Also he is on aspirin and Plavix. The scope but this was negative and RSV is negative. No pulmonary embolism on CTA. Cortisol level was 6. procalcitonin is normal at 0.05 Chest x-ray showing bilateral infiltrates. 11/02/2021 Patient remains significantly tachypneic and dyspneic, today he had significant coughing with some hemoptysis overnight, however his vital signs blood pressure are stable. His oxygen requirements still at 50 L/m, blood pressure is low normal which is stable for him. No labs from today. Plans sputum culture was positive for lisa and he is currently on fluconazole. We'll going to repeat sputum culture. Repeat chest x-ray in the morning, repeat labs include hemoglobin the morning. Medications were adjusted to IV Lasix 40 mg twice a day and has Cortef was switched to Solu-Medrol 60 mg intravenously. 11/03/2021 Patient remains significantly tachypneic, however he is able to talk through his face mask which delivers about 50 L of oxygen. Patient could not participate in physical therapy today because of his severe dyspnea. His very lethargic and weak . mentation is very awake and alert. He still has hemoptysis but better than yesterday His blood pressure is low normal. His respiratory rate around 20-22. His WBC is 16 K, sodium improved to 134. His repeat chest x-ray showing worsening infiltrates compared to few days ago. It is suspicious for pneumonia and or edema Pro-calcitonin is negative at 0.08. However bacterial infection is not entirely exclude it and patient today was placed back on cefepime and Levaquin. While continued on fluconazole for lisa and his previous sample of sputum. Also Lasix 40 mg twice a day was added yesterday and steroids change from coronary Cortef into IV Solu-Medrol 60 mg 11/04/2021 pt respiratory status is improving, yesterday he was on 15 L/m of oxygen went down to 13 and then 11 L at evening but this morning is at 13 L/m which is a still improving but slowly. A states that he has good appetite, no significant coughing. Yesterday we added Levemir 10 units to his home regimen of metformin 500 mg and his glucose is better this morning. Patient does not have glucometer at home therefore we consulted transplant case manager to provide one upon discharge. Dexamethasone, vitamin C, D and zinc. 11/05/2021 Patient awake alert, his respiratory status become more dependent on oxygen, he is now on BiPAP therapy. Which was placed overnight with chest x-ray showing no significant change in bilateral infiltrates which could be suspected due to edema, interstitial fibrosis or infiltrates. Differential diagnosis including covid19 pneumonia. He has already a negative civid19 test on 10/24, where going to repeat another test. The meantime he remains on Eliquis, fluconazole, Levaquin, cefepime, IV Lasix and Solu-Medrol 60 mg 11/06/2021 Patient breathing it looks the same as yesterday with a significantly respiratory distress and tachypneic however he could come of the BiPAP this morning and was placed on 15 L/m of oxygen via high flow nasal cannula Chest x-ray showing bilateral Covid pneumonia. Repeat Covid test is negative yesterday as well E Jairo treated with same dose of IV Solu-Medrol 60 mg, IV Lasix 40 mg, fluconazole, oral Levaquin and cefepime, Eliquis 5 mg. 11/07/2021 She remains dyspneic although is less tachypneic compared to last 2 days. He still due to the high-dose oxygen, he was BiPAP during the night and currently is on high flow nasal cannula on . Patient was treated with Eliquis, with multiple antibiotics including fluconazole, Levaquin, cefepime also received IV Lasix. As well as high dose of steroids for Solu-Medrol 60 mg despite this patient's showing minimal improvement in his condition Pulmonary team input is appreciated most likely patient has persistent exacerbation of idiopathic pulmonary fibrosis and the prognosis is poor. Other than that we will keep monitoring the patient closely Objective - Vital Signs Vital signs: Vital Signs Temp 97.9 F 11/07/21 07:28 Pulse 93 11/07/21 08:38 Resp 22 11/07/21 07:49 BP 113/69 11/07/21 07:28 Pulse Ox 92 L 11/07/21 07:28 Intake & Output 11/06/21 11/07/21 11/07/21 18:59 06:59 18:59 Intake Total 360 Output Total 1600 1200 Balance -1240 -1200 Intake: Oral 360 Output: Urine 1600 1200 Uretheral (Dwyer) 1600 Other: Voiding Method Indwelling Catheter Indwelling Catheter # Voids 0 - Exam GENERAL: The patient is alert and oriented x3, not in any acute distress. Well developed, well nourished. HEENT: Pupils are round and equally reacting to light. EOMI. No scleral icterus. No conjunctival pallor. Normocephalic, atraumatic. No pharyngeal erythema. No thyromegaly. CARDIOVASCULAR: S1 and S2 present. No murmurs, rubs, or gallops. -PULMONARY: Chest is clear to auscultation, no wheezing. Bilateral crackles. T achypnea ABDOMEN: Soft, nontender, nondistended, normoactive bowel sounds. No palpable organomegaly. MUSCULOSKELETAL: No joint swelling or deformity. EXTREMITIES: No cyanosis, clubbing, or pedal edema. NEUROLOGICAL: Gross neurological examination did not reveal any focal deficits. SKIN: No rashes. no petechiae. - Labs CBC & Chem 7: 11/06/21 12:13 11/06/21 12:13 Labs: Abnormal Lab Results - Last 24 Hours (Table) 11/06/21 11/06/21 11/06/21 Range/Units 12:11 12:13 12:13 WBC 16.5 H (3.8-10.6) k/uL RDW 16.2 H (11.5-15.5) % Neutrophils # 15.5 H (1.3-7.7) k/uL Lymphocytes # 0.5 L (1.0-4.8) k/uL Sodium 133 L (137-145) mmol/L Potassium 3.1 L (3.5-5.1) mmol/L Chloride 89 L (98-107) mmol/L Carbon Dioxide 39 H (22-30) mmol/L BUN 44 H (9-20) mg/dL Glucose 117 H (74-99) mg/dL POC Glucose (mg/dL) 120 H (75-99) mg/dL Total Bilirubin 2.5 H (0.2-1.3) mg/dL ALT 50 H (4-49) U/L Total Protein 6.2 L (6.3-8.2) g/dL Albumin 3.0 L (3.5-5.0) g/dL 11/06/21 11/06/21 11/07/21 Range/Units 16:11 20:12 07:13 WBC (3.8-10.6) k/uL RDW (11.5-15.5) % Neutrophils # (1.3-7.7) k/uL Lymphocytes # (1.0-4.8) k/uL Sodium (137-145) mmol/L Potassium (3.5-5.1) mmol/L Chloride (98-107) mmol/L Carbon Dioxide (22-30) mmol/L BUN (9-20) mg/dL Glucose (74-99) mg/dL POC Glucose (mg/dL) 109 H 124 H 109 H (75-99) mg/dL Total Bilirubin (0.2-1.3) mg/dL ALT (4-49) U/L Total Protein (6.3-8.2) g/dL Albumin (3.5-5.0) g/dL Microbiology - Last 24 Hours (Table) 11/02/21 21:00 Gram Stain - Final Sputum Sputum Culture - Final Assessment and Plan Assessment: Worsening bilateral pulmonary infiltrate, most likely related to his worsening IPF idiopathic pulmonary fibrosis Acute hypoxic respiratory failure Possible pneumonia with mediastinal lymphadenopathy, secondary to Lisa, less likely causing the main hypoxia episode for the patient but might be some contribution Adrenal insufficiency is suspected by pulmonary service Chronic atrial fibrillation on Eliquis Hypertension Hyperlipidemia Plan: This is a pleasant 61 years old male who presents with pulmonary fibrosis and hypoxia. A stable Lisa infection. Continue with steroids p, IV Solu-Medrol Continue with fluconazole for Lisa in his sputum per infectious disease. Also with cefepime and Levaquin Continue with home dose of Eliquis. Continue IV Lasix Labs and medication were reviewed.. Continue same treatment. Continue with symptomatic treatment. Resume home medication. Monitor lytes and vitals. DVT and GI prophylaxis. Further recommendations as per clinical course of the patient DVT prophylaxis: Eliquis GI Prophylaxis: Ppi PT/OT: Ongoing Prognosis is very guarded
--- NOTE | 2021-11-07 13:59 | P.PN ---
Subjective Progress Note Date: 11/07/21 10/26/2021, I'm seeing the patient for a follow-up. The patient remains off the BiPAP. Nevertheless, the patient is still short of breath and he is still needed is about 2 by nasal cannula. Repeat chest x-ray was done and showed diffuse bilateral pulmonary infiltrates with background bilateral pulmonary fibrosis. There is also cardiomegaly. Note that the patient was subjected to a combination of bronchodilators, steroids and antibiotics and antibiotic coverage was essentially and panic. Echocardiogram was completed and the patient was found to have a normal systolic function with an ejection fraction of 55-60%. There was moderate degree of tricuspid regurgitation, moderate pulmonary hyperte nsion with a PA pressure of 41. The patient had 11 to ejection fraction of 55- 60%. The pro calcitonin level was 0.12. Sodium level is 129. COVID 19 testing is been negative. The blood work from today shows a white cell count of 10.4 with a hemoglobin of 14.4 and a platelet count of 443 Progress note dated 10/27/2021. This is a 61-year-old male, again seen in room 381. The patient is currently on 8 L high flow O2. Saturations are 97%. The patient feels like his shortness of breath is about the same. The patient is not receiving any IV fluids. He is laying flat in bed, and is not manifesting any overt signs of respiratory distress. White count 9.2, hemoglobin 14.7, hematocrit 44.4, and platelet count normal. Sodium 129, potassium 4, chlorides 90, CO2 32, anion gap 7, BUN 25, and creatinine 0.94. Chest x-ray from October 26 shows bilateral lung infiltrates, which are a bit worse. There is also evidence of cardiomegaly. Progress note dated 10/28/2021. This is a 61-year-old male, again seen in room 381. The patient is currently on 6 L high flow nasal cannula. He is currently receiving Levaquin and cefepime. The patient is quite short of breath, because he was recently up to the bathroom. The patient also complains of cough, with occasional phlegm production. He denies any chest pain or chest discomfort. White count 11.2, with a normal hemoglobin, hematocrit, and platelet count. Sodium 129, potassium 4.2, chlorides 92, CO2 29, anion gap 8,BUN 29, with a creatinine of 0.88. Progress note dated 10/29/2021. 61-year-old male, again seen in room 381. Unfortunately, the patient's oxygenation is worsened overnight, and now, he's on 15 L high flow nasal O2. Saturations are 97%. Yesterday, when I saw him, he was on 6 L high flow nasal O2. The patient today feels better. He was quite tachypneic yesterday. Labs today show white count 11.3, hemoglobin 14.5, hematocrit 43.4, and a platelet count 348,000. Sodium 126, potassium 4.1, chlorides 90, CO2 29, anion gap 7, BUN 26, and creatinine 0.92. Chest x-ray shows patchy bilateral airspace disease. Progress note dated 10/30/2021. 61-year-old male, again seen in room 381 currently, the patient's on 15 L high flow nasal O2. The patient is not receiving any IV fluids. The patient's primary care physician is Dr. Curiel. The patient wanted something for his chest congestion. I asked the nurse to put an order in for Mucinex. In addition, had a conversation with the patient about end-of-life issues. The patient would not want to be on life support or be resuscitated. We also put those orders and as well. From the pulmonary standpoint, the patient's feeling about the same. When he is laying or doing absolutely nothing, he doesn't feel horrible, with any activity, the patient does become very short of breath. White count 10.6, hemoglobin 14.8, hematocrit 45.3, and platelet count 319,000. Sodium 128, potassium 4.2, chlorides 91, CO2 31, anion gap 6, BUN 30, creatinine 0.86. Cortisol level was only 6. The patient is seen today 10/31/2021 follow-up on the regular medical floor. He is currently sitting up in bed. Awake and alert in no acute distress. He has been slow to progress. He is on 15 L high flow nasal cannula with O2 saturations in the upper 80s. He is dyspneic with minimal exertion. Dyspneic with conversation. His cough has improved. White count 15.4. Hemoglobin 14.4. Leukocytes 0.9. Sodium 128. Potassium 4.0. Creatinine 0.86. He remains on DuoNeb inhalations, Symbicort, Singulair, Solu-Cortef. Continue oral diuretics. Anticoagulated with Eliquis. The patient is seen today 11/01/2021 in follow-up on the regular medical floor. He is currently sitting up in bed. Awake and alert. Mild respiratory distress with conversation. [place] distress with minimal exertion. He is still requiring 15 L high flow nasal cannula to maintain O2 saturations in the high 80s and low 90s. He is coughing more. He is able to expectorate some phlegm now. He remains on Mucinex, Symbicort, Singulair, DuoNeb inhalations, IV site Cortef. He is anticoagulated with Eliquis. Remains on oral diuretics. LDH 640. C-reactive protein 2.0. ProBNP 2490. Pro calcitonin 0.05. Glucose 168. The patient is seen today 11/07/2021 follow-up on the regular medical floor. Her only resting in bed. He is on the BiPAP 14/6 and 100% FiO2. He's been alternating with 15 L high flow nasal cannula as a nonrebreather mask. His O2 saturations have been in the mid to upper 80s. Sputum culture revealed no growth. Blood glucose 106. He remains on Eliquis, IV Solu-Medrol, Symbicort and DuoNeb inhalations. He is on antibiotics in the form of Levaquin and cefepime. Objective - Vital Signs Vital signs: Vital Signs Temp 97.9 F 11/07/21 07:28 Pulse 93 11/07/21 08:38 Resp 22 11/07/21 07:49 BP 113/69 11/07/21 07:28 Pulse Ox 92 L 11/07/21 07:28 Intake & Output 11/06/21 11/07/21 11/07/21 18:59 06:59 18:59 Intake Total 360 Output Total 1600 1200 Balance -1240 -1200 Intake: Oral 360 Output: Urine 1600 1200 Uretheral (Dwyer) 1600 Other: Voiding Method Indwelling Catheter Indwelling Catheter # Voids 0 - Exam Alert, pleasant 61-year-old gentleman. Mild conversational dyspnea, oriented 3. Currently on BiPAP 14/6 and 100% FiO2. HEENT examination is grossly unremarkable. Neck supple. Full range of motion. No adenopathy thyromegaly or neck vein distention. Cardiovascular examination reveals regular rhythm rate. S1-S2 normal. No S3 or S4. No discernible murmur noted. Heart rate 70 bpm. Heart sounds are distant. Lungs reveal diminished bilateral breath sounds. There is basilar crackles noted. They are Velcro in nature. He is restricted in his breathing. Abdomen soft bowel sounds are heard. No masses or tenderness. Extremities are intact. No edema or cyanosis, but clubbing is noted. Skin is without rash or lesion. Neurologic examination is brief but nonfocal. - Labs CBC & Chem 7: 11/06/21 12:13 11/06/21 12:13 Labs: Abnormal Lab Results - Last 24 Hours (Table) 11/06/21 11/06/21 11/07/21 Range/Units 16:11 20:12 07:13 POC Glucose (mg/dL) 109 H 124 H 109 H (75-99) mg/dL 11/07/21 Range/Units 11:46 POC Glucose (mg/dL) 106 H (75-99) mg/dL Microbiology - Last 24 Hours (Table) 11/02/21 21:00 Gram Stain - Final Sputum Sputum Culture - Final Assessment and Plan Assessment: 1 Acute on chronic hypoxemic respiratory failure, secondary to the patient's known history of pulmonary fibrosis. Currently on BiPAP 14/600% FiO2. 2 Chronic hypoxemic respiratory failure secondary to IPF. 3 Rule out adrenal insufficiency. 4 History of COPD. 5 History of chronic atrial fibrillation. 6 History of ongoing tobacco use with nicotine addiction. 7 Essential hypertension. 8 Hyperlipidemia. 9 History of peripheral vascular occlusive disease with bilateral iliac stents. 10 History of depression. 11 Hyponatremia, improved. 12 Elevated troponin, likely related to supply/demand mismatch. Plan: The patient was seen and evaluated On BiPAP 14/6 and 100% FiO2 O2 saturations in the high 80s to low 90s We will transition him to AirVo high flow oxygen at 60 L and 90% if tolerated Overall prognosis is poor. The patient did reverse his CODE STATUS back to FULL Dr. Goss spoke to him in detail regarding poor prognosis especially if intubated and on mechanical ventilator The patient verbalized understanding and wanted this discussed with his son He did leave a message for his son to call us back We will continue to follow closely. Continue the current treatment plan. I, the cosigning physician, performed a history & physical examination of the patient. Lungs sounds with bilateral Velcro crackles, diminished. Maintaining O2 saturations in the upper 80s and low 90s on BiPAP 14/6 and 100% FiO2. I discussed the assessment and plan of care with my nurse practitioner, Shyann Cole. I attest to the above note as dictated by her.
[2021-11-07] MEDS: LEVOFLOXACIN 500 MG TAB PO SCH (15:59)
[2021-11-07 16:34] LABS: Glucose,Whole Blood 114 mg/dL (75-99)
[2021-11-07 21:30] LABS: Glucose,Whole Blood 133 mg/dL (75-99)
[2021-11-07] MEDS: PANTOPRAZOLE 40 MG TABLET PO SCH (21:52)
[2021-11-07] MEDS: ATORVASTATIN 40 MG TAB PO SCH (21:52)
[2021-11-07] MEDS: MONTELUKAST 10 MG TAB PO SCH (21:53)
[2021-11-07] MEDS: DULoxetine HCL 60 MG CAPSULE.DR PO SCH (21:53)
[2021-11-07] MEDS: ASPIRIN 81 MG PO SCH (21:53)
--- NOTE | 2021-11-07 22:50 | PN ---
PROGRESS NOTE DATE OF SERVICE: 11/07/2021 REASON FOR FOLLOWUP: 1. Pneumonia. 2. Thrush and oropharyngeal candidiasis. INTERVAL HISTORY: The patient is afebrile. He is breathing slightly comfortably. The patient remains BiPAP-dependent. The patient denies having any chest pain. No worsening cough or sputum production. No abdominal pain or diarrhea. PHYSICAL EXAMINATION: Blood pressure 113/69, pulse of 98, temperature 97.9. He is 92% on BiPAP. General description is a middle-aged male up in the bed in no distress. Respiratory system: Unlabored breathing, decreased intensity of breath sounds. No wheeze. Heart S1, S2. Regular rate and rhythm. Abdomen soft, no tenderness. LABS: No new labs have been obtained today. DIAGNOSTIC IMPRESSION AND PLAN: 1. Patient with acute respiratory failure which is multifactorial, possible acute exacerbation of his underlying pulmonary fibrosis, COPD. Clinically not behaving as pneumonia, though that is not entirely excluded. To continue with current in the form of cefepime . 2. Patient with oropharyngeal candidiasis and thrush. To continue with nystatin swish and swallow and Diflucan. MMODL / IJN: [id number] /
[2021-11-08] MEDS: CEFEPIME 1 GM in SODIUM CHLORIDE 0.9% 50 ML IVPB SCH ×2 (03:48→15:16)
[2021-11-08] MEDS: methylPREDNISolone SOD SUCCI 125 MG/2 ML VIAL IV SCH ×2 (05:22→12:00)
[2021-11-08 06:01] LABS: African American GFR (CKD) >90 (>60 ml/min/1.73 sqM); Anion Gap 5 mmol/L; Blood Urea Nitrogen 48 mg/dL (9-20); Calcium 8.5 mg/dL (8.4-10.2); Carbon Dioxide 33 mmol/L (22-30); Chloride 95 mmol/L (98-107); Glucose 116 mg/dL (74-99); Magnesium 2.7 mg/dL (1.6-2.3); Non-African American GFR(CKD) >90 (>60 ml/min/1.73 sqM); Potassium 3.8 mmol/L (3.5-5.1); Sodium 133 mmol/L (137-145)
[2021-11-08 06:54] LABS: Glucose,Whole Blood 120 mg/dL (75-99)
[2021-11-08] MEDS: SYMBICORT 160-4.5 MCG INHALER INHALATION SCH ×2 (07:18→19:21)
[2021-11-08] MEDS: IPRATROPIUM-ALBUTEROL 3 ML NEB INHALATION SCH ×4 (07:18→19:21)
[2021-11-08] MEDS: INSULIN ASPART (NovoLOG) 100 UNIT/ML VIAL SQ SCH ×4 (07:25→21:26)
[2021-11-08] MEDS: FUROSEMIDE 10 MG/ML 4 ML VIAL IV SCH (07:38)
[2021-11-08] MEDS: guaiFENesin 600 MG TABLET.ER PO SCH ×2 (07:43→21:44)
[2021-11-08] MEDS: FLUCONAZOLE 100 MG TAB PO SCH (07:43)
[2021-11-08] MEDS: METOPROLOL TARTRATE 25 MG TAB PO SCH ×2 (07:43→21:45)
[2021-11-08] MEDS: APIXABAN 5 MG TAB PO SCH ×2 (07:43→21:45)
[2021-11-08] MEDS: CLOPIDOGREL 75 MG TAB PO SCH (07:43)
[2021-11-08] MEDS: POTASSIUM CHLORIDE ER 20 MEQ TAB.ER PO SCH ×2 (07:44→21:45)
[2021-11-08] MEDS: NYSTATIN 100,000 UNIT/ML SUSP 500,000 UNIT/5 ML CUP PO SCH ×4 (07:45→21:44)
[2021-11-08 11:47] LABS: Glucose,Whole Blood 144 mg/dL (75-99)
[2021-11-08] MEDS ORDERED: SODIUM CHLORIDE 0.9% 1,000 ML IV ONE (12:31)
--- NOTE | 2021-11-08 14:24 | P.PN ---
Subjective This is a pleasant 61 years old male with past medical history of CVA and atrial fibrillation on Eliquis, COPD, hypertension, hyperlipidemia. Presents with respiratory symptoms secondary to bilateral interstitial pneumonia with mediastinal lymphadenopathy seen on the chest. Patient is on acute hypoxic respiratory failure requiring 15 L of oxygen per minute. He is still back of neck and dyspneic while he is lying in bed, however he is able to talk freely. No significant coughing. No chest pain. No fever. No diarrhea or vomiting. No urinary symptoms. No headache or weakness or dizziness. I discussed with him his illness and management plan and he agrees. He is currently covered with fluconazole for sputum culture is growing Lisa with infectious disease team recommendation on the case. Also pulmonary team following him closely and currently is on IV Cortef and 100 mg today a times a day and continued on home dose of Eliquis and Protonix. Also he is on aspirin and Plavix. The scope but this was negative and RSV is negative. No pulmonary embolism on CTA. Cortisol level was 6. procalcitonin is normal at 0.05 Chest x-ray showing bilateral infiltrates. 11/02/2021 Patient remains significantly tachypneic and dyspneic, today he had significant coughing with some hemoptysis overnight, however his vital signs blood pressure are stable. His oxygen requirements still at 50 L/m, blood pressure is low normal which is stable for him. No labs from today. Plans sputum culture was positive for lisa and he is currently on fluconazole. We'll going to repeat sputum culture. Repeat chest x-ray in the morning, repeat labs include hemoglobin the morning. Medications were adjusted to IV Lasix 40 mg twice a day and has Cortef was switched to Solu-Medrol 60 mg intravenously. 11/03/2021 Patient remains significantly tachypneic, however he is able to talk through his face mask which delivers about 50 L of oxygen. Patient could not participate in physical therapy today because of his severe dyspnea. His very lethargic and weak . mentation is very awake and alert. He still has hemoptysis but better than yesterday His blood pressure is low normal. His respiratory rate around 20-22. His WBC is 16 K, sodium improved to 134. His repeat chest x-ray showing worsening infiltrates compared to few days ago. It is suspicious for pneumonia and or edema Pro-calcitonin is negative at 0.08. However bacterial infection is not entirely exclude it and patient today was placed back on cefepime and Levaquin. While continued on fluconazole for lisa and his previous sample of sputum. Also Lasix 40 mg twice a day was added yesterday and steroids change from coronary Cortef into IV Solu-Medrol 60 mg 11/04/2021 pt respiratory status is improving, yesterday he was on 15 L/m of oxygen went down to 13 and then 11 L at evening but this morning is at 13 L/m which is a still improving but slowly. A states that he has good appetite, no significant coughing. Yesterday we added Levemir 10 units to his home regimen of metformin 500 mg and his glucose is better this morning. Patient does not have glucometer at home therefore we consulted gearcase assembler to provide one upon discharge. Dexamethasone, vitamin C, D and zinc. 11/05/2021 Patient awake alert, his respiratory status become more dependent on oxygen, he is now on BiPAP therapy. Which was placed overnight with chest x-ray showing no significant change in bilateral infiltrates which could be suspected due to edema, interstitial fibrosis or infiltrates. Differential diagnosis including covid19 pneumonia. He has already a negative civid19 test on 10/24, where going to repeat another test. The meantime he remains on Eliquis, fluconazole, Levaquin, cefepime, IV Lasix and Solu-Medrol 60 mg 11/06/2021 Patient breathing it looks the same as yesterday with a significantly respiratory distress and tachypneic however he could come of the BiPAP this morning and was placed on 15 L/m of oxygen via high flow nasal cannula Chest x-ray showing bilateral Covid pneumonia. Repeat Covid test is negative yesterday as well E J[place] treated with same dose of IV Solu-Medrol 60 mg, IV Lasix 40 mg, fluconazole, oral Levaquin and cefepime, Eliquis 5 mg. 11/07/2021 She remains dyspneic although is less tachypneic compared to last 2 days. He still due to the high-dose oxygen, he was BiPAP during the night and currently is on high flow nasal cannula on . Patient was treated with Eliquis, with multiple antibiotics including fluconazole, Levaquin, cefepime also received IV Lasix. As well as high dose of steroids for Solu-Medrol 60 mg despite this patient's showing minimal improvement in his condition Pulmonary team input is appreciated most likely patient has persistent exacerbation of idiopathic pulmonary fibrosis and the prognosis is poor. Other than that we will keep monitoring the patient closely 11/08/2011 Patient is awake and alert, he looks tired and somewhat lethargic but it's interactive normally. He is on face mask this morning and he is getting 60 L/m at 90% FiO2. Patient does not make much progress in his respiratory status which is most likely due to fibrosis. Today his steroids are related to prednisone 40 mg daily while he kept on antibiotics of fluconazole, Levaquin and cefepime. Also he is on home dose of Eliquis. Lasix was held yesterday and he received 1 bolus of 500 mL of normal saline and kept on normal saline at 50 mL per hour which is. This morning because his blood pressure was on the low side yesterday. Currently he is not getting Lasix. And he received a bolus of 1 L of normal saline this morning. Objective - Vital Signs Vital signs: Vital Signs Temp 97.7 F 11/08/21 07:39 Pulse 80 11/08/21 11:27 Resp 19 11/08/21 07:39 BP 113/67 11/08/21 07:39 Pulse Ox 91 L 11/08/21 11:22 Intake & Output 11/07/21 11/08/21 11/08/21 18:59 06:59 18:59 Output Total 1200 1000 Balance -1200 -1000 Output: Urine 1200 1000 Other: Voiding Method Indwelling Catheter Indwelling Catheter - Exam GENERAL: The patient is alert and oriented x3, not in any acute distress. Well developed, well nourished. HEENT: Pupils are round and equally reacting to light. EOMI. No scleral icterus. No conjunctival pallor. Normocephalic, atraumatic. No pharyngeal erythema. No thyromegaly. CARDIOVASCULAR: S1 and S2 present. No murmurs, rubs, or gallops. -PULMONARY: Chest is clear to auscultation, no wheezing. Bilateral crackles. Tachypnea ABDOMEN: Soft, nontender, nondistended, normoactive bowel sounds. No palpable organomegaly. MUSCULOSKELETAL: No joint swelling or deformity. EXTREMITIES: No cyanosis, clubbing, or pedal edema. NEUROLOGICAL: Gross neurological examination did not reveal any focal deficits. SKIN: No rashes. no petechiae. - Labs CBC & Chem 7: 11/06/21 12:13 11/08/21 05:00 Labs: Abnormal Lab Results - Last 24 Hours (Table) 11/07/21 11/07/21 11/08/21 Range/Units 16:32 21:16 05:00 Sodium 133 L (137-145) mmol/L Chloride 95 L (98-107) mmol/L Carbon Dioxide 33 H (22-30) mmol/L BUN 48 H (9-20) mg/dL Glucose 116 H (74-99) mg/dL POC Glucose (mg/dL) 114 H 133 H (75-99) mg/dL Magnesium 2.7 H (1.6-2.3) mg/dL 11/08/21 11/08/21 Range/Units 06:54 11:45 Sodium (137-145) mmol/L Chloride (98-107) mmol/L Carbon Dioxide (22-30) mmol/L BUN (9-20) mg/dL Glucose (74-99) mg/dL POC Glucose (mg/dL) 120 H 144 H (75-99) mg/dL Magnesium (1.6-2.3) mg/dL Assessment and Plan Assessment: Worsening bilateral pulmonary infiltrate, most likely related to his worsening IPF idiopathic pulmonary fibrosis Acute hypoxic respiratory failure Possible pneumonia with mediastinal lymphadenopathy, secondary to Lisa, less likely causing the main hypoxia episode for the patient but might be some contribution Adrenal insufficiency is suspected by pulmonary service Chronic atrial fibrillation on Eliquis Hypertension Hyperlipidemia Plan: This is a pleasant 61 years old male who presents with pulmonary fibrosis and hypoxia. A stable Lisa infection. Continue with steroids p, IV Solu-Medrol switched to prednisone Continue with fluconazole for Lisa in his sputum per infectious disease. Also with cefepime and Levaquin Continue with home dose of Eliquis. Discontinue Lasix. Labs and medication were reviewed.. Continue same treatment. Continue with symptomatic treatment. Resume home medication. Monitor lytes and vitals. DVT and GI prophylaxis. Further recommendations as per clinical course of the patient DVT prophylaxis: Eliquis GI Prophylaxis: Ppi PT/OT: Ongoing Prognosis is very guarded
--- NOTE | 2021-11-08 14:50 | P.PN ---
Subjective Progress Note Date: 11/08/21 10/26/2021, I'm seeing the patient for a follow-up. The patient remains off the BiPAP. Nevertheless, the patient is still short of breath and he is still needed is about 2 by nasal cannula. Repeat chest x-ray was done and showed diffuse bilateral pulmonary infiltrates with background bilateral pulmonary fibrosis. There is also cardiomegaly. Note that the patient was subjected to a combination of bronchodilators, steroids and antibiotics and antibiotic coverage was essentially and panic. Echocardiogram was completed and the patient was found to have a normal systolic function with an ejection fraction of 55-60%. There was moderate degree of tricuspid regurgitation, moderate pulmonary hyperte nsion with a PA pressure of 41. The patient had 11 to ejection fraction of 55- 60%. The pro calcitonin level was 0.12. Sodium level is 129. COVID 19 testing is been negative. The blood work from today shows a white cell count of 10.4 with a hemoglobin of 14.4 and a platelet count of 443 Progress note dated 10/27/2021. This is a 61-year-old male, again seen in room 381. The patient is currently on 8 L high flow O2. Saturations are 97%. The patient feels like his shortness of breath is about the same. The patient is not receiving any IV fluids. He is laying flat in bed, and is not manifesting any overt signs of respiratory distress. White count 9.2, hemoglobin 14.7, hematocrit 44.4, and platelet count normal. Sodium 129, potassium 4, chlorides 90, CO2 32, anion gap 7, BUN 25, and creatinine 0.94. Chest x-ray from October 26 shows bilateral lung infiltrates, which are a bit worse. There is also evidence of cardiomegaly. Progress note dated 10/28/2021. This is a 61-year-old male, again seen in room 381. The patient is currently on 6 L high flow nasal cannula. He is currently receiving Levaquin and cefepime. The patient is quite short of breath, because he was recently up to the bathroom. The patient also complains of cough, with occasional phlegm production. He denies any chest pain or chest discomfort. White count 11.2, with a normal hemoglobin, hematocrit, and platelet count. Sodium 129, potassium 4.2, chlorides 92, CO2 29, anion gap 8,BUN 29, with a creatinine of 0.88. Progress note dated 10/29/2021. 61-year-old male, again seen in room 381. Unfortunately, the patient's oxygenation is worsened overnight, and now, he's on 15 L high flow nasal O2. Saturations are 97%. Yesterday, when I saw him, he was on 6 L high flow nasal O2. The patient today feels better. He was quite tachypneic yesterday. Labs today show white count 11.3, hemoglobin 14.5, hematocrit 43.4, and a platelet count 348,000. Sodium 126, potassium 4.1, chlorides 90, CO2 29, anion gap 7, BUN 26, and creatinine 0.92. Chest x-ray shows patchy bilateral airspace disease. Progress note dated 10/30/2021. 61-year-old male, again seen in room 381 currently, the patient's on 15 L high flow nasal O2. The patient is not receiving any IV fluids. The patient's primary care physician is Dr. Curiel. The patient wanted something for his chest congestion. I asked the nurse to put an order in for Mucinex. In addition, had a conversation with the patient about end-of-life issues. The patient would not want to be on life support or be resuscitated. We also put those orders and as well. From the pulmonary standpoint, the patient's feeling about the same. When he is laying or doing absolutely nothing, he doesn't feel horrible, with any activity, the patient does become very short of breath. White count 10.6, hemoglobin 14.8, hematocrit 45.3, and platelet count 319,000. Sodium 128, potassium 4.2, chlorides 91, CO2 31, anion gap 6, BUN 30, creatinine 0.86. Cortisol level was only 6. The patient is seen today 10/31/2021 follow-up on the regular medical floor. He is currently sitting up in bed. Awake and alert in no acute distress. He has been slow to progress. He is on 15 L high flow nasal cannula with O2 saturations in the upper 80s. He is dyspneic with minimal exertion. Dyspneic with conversation. His cough has improved. White count 15.4. Hemoglobin 14.4. Leukocytes 0.9. Sodium 128. Potassium 4.0. Creatinine 0.86. He remains on DuoNeb inhalations, Symbicort, Singulair, Solu-Cortef. Continue oral diuretics. Anticoagulated with Eliquis. The patient is seen today 11/01/2021 in follow-up on the regular medical floor. He is currently sitting up in bed. Awake and alert. Mild respiratory distress with conversation. Britton distress with minimal exertion. He is still requiring 15 L high flow nasal cannula to maintain O2 saturations in the high 80s and low 90s. He is coughing more. He is able to expectorate some phlegm now. He remains on Mucinex, Symbicort, Singulair, DuoNeb inhalations, IV site Cortef. He is anticoagulated with Eliquis. Remains on oral diuretics. LDH 640. C-reactive protein 2.0. ProBNP 2490. Pro calcitonin 0.05. Glucose 168. The patient is seen today 11/07/2021 follow-up on the regular medical floor. Her only resting in bed. He is on the BiPAP 07/04 and 100% FiO2. He's been alternating with 15 L high flow nasal cannula as a nonrebreather mask. His O2 saturations have been in the mid to upper 80s. Sputum culture revealed no growth. Blood glucose 106. He remains on Eliquis, IV Solu-Medrol, Symbicort and DuoNeb inhalations. He is on antibiotics in the form of Levaquin and cefepime. The patient is seen today 11/08/2021 in follow-up on the regular medical floor. He is currently resting in bed. Awake and alert. He is doing better on AirVo high flow oxygen at 60 L and 95% FiO2 plus a nonrebreather mask versus the BiPAP. He is feeling more comfortable. Urine culture revealed no growth. Sodium 133. Potassium 3.8. Creatinine 0.73. Glucose 116. He is continued on DuoNeb inhalations, Symbicort, IV Solu-Medrol. Antibiotics in the form of cefepime. Anticoagulated with Eliquis. Objective - Vital Signs Vital signs: Vital Signs Temp 97.5 F L 11/08/21 14:00 Pulse 100 11/08/21 14:00 Resp 20 11/08/21 14:00 BP 118/78 11/08/21 14:00 Pulse Ox 89 L 11/08/21 14:00 Intake & Output 11/07/21 11/08/21 11/08/21 18:59 06:59 18:59 Output Total 1200 1000 Balance -1200 -1000 Output: Urine 1200 1000 Other: Voiding Method Indwelling Catheter Indwelling Catheter - Exam GENERAL EXAM: Alert, pleasant 61-year-old gentleman, on AirVo high flow oxygen at 60 L and 95% FiO2 plus a nonrebreather mask, fairly comfortable in no appar ent distress. HEAD: Normocephalic. EYES: Normal reaction of pupils, equal size. NOSE: Clear with pink turbinates. THROAT: No erythema or exudates. NECK: No masses, no JVD. CHEST: No chest wall deformity. LUNGS: Equal air entry with coarse crackles in the bilateral bases. CVS: S1 and S2 normal with no audible murmur, regular rhythm. ABDOMEN: No hepatosplenomegaly, normal bowel sounds, no guarding or rigidity. SPINE: No scoliosis or deformity SKIN: No rashes CENTRAL NERVOUS SYSTEM: No focal deficits, tone is normal in all 4 extremities. EXTREMITIES: There is no peripheral edema. No clubbing, no cyanosis. Peripheral pulses are intact. - Labs CBC & Chem 7: 11/06/21 12:13 11/08/21 05:00 Labs: Abnormal Lab Results - Last 24 Hours (Table) 11/07/21 11/07/21 11/08/21 Range/Units 16:32 21:16 05:00 Sodium 133 L (137-145) mmol/L Chloride 95 L (98-107) mmol/L Carbon Dioxide 33 H (22-30) mmol/L BUN 48 H (9-20) mg/dL Glucose 116 H (74-99) mg/dL POC Glucose (mg/dL) 114 H 133 H (75-99) mg/dL Magnesium 2.7 H (1.6-2.3) mg/dL 11/08/21 11/08/21 Range/Units 06:54 11:45 Sodium (137-145) mmol/L Chloride (98-107) mmol/L Carbon Dioxide (22-30) mmol/L BUN (9-20) mg/dL Glucose (74-99) mg/dL POC Glucose (mg/dL) 120 H 144 H (75-99) mg/dL Magnesium (1.6-2.3) mg/dL Assessment and Plan Assessment: 1 Acute on chronic hypoxemic respiratory failure, secondary to the patient's known history of pulmonary fibrosis. Currently on AirVo high flow oxygen at 60 L and 95% FiO2 plus a nonrebreather mask. 2 Chronic hypoxemic respiratory failure secondary to IPF. 3 Rule out adrenal insufficiency. 4 History of COPD. 5 History of chronic atrial fibrillation. 6 History of ongoing tobacco use with nicotine addiction. 7 Essential hypertension. 8 Hyperlipidemia. 9 History of peripheral vascular occlusive disease with bilateral iliac stents. 10 History of depression. 11 Hyponatremia, improved. 12 Elevated troponin, likely related to supply/demand mismatch. Plan: The patient was seen and evaluated AirVo high flow oxygen at 60 L and 95% FiO2 plus a nonrebreather mask O2 saturations in the mid to upper 80s Overall prognosis is poor. The patient did reverse his CODE STATUS back to FULL Follow-up chest x-ray in a.m. We will continue to follow Continue the current treatment plan. I, the cosigning physician, performed a history & physical examination of the patient. Lungs sounds with bilateral Velcro crackles, diminished. Maintaining O2 saturations in the upper 80s and low 90s on AirVo high flow oxygen at 60 L and 95% FiO2 plus a nonrebreather mask. I discussed the assessment and plan of care with my nurse practitioner, Shyann Cole. I attest to the above note as dictated by her.
[2021-11-08] MEDS: LEVOFLOXACIN 500 MG TAB PO SCH (15:16)
[2021-11-08 16:43] LABS: Glucose,Whole Blood 113 mg/dL (75-99)
--- NOTE | 2021-11-08 17:15 | PN ---
PROGRESS NOTE DATE OF SERVICE: 11/08/2021 REASON FOR FOLLOWUP: 1. pneumonia. 2. . INTERVAL HISTORY: The patient is afebrile. The patient with shortness of breath and with high flow oxygen. The patient denies any chest pain. No worsening cough or sputum production. . No abdominal pain or diarrhea. PHYSICAL EXAMINATION: Blood pressure 118/78 with a pulse of 100. Temperature 97.5. He is 79% on high-flow oxygen. General description is a middle-aged male lying in bed in no distress. Respiratory system: Unlabored breathing, decreased intensity in breath sounds with no wheeze. Heart S1, S2. Regular rate and rhythm. Abdomen soft, no tenderness. LABS: BUN of 48, creatinine 0.73. Sputum has been negative. DIAGNOSTIC IMPRESSION AND PLAN: 1. Patient with acute respiratory failure which is multifactorial with concern for possible underlying pulmonary fibrosis with chronic obstructive pulmonary disease clinical suspicion for pneumonia not entirely excluded. On empiric antibiotic, sputum has been negative. 2. Patient with oral thrush, oropharyngeal candidiasis for which the patient is currently covered with nystatin swish and swallow. Diflucan to continue. Prognosis remains to be guarded. MMODL / IJN: [id number] /
[2021-11-08 20:39] LABS: Glucose,Whole Blood 110 mg/dL (75-99)
[2021-11-08] MEDS: MONTELUKAST 10 MG TAB PO SCH (21:44)
[2021-11-08] MEDS: PANTOPRAZOLE 40 MG TABLET PO SCH (21:44)
[2021-11-08] MEDS: ATORVASTATIN 40 MG TAB PO SCH (21:44)
[2021-11-08] MEDS: DULoxetine HCL 60 MG CAPSULE.DR PO SCH (21:44)
[2021-11-08] MEDS: ASPIRIN 81 MG PO SCH (21:45)
[2021-11-09] MEDS: CEFEPIME 1 GM in SODIUM CHLORIDE 0.9% 50 ML IVPB SCH ×2 (03:18→16:42)
[2021-11-09] MEDS: IPRATROPIUM-ALBUTEROL 3 ML NEB INHALATION SCH ×4 (07:10→20:51)
[2021-11-09] MEDS: SYMBICORT 160-4.5 MCG INHALER INHALATION SCH (07:10)
[2021-11-09 07:14] LABS: Glucose,Whole Blood 101 mg/dL (75-99)
--- NOTE | 2021-11-09 07:56 | XR ---
EXAMINATION TYPE: XR chest 1V portable DATE OF EXAM: 11/09/2021 COMPARISON: 11/06/2021 HISTORY: Difficulty breathing TECHNIQUE: Single frontal view of the chest is obtained. FINDINGS: There are diffuse interstitial and small alveolar/airspace opacities bilaterally which are unchanged compared to previous. There is no pneumothorax or large pleural effusion. Heart size normal. The osseous structures are int act. IMPRESSION: No change in the diffuse cardiopulmonary disease.
[2021-11-09] MEDS: INSULIN ASPART (NovoLOG) 100 UNIT/ML VIAL SQ SCH ×3 (08:06→20:21)
[2021-11-09 08:58] LABS: Glucose,Whole Blood 110 mg/dL (75-99)
[2021-11-09] MEDS ORDERED: predniSONE 20 MG TAB PO SCH (09:00)
[2021-11-09] MEDS: SODIUM CHLORIDE 0.9% 1,000 ML IV SCH (09:00)
--- NOTE | 2021-11-09 09:26 | P.PN ---
Subjective Progress Note Date: 11/09/21 A 61-year-old male patient presented to the emergency department approximately 3 weeks after being discharged from the hospital. The patient came in to the hospital because of worsening shortness of breath and the patient emitted he was placed on a BiPAP at a pressure of 12/6 cm of water with an FiO2 of 100% initially and FiO2 is being titrated. He was quite short of breath and her breathing was extremely labored at the time of admission. Note that the patient is known to have COPD and pulmonary fibrosis. His initial evaluation with us was approximately 3 weeks ago when he came into the hospital because of shortness of breath and the patient was diagnosed having COPD and pulmonary fibrosis and based on the CAT scan of the chest was done back then his presentation was typical of IPF. 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 He has also smoked for many years up to 2 packs of cigarettes a day and he quit and slowed on his smoking approximately 6 months ago. There was a low-dose CAT scan of the chest that was done for lung cancer screening approximately 6 months ago and back then the patient pulmonary fibrosis with subpleural distribution typical of IPF more so on the left and the patient had extensive honeycombing even back then. 11/06/2019, the patient is doing poorly. The patient's rests her status as decompensated significantly since his admission. He has significant respiratory insufficiency. Was unable to tolerate high flow oxygen along with 100% nonrebreather facemask and based on that the patient was switched to BiPAP and he is currently on a BiPAP at a pressure of 12/6 and the MUSE a fourth her an FiO2 of 100%. Note that he continues to alternate between the BiPAP and the high flow able nursing home assistant administrator. Nevertheless, he seems to be much more comfortable while in the BiPAP. My impression is still that the patient is suffering from acute exacerbation of chronic IPF. There is no underlying identifiable factor that is reversible and his condition. He was given a trial of diuretics without any significant improvement. He was given IV steroids. He was given a combination of antibiotics. COVID 19 testing by PCR was repeated again and came back negative.His he is a repeat chest x-ray still showing diffuse bilateral pulmonary infiltrates consistent with acute lung injury on top of his chronic pulmonary fibrosis. Noted the patient was on oxygen at 4 L per minute nasal cannula on outpatient basis. He is lethargic. His nutritional status is gradually getting worse. He is becoming more weak. He was considering a DNR/DNI CODE STATUS had nevertheless, he continues to change his mind and based on most recent conversation with the nursing staff, he stated that he was to be a full code. For now, I have the patient on IV Solu Medrol 60 mg every 6 hours. He is covered with broad-spectrum antibiotics and the patient remains on a combination of cefepime and Levaquin. The patient is still receiving diuretics with Lasix 40 mg IV every 12 hours. The white cell count today is at 16.5 with a hemoglobin of 14.5. The patient's sodium level is at 133 with a potassium level of 3.1. BUN is at 44 with a creatinine of 0.9. Blood sugar is at 109. Folic acid level was negative at 0.08.Echocardiogram was completed and the patient was found to have a normal systolic function with an ejection fraction of 55-60%. There was moderate degree of tricuspid regurgitation, moderate pulmonary hypertension with a PA pressure of 41 The patient is seen today 11/07/2021 follow-up on the regular medical floor. Her only resting in bed. He is on the BiPAP 14/6 and 100% FiO2. He's been alternating with 15 L high flow nasal cannula as a nonrebreather mask. His O2 saturations have been in the mid to upper 80s. Sputum culture revealed no growth. Blood glucose 106. He remains on Eliquis, IV Solu-Medrol, Symbicort and DuoNeb inhalations. He is on antibiotics in the form of Levaquin and cefepime. The patient is seen today 11/08/2021 in follow-up on the regular medical floor. He is currently resting in bed. Awake and alert. He is doing better on AirVo high flow oxygen at 60 L and 95% FiO2 plus a nonrebreather mask versus the BiPAP. He is feeling more comfortable. Urine culture revealed no growth. Sodium 133. Potassium 3.8. Creatinine 0.73. Glucose 116. He is continued on DuoNeb inhalations, Symbicort, IV Solu-Medrol. Antibiotics in the form of cefepime. Anticoagulated with Eliquis. On 11/09/2021, the patient is still doing very poor. The patient was kept on BiPAP overnight. Earlier this morning, the patient had episodes of desaturation. Pulse ox was dropping in the low 80s. Based on that, I made recommendations to move the patient to the intensive care unit. As mentioned earlier, the patient prefers Airvo over BiPAP. Airvo makes him quite comfortable and less anxious. Nevertheless, he was unable to tolerate the Airvo and he was switched to a BiPAP which is currently at a pressure of 18/6 cm of water with an FiO2 of 100%. He is generating tidal volumes around 1000cc and his respiratory rate is at 27. The patient's pulse ox is 89%. He is quite lethargic. He is tachypneic. Despite my earlier advice to him, the patient opted to change his CODE STATUS to full code. He understands that this is a very poor prognosis knowing that the patient has an acute exacerbation of IPF which carries a very high mortality. He has not shown any signs of recovery. During the course of his illness, the patient was given diuretics which did not help and made him quite dry and dehydrated and hypotensive. He was given higher dose of steroids. He was given broad-spectrum antibiotics. He was also given anticoagulation. Unfortunately, his condition decompensated and the patient got transferred to the ICU. Currently is on IV fluids which are running at 0.9 at the rate of 50 mL an hour. He seems to be much more comfortable after being transferred to the intensive care unit.. He is on no sedatives for now. Objective - Vital Signs Vital signs: Vital Signs Temp 94.3 F L 11/09/21 07:53 Pulse 87 11/09/21 07:53 Resp 18 11/09/21 07:53 BP 99/77 11/09/21 07:53 Pulse Ox 82 L 11/09/21 07:53 Intake & Output 11/08/21 11/09/21 11/09/21 18:59 06:59 18:59 Intake Total 600 Output Total 600 600 Balance -600 0 Intake: Intake, IV Titration 600 Amount Sodium Chloride 0.9% 1, 600 000 ml @ 999 mls/hr IV . Q1H1M ONE Rx#:[id number] Output: Urine 600 600 Other: Voiding Method Indwelling Catheter - Exam GENERAL EXAM: Alert, active, very pleasant 61-year-old gentleman, patient is in significant respiratory distress and shortness of breath , breathing is labored and the patient is currently on a BiPAP pressures of 18/6 cm of water, Fio2 100 % and he is aroudable and following commands Head exam was generally normal. There was no scleral icterus or corneal arcus. Mucous membranes were moist. HEAD: Normocephalic. EYES: Normal reaction of pupils, equal size. NOSE: Clear with pink turbinates. THROAT: No erythema or exudates. NECK: No masses, no JVD. CHEST: No chest wall deformity. LUNGS: Equal air entry with coarse crackles in the posterior bases. the patient has Velcro crackles in lung bases more so on the left lung base. CVS: S1 and S2 normal with no audible murmur, regular rhythm. ABDOMEN: No hepatosplenomegaly, normal bowel sounds, no guarding or rigidity. SPINE: No scoliosis or deformity SKIN: No rashes CENTRAL NERVOUS SYSTEM: No focal deficits, tone is normal in all 4 extremities. EXTREMITIES: There is no peripheral edema. Positive clubbing, no cyanosis. Peripheral pulses are intact. The patient is digital clubbing - Labs CBC & Chem 7: 11/06/21 12:13 11/08/21 05:00 Labs: Abnormal Lab Results - Last 24 Hours (Table) 11/08/21 11/08/21 11/08/21 Range/Units 11:45 16:42 20:37 POC Glucose (mg/dL) 144 H 113 H 110 H (75-99) mg/dL 11/09/21 11/09/21 Range/Units 07:12 08:57 POC Glucose (mg/dL) 101 H 110 H (75-99) mg/dL Assessment and Plan Plan: 1 acute on chronic hypoxic respiratory failure. There is significant progress ion of the patient's history status and the patient has significant respiratory decompensation over the past 3 weeks. Note that the patient likely has chronic pulmonary fibrosis as evident on the low-dose CAT scan of the chest that was done May 2021. Nevertheless, the patient was hospitalized approximately 3 weeks ago with worsening shortness of breath and he was discharged home on 4 liters of oxygen by nasal cannula. At that time the repeat CAT scan of the chest showed full worsening in the pulmonary fibrosis with background COPD. The most recent CAT scan of the chest shows further interval worsening with development of bilateral pulmonary infiltrates with ground glass changes consis tent with either infection or an acute exacerbation of chronic IPF or an acute lung injury on top of chronic IPF. This patient has not responded to conventional treatments of steroids, diuretics, antibiotics and aggressive support with high flow oxygen and BiPAP. He is currently transferred to the intensive care unit and is currently on a BiPAP at a pressure of 16/8 cm of water with an FiO2 of 100%. He is quite tachypneic. Prognosis extremely poor. He opted to stay a full code at this po int in time. He may possibly need intubation mechanical ventilation. Chest x- ray remains unchanged and shows background pulmonary fibrosis with diffuse bilateral groundglass pulmonary infiltrates. He is covered 19 testing is been negative. His oral intake has been minimal over the past 1 week. He is becoming progressively more debilitated. Family will be asked to come into the hospital because of his progressive deterioration and decline. 2 chronic pulmonary fibrosis based on the CAT scan description the patient likely has an IPF. The patient is digital clubbing consistent with IPF. 3 COPD 4 chronic A. fib fibrillation with warfarin outpatient basis, currently off warfarin the patient is to [facility] 5 previous history of smoking more than [id number] 6 hypertension 7 hyperlipidemia 8 history of peripheral vascular disease with previous bilateral iliac stent placement 9 history of depression 10 hyponatremia , recovered 11 troponin leak probably related to oxygen mismatch, no evidence of acute EKG changes. Nevertheless, the EKG shows Q waves over the inferior leads indicative of an old VT. Plan Keep BiPAP therapy for now ABG DC diuretics Continue steroids, IV solumedrol Continue antibiotics IVF at 75 cc/hr Strongly urged change in CODE STATUS to DNR/DNI Aggressive decline and deterioration in his condition. Family will be informed. Based on the fact that there is a possibility of an acute exacerbation of pulmonary fibrosis, the patient carries a bad outcome in a high mortality. It is very highly likely that the patient may not recover from this and remained up on a high flow of oxygen. There is also a likely that the patient's condition may potentially decompensate.
[2021-11-09 09:59] LABS: ABG Base Excess 7.5 mmol/L; ABG HCO3 31 mmol/L (21-25); ABG Oxygen Saturation 92.5 % (94-97); ABG PCO2 39 mmHg (35-45); ABG PH 7.51 (7.35-7.45); ABG PO2 66 mmHg (83-108); ABG TCO2 32 mmol/L (19-24); Allen Test Performed? Yes
[2021-11-09] MEDS: FLUCONAZOLE IN NACL,ISO-OSM 100 MG in SALINE 1 50ML.BAG IVPB SCH (10:57)
[2021-11-09] MEDS: PANTOPRAZOLE 40 MG/10 ML VIAL IVP SCH (11:01)
[2021-11-09 11:09] LABS: Glucose,Whole Blood 79 mg/dL (75-99)
[2021-11-09 11:33] LABS: Basophils # (A) 0.1 k/uL (0-0.2); Basophils % (A) 0 %; Eosinophils # (A) 0.2 k/uL (0-0.7); Eosinophils % (A) 1 %; HCT 42.4 % (39.0-53.0); Lymphocytes # (A) 0.7 k/uL (1.0-4.8); Lymphocytes % (A) 3 %; MCH 31.3 pg (25.0-35.0); MCHC 32.9 g/dL (31.0-37.0); Mean Platelet Volume 9.1; Monocytes # (A) 0.5 k/uL (0-1.0); Monocytes % (A) 2 %; Neutrophils # (A) 22.6 k/uL (1.3-7.7); Neutrophils % (A) 94 %; Platelet Count 138 k/uL (150-450); RBC 4.47 m/uL (4.30-5.90); RDW 15.6 % (11.5-15.5); WBC 24.2 k/uL (3.8-10.6)
[2021-11-09 11:45] LABS: ALT 66 U/L (4-49); AST 46 U/L (17-59); African American GFR (CKD) >90 (>60 ml/min/1.73 sqM); Albumin 2.5 g/dL (3.5-5.0); Alkaline Phosphatase 104 U/L (38-126); Anion Gap 0 mmol/L; Blood Urea Nitrogen 34 mg/dL (9-20); Calcium 7.7 mg/dL (8.4-10.2); Carbon Dioxide 30 mmol/L (22-30); Chloride 106 mmol/L (98-107); Glucose 86 mg/dL (74-99); Magnesium 2.4 mg/dL (1.6-2.3); Non-African American GFR(CKD) >90 (>60 ml/min/1.73 sqM); Potassium 3.8 mmol/L (3.5-5.1); Sodium 136 mmol/L (137-145); Total Bilirubin 2.1 mg/dL (0.2-1.3); Total Protein 5.3 g/dL (6.3-8.2)
[2021-11-09] MEDS: CLOPIDOGREL 75 MG TAB PO SCH (12:25)
[2021-11-09] MEDS: guaiFENesin 600 MG TABLET.ER PO SCH ×2 (12:25→20:21)
[2021-11-09] MEDS: METOPROLOL TARTRATE 25 MG TAB PO SCH ×2 (12:26→20:22)
[2021-11-09] MEDS: POTASSIUM CHLORIDE ER 20 MEQ TAB.ER PO SCH ×2 (12:26→20:22)
[2021-11-09] MEDS: APIXABAN 5 MG TAB PO SCH ×2 (12:26→20:21)
[2021-11-09] MEDS: NYSTATIN 100,000 UNIT/ML SUSP 500,000 UNIT/5 ML CUP PO SCH ×4 (12:26→20:22)
[2021-11-09] MEDS: LEVOFLOXACIN 500MG-D5W PMX 500 MG in DEXTROSE/WATER 1 100ML.BAG IVPB SCH (12:27)
[2021-11-09 17:12] LABS: Glucose,Whole Blood 93 mg/dL (75-99)
[2021-11-09 20:16] LABS: Glucose,Whole Blood 97 mg/dL (75-99)
[2021-11-09] MEDS: DULoxetine HCL 60 MG CAPSULE.DR PO SCH (20:21)
[2021-11-09] MEDS: ASPIRIN 81 MG PO SCH (20:21)
--- NOTE | 2021-11-09 20:36 | P.PN ---
Subjective This is a pleasant 61 years old male with past medical history of CVA and atrial fibrillation on Eliquis, COPD, hypertension, hyperlipidemia. Presents with respiratory symptoms secondary to bilateral interstitial pneumonia with mediastinal lymphadenopathy seen on the chest. Patient is on acute hypoxic respiratory failure requiring 15 L of oxygen per minute. He is still back of neck and dyspneic while he is lying in bed, however he is able to talk freely. No significant coughing. No chest pain. No fever. No diarrhea or vomiting. No urinary symptoms. No headache or weakness or dizziness. I discussed with him his illness and management plan and he agrees. He is currently covered with fluconazole for sputum culture is growing Lisa with infectious disease team recommendation on the case. Also pulmonary team following him closely and currently is on IV Cortef and 100 mg today a times a day and continued on home dose of Eliquis and Protonix. Also he is on aspirin and Plavix. The scope but this was negative and RSV is negative. No pulmonary embolism on CTA. Cortisol level was 6. procalcitonin is normal at 0.05 Chest x-ray showing bilateral infiltrates. 11/02/2021 Patient remains significantly tachypneic and dyspneic, today he had significant coughing with some hemoptysis overnight, however his vital signs blood pressure are stable. His oxygen requirements still at 50 L/m, blood pressure is low normal which is stable for him. No labs from today. Plans sputum culture was positive for lisa and he is currently on fluconazole. We'll going to repeat sputum culture. Repeat chest x-ray in the morning, repeat labs include hemoglobin the morning. Medications were adjusted to IV Lasix 40 mg twice a day and has Cortef was switched to Solu-Medrol 60 mg intravenously. 11/03/2021 Patient remains significantly tachypneic, however he is able to talk through his face mask which delivers about 50 L of oxygen. Patient could not participate in physical therapy today because of his severe dyspnea. His very lethargic and weak . mentation is very awake and alert. He still has hemoptysis but better than yesterday His blood pressure is low normal. His respiratory rate around 20-22. His WBC is 16 K, sodium improved to 134. His repeat chest x-ray showing worsening infiltrates compared to few days ago. It is suspicious for pneumonia and or edema Pro-calcitonin is negative at 0.08. However bacterial infection is not entirely exclude it and patient today was placed back on cefepime and Levaquin. While continued on fluconazole for lisa and his previous sample of sputum. Also Lasix 40 mg twice a day was added yesterday and steroids change from coronary Cortef into IV Solu-Medrol 60 mg 11/04/2021 pt respiratory status is improving, yesterday he was on 15 L/m of oxygen went down to 13 and then 11 L at evening but this morning is at 13 L/m which is a still improving but slowly. A states that he has good appetite, no significant coughing. Yesterday we added Levemir 10 units to his home regimen of metformin 500 mg and his glucose is better this morning. Patient does not have glucometer at home therefore we consulted case loader operator to provide one upon discharge. Dexamethasone, vitamin C, D and zinc. 11/05/2021 Patient awake alert, his respiratory status become more dependent on oxygen, he is now on BiPAP therapy. Which was placed overnight with chest x-ray showing no significant change in bilateral infiltrates which could be suspected due to edema, interstitial fibrosis or infiltrates. Differential diagnosis including covid19 pneumonia. He has already a negative civid19 test on 10/24, where going to repeat another test. The meantime he remains on Eliquis, fluconazole, Levaquin, cefepime, IV Lasix and Solu-Medrol 60 mg 11/06/2021 Patient breathing it looks the same as yesterday with a significantly respiratory distress and tachypneic however he could come of the BiPAP this morning and was placed on 15 L/m of oxygen via high flow nasal cannula Chest x-ray showing bilateral Covid pneumonia. Repeat Covid test is negative yesterday as well E Jairo treated with same dose of IV Solu-Medrol 60 mg, IV Lasix 40 mg, fluconazole, oral Levaquin and cefepime, Eliquis 5 mg. 11/07/2021 She remains dyspneic although is less tachypneic compared to last 2 days. He still due to the high-dose oxygen, he was BiPAP during the night and currently is on high flow nasal cannula on . Patient was treated with Eliquis, with multiple antibiotics including fluconazole, Levaquin, cefepime also received IV Lasix. As well as high dose of steroids for Solu-Medrol 60 mg despite this patient's showing minimal improvement in his condition Pulmonary team input is appreciated most likely patient has persistent exacerbation of idiopathic pulmonary fibrosis and the prognosis is poor. Other than that we will keep monitoring the patient closely 11/08/2021 Patient is awake and alert, he looks tired and somewhat lethargic but it's interactive normally. He is on face mask this morning and he is getting 60 L/m at 90% FiO2. Patient does not make much progress in his respiratory status which is most likely due to fibrosis. Today his steroids are related to prednisone 40 mg daily while he kept on antibiotics of fluconazole, Levaquin and cefepime. Also he is on home dose of Eliquis. Lasix was held yesterday and he received 1 bolus of 500 mL of normal saline and kept on normal saline at 50 mL per hour which is. This morning because his blood pressure was on the low side yesterday. Currently he is not getting Lasix. And he received a bolus of 1 L of normal saline this morning. 11/09/2021 Patient breathing better deteriorate today, a team was called this morning and patient was sent to the ICU. He is currently on BiPAP 11/04 with FiO2 of 100%. He is tachypneic, tachycardic and hypoxic. Labs showing worsening leukocytosis of 24 gait. Most likely patient has end stage hepatic pulmonary fibrosis, and his prognosis is very poor. We will keep the current therapy of Eliquis, antibiotics and steroids Objective - Vital Signs Vital signs: Vital Signs Temp 94.3 F L 11/09/21 07:53 Pulse 87 11/09/21 07:53 Resp 18 11/09/21 07:53 BP 99/77 11/09/21 07:53 Pulse Ox 82 L 11/09/21 07:53 Intake & Output 11/08/21 11/09/21 11/09/21 18:59 06:59 18:59 Intake Total 600 Output Total 600 600 Balance -600 0 Intake: Intake, IV Titration 600 Amount Sodium Chloride 0.9% 1, 600 000 ml @ 999 mls/hr IV . Q1H1M ONE Rx#:[id number] Output: Urine 600 600 Other: Voiding Method Indwelling Catheter - Exam GENERAL: The patient is alert and oriented x3, not in any acute distress. Well developed, well nourished. HEENT: Pupils are round and equally reacting to light. EOMI. No scleral icterus. No conjunctival pallor. Normocephalic, atraumatic. No pharyngeal erythema. No thyromegaly. CARDIOVASCULAR: S1 and S2 present. No murmurs, rubs, or gallops. -PULMONARY: Chest is clear to auscultation, no wheezing. Bilateral crackles. Tachypnea ABDOMEN: Soft, nontender, nondistended, normoactive bowel sounds. No palpable organomegaly. MUSCULOSKELETAL: No joint swelling or deformity. EXTREMITIES: No cyanosis, clubbing, or pedal edema. NEUROLOGICAL: Gross neurological examination did not reveal any focal deficits. SKIN: No rashes. no petechiae. - Labs CBC & Chem 7: 11/09/21 11:15 11/09/21 11:15 Labs: Abnormal Lab Results - Last 24 Hours (Table) 11/08/21 11/08/21 11/08/21 Range/Units 11:45 16:42 20:37 ABG pH (7.35-7.45) ABG pO2 (83-108) mmHg ABG HCO3 (21-25) mmol/L ABG Total CO2 (19-24) mmol/L ABG O2 Saturation (94-97) % POC Glucose (mg/dL) 144 H 113 H 110 H (75-99) mg/dL 11/09/21 11/09/21 11/09/21 Range/Units 07:12 08:57 09:53 ABG pH 7.51 H (7.35-7.45) ABG pO2 66 L (83-108) mmHg ABG HCO3 31 H (21-25) mmol/L ABG Total CO2 32 H (19-24) mmol/L ABG O2 Saturation 92.5 L (94-97) % POC Glucose (mg/dL) 101 H 110 H (75-99) mg/dL Assessment and Plan Assessment: Worsening bilateral pulmonary infiltrate, most likely related to his worsening IPF idiopathic pulmonary fibrosis Acute hypoxic respiratory failure Possible pneumonia with mediastinal lymphadenopathy, secondary to Lisa, less likely causing the main hypoxia episode for the patient but might be some contribution Adrenal insufficiency is suspected by pulmonary service Chronic atrial fibrillation on Eliquis Hypertension Hyperlipidemia Plan: This is a pleasant 61 years old male who presents with pulmonary fibrosis and hypoxia. A stable Lisa infection. Continue with steroids , currently is on dexamethasone Continue with fluconazole for Lisa in his sputum per infectious disease. Also with cefepime and Levaquin Continue with home dose of Eliquis. Discontinue Lasix. Labs and medication were reviewed.. Continue same treatment. Continue with symptomatic treatment. Resume home medication. Monitor lytes and vitals. DVT and GI prophylaxis. Further recommendations as per clinical course of the patient DVT prophylaxis: Eliquis GI Prophylaxis: Ppi PT/OT: Ongoing Prognosis is poor
[2021-11-10] MEDS ORDERED: DEXTROSE 5% IN WATER 100 ML with AMIODARONE 150 MG IV ONE (00:28)
[2021-11-10] MEDS ORDERED: AMIODARONE 360 MG in DEXTROSE 5% IN WATER 200 ML IV ONE ×2 (00:28)
[2021-11-10] MEDS ORDERED: AMIODARONE IN DEXTROSE,ISO-OSM 360 MG/200 ML PLAST..BAG IV ONE (00:44)
[2021-11-10] MEDS ORDERED: AMIODARONE IN DEXTROSE,ISO-OSM 150 MG/100 ML PLAST..BAG IV ONE (00:44)
[2021-11-10] MEDS: CEFEPIME 1 GM in SODIUM CHLORIDE 0.9% 50 ML IVPB SCH (03:14)
[2021-11-10 05:05] VITALS: TEMP 97.6
[2021-11-10] MEDS ORDERED: SODIUM CHLORIDE 0.9% 3,000 ML IV ONE (05:12)
[2021-11-10 05:45] LABS: Basophils % (A) 0 %; Eosinophils # (A) 0.2 k/uL (0-0.7); Eosinophils % (A) 1 %; HCT 42.6 % (39.0-53.0); HGB 13.5 gm/dL (13.0-17.5); Lymphocytes # (A) 0.5 k/uL (1.0-4.8); Lymphocytes % (A) 2 %; MCH 31.1 pg (25.0-35.0); MCHC 31.8 g/dL (31.0-37.0); MCV 97.9 fL (80.0-100.0); Macrocytosis Slight; Mean Platelet Volume 9.4; Monocytes # (A) 0.5 k/uL (0-1.0); Monocytes % (A) 2 %; Neutrophils # (A) 21.6 k/uL (1.3-7.7); Neutrophils % (A) 95 %; Platelet Count 110 k/uL (150-450); RBC 4.35 m/uL (4.30-5.90); RDW 15.6 % (11.5-15.5); WBC 22.8 k/uL (3.8-10.6)
[2021-11-10] MEDS: SODIUM CHLORIDE 0.9% 1,000 ML IV SCH (06:05)
[2021-11-10] MEDS ORDERED: NOREPINEPHRIN 4 MG-0.9% NS PMX 4 MG/250 ML ML IV ONE (06:07)
[2021-11-10 06:09] LABS: ALT 59 U/L (4-49); AST 43 U/L (17-59); African American GFR (CKD) >90 (>60 ml/min/1.73 sqM); Albumin 2.3 g/dL (3.5-5.0); Alkaline Phosphatase 107 U/L (38-126); Anion Gap 1 mmol/L; Blood Urea Nitrogen 27 mg/dL (9-20); Calcium 7.6 mg/dL (8.4-10.2); Carbon Dioxide 30 mmol/L (22-30); Chloride 108 mmol/L (98-107); Glucose 118 mg/dL (74-99); Non-African American GFR(CKD) >90 (>60 ml/min/1.73 sqM); Potassium 4.4 mmol/L (3.5-5.1); Sodium 139 mmol/L (137-145); Total Protein 5.1 g/dL (6.3-8.2)
[2021-11-10] MEDS ORDERED: NOREPINEPHRINE 4 MG in SODIUM CHLORIDE 0.9% 250 ML IV SCH (06:15)
[2021-11-10] MEDS ORDERED: AMIODARONE 450 MG in DEXTROSE 5% IN WATER 250 ML IV SCH ×2 (06:30)
[2021-11-10] MEDS: INSULIN ASPART (NovoLOG) 100 UNIT/ML VIAL SQ SCH (06:38)
[2021-11-10 06:39] LABS: Glucose,Whole Blood 104 mg/dL (75-99)
[2021-11-10] MEDS: IPRATROPIUM-ALBUTEROL 3 ML NEB INHALATION SCH ×2 (07:17→11:18)
[2021-11-10] MEDS ORDERED: propofoL 100 ML IV ONE ×2 (07:58→08:01)
--- NOTE | 2021-11-10 08:31 | XR ---
EXAMINATION TYPE: XR chest 1V portable DATE OF EXAM: 11/10/2021 COMPARISON: Chest x-ray 11/09/2021 HISTORY: Pneumonia TECHNIQUE: Single frontal view of the chest is obtained. FINDINGS: Mixed interstitial and groundglass opacity present in the bilateral lungs is again noted. No evident pneumothorax or pleural effusion. Cardiomediastinal silhouette is stable accounting for di fferences in technique. There are overlying artifacts. IMPRESSION: Findings similar to prior exam. Correlate for pneumonia, there is underlying interstitia l lung disease, old granulomatous disease
[2021-11-10] MEDS ORDERED: EPINEPHrine 10 ML SYRINGE (0.1 MG/ML) ONE (08:40)
[2021-11-10] MEDS ORDERED: SODIUM BICARB 8.4% 50 ML SYR (1 MEQ/ML) ONE ×2 (08:40→09:46)
[2021-11-10] MEDS ORDERED: CHLORHEXIDINE GLUCONATE 15 ML CUP MUCOUS MEM SCH (09:00)
[2021-11-10 09:26] LABS: ABG Base Excess -7.2 mmol/L; ABG HCO3 24 mmol/L (21-25); ABG Oxygen Saturation 7.1 % (94-97); ABG TCO2 27 mmol/L (19-24)
[2021-11-10 09:28] LABS: ABG PCO2 99 mmHg (35-45); ABG PO2 14 mmHg (83-108); Allen Test Performed? NO
[2021-11-10 09:39] LABS: ABG Base Excess -12.8 mmol/L; ABG HCO3 20 mmol/L (21-25); ABG Oxygen Saturation 20.2 % (94-97); ABG TCO2 23 mmol/L (19-24)
[2021-11-10 09:41] LABS: ABG PCO2 100 mmHg (35-45); ABG PH 6.91 (7.35-7.45); ABG PO2 29 mmHg (83-108); Allen Test Performed? no
[2021-11-10] MEDS ORDERED: NOREPINEPHRINE 32 MG in SODIUM CHLORIDE 0.9% 218 ML IV SCH (09:45)
[2021-11-10] MEDS ORDERED: SODIUM CHLORIDE 0.9% 150 ML with VASOPRESSIN 60 UNIT IV SCH ×2 (09:45)
[2021-11-10] MEDS ORDERED: SODIUM BICARB 8.4% 50 ML SYR (1 MEQ/ML) IV STA (09:49)
[2021-11-10] MEDS ORDERED: SODIUM CHLORIDE 0.9% 1,000 ML IV SCH (10:00)
[2021-11-10] MEDS ORDERED: EPINEPHrine 4 MG in DEXTROSE 5% IN WATER 250 ML IV SCH ×2 (10:00)
[2021-11-10] MEDS ORDERED: DEXTROSE 5% IN WATER 1,000 ML with SODIUM BICARB (1 MEQ/ML) 150 ML IV SCH (10:00)
[2021-11-10 10:14] LABS: ABG Base Excess -16.3 mmol/L; ABG HCO3 17 mmol/L (21-25); ABG TCO2 20 mmol/L (19-24)
--- NOTE | 2021-11-10 10:17 | XR ---
EXAMINATION TYPE: XR chest 1V portable DATE OF EXAM: 11/10/2021 COMPARISON: Chest x-ray 11/10/2021 HISTORY: Intubated TECHNIQUE: Single frontal view of the chest is obtained. FINDINGS: There is been interval placement of an endotracheal tube, left subclavian central venous c atheter which are overlying appropriate positions, distal tip of the central venous catheter are over lying the superior vena cava. No evident pneumothorax or pleural effusion. Diffuse interstitial and a irspace disease is again noted throughout the lungs. Cardiomediastinal silhouette is stable accountin g for differences in technique. Lung volumes are lower. There are overlying artifacts. IMPRESSION: No evident complication status post intubation and central venous catheter placement
[2021-11-10 10:18] LABS: ABG PCO2 90 mmHg (35-45); ABG PH 6.88 (7.35-7.45); ABG PO2 50 mmHg (83-108); Allen Test Performed? no
--- NOTE | 2021-11-10 10:23 | P.EN ---
CODE BLUE NOTE Patient was coded from 839 to 854, then again from 912 to 938. For 839 to 854 Initial rhythm was PEA. Pt rec'd total 2 amps of epinephrine and 2 amps of bicarb with ROSC to AFib with RVR. 4 cycles of CPR total with no shocks required. From 912 to 938 Pt again went into PEA with underlying AFib. Pt rec'd total of 5 amps of epinephrine and additional 2 amps of bicarb with ROSC to AFib with RVR. Total 6 cycles of CPR with no shocks required. Pt was subsequently started on levophed, epinephrine, and vasopressin gtt to maintain BP. ABG post-code showed pH 6.8, pO2 29, pCO2 100. Pt had femoral central line and R Brachial A-line placed during code. Family was notified by intensive care team, and family coming to bedside. Prognosis extremely poor.
[2021-11-10] MEDS: LEVOFLOXACIN 500MG-D5W PMX 500 MG in DEXTROSE/WATER 1 100ML.BAG IVPB SCH (10:43)
[2021-11-10] MEDS: FLUCONAZOLE IN NACL,ISO-OSM 100 MG in SALINE 1 50ML.BAG IVPB SCH (10:44)
[2021-11-10] MEDS: PANTOPRAZOLE 40 MG/10 ML VIAL IVP SCH (11:19)
[2021-11-10] MEDS: CLOPIDOGREL 75 MG TAB PO SCH (11:19)
[2021-11-10] MEDS: APIXABAN 5 MG TAB PO SCH (11:19)
[2021-11-10] MEDS ORDERED: methylPREDNISolone SOD SUCCI 125 MG/2 ML VIAL IV SCH (12:00)
[2021-11-10 13:36] VITALS: BP 0/0; PULSE 0; RESP 0
--- NOTE | 2021-11-10 16:53 | P.PN ---
Subjective Progress Note Date: 11/10/21 Principal diagnosis: Acute on chronic hypoxic respiratory failure secondary to interstitial lung disease/usual interstitial pneumonitis. On 11/09/2021, the patient is still doing very poor. The patient was kept on BiPAP overnight. Earlier this morning, the patient had episodes of desaturation. Pulse ox was dropping in the low 80s. Based on that, I made recommendations to move the patient to the intensive care unit. As mentioned earlier, the patient prefers Airvo over BiPAP. Airvo makes him quite comfortable and less anxious. Nevertheless, he was unable to tolerate the Airvo and he was switched to a BiPAP which is currently at a pressure of 18/6 cm of water with an FiO2 of 100%. He is generating tidal volumes around 1000cc and his respiratory rate is at 27. The patient's pulse ox is 89%. He is quite lethargic. He is tachypneic. Despite my earlier advice to him, the patient opted to change his CODE STATUS to full code. He understands that this is a very poor prognosis knowing that the patient has an acute exacerbation of IPF which carries a very high mortality. He has not shown any signs of recovery. During the course of his illness, the patient was given diuretics which did not help and made him quite dry and dehydrated and hypotensive. He was given higher dose of steroids. He was given broad-spectrum antibiotics. He was also given anticoagulation. Unfortunately, his condition decompensated and the patient got transferred to the ICU. Currently is on IV fluids which are running at 0.9 at the rate of 50 mL an hour. He seems to be much more comfortable after being transferred to the intensive care unit.. He is on no sedatives for now. Patient was reevaluated today on 11/10/2021, patient was on BiPAP overnight, however the patient continued to deteriorate until early this morning hours. I was notified about this patient and about his worsening pulmonary status, hence I recommended intubating the patient and placed on mechanical ventilation. I came in to see the patient shortly after he was intubated, he was on assist control rate of 30 tidal volume 400 FiO2 100% and PEEP of 5. Patient was hypotensive requiring multiple pressors including norepinephrine, and later on epinephrine and vasopressin. However shortly after intubation, patient went on to develop pulseless electrical activity requiring multiple codes / ACLS p rotocol. Patient received multiple doses of norepinephrine multiple doses of sodium bicarb, however he went on to develop intermittently pulseless electrical activity. Chest x-ray in between odes showed adequate placement of a left subclavian triple-lumen catheter and it showed adequate placement of the endotracheal tube, but clearly showed severe interstitial lung disease bilaterally. At any rate after multiple cycles of CPR I discussed his status with the son over the phone, and explained time that his dad is not doing well, not to mention the patient has severe prognosis to begin with considering his terminal illness/usual interstitial pneumonitis. His son later came into the ICU, and he went on to request comfort care measures. Patient was later pronounced , and he was placed on comfort care measures as per his son's wishes. Objective - Vital Signs Vital signs: Vital Signs Temp 97.6 F 11/10/21 04:00 Pulse 0 L 11/10/21 12:50 Resp 0 L 11/10/21 12:50 BP 0/0 11/10/21 12:50 Pulse Ox 65 L 11/10/21 12:15 Intake & Output 11/09/21 11/10/21 11/10/21 18:59 06:59 18:59 Intake Total 625 3360 2382.015 Output Total 620 500 45 Balance 5 2860 2337.015 Weight 94.5 kg Intake: IV 425 3360 2350 Cefepime 1 gm In Sodium 125 Chloride 0.9% 50 ml @ 12. 5 mls/hr IVPB Q12H MELANIE Rx #:[id number] Dextrose 5% in Water 1, 250 000 ml @ 125 mls/hr IV . Q9H12M MELANIE with Sodium Bicarb (1 Meq/ml) 150 ml Rx#:[id number] Sodium Chloride 0.9% 1, 300 3360 2100 000 ml @ 50 mls/hr IV . Q20H MELANIE Rx#:[id number] Intake, IV Titration 32.015 Amount EPINEPHrine 4 mg In 8.682 Dextrose 5% in Water 250 ml @ 0.01 MCG/KG/MIN 3. 544 mls/hr IV .Q24H MELANIE Rx#:[id number] Norepinephrine 4 mg In 23.333 Sodium Chloride 0.9% 250 ml @ 0.05 MCG/KG/MIN 18. 421 mls/hr IV .[id number] MELANIE Rx#:[id number] Oral 200 Output: Urine 620 500 45 Other: Voiding Method Indwelling Catheter Indwelling Catheter ABP, PAP, CO, CI - Last Documented Arterial Blood Pressure 35/34 - Exam GENERAL EXAM: Revealed 61-year-old white male intubated, unresponsive to any stimuli, pupils are dilated. Head exam atraumatic and normocephalic. EYES: Dilated pupils are reactive to light or accommodation. NOSE: Clear with pink turbinates. THROAT: Endotracheal tube and orogastric tube are intact. NECK: No masses, no JVD. Left subclavian central line noted. LUNGS: Symmetrical chest expansion, Velcro rales and crackles at the bases. CVS: Distant S1 and S2, tachycardic, at times the patient was noted to be bradycardic, no murmur. ABDOMEN: Soft nontender no megaly no rebound. SKIN: No rashes, significant clubbing is noted. CENTRAL NERVOUS SYSTEM: Unresponsive to any stimuli during my evaluation. EXTREMITIES: Poor pulses bilaterally and positive clubbing was cyanosis noted in both upper and lower extremities. - Labs CBC & Chem 7: 11/10/21 05:33 11/10/21 05:33 Labs: Abnormal Lab Results - Last 24 Hours (Table) 11/10/21 11/10/21 11/10/21 Range/Units 05:33 05:33 05:33 WBC 22.8 H (3.8-10.6) k/uL RDW 15.6 H (11.5-15.5) % Plt Count 110 L (150-450) k/uL Neutrophils # 21.6 H (1.3-7.7) k/uL Lymphocytes # 0.5 L (1.0-4.8) k/uL ABG pH (7.35-7.45) ABG pCO2 (35-45) mmHg ABG pO2 (83-108) mmHg ABG HCO3 (21-25) mmol/L ABG Total CO2 (19-24) mmol/L ABG O2 Saturation (94-97) % Chloride 108 H (98-107) mmol/L BUN 27 H (9-20) mg/dL Creatinine 0.65 L (0.66-1.25) mg/dL Glucose 118 H (74-99) mg/dL POC Glucose (mg/dL) (75-99) mg/dL Calcium 7.6 L (8.4-10.2) mg/dL Total Bilirubin 2.0 H (0.2-1.3) mg/dL ALT 59 H (4-49) U/L Total Protein 5.1 L (6.3-8.2) g/dL Albumin 2.3 L (3.5-5.0) g/dL Procalcitonin 0.12 H (0.02-0.09) ng/mL 11/10/21 11/10/21 11/10/21 Range/Units 06:37 09:24 09:37 WBC (3.8-10.6) k/uL RDW (11.5-15.5) % Plt Count (150-450) k/uL Neutrophils # (1.3-7.7) k/uL Lymphocytes # (1.0-4.8) k/uL ABG pH 7.00 L* 6.91 L* (7.35-7.45) ABG pCO2 99 H* 100 H* (35-45) mmHg ABG pO2 14 L* 29 L* (83-108) mmHg ABG HCO3 20 L (21-25) mmol/L ABG Total CO2 27 H (19-24) mmol/L ABG O2 Saturation 7.1 L 20.2 L (94-97) % Chloride (98-107) mmol/L BUN (9-20) mg/dL Creatinine (0.66-1.25) mg/dL Glucose (74-99) mg/dL POC Glucose (mg/dL) 104 H (75-99) mg/dL Calcium (8.4-10.2) mg/dL Total Bilirubin (0.2-1.3) mg/dL ALT (4-49) U/L Total Protein (6.3-8.2) g/dL Albumin (3.5-5.0) g/dL Procalcitonin (0.02-0.09) ng/mL 11/10/21 Range/Units 10:13 WBC (3.8-10.6) k/uL RDW (11.5-15.5) % Plt Count (150-450) k/uL Neutrophils # (1.3-7.7) k/uL Lymphocytes # (1.0-4.8) k/uL ABG pH 6.88 L* (7.35-7.45) ABG pCO2 90 H* (35-45) mmHg ABG pO2 50 L* (83-108) mmHg ABG HCO3 17 L (21-25) mmol/L ABG Total CO2 (19-24) mmol/L ABG O2 Saturation 49.0 L (94-97) % Chloride (98-107) mmol/L BUN (9-20) mg/dL Creatinine (0.66-1.25) mg/dL Glucose (74-99) mg/dL POC Glucose (mg/dL) (75-99) mg/dL Calcium (8.4-10.2) mg/dL Total Bilirubin (0.2-1.3) mg/dL ALT (4-49) U/L Total Protein (6.3-8.2) g/dL Albumin (3.5-5.0) g/dL Procalcitonin (0.02-0.09) ng/mL Assessment and Plan Assessment: Impression: Acute on chronic hypoxic respiratory failure, secondary to severe interstitial lung disease, usual interstitial pneumonitis unless for otherwise. Pulseless electrical activity requiring CPR and multiple rounds of epinephrine, sodium bicarb, History of underlying COPD Chronic atrial fibrillation [id number] smoking history Dyslipidemia History of peripheral vessel occlusive disease and previous bilateral iliac stents History of depression Recommendation: Patient was intubated by STOCK HOLDER and shortly after the patient developed pulseless electrical activity Please refer to the code sheets, patient had multiple cycles of epinephrine, CPR, and finally son came in and requested comfort care measures. Critical care time is over 40 minutes, not including the time spent on procedures. Son was updated on his condition, and he came in and change CODE STATUS to DO NOT RESUSCITATE and requested comfort care measures. I strongly believe this is very appropriate considering the patient has clearly a terminal illness. And not much could be done at this point. Time with Patient: Greater than 30
--- NOTE | 2021-11-10 17:32 | OP ---
OPERATIVE REPORT OPERATIVE REPORT: Placement of a right brachial arterial line. PREOPERATIVE DIAGNOSIS: Acute hypoxic respiratory failure and intermittent episodes of pulseless electrical activity. PROCEDURE DESCRIPTION: The patient was placed in the supine position. The right brachial artery was localized by Doppler. Then the right brachial artery was cannulated. A guidewire was placed, and a Cook's catheter was inserted over the guidewire, and the guidewire was removed. Good blood flow, good waveform noted. No complications. Line was secured using 3.0 silk sutures. MMODL / IJN: [id number] /
--- NOTE | 2021-11-10 17:34 | PCN ---
PROCEDURE NOTE OPERATIVE REPORT: Placement of the left subclavian triple-lumen catheter. PREOPERATIVE DIAGNOSIS: Acute hypoxic respiratory failure requiring intubation and mechanical ventilation with hypotension. POSTOPERATIVE DIAGNOSIS: Acute hypoxic respiratory failure requiring intubation and mechanical ventilation with hypotension. ANESTHESIA USED: 2 mL of 1% lidocaine. PROCEDURE: The patient was placed in Trendelenburg position. The area of the left subclavian lesion was prepared in a sterile fashion and drapes were applied. Then, the area was locally anesthetized with lidocaine. Using the inferior approach, the left subclavian vein was easily cannulated, a guidewire was placed. The area of the guidewire was dilated. Then a triple-lumen catheter was inserted over the guidewire, and the guidewire was removed. Good blood flow was noted in the 3 different ports. Line was secured using 3.0 silk sutures. Chest x-ray showed adequate placement and no complications. MMODL / IJN: [id number] /
--- NOTE | 2021-11-10 22:09 | P.DS ---
Providers Date of admission: 10/24/21 16:45 Attending physician: Hussain Casey Consults: 10/24/21 16:53 Consult Physician Routine Consulting Provider: Elvi Goss Consult Reason/Comments: PNA Do you want consulting provider notified?: Yes 10/30/21 18:43 Consult Physician Routine Consulting Provider: Brian Montanez Consult Reason/Comments: fungal pneumonia? Do you want consulting provider notified?: Yes Primary care physician: Viktoriya Curiel Hospital Course: Diagnoses: Worsening bilateral pulmonary infiltrate, most likely related to his worsening IPF idiopathic pulmonary fibrosis Acute hypoxic respiratory failure Possible pneumonia with mediastinal lymphadenopathy, secondary to Lisa, less likely causing the main hypoxia episode for the patient but might be some contribution Adrenal insufficiency is suspected by pulmonary service Chronic atrial fibrillation on Eliquis Hypertension Hyperlipidemia Hospital course: This is a pleasant 61 years old male with past medical history of CVA and atrial fibrillation on Eliquis, COPD, hypertension, hyperlipidemia. Presents with respiratory symptoms secondary to bilateral interstitial infiltrate suspected pneumonia with mediastinal lymphadenopathy seen on the chest images. Patient was on 5-6 L of oxygen to start with and went up to 15 L/m of oxygen. Patient has been followed closely by pulmonary service throughout his prolonged stay in the hospital. History treated with multiple medications including his home dose of Eliquis, antibiotics with fluconazole based on Lisa in his sputum culture as well as Levaquin and cefepime, IV Lasix, steroids including IV Cortef IV Solu-Medrol and prednisone as well as dexamethasone. Also he was on aspirin and Plavix which are part of his home medication and despite all this medication patient kept worsening. And worsening idiopathic pulmonary fibrosis is highly suspected. However patient over the last 48 hours duration exacerbated and he went into the ICU, he had several rounds of cold blue and cardiac pulmonary arrest and been resuscitated, eventually the family at son been contacted who made the patient comfort care and today. My exam prior to expiration -Gen: patient is a confused, and severe respiratory distress, on high dose oxygen and BiPAP. CVS: S1-S2, RRR, no murmur -Lungs: B/L CTA, bilateral crepitation. Abdomen: soft, no distention, no tenderness, positive bowel sounds Extremity: no leg edema or induration Time spent more than 35 minutes Patient Condition at Discharge: Stable Plan - Discharge Summary Discharge Rx Participant: No New Discharge Prescriptions: No Action Warfarin [Coumadin] 5 mg PO HS Ipratropium-Albuterol Nebulize [Duoneb 0.5 mg-3 mg/3 ml Soln] 3 ml INHALATION RT-QID DULoxetine HCL [Cymbalta] 60 mg PO HS Montelukast Sodium [Singulair] 10 mg PO HS Albuterol Nebulized [Ventolin Nebulized] 2.5 mg INHALATION RT-Q8H PRN PRN Reason: Shortness Of Breath Atorvastatin [Lipitor] 40 mg PO HS Ipratropium-Albuterol Nebulize [Duoneb 0.5 mg-3 mg/3 ml Soln] 3 ml INHALATION RT-Q2H PRN ml PRN Reason: Shortness Of Breath Or Wheezing lisinopriL [Zestril] 2.5 mg PO HS 30 Days #30 tab Omeprazole 20 mg PO HS Budesonide [Pulmicort] 0.5 mg INHALATION RT-BID Aspirin 81 mg PO HS Metoprolol Tartrate [Lopressor] 50 mg PO BID 30 Days #60 tab Clopidogrel [Plavix] 75 mg PO DAILY 30 Days #30 tab Discharge Medication List Warfarin [Coumadin] 5 mg PO HS 05/18/16 [History] Albuterol Nebulized [Ventolin Nebulized] 2.5 mg INHALATION RT-Q8H PRN 09/30/21 [History] Aspirin 81 mg PO HS 09/30/21 [History] Atorvastatin [Lipitor] 40 mg PO HS 09/30/21 [History] Budesonide [Pulmicort] 0.5 mg INHALATION RT-BID 09/30/21 [History] DULoxetine HCL [Cymbalta] 60 mg PO HS 09/30/21 [History] Ipratropium-Albuterol Nebulize [Duoneb 0.5 mg-3 mg/3 ml Soln] 3 ml INHALATION RT-QID 09/30/21 [History] Montelukast Sodium [Singulair] 10 mg PO HS 09/30/21 [History] Omeprazole 20 mg PO HS 09/30/21 [History] Clopidogrel [Plavix] 75 mg PO DAILY 30 Days #30 tab 10/02/21 [Rx] Ipratropium-Albuterol Nebulize [Duoneb 0.5 mg-3 mg/3 ml Soln] 3 ml INHALATION RT-Q2H PRN ml 10/02/21 [Rx] Metoprolol Tartrate [Lopressor] 50 mg PO BID 30 Days #60 tab 10/02/21 [Rx] lisinopriL [Zestril] 2.5 mg PO HS 30 Days #30 tab 10/02/21 [Rx] Follow up Appointment(s)/Referral(s): [facility] [facility] [NON-STAFF] - [facility] [REFERRING] - Caio Walter DO [Doctor of Osteopathic Medicine] - 11/27/21 2:30 pm [facility], [NON-STAFF] - As Needed Viktoriya Curiel MD [Primary Care Provider] - 1-2 days Discharge/Stand Alone Forms: Who Do I Call? Discharge Disposition: - Preliminary Cause of Preliminary Cause of : Progressive end-stage pulmonary fibrosis
== END 2021-11-10 15:10 | disposition expired | DRG 208 ==
LOC: EC 13:30 → 3SCARD 16:45 → 4SSUR 10-31 01:29 → 2SICU 11-09 08:51
PROVIDERS: ADMIT Hospitalist; ATTEND Hospitalist
PROC: 5A0945A Assistance with Respiratory Ventilation, 24-96 Consecutive Hours, High Flow/Velocity Cannula (ICD-10-PCS; 2021-10-25)
PROC: 5A09357 Assistance with Respiratory Ventilation, Less than 24 Consecutive Hours, Continuous Positive Airway Pressure (ICD-10-PCS; 2021-11-09)
PROC: 5A1935Z Respiratory Ventilation, Less than 24 Consecutive Hours (ICD-10-PCS; principal; 2021-11-10)
PROC: 5A12012 Performance of Cardiac Output, Single, Manual (ICD-10-PCS; 2021-11-10)
PROC: 3E033XZ Introduction of Vasopressor into Peripheral Vein, Percutaneous Approach (ICD-10-PCS; 2021-11-10)
PROC: 03HY32Z Insertion of Monitoring Device into Upper Artery, Percutaneous Approach (ICD-10-PCS; 2021-11-10)
PROC: 4A133B1 Monitoring of Arterial Pressure, Peripheral, Percutaneous Approach (ICD-10-PCS; 2021-11-10)
PROC: 4A133J1 Monitoring of Arterial Pulse, Peripheral, Percutaneous Approach (ICD-10-PCS; 2021-11-10)
PROC: 0BH17EZ Insertion of Endotracheal Airway into Trachea, Via Natural or Artificial Opening (ICD-10-PCS; 2021-11-10)
DX: J84.112 Idiopathic pulmonary fibrosis (principal); I50.33 Acute on chronic diastolic (congestive) heart failure; J16.8 Pneumonia due to other specified infectious organisms; J96.21 Acute and chronic respiratory failure with hypoxia; J15.9 Unspecified bacterial pneumonia; B37.0 Candidal stomatitis; B37.89 Other sites of candidiasis; E27.40 Unspecified adrenocortical insufficiency; E87.1 Hypo-osmolality and hyponatremia; E87.2 Acidosis; I48.19 Other persistent atrial fibrillation; J44.0 Chronic obstructive pulmonary disease with (acute) lower respiratory infection; J44.1 Chronic obstructive pulmonary disease with (acute) exacerbation; Z51.5 Encounter for palliative care; Z20.822 Contact with and (suspected) exposure to COVID-19; Z66 Do not resuscitate; E78.5 Hyperlipidemia, unspecified; F17.200 Nicotine dependence, unspecified, uncomplicated; I07.1 Rheumatic tricuspid insufficiency; I25.10 Atherosclerotic heart disease of native coronary artery without angina pectoris; I27.20 Pulmonary hypertension, unspecified; I11.0 Hypertensive heart disease with heart failure; I46.9 Cardiac arrest, cause unspecified; I73.9 Peripheral vascular disease, unspecified; M19.90 Unspecified osteoarthritis, unspecified site; R13.10 Dysphagia, unspecified; Z79.01 Long term (current) use of anticoagulants; Z79.02 Long term (current) use of antithrombotics/antiplatelets; Z79.82 Long term (current) use of aspirin; Z79.84 Long term (current) use of oral hypoglycemic drugs; Z79.899 Other long term (current) drug therapy; Z82.49 Family history of ischemic heart disease and other diseases of the circulatory system; Z82.5 Family history of asthma and other chronic lower respiratory diseases; Z86.73 Personal history of transient ischemic attack (TIA), and cerebral infarction without residual deficits; Z90.49 Acquired absence of other specified parts of digestive tract; Z99.81 Dependence on supplemental oxygen; R77.8 Other specified abnormalities of plasma proteins; F32.A Depression, unspecified; I95.9 Hypotension, unspecified
CPT/HCPCS: 36415; 36600; 71045; 71046; 71275; 80048; 80053; 80076; 81003; 82533; 82803; 82805; 83605; 83615; 83735; 83880; 84145; 84484; 85025; 85610; 85730; 86140; 87040; 87070; 87205; 87502; 87634; 87635; 92950; 93005; 93306; 94002; 94640; 94660; 94760; 96374; 99285